=== PATIENT | female | born 1950 | race Caucasian/White ===

== ENCOUNTER 2016-09-15 06:46 | Day surgery (SDC) | payer OTHER ==
[2016-09-13 08:49] VITALS: BMI 30.9
[~2016-09-15 06:46] MED LIST: CHONDROITIN SU A/HYALUR SOD 1 KIT IO ONE; CIPROFLOXACIN HCL 0.3% OPHTH 2.5ML BOTTLE OP SCH; CYCLOPENTOLATE HCL 1% OPHTH SOLN 2 ML BOTTLE OP SCH; FLURBIPROFEN 0.03% OPHTH SOLN 2.5 ML BOTTLE OP SCH; LIDOCAINE HCL 1% PRESERVATIVE FREE - 30ML VIAL IO ONE; LIDOCAINE HCL 2% JELLY (5 ML/TUBE) TP ONE; PHENYLEPHRINE 2.5% OPHTH SOLN 15 ML BOTTLE OP SCH; TROPICAMIDE 1% OPHTH SOLN 15 ML BOTTLE OP SCH
[2016-09-15] MEDS ORDERED: TROPICAMIDE 1% OPHTH SOLN 15 ML BOTTLE ONE (06:58)
[2016-09-15] MEDS ORDERED: CIPROFLOXACIN 0.3% EYE DROPS 5 ML BOTTLE ONE (06:58)
[2016-09-15] MEDS ORDERED: FLURBIPROFEN 0.03% OPHTH SOLN 2.5 ML BOTTLE ONE (06:58)
[2016-09-15] MEDS ORDERED: CYCLOPENTOLATE HCL 1% OPHTH SOLN 2 ML BOTTLE ONE (06:58)
[2016-09-15] MEDS ORDERED: PHENYLEPHRINE 2.5% OPHTH SOLN 15 ML BOTTLE ONE (06:59)
[2016-09-15 07:28] VITALS: BP 134/87; PULSE 72; TEMP 97.9
[2016-09-15] MEDS ORDERED: CIPROFLOXACIN HCL 0.3% OPHTH 2.5ML BOTTLE OD ONE ×3 (07:40→08:32)
[2016-09-15] MEDS ORDERED: PHENYLEPHRINE 2.5% OPHTH SOLN 15 ML BOTTLE OD ONE ×3 (07:40→08:32)
[2016-09-15] MEDS ORDERED: CYCLOPENTOLATE HCL 1% OPHTH SOLN 2 ML BOTTLE OD ONE ×3 (07:40→08:31)
[2016-09-15] MEDS ORDERED: FLURBIPROFEN 0.03% OPHTH SOLN 2.5 ML BOTTLE OD ONE ×3 (07:40→08:32)
[2016-09-15] MEDS ORDERED: TROPICAMIDE 1% OPHTH SOLN 15 ML BOTTLE OD ONE ×3 (07:40→08:32)
[2016-09-15] MEDS ORDERED: LIDOCAINE HCL/PF 1% SDV 5ML VIAL ONE ×2 (07:51→10:10)
[2016-09-15] MEDS ORDERED: LIDOCAINE HCL 2% JELLY (5 ML/TUBE) ONE (10:10)
[2016-09-15] MEDS ORDERED: EPINEPHrine/PF 1 MG/1 ML (1:1,000) AMPULE ONE (10:10)
== END 2016-09-15 11:50 | disposition home or self-care (01) ==
LOC: JASU-SURG 06:46
PROVIDERS: ATTEND Ophthalmology
PROC: 8E0KXY7 Examination of Musculoskeletal System (ICD-10-PCS; principal; 2016-09-15)
DX: Z53.8 Procedure and treatment not carried out for other reasons (principal)

== ENCOUNTER 2017-03-16 10:32 | Inpatient (IN) | payer OTHER ==
[2017-03-11 11:13] VITALS: BMI 30.9
[~2017-03-16 10:32] MED LIST changes: -CHONDROITIN SU A/HYALUR SOD 1 KIT IO ONE; -CIPROFLOXACIN HCL 0.3% OPHTH 2.5ML BOTTLE OP SCH; -CYCLOPENTOLATE HCL 1% OPHTH SOLN 2 ML BOTTLE OP SCH; -FLURBIPROFEN 0.03% OPHTH SOLN 2.5 ML BOTTLE OP SCH; -LIDOCAINE HCL 1% PRESERVATIVE FREE - 30ML VIAL IO ONE; +LIDOCAINE HCL 1%, 10 MG/ML (20ML VIAL) IJ ONE; -LIDOCAINE HCL 2% JELLY (5 ML/TUBE) TP ONE; -PHENYLEPHRINE 2.5% OPHTH SOLN 15 ML BOTTLE OP SCH; -TROPICAMIDE 1% OPHTH SOLN 15 ML BOTTLE OP SCH
[2017-03-16 11:25] LABS: URINE APPEARANCE CLOUDY; URINE BILIRUBIN NEGATIVE (NEGATIVE); URINE BLOOD 1+ (NEGATIVE); URINE COLOR YELLOW; URINE GLUCOSE (UA) NEGATIVE (NEGATIVE); URINE KETONE NEGATIVE (NEGATIVE); URINE NITRITE NEGATIVE (NEGATIVE); URINE PROTEIN NEGATIVE (NEGATIVE); URINE UROBILINOGEN NEGATIVE mg/dL (0.2-1.0)
[2017-03-16 11:30] LABS: URINE LEUK ESTERASE 3+ (NEGATIVE)
[2017-03-16 11:35] LABS: GRANULAR CASTS 3 /lpf; URINE BACTERIA MODERATE /hpf (NONE SEEN); URINE HYALINE CAST 2 /lpf; URINE MUCUS FEW; URINE RBC 10 /hpf (0-3); URINE WBC 109 /hpf (3-5)
[2017-03-16] MEDS ORDERED: LIDOCAINE HCL 1%, 10 MG/ML (20ML VIAL) ONE ×2 (12:46→14:41)
[2017-03-16] MEDS ORDERED: ROPIVACAINE HCL 0.5% 30ML VIAL ONE (12:46)
[2017-03-16] MEDS ORDERED: DEXAMETHASONE SOD PHOSPHATE/PF 10 MG/ML SDV ONE (12:46)
[2017-03-16] MEDS ORDERED: MIDAZOLAM HCL 2 MG/2 ML SINGLE DOSE VIAL ONE ×3 (14:36→15:52)
[2017-03-16] MEDS ORDERED: ISOSULFAN BLUE 10 MG/ML VIAL SQ ONE (14:41)
[2017-03-16] MEDS ORDERED: PROPOFOL 20 ML ONE ×2 (15:37→16:06)
[2017-03-16] MEDS ORDERED: LIDOCAINE HCL 1%, 10 MG/ML (20ML VIAL) IJ ONE ×2 (15:40→15:55)
[2017-03-16] MEDS ORDERED: CLINDAMYCIN PHOSPHATE 600 MG/4 ML VIAL ONE (15:50)
[2017-03-16] MEDS ORDERED: DEXAMETHASONE SOD PHOSPHATE 4 MG/1 ML VIAL ONE (16:05)
[2017-03-16] MEDS ORDERED: ONDANSETRON 4 MG/2 ML VIAL IVPUSH PRN (17:27)
[2017-03-16] MEDS ORDERED: LACTATED RINGERS SOLUTION 1,000 ML IV SCH (17:30)
[2017-03-16] MEDS ORDERED: ACETAMINOPHEN 500 MG TABLET (FP) PO PRN (17:59)
[2017-03-16] MEDS ORDERED: traMADol HCL 50 MG TABLET PO PRN (17:59)
--- NOTE | 2017-03-16 19:07 | OP ---
DATE OF OPERATION: 03/16/2017 PREOPERATIVE DIAGNOSIS: Left breast cancer. POSTOPERATIVE DIAGNOSIS: Left breast cancer. PROCEDURE: Left breast ultrasound guided wire localized lumpectomy and sentinel lymph node biopsy. SURGEON: Linnea Parker M.D. ANESTHESIA: Paravertebral block and sedation. ESTIMATED BLOOD LOSS: Minimal. COMPLICATIONS: None. This is a sterile procedure. INDICATION FOR PROCEDURE: The patient has a palpable mass in the outer left breast. The mammogram ultrasound shows 3 suspicious findings in the outer left breast. I did a needle biopsy of 2 of the findings in the left 3 o'clock location, both of which shows invasive carcinoma approximately 4 cm apart. The third area in the 2:30 location 6 cm from the nipple appeared to be dilated duct, also found to be suspicious. I decided this was close enough to the known cancer that would be removed at the time of lumpectomy with ultrasound guidance. The procedure was discussed with her, and all her questions answered. PROCEDURE IN DETAIL: The patient was brought to [facility] in [place], taken to nuclear medicine, where technetium labelled sulpha colloid was injected by the radiologist in the left breast 3 o'clock areolar border. She was brought up to the operating room and after paravertebral block was performed, she was taken into the operating room, and after IV sedation and IV antibiotics, the left breast and maxilla were prepped, and intraoperative ultrasound was performed to localize the area in the 2:30 location 6 cm from the nipple with a Kopans wire under ultrasound guidance by me. Once this was completed, 5 cc of isosulfan blue dye was injected into the left subareolar plexus, and the breast was massaged for 5 minutes. The left breast and axilla were then prepped and draped in the usual sterile fashion. 1% lidocaine was used to anesthetize the outer part of the left breast as well as the left axilla, and a 4-cm incision was made in the left axilla, carried down to the clavipectoral fascia to identify a sentinel lymph node that was hot but not blue. There was no other radioactivity, blue dye, pathological-appearing lymph nodes in the left axilla, therefore the sentinel lymph node was then sent to pathology for permanent section. Hemostasis was assured with electrocautery. Next, the left breast lumpectomy was performed. A radial incision was made in the outer part of the left breast, and the wire was used to make sure the 2:30 location area was included within the lumpectomy. A lumpectomy was performed en bloc tagged with a long suture lateral, short suture superior, sent to pathology for permanent section. I felt I was close medially, therefore I took a new medial margin with stitch at the old margin. In palpating the cavity, there was also some nodularity anteriorly at the lumpectomy, in the lumpectomy cavity at the 4 o'clock areolar border, and this was taken separately. It was sent to pathology for permanent section. Once hemostasis was assured, there was a wide defect left from this lumpectomy that measured 6 cm x 6 cm. Therefore superior, inferomedial lateral flaps were raised, and a tissue transfer procedure was performed to fill in the defect from the lumpectomy procedure. The parenchyma approximated in 2 layers of interrupted 2-0 Vicryl, skin approximated with interrupted 2-0 Vicryl, running 4-0 Prolene. The axillary incision was also closed in routine fashion with interrupted 2-0 Vicryl, running 4-0 Prolene. A sterile dressing with Tegaderm, 4x4s was applied. She tolerated procedure well and was taken to recovery in good condition. Lorne [id number] MTDD
--- NOTE | 2017-03-17 10:51 | PN ---
Progress Note (short form) - Note Progress Note: Anesthesia POD#1 S/p Left Lumpectomy under Paravertebral Block and TIVA VSS, block worked well,wering off now. Some residual numbness in axilla. Pain is coming back. Ultram is ordered yesterday.Tylenol and motrin are not suitable. No N/V. Janae Vee MD
[2017-03-17 11:03] VITALS: BP 150/70; PULSE 84; TEMP 97.4
--- NOTE | 2017-03-22 14:34 | PATH ---
Surgical Pathology Report Patient Name: CYNTHIA HICKS [facility]. Rec. #: [id number] /Age/Gender: 1950 (Age: 67) / F Account: [id number] Location: [address] [place] [address]/[facility] Taken: 03/17/2017 Received: 03/17/2017 Reported: 03/24/2017 Physicians: Linnea Parker M.D. Specimen(s) Received A: LEFT AXILLARY SENTINEL LYMPH NODE B: LEFT BREAST LUMPECTOMY C: LEFT BREAST NEW MEDIAL MARGIN D: LEFT BREAST MASS PALPABLE NODULE 4:00 AREOLAR BORDER Clinical History Invasive Final Diagnosis A. SENTINEL LYMPH NODE, LEFT AXILLARY, BIOPSY: ONE OF TWO LYMPH NODES POSITIVE FOR METASTATIC CARCINOMA (1/2). SIZE OF THE TUMOR DEPOSIT: 0.6 CM. EXTRANODAL EXTENSION: NOT DEFINITIVELY IDENTIFIED. Comment: Immunohistochemical stain for Ae1/Ae3 keratin performed and interpreted at [facility] on block A2 highlights keratin positive metastatic tumor deposit. B. BREAST, LEFT, LUMPECTOMY: MODERATELY DIFFERENTIATED INVASIVE DUCTAL CARCINOMA (COOKIE HISTOLOGIC SCORE 7: TUBULE FORMATION 3 OF 3, NUCLEAR PLEOMORPHISM 2 OF 3, MITOTIC RATE 2 OF 3), 2.4 CM FOCUS. ADDITIONAL, 1.5 CM, FOCUS OF INVASIVE LOBULAR CARCINOMA, NUCLEAR GRADE 2. DUCTAL CARCINOMA IN SITU (DCIS), INTERMEDIATE NUCLEAR GRADE, SOLID AND CRIBRIFORM TYPES, ASSOCIATED WITH INVASIVE DUCTAL CARCINOMA, MAJOR (>25%). LOBULAR CARCINOMA IN SITE (LCIS), NUCLEAR GRADE 2, ASSOCIATED WITH THE FOCUS OF INVASIVE LOBULAR CARCINOMA. SURGICAL RESECTION MARGINS: INVASIVE LOBULAR CARCINOMA FOCALLY ABUTS SUPERIOR MARGIN AND MEDIAL ASPECT IN THIS SPECIMEN (REFER TO PART C FOR THE FINAL MEDIAL MARGIN); INVASIVE DUCTAL CARCINOMA IS FOCALLY <0.5 MM FROM THE INFERIOR MARGIN; MARGINS ARE NEGATIVE FOR DCIS. PRIOR BIOPSY SITE CHANGES PRESENT. LYMPHOVASCULAR INVASION: PRESENT. PERINEURAL INVASION: NOT DEFINITIVELY IDENTIFIED. SURROUNDING BREAST TISSUE: FIBROCYSTIC CHANGE WITH FOCAL USUAL DUCT HYPERPLASIA, FOCAL ADENOSIS, FOCAL COLUMNAR CELLS CHANGE, DUCT DILATATION, CYST FORMATION AND STROMAL FIBROSIS. PATHOLOGIC STAGING: mpT2 pN1a (ALSO REFER TO CHECKLIST BELOW). RECEPTOR STATUS: REFER TO CHECKLIST BELOW. Comment: Immunohistochemical staining for E-cadherin performed and interpreted at [facility] on blocks B1 and B4 shows strong membranous staining in ductal carcinoma and negative staining in lobular carcinoma. C. BREAST, LEFT, NEW MEDIAL MARGIN, EXCISION: BENIGN BREAST TISSUE WITH FIBROCYSTIC CHANGE WITH FOCAL USUAL DUCTAL HYPERPLASIA, FOCAL ADENOSIS, DUCT DILATATION, CYST FORMATION AND STROMAL FIBROSIS. NEGATIVE FOR INVASIVE OR IN SITU CARCINOMA. Comment: Immunohistochemical stain for Ae1/Ae3 keratin performed and interpreted at [facility] on block C4 is negative, supporting the interpretation above. Immunohistochemical stain for E-cadherin is positive supporting ductal hyperplasia. D. BREAST, LEFT, 4:00, AREOLAR BORDER, PALPABLE NODULE, EXCISIONAL BIOPSY: FOCUS OF INVASIVE DUCTAL CARCINOMA, WELL DIFFERENTIATED (COOKIE HISTOLOGIC SCORE OF 4: TUBULE FORMATION 1 OF 3, NUCLEAR PLEOMORPHISM 2 OF 3, MITOTIC RATE 1 OF 3), 0.4 CM IN GREATEST DIMENSION. INVASIVE CARCINOMA ABUTS CAUTERIZED MARGIN OF RESECTION. Comment: Immunohistochemical stain for SMM-HC and p63 performed and interpreted and [facility] on block D3 show loss of myoepithelial cells in invasive carcinoma. Immunohistochemical stain for E-cadherin shows positive membranous staining in tumor cells supporting ductal phenotype; S100 is negative. Comments Breast Invasive Carcinoma: Surgical Pathology Cancer Case Summary Based on AJCC/UICC TNM, 7th edition Procedure _x_ Excision with image-guided localization Lymph Node Sampling _x_ [place] lymph nodes Specimen Laterality _x_ Left Tumor Size: Size of Largest Invasive Carcinoma Greatest dimension of largest focus of invasion over 1 mm: 2.4 cm (24 mm) Tumor Focality _x_ Multiple foci of invasive carcinoma Number of foci: 3 Sizes of individual foci: 2.4 cm, 1.5 cm and 0.4 cm Macroscopic and Microscopic Extent of Tumor Skin _x_ Invasive carcinoma does not invade into the dermis or epidermis Nipple _x_ Not applicable (excisions less than total mastectomy) Skeletal Muscle _x_ No skeletal muscle present Ductal Carcinoma In Situ (DCIS) _x_ DCIS is present _x_ as a major component (>25% of tumor, extensive intraductal component) Lobular carcinoma in situ (LCIS) _x_ Present, nuclear grade 2 Histologic Type of Invasive Carcinoma: _x_ Invasive carcinoma of no special type (ductal, not otherwise specified) _x_ Invasive lobular carcinoma Histologic Grade: (Cookie Histologic Score, for invasive ductal carcinoma) Tubular Differentiation _x_ Score 1 (smaller focus) _x_ Score 3 (larger focus) Nuclear Pleomorphism _x_ Score 2 Mitotic Rate _x_ Score 1 (smaller focus) _x_ Score 2 (larger focus) Overall Grade _x_ Grade 1: scores of 4 (well differentiated smaller focus) _x_ Grade 2: scores of 7 (moderately differentiated larger focus) Margins _x_ Margins positive for invasive carcinoma: invasive lobular carcinoma abuts superior margin _x_ Margins close to (<1 mm) invasive carcinoma: invasive ductal carcinoma is focally <0.5mm from the inferior margin _x_ Margins uninvolved by DCIS Distance from closest margin: >1.0 cm (inferior margin) Lymph-Vascular Invasion _x_ Present Lymph Nodes Total number of lymph nodes examined (sentinel and nonsentinel): 2 Number of sentinel lymph nodes examined: 2 Number of lymph nodes with macrometastases (> 2 mm): 1 Number of lymph nodes with micrometastases (>0.2 mm to 2 mm and/or >200cells):0 Number of lymph nodes with isolated tumor cells (=0.2 mm and =200 cells): 0 Size of largest metastatic deposit (if present): 0.6 cm Extranodal Extension _x_ Not identified Pathologic Staging (pTNM) Primary Tumor (Invasive Carcinoma): mpT2 Regional Lymph Nodes (pN): pN1a(sn) Distant Metastasis (pM): not applicable Biomarker Studies Results of ER and FL studies performed on prior biopsy ([id number]) blocks A1 and B1 at [facility] are as follows: ER (clone [id number] mouse monoclonal antibody by [employer]): >95% nuclear staining with strong intensity (POSITIVE). FL (clone16 mouse monoclonal antibody by [employer]): ~60% nuclear staining with strong to moderate intensity (POSITIVE). Results of Her2 (IHC) & Ki-67 studies performed on prior biopsy ([id number]) at [place], [place] ([id number]) are as follows: Her2 IHC (EP3 from [employer], formerly known as [id number], using Al Polymer Refine detection kit): 1+ (NEGATIVE) Ki67: up to 30% (High proliferation index) Positive and negative controls (internal if applicable) showed appropriate results. Formalin fixation and cold ischemic times were within current ASCO/CAP recommendations for ER, FL and Her2 testing. Electronically Signed Sourav Campos M.D. Amendments Amended: 03/24/2017 Previous Signout Date: 03/22/2017 Comment: Per Dr. Parker part D should be 4:00. Gross Description A. Received in formalin labeled "axillary sentinel lymph node left" are 2 schilling, irregular lymph nodes measuring 1.0 x 0.8 x 0.4 cm and 2.0 x 1.7 x 0.6 cm. The lymph nodes are bisected and entirely submitted in 3 cassettes as follows: 1-one bisected lymph node; 2-3-one bisected lymph node. B. Received in formalin, labeled "left breast lumpectomy" is a 7.5 x 6.8 x 4.5 cm. schilling-yellow, irregular, portion of fibroadipose tissue with a needle localization wire present. There is a short suture marking the superior aspect and a long suture marking the lateral aspect, per the surgeon. There is no skin or nipple present. The specimen is inked as follows: Superior blue; inferior green; anterior and lateral red; medial yellow; deep black. The specimen is serially sectioned from anterior to deep. Sectioning reveals a 1.4 x 1.2 x 1.2 cm schilling, indurated, ill-defined mass at 0.7 cm from the inferior margin and 1.0 cm from the lateral margin. The mass is at 1.3 cm from the superior margin. There is a second mass at approximately 1.5 cm deep to the first mass. The second mass measures 1.5 x 0.8 x 0.8 cm and is at 0.4 cm from the superior margin. Induction Machine Setter sections are submitted in 10 cassettes as follows: 1-2-one full face section of first mass each (each with inferior margin); 3-4-one full face section of second mass each (each with superior margin); 9-3-ntxuzxdhqd superior margin; 7-lateral margin; 8-medial margin; 9-anterior margin; 10-deep margin. Time to fixation: <1h Total formalin fixation time: ~24h C. Received in formalin labeled "left breast new medial margin" is a 5.5 x 3.8 x 1.6 cm irregular portion of fibroadipose tissue with a suture marking the old margin, per the surgeon. The new margin is inked blue and the specimen is serially sectioned. The specimen is entirely and sequentially submitted in 10 cassettes. D. Received in formalin labeled "left breast palpable nodule 4:00 areolar border" are 2 schilling-yellow, irregular, unoriented portions of fibroadipose tissue measuring 0.7 x 0.5 x 0.2 cm and 1.4 x 0.8 x 0.7 cm. The specimens are inked green and the larger portion is serially sectioned. The specimen is entirely submitted in 3 cassettes as follows: 1-smaller portion in toto; 0-7-ghfybjyk sectioned larger portion of tissue. 03/17/201703/17/2017
== END 2017-03-17 11:22 | disposition home health service (06) | DRG 581 ==
LOC: JSAMEDAYSX 10:32 → EDSTATUS 13:00 → J6S 18:15
PROVIDERS: ADMIT Surgery; ATTEND Surgery
PROC: 0HBU0ZZ Excision of Left Breast, Open Approach (ICD-10-PCS; principal; 2017-03-16 13:00)
PROC: 07B60ZX Excision of Left Axillary Lymphatic, Open Approach, Diagnostic (ICD-10-PCS; 2017-03-16 13:00)
DX: C50.912 Malignant neoplasm of unspecified site of left female breast (principal); K21.9 Gastro-esophageal reflux disease without esophagitis; J44.9 Chronic obstructive pulmonary disease, unspecified; I10 Essential (primary) hypertension; E66.8 Other obesity; Z68.30 Body mass index [BMI] 30.0-30.9, adult
CPT/HCPCS: 78195-TC; 81003; 81015; 88307-TC; 88341-TC; 94760; A9541

== ENCOUNTER 2018-11-01 13:47 | Emergency (ER) | payer OTHER ==
[2018-11-01 13:59] VITALS: BP 159/87; PULSE 85; TEMP 98; BMI 32.5
[2018-11-01] MEDS ORDERED: KETOROLAC TROMETHAMINE 60 MG/2 ML VIAL IM ONE (14:19)
[2018-11-01] MEDS ORDERED: KETOROLAC TROMETHAMINE 60 MG/2 ML VIAL ONE (14:21)
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
== END 2018-11-01 14:50 | disposition home or self-care (01) ==
LOC: JERFT 13:47
PROC: 3E0233Z Introduction of Anti-inflammatory into Muscle, Percutaneous Approach (ICD-10-PCS; principal; 2018-11-01)
DX: S16.1XXA Strain of muscle, fascia and tendon at neck level, initial encounter (principal); V43.52XA Car driver injured in collision with other type car in traffic accident, initial encounter; Y93.89 Activity, other specified; Y92.410 Unspecified street and highway as the place of occurrence of the external cause
CPT/HCPCS: 99281-25

== ENCOUNTER 2019-07-16 10:50 | Emergency (ER) | payer OTHER ==
[2019-07-16 10:59] VITALS: BP 155/78; PULSE 99; TEMP 98; BMI 31.7
[2019-07-16] MEDS ORDERED: DEXAMETHASONE LIQUID 0.5 MG/5 ML PO ONE (12:11)
[2019-07-16] MEDS ORDERED: ALBUTEROL SO4 2.5/IPRATROPIUM 0.5 INH SOL 3 ML VIAL.NEB. NEB ONE ×2 (12:11→12:28)
[2019-07-16] MEDS ORDERED: DEXAMETHASONE SOD PHOSPHATE 10 MG/1 ML VIAL ONE (12:28)
[2019-07-16 13:12] LABS: EPI CELLS 3.6 /HPF (0-5/HPF); HYALINE CASTS 14 /lpf (0-8); URINE APPEARANCE CLOUDY; URINE BACTERIA 11.3 /hpf (NEGATIVE); URINE BILIRUBIN NEGATIVE (NEGATIVE); URINE COLOR DK YELLOW; URINE GLUCOSE (UA) NEGATIVE (NEGATIVE); URINE KETONE TRACE (NEGATIVE); URINE LEUK ESTERASE 1+ (NEGATIVE); URINE NITRITE NEGATIVE (NEGATIVE); URINE PROTEIN NEGATIVE (NEGATIVE); URINE RBC 7 /hpf (0-4); URINE WBC 33 /hpf (0-5)
--- NOTE | 2019-07-16 14:20 | PDOC ---
History of Present Illness - General Chief Complaint: Respiratory Stated Complaint: COUGHING/SINUS INFECTION Time Seen by Provider: 07/16/19 11:34 History Source: Patient Exam Limitations: No Limitations Past History - Travel Traveled outside of the country in the last 30 days: No Close contact w/someone who was outside of country & ill: No - Past Medical History Allergies/Adverse Reactions: Allergies Allergy/AdvReac Type Severity Reaction Status Date / Time acetaminophen [From Tylenol] Allergy "coma" Verified 07/16/19 10:59 aspirin Allergy "rash,fever Verified 07/16/19 10:59 " montelukast sodium Allergy "elevated Verified 07/16/19 10:59 [From Singulair] blood pressure" Penicillins Allergy "fever,rash Verified 07/16/19 10:59 " shellfish derived Allergy "toxic Verified 07/16/19 10:59 reaction" tetracycline [Tetracycline] Allergy "fever,rash,hairy Verified 07/16/19 10:59 tongue" Home Medications: Ambulatory Orders Amlodipine Besylate [Norvasc -] 5 mg PO DAILY 09/13/16 Letrozole 2.5 mg PO DAILY 03/21/18 Mirabegron [Myrbetriq] 25 mg PO DAILY 03/21/18 Cetirizine HCl [Allergy Relief] 10 mg PO DAILY 11/01/18 Nortriptyline HCl [Pamelor -] 10 mg PO DAILY 11/01/18 Ranitidine [Zantac -] 150 mg PO DAILY 11/01/18 Albuterol Sulfate Inhaler - [Ventolin HFA Inhaler -] 1 - 2 inh PO Q4H #1 inhaler 07/16/19 Azithromycin [Zithromax 250mg Tablets -] 250 mg PO UTDICT #6 tab 07/16/19 Methylprednisolone [Medrol Dose Pasquale] 4 mg PO ASDIR #21 tablet 07/16/19 Anemia: No Asthma: No Cancer: Yes (left breast) Cardiac Disorders: Yes (arrhythmia) 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, memory loss) COPD: Yes CHF: No Dementia: No Diabetes: No GI Disorders: Yes (GERD) Disorders: No HTN: Yes Hypercholesterolemia: No Liver Disease: No Seizures: No Thyroid Disease: Yes - Surgical History Appendectomy: Yes Cholecystectomy: Yes Neurologic Surgery: No Orthopedic Surgery: No - Reproductive History Is Patient Now?: No - Psycho Social/Smoking Cessation Hx Smoking History: Never smoked Have you smoked in the past 12 months: No If you are a former smoker, when did you quit?: 1970 Hx Alcohol Use: No Drug/Substance Use Hx: No Substance Use Type: Alcohol Hx Substance Use Treatment: No Review of Systems - Review of Systems Able to Perform ROS?: Yes Comments:: 07/16/19 15:14 CONSTITUTIONAL: Absent: fever, chills, diaphoresis, generalized weakness, malaise, loss of appetite HEENT: Present: sinus pressure, nasal congestion Absent: throat pain, throat swelling, difficulty swallowing, mouth swelling, ear pain, eye pain, visual Changes CARDIOVASCULAR: Absent: chest pain, loss of consciousness, palpitations, irregular heart rate, peripheral edema RESPIRATORY: Present: cough Absent: shortness of breath, dyspnea with exertion, orthopnea, wheezing, stridor, hemoptysis GASTROINTESTINAL: Absent: abdominal pain, abdominal distension, nausea, vomiting, diarrhea, constipation, melena, hematochezia GENITOURINARY: Present: urinary frequency Absent: dysuria, urgency, hesitancy, hematuria, flank pain, genital pain MUSCULOSKELETAL: Absent: myalgia, arthralgia, joint swelling SKIN: Absent: rash, itching, pallor NEUROLOGIC: Absent: headache, focal weakness or paresthesias, dizziness, unsteady gait, seizure, mental status changes, bladder or bowel incontinence PSYCHIATRIC: Absent: anxiety, depression, suicidal or homicidal ideation, hallucinations. Is the patient limited [place] proficient: No *Physical Exam - Vital Signs Last Vital Signs Temp Pulse Resp BP Pulse Ox 98.0 F 99 H 18 155/78 95 07/16/19 10:56 07/16/19 10:56 07/16/19 10:56 07/16/19 10:56 07/16/19 10:56 - Physical Exam 07/16/19 15:16 GENERAL: Well developed, well nourished. Awake and alert. No acute distress. HEENT: Normocephalic, atraumatic. PERRLA, EOMI. No conjunctival pallor. Sclera are non- icteric. Moist mucous membranes. Oropharynx is clear. Wet cough noted on exam. NECK: Supple. Full ROM. No JVD. Carotid pulses 2+ and symmetric, without bruits. No thyromegaly. No lymphadenopathy. CARDIOVASCULAR: Regular rate and rhythm. No murmurs, rubs, or gallops. Distal pulses are 2+ and symmetric. PULMONARY: No evidence of respiratory distress. Lungs clear to auscultation bilaterally. No wheezing, rales or rhonchi. ABDOMINAL: Soft. Non-tender. Non-distended. No rebound or guarding. No organomegaly. Normoactive bowel sounds. MUSCULOSKELETAL Normal range of motion at all joints. No bony deformities or tenderness. No CVA tenderness. EXTREMITIES: No cyanosis. No clubbing. No edema. No calf tenderness. SKIN: Warm and dry. Normal capillary refill. No rashes. No jaundice. NEUROLOGICAL: Alert, awake, appropriate. Cranial nerves 2-12 intact. No deficits to light touch and temperature in face, upper extremities and lower extremities. No motor deficits in the in face, upper extremities and lower extremities. Normoreflexic in the upper and lower extremities. Normal speech. Toes are down- going bilaterally. Gait is normal without ataxia. PSYCHIATRIC: Cooperative. Good eye contact. Appropriate mood and affect. ED Treatment Course - ADDITIONAL ORDERS Additional order review: Laboratory Results 07/16/19 12:54 Urine Color Dk yellow Urine Appearance Cloudy Urine pH 5.0 Ur Specific [place] 1.025 Urine Protein Negative Urine Glucose (UA) Negative Urine Ketones Trace H Urine Blood Negative Urine Nitrite Negative Urine Bilirubin Negative Urine Urobilinogen 1.0 Ur Leukocyte Esterase 1+ H Urine WBC (Auto) 33 Urine RBC (Auto) 7 Urine Casts (Auto) 14 U Epithel Cells (Auto) 3.6 Urine Bacteria (Auto) 11.3 - RADIOLOGY Radiology Studies Ordered: Category Date Time Status CHEST PA & LAT [RAD] Stat Radiology 07/16/19 12:11 Completed - Medications Given in the ED: ED Medications Discontinued Medications Generic Name Dose Route Start Last Admin Trade Name Freq PRN Reason Stop Dose Admin Albuterol/Ipratropium 1 amp 07/16/19 12:11 07/16/19 12:30 Duoneb - NEB 07/16/19 12:12 1 amp ONCE ONE Administration Dexamethasone 10 mg 07/16/19 12:11 07/16/19 12:30 Decadron Liquid - PO 07/16/19 12:12 10 mg ONCE ONE Administration Medical Decision Making - Medical Decision Making 07/16/19 15:17 the patient is a 69-year-old female with past medical history of COPD, hypertension, CVA, GERD, breast cancer, presents to the ER for 1 week of cough, sinus congestion, rhinorrhea, and urinary frequency. She has been taking her usual medications for her symptoms but has not taken any additional cold medication. She states that it all started as an upper respiratory infection now she has been going to the bathroom frequently with a full bladder every time. Denies fevers, chills, shortness of breath with walking, chest pain, nausea, dysuria,vomiting and diarrhea. A/P: Bronchitis On exam lungs are clear to auscultation bilaterally with no wheezes rales or rhonchi. Good aeration to the bases. Chest x-ray is negative for pneumonia. Patient cannot take a deep breath without coughing. We will treat as a bronchitis. Likely sinus congestion and rhinorrhea contributing to the cough. UA is with 1+ leuks but 13 WBCs. will defer antibiotics for UTI as it is weakly positive. Wait for culture. Given patient has COPD, azithromycin, prednisone and albuterol inhalers prescribed. Patient up with a primary care doctor this week. Discharge home I discussed the physical exam findings, ancillary test results and final diagnoses with the patient. I answered all of the patient's questions. The patient was satisfied with the care received and felt comfortable with the discharge plan and treatment plan. The Patient agrees to follow up with the primary care physician/specialist within 24-72 hours. Return precautions were given. Discharge - Discharge Information Problems reviewed: Yes Clinical Impression/Diagnosis: Bronchitis Condition: Stable Disposition: HOME - Admission No - Additional Discharge Information Prescriptions: Albuterol Sulfate Inhaler - [Ventolin HFA Inhaler -] 1 - 2 inh PO Q4H #1 inhaler Azithromycin [Zithromax 250mg Tablets -] 250 mg PO UTDICT #6 tab Methylprednisolone [Medrol Dose Pasquale] 4 mg PO ASDIR #21 tablet - Follow up/Referral Referrals: Graciela Cifuentes MD [Primary Care Provider] - - Patient Discharge Instructions Patient Printed Discharge Instructions: DI for Acute Bronchitis Additional Instructions: You have bronchitis. Your chest x-ray was negative for pneumonia. Please use the inhaler every 4 hours for the next week to help with your cough. Continue taking the prednisone daily for the next 4 days. You may take the Tessalon Perles as directed for cough. Please follow up with your primary care doctor in 1 week if your symptoms are not improving. Return to the emergency department if you have fevers, chills, worsening cough, chest pain, worsening shortness of breath or if you have any changes in your symptoms. - Post Discharge Activity
== END 2019-07-16 14:28 | disposition home or self-care (01) ==
LOC: JERFT 10:50
PROC: 3E0F7GC Introduction of Other Therapeutic Substance into Respiratory Tract, Via Natural or Artificial Opening (ICD-10-PCS; principal; 2019-07-16)
DX: J20.9 Acute bronchitis, unspecified (principal); I10 Essential (primary) hypertension; J44.9 Chronic obstructive pulmonary disease, unspecified; K21.9 Gastro-esophageal reflux disease without esophagitis; E07.9 Disorder of thyroid, unspecified; I69.854 Hemiplegia and hemiparesis following other cerebrovascular disease affecting left non-dominant side; I69.811 Memory deficit following other cerebrovascular disease; Z85.3 Personal history of malignant neoplasm of breast; Z88.0 Allergy status to penicillin; Z91.013 Allergy to seafood; Z88.6 Allergy status to analgesic agent; Z88.8 Allergy status to other drugs, medicaments and biological substances
CPT/HCPCS: 71046-TC-FY; 81003; 87086; 94640; 99282-25

== ENCOUNTER 2019-08-02 11:00 | Inpatient (IN) | payer OTHER ==
[2019-08-29 09:25] VITALS: BMI 31.4
[2019-08-30] MEDS ORDERED: GENTAMICIN SO4 80 MG/2 ML VIAL ONE (07:18)
[2019-08-30] MEDS ORDERED: LIDOCAINE 1%-EPI 1:100,000 30 ML MDV IJ ONE (07:18)
[2019-08-30] MEDS ORDERED: THROMBIN (BOVINE) 20,000 UNIT VIAL TP ONE (07:18)
[2019-08-30] MEDS ORDERED: fentaNYL CITRATE 250 MCG/5 ML VIAL ONE (07:38)
[2019-08-30] MEDS ORDERED: MIDAZOLAM HCL 2 MG/2 ML SINGLE DOSE VIAL ONE (07:38)
[2019-08-30] MEDS ORDERED: ROCURONIUM BROMIDE 50 MG/5 ML SYRINGE ONE ×3 (07:38→10:05)
[2019-08-30] MEDS ORDERED: EPHEDRINE SULFATE/0.9% NACL/PF 50 MG/10 ML SYRINGE NR ONE (07:38)
[2019-08-30] MEDS ORDERED: PROPOFOL 20 ML ONE ×4 (07:39→09:53)
[2019-08-30] MEDS ORDERED: BETAMET ACET/BETAMET NA PH 30 MG/5 ML VIAL ONE (07:48)
[2019-08-30] MEDS ORDERED: BACITRACIN 15 GM TUBE TOPICAL OINTMENT ONE (07:49)
--- NOTE | 2019-08-30 08:05 | HP ---
History & Physical Update - History History: No Change - Physical Physical: No Change - Assessment Assessment: No Change - Plan Plan: No Change (Full H&P in paper chart by Dr. Moffett)
[2019-08-30] MEDS ORDERED: VANCOMYCIN 1,000 MG VIAL (RESTRICTED TO ID ONLY) IVPB ONE (08:30)
[2019-08-30] MEDS ORDERED: ceFAZolin SODIUM 1 GM VIAL IVPB ONE (08:40)
[2019-08-30] MEDS ORDERED: LIDOCAINE 1%/EPI 1:100000 (20 ML MULTI DOSE VIAL) IJ ONE (08:50)
[2019-08-30] MEDS ORDERED: HYDROmorphone HCl 2 MG/ML VIAL ONE (09:13)
[2019-08-30] MEDS ORDERED: ONDANSETRON 4 MG/2 ML VIAL IVPUSH PRN ×2 (09:26→10:42)
[2019-08-30] MEDS ORDERED: BUPIVACAINE LIPOSOME/PF (EXPAREL) 266 MG/20 ML VIAL ONE (09:52)
[2019-08-30] MEDS ORDERED: NEOSTIGMINE METHYLSULFATE 0.5 MG/1 ML - 10 ML MDV ONE (09:57)
[2019-08-30] MEDS ORDERED: BUPIVACAINE HCL/PF 0.5% (5 MG/ML) 30 ML VIAL IJ ONE (10:03)
[2019-08-30] MEDS ORDERED: BUPIVACAINE LIPOSOME/PF (EXPAREL) 266 MG/20 ML VIAL NR ONE (10:03)
[2019-08-30] MEDS ORDERED: ceFAZolin SODIUM 1 GM VIAL ONE ×2 (10:16→18:40)
[2019-08-30] MEDS ORDERED: DEXAMETHASONE SOD PHOSPHATE 4 MG/1 ML VIAL ONE (10:16)
[2019-08-30] MEDS ORDERED: VANCOMYCIN 1,000 MG VIAL (RESTRICTED TO ID ONLY) ONE (10:16)
[2019-08-30] MEDS ORDERED: LIDOCAINE HCL 2% JELLY (5 ML/TUBE) ONE (10:16)
[2019-08-30] MEDS ORDERED: LIDOCAINE HCL/PF 2% SDV 5ML VIAL ONE (10:16)
[2019-08-30] MEDS ORDERED: THROMBIN (BOVINE) 5,000 UNIT VIAL TP ONE (10:20)
[2019-08-30] MEDS ORDERED: GELATIN, ABSORBABLE 100 EACH SPONGE TP ONE (10:21)
[2019-08-30] MEDS ORDERED: BACITRACIN 50,000 UNITS VIAL TP ONE (10:21)
[2019-08-30] MEDS ORDERED: GENTAMICIN SO4 80 MG/2 ML VIAL IVPB ONE (10:23)
[2019-08-30] MEDS ORDERED: LABETALOL HCL 5 MG/1 ML (100MG/20 ML VIAL) ONE (10:37)
[2019-08-30] MEDS ORDERED: diphenhydrAMINE HCL 25 MG CAPSULE (FP) PO PRN (10:42)
[2019-08-30] MEDS ORDERED: oxyCODONE HCL 5 MG TABLET PO PRN (10:42)
[2019-08-30] MEDS ORDERED: morphine SULFATE 4 MG/ML VIAL IVPUSH PRN (10:42)
--- NOTE | 2019-08-30 10:56 | OP ---
Operative Note - Note: Operative Date: 08/30/19 Pre-Operative Diagnosis: Cervical spondylosis Operation: C3-7 posterior cervical laminectomies, posterior fusion with screws Post-Operative Diagnosis: Same as Pre-op Surgeon: Jair Gamboa Extractor Operator: Vishnu Anderson Anesthesiologist/DEPARTMENT SALES MANAGER: Mony Hansen Anesthesia: General Estimated Blood Loss (mls): 25 Operative Report Dictated: Yes
[2019-08-30] MEDS ORDERED: PATIENT'S OWN MEDICATION (NON-FORMULARY) (Umeclidinium Bromide [Incruse Ellipta] 62.5 MCG) IH SCH (11:00)
[2019-08-30] MEDS ORDERED: PATIENT'S OWN MEDICATION (NON-FORMULARY) (Fluticasone/Vilanterol [Breo Ellipta 200-25 Mcg IH SCH (11:00)
[2019-08-30] MEDS ORDERED: FAMOTIDINE 20 MG/50 ML IVPB 20 MG/50 ML MG IVPB ONE ×2 (12:00→12:30)
[2019-08-30] MEDS: LACTATED RINGERS SOLUTION 1,000 ML/1,000 ML INFUS.BAG IV SCH (14:00)
[2019-08-30] MEDS: LACTATED RINGERS SOLUTION 1,000 ML IV SCH ×2 (15:54→23:21)
[2019-08-30] MEDS: HEPARIN NA (PORCINE) 5,000 UNITS/ML 1ML VIAL SQ SCH ×3 (15:54→21:15)
[2019-08-30] MEDS ORDERED: CEFAZOLIN 1 GM/D5W 1 GM/50 ML BAG IVPB SCH (18:00)
[2019-08-30] MEDS ORDERED: CEFAZOLIN 1 GM in DEXTROSE 5%-WATER - 50 ML IVPB SCH (18:27)
[2019-08-30] MEDS: DOCUSATE SODIUM 100 MG CAPSULE (FP) PO SCH ×2 (18:35→21:15)
[2019-08-30] MEDS ORDERED: DEXTROSE 5%-WATER - 50 ML IVPB ONE (18:40)
[2019-08-30] MEDS: CEFAZOLIN 1 GM in DEXTROSE 5%-WATER - 50 ML IVPB SCH (19:09)
[2019-08-30] MEDS: LETROZOLE 2.5 MG TABLET (FP) PO SCH (21:39)
[2019-08-30] MEDS ORDERED: PATIENT'S OWN MEDICATION (NON-FORMULARY) (Mirabegron [Myrbetriq] 25 MG) PO SCH (22:00)
[2019-08-31] MEDS ORDERED: ceFAZolin SODIUM 1 GM VIAL ONE ×2 (01:01→10:24)
[2019-08-31] MEDS ORDERED: DEXTROSE 5%-WATER - 50 ML IVPB ONE ×2 (01:02→10:24)
[2019-08-31] MEDS: CEFAZOLIN 1 GM in DEXTROSE 5%-WATER - 50 ML IVPB SCH ×3 (01:30→18:48)
[2019-08-31] MEDS: DOCUSATE SODIUM 100 MG CAPSULE (FP) PO SCH ×3 (06:07→21:05)
[2019-08-31] MEDS: HEPARIN NA (PORCINE) 5,000 UNITS/ML 1ML VIAL SQ SCH ×3 (06:07→21:05)
--- NOTE | 2019-08-31 08:16 | PN ---
Progress Note (short form) - Note Progress Note: NEUROSURGERY POD #1 s/p C3-7 posterior cervical laminectomies, posterior fusion with screws No acute events per RN notes since surgery. Alert. Sitting up in bed at 45 degrees wearing her C-collar as instructed. Hasn't been OOB yet. C/o incisional pain. Adequate pain management with medications ordered. Denies n/v/f/c, CP, SOB, UE weakness/numbness AVSS. Afebrile. PE Gen: a&o x3, nad Neck: C-collar in place. Posterior neck dressing c/d/i. AMINATA 55 serosang Motor: GMNVI bilat. Strength/quarter supervisor 5/5 bilat. : stallworth to gravity LE: SCDs bilat. All compartments soft/non-tender. Problem List - Problems (1) Cervical radiculopathy Assessment/Plan: POD #1 s/p C3-7 posterior cervical laminectomies, posterior fusion with screws -Cont to wear you cervical collar 23/24hr/day (may remove while eating meals and or bathing) -Pain managemet to be addressed by anasthesia -Tylenol 650mg PO for fevre > 100.3F -OOB and ambulate with PT -May dc stallworth and begin trial of void once ambulating -DVT PPX -Regualr Diet -Monitor/record AMINATA output q shift Above plan discussed with Dr. Gamboa and agrees Code(s): M54.12 - RADICULOPATHY, CERVICAL REGION
--- NOTE | 2019-08-31 09:09 | PN ---
Progress Note, Physician Chief Complaint: Cervical Radiculopathy History of Present Illness: Previous notes and events reviewed awake and alert NAD c-collar in place complain of cough denies chest pain or SOB POD#1 C3-7 posterior cervical laminectomies, posterior fusion with screws leukocytosis, afebrile - Current Medication List Current Medications: Active Medications Amlodipine Besylate (Norvasc -) 5 mg PO DAILY [facility] Diphenhydramine HCl (Benadryl -) 25 mg PO Q6H PRN PRN Reason: FOR ITCHING Docusate Sodium (Colace -) 100 mg PO TID [facility] Last Admin: 08/31/19 06:07 Dose: 100 mg Fentanyl (Sublimaze Injection -) 50 mcg IVPUSH [id number] PRN PRN Reason: PAIN-PACU ORDER X 4 DOSES ONLY Last Admin: 08/30/19 11:05 Dose: 50 mcg Ferrous Sulfate (Feosol -) 325 mg PO DAILY [facility] Folic Acid (Folic Acid -) 1 mg PO DAILY [facility] Heparin Sodium (Porcine) (Heparin -) 5,000 unit SQ TID [facility] Last Admin: 08/31/19 06:07 Dose: 5,000 unit Lactated Ringer's (Lactated Ringers Solution) 1,000 mls @ 125 mls/hr IV ASDIR [facility] Last Admin: 08/30/19 23:21 Dose: 125 mls/hr Lactated Ringer's (Lactated Ringers Solution) 1,000 ml in 1,000 mls @ 125 mls/ hr IV ASDIR [facility] Last Admin: 08/30/19 14:00 Dose: 125 mls Cefazolin Sodium 1 gm/ (Dextrose) 50 mls @ 100 mls/hr IVPB Q8H-IV [facility] Stop: 08/31/19 18:44 Last Admin: 08/31/19 01:30 Dose: 100 mls/hr Letrozole (Femara -) 2.5 mg PO HS [facility] Last Admin: 08/30/19 21:39 Dose: 2.5 mg Loratadine (Claritin -) 10 mg PO DAILY [facility] Morphine Sulfate (Morphine Sulfate) 4 mg IVPUSH Q4H PRN PRN Reason: PAIN LEVEL 7 - 10 Last Admin: 08/30/19 21:27 Dose: 4 mg Non-Formulary Medication (Fluticasone/Vilanterol [Breo Ellipta 200-25 Mcg Inh]) 1 each IH PRN MARIELENA Non-Formulary Medication (Mirabegron [Myrbetriq]) 25 mg PO BID MARIELENA Non-Formulary Medication (Umeclidinium [place] [Incruse Ellipta]) 62.5 mcg IH PRN MARIELENA Ondansetron HCl (Zofran Injection) 4 mg IVPUSH Q6H PRN PRN Reason: NAUSEA Oxycodone HCl (Roxicodone -) 5 mg PO Q4H PRN PRN Reason: PAIN LEVEL 1-5 Oxycodone HCl (Roxicodone -) 10 mg PO Q4H PRN PRN Reason: PAIN LEVEL 6-10 - Objective Vital Signs: Vital Signs Temperature 98.2 F 08/31/19 06:34 Pulse Rate 82 08/31/19 06:34 Respiratory Rate 20 08/31/19 06:34 Blood Pressure 142/79 08/31/19 06:34 O2 Sat by Pulse Oximetry (%) 96 08/30/19 21:00 Constitutional: Yes: No Distress, Calm Eyes: Yes: Conjunctiva Clear HENT: Yes: Atraumatic Neck: Yes: Other (c-collar) Cardiovascular: Yes: Regular Rate and Rhythm Respiratory: Yes: Regular, CTA Bilaterally Gastrointestinal: Yes: Normal Bowel Sounds, Soft Genitourinary: Yes: Monge Present Musculoskeletal: Yes: Muscle Weakness Extremities: Yes: WNL Edema: No Neurological: Yes: Alert, Oriented Psychiatric: Yes: Alert, Oriented Problem List - Problems (1) Cervical radiculopathy Assessment/Plan: POD #1 C3-7 posterior cervical laminectomies, posterior fusion with screws Neurosurgery on board C-collar for 23hrs/day AMINATA drain with <25cc sanguious output pain control DVT ppx PT Cefazolin Code(s): M54.12 - RADICULOPATHY, CERVICAL REGION (2) HTN (hypertension) Assessment/Plan: Amlodipine low Na diet Code(s): I10 - ESSENTIAL (PRIMARY) HYPERTENSION Assessment/Plan see problem list dvt ppx
[2019-08-31 09:12] LABS: HEMATOCRIT 35.8 % (32.4-45.2); HEMOGLOBIN 12.2 GM/dL (10.7-15.3); MCH 29.8 pg (25.7-33.7); MEAN CELL VOLUME 87.8 fl (80-96); MEAN PLT VOLUME 8.1 fl (7.5-11.1); PLATELET COUNT 302 K/MM3 (134-434); RBC 4.08 M/mm3 (3.60-5.2); RDW 14.4 % (11.6-15.6); WHITE BLOOD COUNT 11.9 K/mm3 (4.0-10.0)
[2019-08-31 09:41] LABS: BLOOD UREA NITROGEN 15.8 mg/dL (7-18); CALCIUM 8.6 mg/dL (8.5-10.1); CREATININE 0.7 mg/dL (0.55-1.3); POTASSIUM 3.9 mmol/L (3.5-5.1)
[2019-08-31] MEDS: FERROUS SO4 325 MG TABLET (FP) PO SCH (10:20)
[2019-08-31] MEDS: LORATADINE 10 MG TABLET PO SCH (10:20)
[2019-08-31] MEDS: amLODIPine BESYLATE 5 MG TABLET (FP) PO SCH (10:20)
[2019-08-31] MEDS: FOLIC ACID 1 MG TABLET (FP) PO SCH (10:20)
[2019-08-31] MEDS: oxyCODONE HCL 5 MG TABLET PO PRN ×2 (12:19→18:46)
--- NOTE | 2019-08-31 13:24 | PN ---
Progress Note (short form) - Note Progress Note: POD #1 s.o C2-C7 laminectomy under GETA. Patient pain better controlled with oxycodone po. Had nausea immediately postop but is now asymptomatic. Tolerating po. All questions answered.
[2019-08-31] MEDS: LACTATED RINGERS SOLUTION 1,000 ML IV SCH (20:01)
[2019-08-31] MEDS: LACTATED RINGERS SOLUTION 1,000 ML/1,000 ML INFUS.BAG IV SCH (20:02)
[2019-08-31] MEDS ORDERED: PT OWN MED DRAWER 7, Y5N ONE (20:53)
[2019-08-31] MEDS: LETROZOLE 2.5 MG TABLET (FP) PO SCH (21:05)
[2019-09-01] MEDS: oxyCODONE HCL 5 MG TABLET PO PRN ×4 (03:22→21:54)
[2019-09-01] MEDS: HEPARIN NA (PORCINE) 5,000 UNITS/ML 1ML VIAL SQ SCH ×3 (06:15→21:27)
[2019-09-01] MEDS: DOCUSATE SODIUM 100 MG CAPSULE (FP) PO SCH ×3 (06:15→21:27)
[2019-09-01 08:03] LABS: HEMOGLOBIN 12.9 GM/dL (10.7-15.3); MCH 29.9 pg (25.7-33.7); MEAN CELL VOLUME 87.9 fl (80-96); MEAN PLT VOLUME 8.1 fl (7.5-11.1); PLATELET COUNT 282 K/MM3 (134-434); RBC 4.32 M/mm3 (3.60-5.2); RDW 14.4 % (11.6-15.6); WHITE BLOOD COUNT 10.1 K/mm3 (4.0-10.0)
--- NOTE | 2019-09-01 08:03 | PN ---
Progress Note, Physician Chief Complaint: Cervical Radiculopathy History of Present Illness: Previous notes and events reviewed awake and alert NAD c-collar in place complain of cough denies chest pain or SOB POD#2 C3-7 posterior cervical laminectomies, posterior fusion with screws leukocytosis showing downtrend afebrile complain of thick coating on tongue - Current Medication List Current Medications: Active Medications Amlodipine Besylate (Norvasc -) 5 mg PO DAILY [facility] Last Admin: 08/31/19 10:20 Dose: 5 mg Diphenhydramine HCl (Benadryl -) 25 mg PO Q6H PRN PRN Reason: FOR ITCHING Docusate Sodium (Colace -) 100 mg PO TID [facility] Last Admin: 09/01/19 06:15 Dose: 100 mg Fentanyl (Sublimaze Injection -) 50 mcg IVPUSH [id number] PRN PRN Reason: PAIN-PACU ORDER X 4 DOSES ONLY Last Admin: 08/30/19 11:05 Dose: 50 mcg Ferrous Sulfate (Feosol -) 325 mg PO DAILY [facility] Last Admin: 08/31/19 10:20 Dose: 325 mg Folic Acid (Folic Acid -) 1 mg PO DAILY [facility] Last Admin: 08/31/19 10:20 Dose: 1 mg Heparin Sodium (Porcine) (Heparin -) 5,000 unit SQ TID [facility] Last Admin: 09/01/19 06:15 Dose: 5,000 unit Lactated Ringer's (Lactated Ringers Solution) 1,000 mls @ 125 mls/hr IV ASDIR [facility] Last Admin: 08/31/19 20:01 Dose: Not Given Lactated Ringer's (Lactated Ringers Solution) 1,000 ml in 1,000 mls @ 125 mls/ hr IV ASDIR [facility] Last Admin: 08/31/19 20:02 Dose: Not Given Letrozole (Femara -) 2.5 mg PO HS [facility] Last Admin: 08/31/19 21:05 Dose: 2.5 mg Loratadine (Claritin -) 10 mg PO DAILY [facility] Last Admin: 08/31/19 10:20 Dose: 10 mg Morphine Sulfate (Morphine Sulfate) 4 mg IVPUSH Q4H PRN PRN Reason: PAIN LEVEL 7 - 10 Last Admin: 08/30/19 21:27 Dose: 4 mg Non-Formulary Medication (Fluticasone/Vilanterol [Breo Ellipta 200-25 Mcg Inh]) 1 each IH PRN MARIELENA Non-Formulary Medication (Mirabegron [Myrbetriq]) 25 mg PO BID MARIELENA Non-Formulary Medication (Umeclidinium [place] [Incruse Ellipta]) 62.5 mcg IH PRN MARIELENA Ondansetron HCl (Zofran Injection) 4 mg IVPUSH Q6H PRN PRN Reason: NAUSEA Oxycodone HCl (Roxicodone -) 5 mg PO Q4H PRN PRN Reason: PAIN LEVEL 1-5 Oxycodone HCl (Roxicodone -) 10 mg PO Q4H PRN PRN Reason: PAIN LEVEL 6-10 Last Admin: 09/01/19 03:22 Dose: 10 mg - Objective Vital Signs: Vital Signs Temperature 97.7 F 09/01/19 05:00 Pulse Rate 78 09/01/19 05:00 Respiratory Rate 20 09/01/19 05:00 Blood Pressure 178/87 H 09/01/19 05:00 O2 Sat by Pulse Oximetry (%) 96 08/31/19 21:00 Constitutional: Yes: No Distress, Calm Eyes: Yes: Conjunctiva Clear HENT: Yes: Atraumatic Neck: Yes: Other (c-collar) Cardiovascular: Yes: Regular Rate and Rhythm Respiratory: Yes: Regular, CTA Bilaterally Gastrointestinal: Yes: Normal Bowel Sounds, Soft Musculoskeletal: Yes: Muscle Weakness Extremities: Yes: WNL Edema: No Neurological: Yes: Alert, Oriented Psychiatric: Yes: Alert, Oriented Problem List - Problems (1) Cervical radiculopathy Assessment/Plan: POD #2 C3-7 posterior cervical laminectomies, posterior fusion with screws Neurosurgery on board C-collar for 23hrs/day AMINATA drain with 25cc sanguious output pain control DVT ppx PT Code(s): M54.12 - RADICULOPATHY, CERVICAL REGION (2) HTN (hypertension) Assessment/Plan: Amlodipine low Na diet Code(s): I10 - ESSENTIAL (PRIMARY) HYPERTENSION Assessment/Plan see problem list dvt ppx
[2019-09-01] MEDS ORDERED: guaiFENesin/D-M SUGAR-FREE/ACLHOL-FREE 118 ML BOTTLE PO PRN (08:28)
[2019-09-01 08:43] LABS: ALBUMIN 2.9 g/dl (3.4-5.0); BLOOD UREA NITROGEN 11.2 mg/dL (7-18); CALCIUM 8.7 mg/dL (8.5-10.1); CREATININE 0.5 mg/dL (0.55-1.3); POTASSIUM 3.4 mmol/L (3.5-5.1); TOT PROT 6.5 g/dl (6.4-8.2)
[2019-09-01] MEDS: LACTATED RINGERS SOLUTION 1,000 ML IV SCH (09:42)
[2019-09-01] MEDS: LORATADINE 10 MG TABLET PO SCH (09:59)
[2019-09-01] MEDS: FOLIC ACID 1 MG TABLET (FP) PO SCH (10:04)
[2019-09-01] MEDS: amLODIPine BESYLATE 5 MG TABLET (FP) PO SCH (10:04)
[2019-09-01] MEDS: FERROUS SO4 325 MG TABLET (FP) PO SCH (10:04)
[2019-09-01] MEDS: NYSTATIN 500,000 UNITS/5 ML SUSPENSION PO SCH ×2 (11:56→17:56)
[2019-09-01] MEDS: LACTATED RINGERS SOLUTION 1,000 ML/1,000 ML INFUS.BAG IV SCH (16:18)
[2019-09-01] MEDS: BUDESONIDE/FORMETEROL FUMARATE 80/4.5 mcg INHALER IH SCH (21:28)
[2019-09-01] MEDS: LETROZOLE 2.5 MG TABLET (FP) PO SCH (21:28)
[2019-09-02] MEDS: NYSTATIN 500,000 UNITS/5 ML SUSPENSION PO SCH ×5 (00:58→23:28)
[2019-09-02] MEDS: DOCUSATE SODIUM 100 MG CAPSULE (FP) PO SCH ×3 (05:56→21:05)
[2019-09-02] MEDS: HEPARIN NA (PORCINE) 5,000 UNITS/ML 1ML VIAL SQ SCH ×3 (05:56→21:05)
[2019-09-02] MEDS: oxyCODONE HCL 5 MG TABLET PO PRN (05:56)
[2019-09-02 08:18] LABS: HEMATOCRIT 40.2 % (32.4-45.2); HEMOGLOBIN 13.6 GM/dL (10.7-15.3); MCH 29.9 pg (25.7-33.7); MCHC 33.8 g/dl (32.0-36.0); MEAN CELL VOLUME 88.5 fl (80-96); MEAN PLT VOLUME 7.8 fl (7.5-11.1); PLATELET COUNT 318 K/MM3 (134-434); RBC 4.54 M/mm3 (3.60-5.2); RDW 14.6 % (11.6-15.6); WHITE BLOOD COUNT 7.1 K/mm3 (4.0-10.0)
--- NOTE | 2019-09-02 08:22 | PN ---
Progress Note, Physician Chief Complaint: Cervical Radiculopathy History of Present Illness: Previous notes and events reviewed awake and alert NAD c-collar in place denies chest pain or SOB POD#3 C3-7 posterior cervical laminectomies, posterior fusion with screws no leukocytosis afebrile - Current Medication List Current Medications: Active Medications Amlodipine Besylate (Norvasc -) 5 mg PO DAILY [facility] Last Admin: 09/01/19 10:04 Dose: 5 mg Budesonide/Formoterol Fumarate (Symbicort 80/4.5mcg -) 2 puff IH BID [facility] Last Admin: 09/01/19 21:28 Dose: 2 puff Diphenhydramine HCl (Benadryl -) 25 mg PO Q6H PRN PRN Reason: FOR ITCHING Docusate Sodium (Colace -) 100 mg PO TID [facility] Last Admin: 09/02/19 05:56 Dose: 100 mg Fentanyl (Sublimaze Injection -) 50 mcg IVPUSH [id number] PRN PRN Reason: PAIN-PACU ORDER X 4 DOSES ONLY Last Admin: 08/30/19 11:05 Dose: 50 mcg Ferrous Sulfate (Feosol -) 325 mg PO DAILY [facility] Last Admin: 09/01/19 10:04 Dose: 325 mg Folic Acid (Folic Acid -) 1 mg PO DAILY [facility] Last Admin: 09/01/19 10:04 Dose: 1 mg Guaifenesin (Diabetic Tussin Dm -) 10 ml PO Q6H PRN PRN Reason: COUGH Heparin Sodium (Porcine) (Heparin -) 5,000 unit SQ TID [facility] Last Admin: 09/02/19 05:56 Dose: 5,000 unit Letrozole (Femara -) 2.5 mg PO HS [facility] Last Admin: 09/01/19 21:28 Dose: 2.5 mg Loratadine (Claritin -) 10 mg PO DAILY [facility] Last Admin: 09/01/19 09:59 Dose: Not Given Morphine Sulfate (Morphine Sulfate) 4 mg IVPUSH Q4H PRN PRN Reason: PAIN LEVEL 7 - 10 Last Admin: 08/30/19 21:27 Dose: 4 mg Non-Formulary Medication (Mirabegron [Myrbetriq]) 25 mg PO BID [facility] Nystatin (Nystatin Oral Suspension -) 500,000 units PO Q6HPO [facility] Last Admin: 09/02/19 05:56 Dose: Not Given Ondansetron HCl (Zofran Injection) 4 mg IVPUSH Q6H PRN PRN Reason: NAUSEA Oxycodone HCl (Roxicodone -) 5 mg PO Q4H PRN PRN Reason: PAIN LEVEL 1-5 Oxycodone HCl (Roxicodone -) 10 mg PO Q4H PRN PRN Reason: PAIN LEVEL 6-10 Last Admin: 09/02/19 05:56 Dose: 10 mg Tiotropium [place] (Spiriva Respimat) 2 puff IH DAILY [facility] - Objective Vital Signs: Vital Signs Temperature 98.1 F 09/02/19 06:00 Pulse Rate 84 09/02/19 06:00 Respiratory Rate 20 09/02/19 06:00 Blood Pressure 141/96 09/02/19 06:00 O2 Sat by Pulse Oximetry (%) 95 09/01/19 21:00 Constitutional: Yes: No Distress, Calm Eyes: Yes: Conjunctiva Clear HENT: Yes: Atraumatic Neck: Yes: Other (c-collar) Cardiovascular: Yes: Regular Rate and Rhythm Respiratory: Yes: Regular, CTA Bilaterally Gastrointestinal: Yes: Normal Bowel Sounds, Soft Musculoskeletal: Yes: WNL Extremities: Yes: WNL Edema: No Neurological: Yes: Alert, Oriented Psychiatric: Yes: Alert, Oriented Problem List - Problems (1) Cervical radiculopathy Assessment/Plan: POD #3 C3-7 posterior cervical laminectomies, posterior fusion with screws Neurosurgery on board C-collar for 23hrs/day AMINATA drain with <25cc serosanguious output pain control DVT ppx PT Code(s): M54.12 - RADICULOPATHY, CERVICAL REGION (2) HTN (hypertension) Assessment/Plan: Amlodipine low Na diet Code(s): I10 - ESSENTIAL (PRIMARY) HYPERTENSION Assessment/Plan see problem list dvt ppx
[2019-09-02 09:03] LABS: BILIRUBIN,TOTAL 1.2 mg/dL (0.2-1); BLOOD UREA NITROGEN 13.5 mg/dL (7-18); CALCIUM 9.1 mg/dL (8.5-10.1); CREATININE 0.6 mg/dL (0.55-1.3); POTASSIUM 3.4 mmol/L (3.5-5.1); TOT PROT 6.4 g/dl (6.4-8.2)
[2019-09-02] MEDS: BUDESONIDE/FORMETEROL FUMARATE 80/4.5 mcg INHALER IH SCH ×2 (09:20→21:05)
[2019-09-02] MEDS: amLODIPine BESYLATE 5 MG TABLET (FP) PO SCH (09:20)
[2019-09-02] MEDS: TIOTROPIUM BROMIDE 2.5 MCG (SPIRIVA) RESPIMAT INHALER IH SCH (09:20)
[2019-09-02] MEDS: POLYETHYLENE GLYCOL 3350 119 GM BTL PO SCH (09:20)
[2019-09-02] MEDS: FOLIC ACID 1 MG TABLET (FP) PO SCH (09:20)
[2019-09-02] MEDS: FERROUS SO4 325 MG TABLET (FP) PO SCH (09:20)
[2019-09-02] MEDS: LORATADINE 10 MG TABLET PO SCH (09:21)
[2019-09-02] MEDS ORDERED: PT OWN MED DRAWER 7, Y5N ONE ×2 (09:48→21:02)
[2019-09-02] MEDS ORDERED: oxyCODONE HCL 5 MG TABLET PO PRN ×2 (17:57→17:58)
[2019-09-02] MEDS: LETROZOLE 2.5 MG TABLET (FP) PO SCH (21:05)
[2019-09-03] MEDS: NYSTATIN 500,000 UNITS/5 ML SUSPENSION PO SCH ×2 (06:05→15:24)
[2019-09-03] MEDS: DOCUSATE SODIUM 100 MG CAPSULE (FP) PO SCH ×2 (06:05→15:24)
[2019-09-03] MEDS: HEPARIN NA (PORCINE) 5,000 UNITS/ML 1ML VIAL SQ SCH ×2 (06:05→15:25)
--- NOTE | 2019-09-03 07:46 | PN ---
Progress Note (short form) - Note Progress Note: Surgery POD #4 C3-C7 laminectomy, decompression and fusion. Patient seen and examined at bedside c/o some left arm paresthesias and radiculopathy which she had prior to surgery. Her pain is controlled, she is OOB without assistance and she is tolerating her diet. She denies any CP, SOB, N/V, fever or chills. Vital Signs Temp 97.6 F 09/03/19 05:00 Pulse 87 09/03/19 05:00 Resp 18 09/03/19 05:00 BP 136/98 09/03/19 05:00 Pulse Ox 95 09/02/19 21:00 Intake & Output 09/02/19 09/02/19 09/03/19 11:59 23:59 11:59 Intake Total 200 900 300 Output Total 20 20 Balance 180 880 300 Intake: Oral 200 900 300 Output: Drainage 20 20 Posterior Neck 20 20 Other: Voiding Method Toilet Toilet # Unmeasured Voids Void 1 1 Bowel Movement Yes # Bowel Movements 1 Labs pending PE: A&Ox3, NAD Unlabored resp on RA Posterior spine incision c/d/i with surrounding tissue intact and no evidence of tracking erythema, edema, collection or active d/c. drain in good position with scant SS d/c. drain removed with tip fully intact. drain ostomy clean and dry with no active d/c. Left UE 4/5 employee relations representative strength, biceps/triceps, shoulder shrug. B/L LE compartments soft, supple and non-tender with +2 DP pulses. Problem List - Problems (1) S/P cervical spinal fusion Assessment/Plan: POD #4 patient doing well. -C-collar 23 hours/day -Encourage OOB -Encourage IS -DVT and GI prophylaxis -d/c planning for home today -f/u with Dr Gamboa as outpatient Evaluation and plan discussed with Dr Gamboa Code(s): Z98.1 - ARTHRODESIS STATUS (2) Cervical radiculopathy Code(s): M54.12 - RADICULOPATHY, CERVICAL REGION
[2019-09-03 08:34] LABS: HEMATOCRIT 40.5 % (32.4-45.2); HEMOGLOBIN 13.9 GM/dL (10.7-15.3); MCH 30.3 pg (25.7-33.7); MCHC 34.2 g/dl (32.0-36.0); MEAN CELL VOLUME 88.5 fl (80-96); MEAN PLT VOLUME 7.7 fl (7.5-11.1); PLATELET COUNT 338 K/MM3 (134-434); RBC 4.57 M/mm3 (3.60-5.2); RDW 14.7 % (11.6-15.6); WHITE BLOOD COUNT 5.9 K/mm3 (4.0-10.0)
[2019-09-03 09:14] LABS: ALBUMIN 2.8 g/dl (3.4-5.0); BILIRUBIN,TOTAL 1.1 mg/dL (0.2-1); BLOOD UREA NITROGEN 12.7 mg/dL (7-18); CALCIUM 9.2 mg/dL (8.5-10.1); CREATININE 0.6 mg/dL (0.55-1.3); POTASSIUM 3.7 mmol/L (3.5-5.1); TOT PROT 6.5 g/dl (6.4-8.2)
--- NOTE | 2019-09-03 09:28 | DS ---
"Physical Examination Vital Signs: Vital Signs Temperature 97.6 F 09/03/19 05:00 Pulse Rate 87 09/03/19 05:00 Respiratory Rate 18 09/03/19 05:00 Blood Pressure 136/98 09/03/19 05:00 O2 Sat by Pulse Oximetry (%) 95 09/02/19 21:00 Cardiovascular: Yes: S1, S2 Respiratory: Yes: Regular, CTA Bilaterally Gastrointestinal: Yes: Normal Bowel Sounds, Soft Wound/Incision: Yes: Dressing Removed. No: Reddened, Bleeding, Excoriated Neurological: Yes: Alert, Oriented Labs: CBC, BMP 09/03/19 07:33 09/03/19 07:33 Discharge Summary Reason For Visit: CERVICAL SPONDYLOSIS Current Active Problems Cervical radiculopathy (Acute) HTN (hypertension) (Acute) S/P cervical spinal fusion (Acute) Hospital Course: - Problems (1) Cervical radiculopathy Assessment/Plan: POD #3 C3-7 posterior cervical laminectomies, posterior fusion with screws Neurosurgery on board pain control DVT ppx PT Code(s): M54.12 - RADICULOPATHY, CERVICAL REGION (2) HTN (hypertension) Assessment/Plan: Amlodipine low Na diet Code(s): I10 - ESSENTIAL (PRIMARY) HYPERTENSION (3) COPD Assessment/Plan: continue with inhaler Condition: Good - Instructions Diet, Activity, Other Instructions: Post Operative Instructions Physical Activity Resume your normal everyday activity as tolerated. No heavy lifting or exercise until seen by your surgeon. You may walk unlimited amounts and climb stairs. You may resume driving the car when you feel safe and comfortable behind the wheel and you are no longer wearing your brace. Do not operate a vehicle while taking narcotic medication. Brace If you had neck surgery, wear surgical collar 23 hr/day. Remove to shower only. Wound Care Keep your incision clean, dry and covered at all times. Apply an occlusive dressing (Saran wrap or Tegaderm) when showering to avoid getting your incision wet. Do not submerge incision or apply ointments or creams. The joanie will be removed in the office in 10-14 days post-op. Diet There are no dietary restrictions. Eat healthy, high-fiber foods. Drink 6-8 glasses of liquid each day. This will assist in keeping your bowels regular. Pain Management You may take Tylenol or acetaminophen. Any pain prescription medication ordered should be taken as prescribed for moderate to severe pain. Avoid any ibuprofen (Motrin, Advil, Aleve, Toradol, etc) for 3 months unless otherwise discussed with your surgeon. Call Dr Cunningham for any of the following: Severe pain not relieved by medication Fever of 101 or higher Excessive bleeding or drainage on dressing Inability to urinate Any chest pain or shortness of breath, seek Emergency Care. Call the office to confirm a post-operative appointment for 2-3 weeks post-op Jair Gamboa MD [facility] [address] [place] [address] [employer] This report was requested by: Vishnu Anderson | Reference #: [id number] Disposition: HOME - Home Medications Comprehensive Discharge Medication List: Ambulatory Orders Amlodipine Besylate [Norvasc -] 5 mg PO DAILY 09/13/16 Letrozole 2.5 mg PO HS 03/21/18 Mirabegron [Myrbetriq] 25 mg PO BID 03/21/18 Cetirizine HCl [Allergy Relief] 10 mg PO DAILY 11/01/18 Fluticasone/Vilanterol [Breo Ellipta 200-25 Mcg INH] 1 each IH PRN 08/29/19 Ibuprofen [Motrin -] 600 mg PO PRN PRN 08/29/19 Umeclidinium [place] [Incruse Ellipta] 62.5 mcg IH PRN 08/29/19 Docusate Sodium [Colace -] 100 mg PO TID capsule 09/03/19 Ferrous Sulfate [Feosol] 325 mg PO DAILY ud 09/03/19 Folic Acid - 1 mg PO DAILY tablet 09/03/19 Polyethylene Glycol 3350 [Miralax 119 gm Btl -] 17 gm PO DAILY bottle 09/03/19"
[2019-09-03] MEDS ORDERED: PT OWN MED DRAWER 7, Y5N ONE (10:13)
[2019-09-03] MEDS: LORATADINE 10 MG TABLET PO SCH (10:15)
[2019-09-03] MEDS: FERROUS SO4 325 MG TABLET (FP) PO SCH (10:15)
[2019-09-03] MEDS: amLODIPine BESYLATE 5 MG TABLET (FP) PO SCH (10:15)
[2019-09-03] MEDS: FOLIC ACID 1 MG TABLET (FP) PO SCH (10:15)
[2019-09-03] MEDS: BUDESONIDE/FORMETEROL FUMARATE 80/4.5 mcg INHALER IH SCH (10:16)
[2019-09-03] MEDS: TIOTROPIUM BROMIDE 2.5 MCG (SPIRIVA) RESPIMAT INHALER IH SCH (10:16)
[2019-09-03] MEDS: POLYETHYLENE GLYCOL 3350 119 GM BTL PO SCH (10:23)
[2019-09-03 14:57] VITALS: BP 160/90; PULSE 103; TEMP 98
--- NOTE | 2019-09-04 12:45 | SURG ---
Surgery Certified Rehabilitation Counselor Note Certified Rehabilitation Counselor: Vishnu Anderson PA-C Date of Service: 08/30/19 Diagnosis: Cervical spondylotic myelopathy with kyphosis Procedure: 1. Cranial Tong Application 2. Fluoroscopy 3. Local autograft 4. Posterior segmental instrumentation C3-7 (technically challenging) 5. C3 Laminectomy 6. C4 Laminectomy 7. C5 Laminectomy 8. C6 Laminectomy 9. C7 Laminectomy 10. C3/4 Posterior/Lateral Arthrodesis 11. C4/5 Posterior/Lateral Arthrodesis 12. C5/6 Posterior/Lateral Arthrodesis 13. C6/7 Posterior/Lateral Arthrodesis 14. Bilateral soft tissue advancement flaps (50cm^2) 15. [employer] of [employer] I was present for the entirety of the operative procedure. For further detail, please refer to operative report. Visit type - Case Type Case Type: Scheduled - Emergency Emergency Visit: No - New patient This patient is new to me today: Yes Date on this admission: 09/04/19 - Critical Care Critical Care patient: No
== END 2019-09-03 16:03 | disposition home health service (06) | DRG 321 ==
LOC: JSAMEDAYSX 08-30 06:15 → J8W 08-30 15:33
PROVIDERS: ADMIT Family Medicine; ATTEND Family Medicine
PROC: 0RG2071 Fusion of 2 or more Cervical Vertebral Joints with Autologous Tissue Substitute, Posterior Approach, Posterior Column, Open Approach (ICD-10-PCS; 2019-08-30)
PROC: 0PB30ZZ Excision of Cervical Vertebra, Open Approach (ICD-10-PCS; 2019-08-30)
PROC: B01BZZZ Fluoroscopy of Spinal Cord (ICD-10-PCS; 2019-08-30)
PROC: 0JX70ZB Transfer Back Subcutaneous Tissue and Fascia with Skin and Subcutaneous Tissue, Open Approach (ICD-10-PCS; 2019-08-30)
PROC: 0PS304Z Reposition Cervical Vertebra with Internal Fixation Device, Open Approach (ICD-10-PCS; principal; 2019-08-30 08:00)
DX: M40.292 Other kyphosis, cervical region (principal); M47.12 Other spondylosis with myelopathy, cervical region; I10 Essential (primary) hypertension; J44.9 Chronic obstructive pulmonary disease, unspecified; D72.829 Elevated white blood cell count, unspecified
CPT/HCPCS: 36415; 72125-TC; 76000-TC-FY; 80048; 80053; 85027; 86850; 86900; 86901; 94010; 94760; 94761; 97116-GP; 97161-GP; J1644

== ENCOUNTER 2019-08-18 11:19 | Emergency (ER) | payer OTHER ==
[2019-08-18 11:31] VITALS: BP 159/91; PULSE 98; TEMP 98; BMI 32.1
[2019-08-18] MEDS ORDERED: LIDOCAINE VISCOUS 2% ORAL/TOP 20 ML UNIT-DOSE CUP MM ONE ×2 (12:13→14:23)
[2019-08-18] MEDS ORDERED: MAG HYDROX/AL HYDROX/SIMETH 30 ML UNIT-DOSE CUP PO ONE (12:13)
[2019-08-18] MEDS ORDERED: diphenhydrAMINE HCL 12.5 MG/5 ML UNIT-DOSE CUPS PO ONE ×2 (12:13→14:23)
[2019-08-18] MEDS ORDERED: LIDOCAINE VISCOUS 2% ORAL/TOP 20 ML UNIT-DOSE CUP ONE (12:35)
[2019-08-18] MEDS ORDERED: diphenhydrAMINE HCL 12.5 MG/5 ML BULK BOTTLE ONE (12:35)
[2019-08-18] MEDS ORDERED: MAG HYDROX/AL HYDROX/SIMETH 30 ML UNIT-DOSE CUP ONE (12:35)
--- NOTE | 2019-08-18 12:40 | PDOC ---
History of Present Illness - General Chief Complaint: Sore Throat Stated Complaint: SORE THROAT Time Seen by Provider: 08/18/19 11:33 - History of Present Illness Initial Comments: 08/18/19 12:40 Pt is a 69y/o female with COPD, HTN, GERD, CVA, and breast cancer who presents with worsening sore throat x3 days. She was in the ED on 07/16/19 for respiratory symptoms, diagnosed with bronchitis, and has not completely gotten better. She was given steroids for 3 days last month and denies taking abx. Pulm gave her steroids about 6 days ago, but she has not taken them since 2 days ago due to pain with swallowing. She also reports greenish and bloody sinus drainage, productive cough, intermittent right ear and neck pain, and subjective fevers. Cough is worse when lying down. She has taken Robitussin and Advil with little relief.She denies nausea, vomiting, diarrhea, chest pain, shortness of breath, and wheezing. No known sick contacts. Past History - Past Medical History Allergies/Adverse Reactions: Allergies Allergy/AdvReac Type Severity Reaction Status Date / Time acetaminophen [From Tylenol] Allergy "coma" Verified 08/18/19 11:25 aspirin Allergy "rash,fever Verified 08/18/19 11:25 " montelukast sodium Allergy "elevated Verified 08/18/19 11:25 [From Singulair] blood pressure" Penicillins Allergy "fever,rash Verified 08/18/19 11:25 " shellfish derived Allergy "toxic Verified 08/18/19 11:25 reaction" tetracycline [Tetracycline] Allergy "fever,rash,hairy Verified 08/18/19 11:25 tongue" Home Medications: Ambulatory Orders Amlodipine Besylate [Norvasc -] 5 mg PO DAILY 09/13/16 Letrozole 2.5 mg PO DAILY 03/21/18 Mirabegron [Myrbetriq] 25 mg PO DAILY 03/21/18 Cetirizine HCl [Allergy Relief] 10 mg PO DAILY 11/01/18 Albuterol Sulfate Inhaler - [Ventolin HFA Inhaler -] 1 - 2 inh PO Q4H #1 inhaler 07/16/19 Methylprednisolone [Medrol Dose Pasquale] 4 mg PO ASDIR #21 tablet 07/16/19 Anemia: No Asthma: No Cancer: Yes (left breast) Cardiac Disorders: Yes (arrhythmia) CVA: Yes (2006 TIA left side weakness, memory loss) COPD: Yes CHF: No Dementia: No Diabetes: No GI Disorders: Yes (GERD) Disorders: No HTN: Yes Hypercholesterolemia: No Liver Disease: No Seizures: No Thyroid Disease: Yes - Surgical History Appendectomy: Yes Cholecystectomy: Yes Neurologic Surgery: No Orthopedic Surgery: No - Psycho Social/Smoking Cessation Hx Smoking History: Never smoked Have you smoked in the past 12 months: No If you are a former smoker, when did you quit?: 1970 Hx Alcohol Use: No Drug/Substance Use Hx: No Substance Use Type: Alcohol Hx Substance Use Treatment: No Review of Systems - Review of Systems Constitutional: Yes: Fever. No: Chills Respiratory: Yes: Cough. No: Shortness of Breath, Wheezing Cardiac (ROS): No: Chest Pain ABD/GI: No: Nausea, Vomiting Neurological: No: Headache *Physical Exam - Vital Signs Last Vital Signs Temp Pulse Resp BP Pulse Ox 98 F 98 H 18 159/91 99 08/18/19 11:28 08/18/19 11:28 08/18/19 11:28 08/18/19 11:28 08/18/19 11:28 - Physical Exam General Appearance: Yes: Nourished, Appropriately Dressed. No: Apparent Distress HEENT: positive: EOMI, DAJUAN, Pharyngeal Erythema. negative: Tonsillar Exudate Neck: positive: Tender, Lymphadenopathy (R), Lymphadenopathy (L) Respiratory/Chest: positive: Lungs Clear Cardiovascular: positive: Regular Rhythm, Regular Rate. negative: Murmur Gastrointestinal/Abdominal: positive: Normal Bowel Sounds. negative: Tender Neurologic: positive: Fully Oriented, Alert, Normal Mood/Affect Medical Decision Making - Medical Decision Making 08/18/19 12:52 Pt is a 69y/o female with COPD, HTN, GERD, CVA, and breast cancer who presents with worsening sore throat x3 days. She was in the ED on 07/16/19 for respiratory symptoms and has not completely gotten better. She was given steroids for 3 days last month and denies taking abx. Pulm gave her steroids about 6 days ago, but she has not taken them since 2 days ago due to pain with swallowing. ddx: viral pharyngitis, tonsilitis, bronchitis, GERD, achalasia orders: Magic Mouthwash, CXR 08/18/19 13:12 CXR no acute pathology Pt reports improvement with Magic Mouthwash, will send pt home with it as well Discharge - Discharge Information Problems reviewed: Yes Clinical Impression/Diagnosis: Pharyngitis Qualifiers: Pharyngitis/tonsillitis etiology: unspecified etiology Qualified Code(s): J02.9 - Acute pharyngitis, unspecified Condition: Improved Disposition: HOME - Follow up/Referral Referrals: Graciela Cifuentes MD [Primary Care Provider] - - Patient Discharge Instructions Patient Printed Discharge Instructions: DI for Viral Pharyngitis Additional Instructions: You were seen in the emergency room for throat pain from viral throat infection. You were given a solution to help numb your throat. You are improved and are able to go home. Medication: Magic Mouthwash- 10mL gargle and spit every 4 hours as needed for sore throat Continue Robitussin as directed on the bottle for cough Please follow up with your primary care doctor in the next week if your symptoms do not improve, or you may return to the emergency room. - Post Discharge Activity
--- NOTE | 2019-08-18 13:06 | PDOC ---
Documentation entered by Binu Clarke SCRIBE, acting as scribe for Mina Tadeo MD. Mina Tadeo MD: This documentation has been prepared by the Vince brandon Daniel, SCRIBE, under my direction and personally reviewed by me in its entirety. I confirm that the documentation accurately reflects all work, treatment, procedures, and medical decision making performed by me. Attending Attestation - Resident Resident Name: LiudmilaindiraMeena - ED Attending Attestation I have performed the following: I have examined & evaluated the patient, The case was reviewed & discussed with the resident, I agree w/resident's findings & plan, Exceptions are as noted - HPI HPI: 08/18/19 12:27 The patient is a 69 year old female with a past medical history of COPD, HTN, CVA, GERD, and breast cancer here today for evaluation of worsening sore throat that is causing her to have difficulty swallowing. - Physicial Exam PE: 08/18/19 13:01 patient is awake and alert, well-nourished, in no significant distress normocephalic and atraumatic PERRLA, EOMI, Oropharynx is clear, no evidence of thrush, uvula is midline, nonedematous, no exudate, no stridor No cervical lymphadenopathy, neck is supple cta rrr - Medical Decision Making 08/18/19 13:03 Patient is a 69-year-old female with multiple comorbidities who presents with signs and symptoms of acute dysphasia and cough, likely viral in origin. There is no evidence of thrush or [employer] at this time. I do not suspect retropharyngeal abscess. In general equivalence is also highly unlikely. Will administer GI cocktail. Will obtain chest x-ray to evaluate for acute pneumonia. Likely discharge.
[2019-08-18] MEDS ORDERED: MAG HYDROX/AL HYDROX/SIMETH -MYLANTA- ORAL SUSPENSION PO ONE (14:23)
[2019-08-18] MEDS ORDERED: MAG HYDROX/ALH/SMC/DPHA/LIDO 240 ML MOUTHWASH MM ONE (14:28)
== END 2019-08-18 16:18 | disposition home or self-care (01) ==
LOC: JER 11:19
DX: J02.9 Acute pharyngitis, unspecified (principal); I10 Essential (primary) hypertension; J44.9 Chronic obstructive pulmonary disease, unspecified; K21.9 Gastro-esophageal reflux disease without esophagitis; I69.854 Hemiplegia and hemiparesis following other cerebrovascular disease affecting left non-dominant side; I69.811 Memory deficit following other cerebrovascular disease; E07.9 Disorder of thyroid, unspecified; Z85.3 Personal history of malignant neoplasm of breast; Z88.0 Allergy status to penicillin; Z91.013 Allergy to seafood; Z88.6 Allergy status to analgesic agent; Z88.8 Allergy status to other drugs, medicaments and biological substances
CPT/HCPCS: 71045-TC-FY; 99281-25

== ENCOUNTER 2020-03-25 05:28 | Inpatient (IN) | payer OTHER ==
--- OUTSIDE RECORDS SUMMARY | 2020-03-25 05:37 | XMS ---
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 (procedure) 12:00:00 AM EDT P hysician) Documentation of current 04/24/2018 MED GEN (Ammir Vane medications (procedure) 12:00:00 AM EDT P hysician) Documentation of current 04/24/2018 MED GEN (Ammir Vane medications (procedure) 12:00:00 AM EDT P hysician) Documentation of current 04/24/2018 MED GEN (Ammir Vane medications (procedure) 12:00:00 AM EDT P hysician) Documentation of current 04/24/2018 MED GEN (Ammir Vane medications (procedure) 12:00:00 AM EDT P hysician) Documentation of current 04/24/2018 MED GEN (Ammir Vane medications (procedure) 12:00:00 AM EDT P hysician) Documentation of current 04/24/2018 MED GEN (Ammir Vane medications (procedure) 12:00:00 AM EDT P hysician) Documentation of current 02/28/2018 MED GEN (Ammir Vane medications (procedure) 12:00:00 AM EDT P hysician) Documentation of current 02/28/2018 MED GEN (Ammir Vane medications (procedure) 12:00:00 AM EDT P hysician) Documentation of current 02/28/2018 MED GEN (Ammir Vane medications (procedure) 12:00:00 AM EDT P hysician) Documentation of current 02/28/2018 MED GEN (Ammir Vane medications (procedure) 12:00:00 AM EDT P hysician) Documentation of current 02/28/2018 MED GEN (Ammir Vane medications (procedure) 12:00:00 AM EDT P hysician) Documentation of current 02/28/2018 MED GEN (Ammir Vane medications (procedure) 12:00:00 AM EDT P hysician) Documentation of current 02/28/2018 MED GEN (Ammir Vane medications (procedure) 12:00:00 AM EDT P hysician) DUP-SCAN ARTL MAHOGANY 02/28/2018 MEDGEN (Am georgina Vane ABDL/PEL/SCROT&/RPR ORGN 12:00:00 AM EDT Physician) COMPL US RETROPERITONEAL REAL 02/28/2018 MEDG EN (Ammir Vane TIME W/IMAGE COMPLETE 12:00:00 AM EDT Phy sician) US ABDOMINAL REAL TIME 02/28/2018 MEDGE N (Ammir Vane W/IMAGE DOCUMENTATION 12:00:00 AM EDT Phy sician) Documentation of current 01/20/2018 MED GEN (Ammir Vane medications (procedure) 12:00:00 AM EDT P hysician) Documentation of current 01/20/2018 MED GEN (Ammir Vane medications (procedure) 12:00:00 AM EDT P hysician) Documentation of current 01/20/2018 MED GEN (Ammir Vane medications (procedure) 12:00:00 AM EDT P hysician) Documentation of current 01/20/2018 MED GEN (Ammir Vane medications (procedure) 12:00:00 AM EDT P hysician) Documentation of current 01/20/2018 MED GEN (Ammir Vane medications (procedure) 12:00:00 AM EDT P hysician) Documentation of current 01/20/2018 MED GEN (Ammir Vane medications (procedure) 12:00:00 AM EDT P hysician) Documentation of current 01/20/2018 MED GEN (Ammir Vane medications (procedure) 12:00:00 AM EDT P hysician) Documentation of current 01/20/2018 MED GEN (Ammir Vane medications (procedure) 12:00:00 AM EDT P hysician) Documentation of current 01/20/2018 MED GEN (Ammir Vane medications (procedure) 12:00:00 AM EDT P hysician) Documentation of current 01/20/2018 MED GEN (Ammir Vane medications (procedure) 12:00:00 AM EDT P hysician) Documentation of current 01/20/2018 MED GEN (Ammir Vane medications (procedure) 12:00:00 AM EDT P hysician) Documentation of current 01/20/2018 MED GEN (Ammir Vane medications (procedure) 12:00:00 AM EDT P hysician) Documentation of current 12/08/2017 MED GEN (Ammir Vane medications (procedure) 12:00:00 AM EDT P hysician) Documentation of current 12/08/2017 MED GEN (Ammir Vane medications (procedure) 12:00:00 AM EDT P hysician) Documentation of current 12/08/2017 MED GEN (Ammir Vane medications (procedure) 12:00:00 AM EDT P hysician) Documentation of current 12/08/2017 MED GEN (Ammir Vane medications (procedure) 12:00:00 AM EDT P hysician) Documentation of current 12/08/2017 MED GEN (Ammir Vane medications (procedure) 12:00:00 AM EDT P hysician) Documentation of current 12/08/2017 MED GEN (Ammir Vane medications (procedure) 12:00:00 AM EDT P hysician) Documentation of current 12/08/2017 MED GEN (Ammir Vane medications (procedure) 12:00:00 AM EDT P hysician) Documentation of current 12/08/2017 MED GEN (Ammir Vane medications (procedure) 12:00:00 AM EDT P hysician) Documentation of current 12/08/2017 MED GEN (Ammir Vane medications (procedure) 12:00:00 AM EDT P hysician) Documentation of current 12/08/2017 MED GEN (Ammir Vane medications (procedure) 12:00:00 AM EDT P hysician) Documentation of current 11/11/2017 MED GEN (Ammir Vane medications (procedure) 12:00:00 AM EDT P hysician) Documentation of current 11/11/2017 MED GEN (Ammir Vane medications (procedure) 12:00:00 AM EDT P hysician) Documentation of current 11/11/2017 MED GEN (Ammir Vane medications (procedure) 12:00:00 AM EDT P hysician) Documentation of current 11/11/2017 MED GEN (Ammir Vane medications (procedure) 12:00:00 AM EDT P hysician) Documentation of current 11/11/2017 MED GEN (Ammir Vane medications (procedure) 12:00:00 AM EDT P hysician) Documentation of current 11/11/2017 MED GEN (Ammir Vane medications (procedure) 12:00:00 AM EDT P hysician) Documentation of current 10/10/2017 MED GEN (Ammir Vane medications (procedure) 12:00:00 AM EDT P hysician) Documentation of current 10/10/2017 MED GEN (Ammir Vane medications (procedure) 12:00:00 AM EDT P hysician) Documentation of current 10/10/2017 MED GEN (Ammir Vane medications (procedure) 12:00:00 AM EDT P hysician) Documentation of current 10/10/2017 MED GEN (Ammir Vane medications (procedure) 12:00:00 AM EDT P hysician) Documentation of current 10/10/2017 MED GEN (Ammir Vane medications (procedure) 12:00:00 AM EDT P hysician) Documentation of current 10/10/2017 MED GEN (Ammir Vane medications (procedure) 12:00:00 AM EDT P hysician) Documentation of current 10/10/2017 MED GEN (Ammir Vane medications (procedure) 12:00:00 AM EDT P hysician) Documentation of current 10/10/2017 MED GEN (Ammir Vane medications (procedure) 12:00:00 AM EDT P hysician) Documentation of current 10/10/2017 MED GEN (Ammir Vane medications (procedure) 12:00:00 AM EDT P hysician) Documentation of current 10/10/2017 MED GEN (Ammir Vane medications (procedure) 12:00:00 AM EDT P hysician) Documentation of current 10/10/2017 MED GEN (Ammir Vane medications (procedure) 12:00:00 AM EDT P hysician) Documentation of current 10/10/2017 MED GEN (Ammir Vane medications (procedure) 12:00:00 AM EDT P hysician) Documentation of current 10/10/2017 MED GEN (Ammir Vane medications (procedure) 12:00:00 AM EDT P hysician) Documentation of current 09/13/2017 MED GEN (Ammir Vane medications (procedure) 12:00:00 AM EST P hysician) Documentation of current 09/13/2017 MED GEN (Ammir Vane medications (procedure) 12:00:00 AM EST P hysician) Documentation of current 09/13/2017 MED GEN (Ammir Vane medications (procedure) 12:00:00 AM EST P hysician) Documentation of current 09/13/2017 MED GEN (Ammir Vane medications (procedure) 12:00:00 AM EST P hysician) Documentation of current 09/13/2017 MED GEN (Ammir Vane medications (procedure) 12:00:00 AM EST P hysician) Documentation of current 09/13/2017 MED GEN (Ammir Vane medications (procedure) 12:00:00 AM EST P hysician) Documentation of current 09/13/2017 MED GEN (Ammir Vane medications (procedure) 12:00:00 AM EST P hysician) Documentation of current 09/13/2017 MED GEN (Ammir Vane medications (procedure) 12:00:00 AM EST P hysician) Documentation of current 09/13/2017 MED GEN (Ammir Vane medications (procedure) 12:00:00 AM EST P hysician) Documentation of current 09/13/2017 MED GEN (Ammir Vane medications (procedure) 12:00:00 AM EST P hysician) Documentation of current 09/13/2017 MED GEN (Ammir Vane medications (procedure) 12:00:00 AM EST P hysician) Documentation of current 09/13/2017 MED GEN (Ammir Vane medications (procedure) 12:00:00 AM EST P hysician) Documentation of current 09/13/2017 MED GEN (Ammir Vane medications (procedure) 12:00:00 AM EST P hysician) Documentation of current 09/13/2017 MED GEN (Ammir Vane medications (procedure) 12:00:00 AM EST P hysician) Documentation of current 09/13/2017 MED GEN (Ammir Vane medications (procedure) 12:00:00 AM EST P hysician) Documentation of current 04/18/2017 MED GEN (Ammir Vane medications (procedure) 12:00:00 AM EDT P hysician) Documentation of current 04/18/2017 MED GEN (Ammir Vane medications (procedure) 12:00:00 AM EDT P hysician) Documentation of current 04/18/2017 MED GEN (Ammir Vane medications (procedure) 12:00:00 AM EDT P hysician) Documentation of current 04/18/2017 MED GEN (Ammir Vane medications (procedure) 12:00:00 AM EDT P hysician) Documentation of current 04/18/2017 MED GEN (Ammir Vane medications (procedure) 12:00:00 AM EDT P hysician) Documentation of current 04/18/2017 MED GEN (Ammir Vane medications (procedure) 12:00:00 AM EDT P hysician) Documentation of current 04/18/2017 MED GEN (Ammir Vane medications (procedure) 12:00:00 AM EDT P hysician) Documentation of current 04/18/2017 MED GEN (Ammir Vane medications (procedure) 12:00:00 AM EDT P hysician) Documentation of current 04/18/2017 MED GEN (Ammir Vane medications (procedure) 12:00:00 AM EDT P hysician) Documentation of current 04/18/2017 MED GEN (Ammir Vane medications (procedure) 12:00:00 AM EDT P hysician) Documentation of current 04/18/2017 MED GEN (Ammir Vane medications (procedure) 12:00:00 AM EDT P hysician) Documentation of current 04/18/2017 MED GEN (Ammir Vane medications (procedure) 12:00:00 AM EDT P hysician) Documentation of current 04/18/2017 MED GEN (Ammir Vane medications (procedure) 12:00:00 AM EDT P hysician) Documentation of current 04/18/2017 MED GEN (Ammir Vane medications (procedure) 12:00:00 AM EDT P hysician) Documentation of current 04/18/2017 MED GEN (Ammir Vane medications (procedure) 12:00:00 AM EDT P hysician) Documentation of current 04/18/2017 MED GEN (Ammir Vane medications (procedure) 12:00:00 AM EDT P hysician) Documentation of current 04/18/2017 MED GEN (Ammir Vane medications (procedure) 12:00:00 AM EDT P hysician) Documentation of current 04/18/2017 MED GEN (Ammir Vane medications (procedure) 12:00:00 AM EDT P hysician) Documentation of current 02/28/2017 MED GEN (Ammir Vane medications (procedure) 12:00:00 AM EDT P hysician) Documentation of current 02/28/2017 MED GEN (Ammir Vane medications (procedure) 12:00:00 AM EDT P hysician) Documentation of current 02/28/2017 MED GEN (Ammir Vane medications (procedure) 12:00:00 AM EDT P hysician) Documentation of current 02/28/2017 MED GEN (Ammir Vane medications (procedure) 12:00:00 AM EDT P hysician) Documentation of current 02/28/2017 MED GEN (Ammir Vane medications (procedure) 12:00:00 AM EDT P hysician) Documentation of current 02/28/2017 MED GEN (Ammir Vane medications (procedure) 12:00:00 AM EDT P hysician) Documentation of current 02/28/2017 MED GEN (Ammir Vane medications (procedure) 12:00:00 AM EDT P hysician) Documentation of current 02/28/2017 MED GEN (Ammir Vane medications (procedure) 12:00:00 AM EDT P hysician) Documentation of current 02/28/2017 MED GEN (Ammir Vane medications (procedure) 12:00:00 AM EDT P hysician) Documentation of current 02/28/2017 MED GEN (Ammir Vane medications (procedure) 12:00:00 AM EDT P hysician) Documentation of current 01/17/2017 MED GEN (Ammir Vane medications (procedure) 12:00:00 AM EDT P hysician) Documentation of current 01/17/2017 MED GEN (Ammir Vane medications (procedure) 12:00:00 AM EDT P hysician) Documentation of current 01/17/2017 MED GEN (Ammir Vane medications (procedure) 12:00:00 AM EDT P hysician) Documentation of current 01/17/2017 MED GEN (Ammir Vane medications (procedure) 12:00:00 AM EDT P hysician) Documentation of current 01/17/2017 MED GEN (Ammir Vane medications (procedure) 12:00:00 AM EDT P hysician) Documentation of current 01/17/2017 MED GEN (Ammir Vane medications (procedure) 12:00:00 AM EDT P hysician) Documentation of current 01/17/2017 MED GEN (Ammir Vane medications (procedure) 12:00:00 AM EDT P hysician) Documentation of current 01/17/2017 MED GEN (Ammir Vane medications (procedure) 12:00:00 AM EDT P hysician) Documentation of current 11/15/2016 MED GEN (Ammir Vaen medications (procedure) 12:00:00 AM EDT P hysician) Documentation of current 11/15/2016 MED GEN (Ammir Vane medications (procedure) 12:00:00 AM EDT P hysician) Documentation of current 11/15/2016 MED GEN (Ammir Vane medications (procedure) 12:00:00 AM EDT P hysician) Documentation of current 11/15/2016 MED GEN (Ammir Vane medications (procedure) 12:00:00 AM EDT P hysician) Documentation of current 11/15/2016 MED GEN (Ammir Vane medications (procedure) 12:00:00 AM EDT P hysician) Documentation of current 11/15/2016 MED GEN (Ammir Vane medications (procedure) 12:00:00 AM EDT P hysician) Documentation of current 11/15/2016 MED GEN (Ammir Vane medications (procedure) 12:00:00 AM EDT P hysician) Documentation of current 11/15/2016 MED GEN (Ammir Vane medications (procedure) 12:00:00 AM EDT P hysician) Documentation of current 11/15/2016 MED GEN (Ammir Vane medications (procedure) 12:00:00 AM EDT P hysician) Documentation of current 11/15/2016 MED GEN (Ammir Vane medications (procedure) 12:00:00 AM EDT P hysician) Documentation of current 11/15/2016 MED GEN (Ammir Vane medications (procedure) 12:00:00 AM EDT P hysician) Documentation of current 11/15/2016 MED GEN (Ammir Vane medications (procedure) 12:00:00 AM EDT P hysician) Documentation of current 10/25/2016 MED GEN (Ammir Vane medications (procedure) 12:00:00 AM EDT P hysician) Documentation of current 10/25/2016 MED GEN (Ammir Vane medications (procedure) 12:00:00 AM EDT P hysician) Documentation of current 10/25/2016 MED GEN (Ammir Vane medications (procedure) 12:00:00 AM EDT P hysician) Documentation of current 10/25/2016 MED GEN (Ammir Vane medications (procedure) 12:00:00 AM EDT P hysician) Documentation of current 10/25/2016 MED GEN (Ammir Vane medications (procedure) 12:00:00 AM EDT P hysician) Documentation of current 10/25/2016 MED GEN (Ammir Vane medications (procedure) 12:00:00 AM EDT P hysician) Documentation of current 10/25/2016 MED GEN (Ammir Vane medications (procedure) 12:00:00 AM EDT P hysician) Documentation of current 10/25/2016 MED GEN (Ammir Vane medications (procedure) 12:00:00 AM EDT P hysician) Documentation of current 10/25/2016 MED GEN (Ammir Vane medications (procedure) 12:00:00 AM EDT P hysician) Documentation of current 10/25/2016 MED GEN (Ammir Vane medications (procedure) 12:00:00 AM EDT P hysician) Documentation of current 10/25/2016 MED GEN (Ammir Vane medications (procedure) 12:00:00 AM EDT P hysician) Documentation of current 10/25/2016 MED GEN (Ammir Vane medications (procedure) 12:00:00 AM EDT P hysician) Documentation of current 10/25/2016 MED GEN (Ammir Vane medications (procedure) 12:00:00 AM EDT P hysician) Documentation of current 10/25/2016 MED GEN (Ammir Vane medications (procedure) 12:00:00 AM EDT P hysician) Documentation of current 10/25/2016 MED GEN (Ammir Vane medications (procedure) 12:00:00 AM EDT P hysician) Documentation of current 10/25/2016 MED GEN (Ammir Vane medications (procedure) 12:00:00 AM EDT P hysician) Documentation of current 10/25/2016 MED GEN (Ammir Vane medications (procedure) 12:00:00 AM EDT P hysician) Documentation of current 10/25/2016 MED GEN (Ammir Vane medications (procedure) 12:00:00 AM EDT P hysician) Documentation of current 09/22/2016 MED GEN (Ammir Vane medications (procedure) 12:00:00 AM EDT P hysician) Documentation of current 09/22/2016 MED GEN (Ammir Vane medications (procedure) 12:00:00 AM EDT P hysician) Documentation of current 09/22/2016 MED GEN (Ammir Vane medications (procedure) 12:00:00 AM EDT P hysician) Documentation of current 09/22/2016 MED GEN (Ammir Vane medications (procedure) 12:00:00 AM EDT P hysician) Documentation of current 09/22/2016 MED GEN (Ammir Vane medications (procedure) 12:00:00 AM EDT P hysician) Documentation of current 09/22/2016 MED GEN (Ammir Vane medications (procedure) 12:00:00 AM EDT P hysician) Documentation of current 09/22/2016 MED GEN (Ammir Vane medications (procedure) 12:00:00 AM EDT P hysician) Documentation of current 06/17/2016 MED GEN (Ammir Vane medications (procedure) 12:00:00 AM EST P hysician) Documentation of current 06/17/2016 MED GEN (Ammir Vane medications (procedure) 12:00:00 AM EST P hysician) Documentation of current 06/17/2016 MED GEN (Ammir Vane medications (procedure) 12:00:00 AM EST P hysician) Documentation of current 06/17/2016 MED GEN (Ammir Vane medications (procedure) 12:00:00 AM EST P hysician) Documentation of current 06/17/2016 MED GEN (Ammir Vane medications (procedure) 12:00:00 AM EST P hysician) Results ID Date Data Source [id number] 03/20/2020 11:10:00 AM EDT [facility] Name Value Range Interpretation Description Data Sup porting Code Source(s) Document(s ) SARS [facility] coronavirus 2 RNA This lab was ordered by [facility] and reported by [facility]. ID Date Data Source [id number] 01/22/2020 12:00:00 AM EDT MEDGEN (Ammir Vane Physician) Name Value Range Interpretation Code Description Data Stacey rce(s) Supporting Document(s ) COV2T Negative Normal (applies to MEDGEN (Amm ir non-numeric results) Vane Physician) ID Date Data Source [id number] 01/22/2020 12:00:00 AM EDT MED[facility] (Ammir Vane Physician) Name Value Range Interpretation Description Data Sup porting Code Source(s) Document(s ) GLUCOSE UA NEGATIVE Normal (applies MEDGEN to non-numeric (Ammir results) Vane Physician) BILIRUBIN, TOTAL NEGATIVE Normal (applies MEDGEN to non-numeric (Ammir results) Vane Physician) Ketones NEGATIVE Normal (applies MED[facility] [Presence] in to non-numeric (Ammir Blood by Tablet results) Vane Physician) Specific gravity 1.020 SG Normal (applies MEDGEN of Pericardial units to non-numeric (Ammir fluid by results) Vane Refractometry Physician) Blood [Presence] NEGATIVE Normal (applies [facility] in Urine by to non-numeric (Ammir Visual results) Vane Physician) pH of Lower 5 Ph units Normal (applies [facility]GEN respiratory to non-numeric (Ammir specimen results) Vane Physician) Protein NEGATIVE Normal (applies [facility] [Mass/volume] in to non-numeric (Ammir Lower results) Vane respiratory Physician) specimen Urobilinogen 0-2.0 Normal (applies MED[facility] [Presence] in to non-numeric (Ammir Urine by results) Vane Automated test Physician) strip Nitrite NEGATIVE Normal (applies MEDGEN [Presence] in to non-numeric (Ammir Urine by Test results) Vane strip Physician) Leukocyte NEGATIVE Normal (applies MEDGEN esterase to non-numeric (Ammir [Presence] in results) Vane Body fluid by Physician) Automated test strip Color of NELSY Abnormal MED[facility] Peritoneal (applies to (Ammir dialysis fluid non-numeric Vane results) Physician) TRANSPARENCY TURBID Abnormal MEDGEN (applies to (Ammir non-numeric Vane results) Physician) ID Date Data Source [id number] 01/22/2020 12:00:00 AM EDT [facility] (Ammir Vane Physician) Name Value Range Interpretation Description Data Sup porting Code Source(s) Document(s ) TSH,3RD 6.18 Above high normal [facility] GENERATION uIU/mL (Ammir Vane Physician) T4 FREE, 1.12 Normal (applies to [facility] THYROXINE ng/dL non-numeric (Ammir results) Vane Physician) ID Date Data Source [id number] 01/22/2020 12:00:00 AM EDT [facility] (Ammir Vane Physician) Name Value Range Interpretation Description Data Sup porting Code Source(s) Document(s ) Ferritin 58.2 Normal (applies to MEDGEN (Amm ir [Interpretat ng/mL non-numeric Vane ion] in results) Physician) Blood ID Date Data Source [id number] 01/22/2020 12:00:00 AM EDT [facility] (Ammir Vane Physician) Name Value Range Interpretation Description Data Sup porting Code Source(s) Document(s ) Transferrin 310 mg/dL Normal (applies [facility] [Mass/time] in to non-numeric (Ammir 24 hour Urine results) Vane Physician) TIBC 434.7 Normal (applies [facility] ug/dL to non-numeric (Ammir results) Vane Physician) UIBC 305.7 Normal (applies [facility] ug/dL to non-numeric (Ammir results) Vane Physician) %SATURATION 29.7 % Normal (applies [facility] to non-numeric (Ammir results) Vane Physician) ID Date Data Source [id number] 01/22/2020 12:00:00 AM EDT [facility] (Ammir Vane Physician) Name Value Range Interpretation Description Data Sup porting Code Source(s) Document(s ) FOLATE SERUM 17.9 Normal (applies to MEDGEN ( Ammir ng/mL non-numeric Vane results) Physician) VITAMIN B12 583 pg/mL Normal (applies to MEDGEN (A mmir non-numeric Vane results) Physician) ID Date Data Source [id number] 01/22/2020 12:00:00 AM EDT [facility] (Ammir Vane Physician) Name Value Range Interpretation Description Data Sup porting Code Source(s) Document(s ) MICROALBUMIN 1.2 Normal (applies [facility] URINE mg/dL to non-numeric (Ammir results) Vane Physician) CREATININE, 275.6 Normal (applies [facility] URINE mg/dL to non-numeric (Ammir results) Vane Physician) MICROALBUMIN/CRE 4.4 mg/g Normal (applies [facility] ATININ RATIO creat to non-numeric (Ammir results) Vane Physician) ID Date Data Source [id number] 01/22/2020 12:00:00 AM EDT [facility] (Ammir Vane Physician) Name Value Range Interpretation Description Data Sup porting Code Source(s) Document(s ) VITAMIN D 31.46 Below low normal MED[facility] (Ammir 25-HYDROXY ng/mL Vane Physician) ID Date Data Source [id number] 01/22/2020 12:00:00 AM EDT [facility] (Ammir Vane Physician) Name Value Range Interpretation Description Data Sup porting Code Source(s) Document(s ) Cholesterol 201 Above high normal [facility] [Moles/volume] mg/dL (Ammir in Pericardial Vane fluid Physician) LDL CALCULATION 93.4 Normal (applies [facility] mg/dL to non-numeric (Ammir results) Vane Physician) CHOL/HDL RATIO 3.24 Normal (applies [facility] ratio to non-numeric (Ammir results) Vane Physician) HDL CHOLESTEROL 62 mg/dL Normal (applies [facility] to non-numeric (Ammir results) Vane Physician) VLDL CALCULATION 45.6 Above high normal MEDGE N mg/dl (Ammir Vane Physician) TRIGLYCERIDES 228 Above high normal [facility] mg/dL (Ammir Vane Physician) ID Date Data Source [id number] 01/22/2020 12:00:00 AM EDT [facility] (Ammir Vane Physician) Name Value Range Interpretation Code Description Data Supporting Source(s) Document(s ) IRON, 129 ug/dL Normal (applies to [facility] (Amm ir TOTAL non-numeric Vane results) Physician) ID Date Data Source [id number] 01/22/2020 12:00:00 AM EDT [facility] (Ammir Vane Physician) Name Value Range Interpretation Description Data Sup porting Code Source(s) Document(s ) WBC 7.4 Normal (applies [facility] 10(3)/uL to non-numeric (Ammir results) Vane Physician) RBC 5.2 Above high normal [facility] 10(6)/uL (Ammir Vane Physician) Hemoglobin 15.0 g/dL Normal (applies [facility] [Mass/volume] to non-numeric (Ammir in Mixed venous results) Vane blood by Physician) Oximetry Hematocrit 45.1 % Above high normal [facility] [Pure volume (Ammir fraction] of Vane Blood by Physician) Automated count MCV 87.2 fL Normal (applies [facility] to non-numeric (Ammir results) Vane Physician) MCH 29 pg Normal (applies [facility] to non-numeric (Ammir results) Vane Physician) MCHC 33 g/dL Normal (applies [facility] to non-numeric (Ammir results) Vane Physician) RDWSD 43.6 fL Normal (applies [facility] to non-numeric (Ammir results) Vane Physician) RDWCV 13.6 % Normal (applies [facility] to non-numeric (Ammir results) Vane Physician) Platelet Count 387 Normal (applies [facility] 10(3)/uL to non-numeric (Ammir results) Vane Physician) MPV 10.2 fL Normal (applies [facility] to non-numeric (Ammir results) Vane Physician) Neutrophil Abs 3.73 Normal (applies [facility] 10(3)/uL to non-numeric (Ammir results) Vane Physician) Lymphocyte Abs 2.77 Normal (applies [facility] 10(3)/uL to non-numeric (Ammir results) Vane Physician) Monocyte Abs 0.64 Normal (applies [facility] 10(3)/uL to non-numeric (Ammir results) Vane Physician) Eosinophil Abs 0.13 Normal (applies [facility] 10(3)/uL to non-numeric (Ammir results) Vane Physician) Basophil Abs 0.06 Normal (applies [facility] 10(3)/uL to non-numeric (Ammir results) Vane Physician) Immature 0.02 Normal (applies [facility] Granulocyte Abs 10(3)/uL to non-numeric (Ammir results) Vane Physician) Neutrophil % 50.70 % Normal (applies [facility] to non-numeric (Ammir results) Vane Physician) Lymphocyte % 38 % Normal (applies [facility] to non-numeric (Ammir results) Vane Physician) Monocyte % 8.7 % Normal (applies [facility] to non-numeric (Ammir results) Vane Physician) Eosinophil % 1.8 % Normal (applies [facility] to non-numeric (Ammir results) Vane Physician) Basophil % 0.8 % Normal (applies [facility] to non-numeric (Ammir results) Vane Physician) Immature 0.30 % Normal (applies [facility] Granulocyte % to non-numeric (Ammir results) Vane Physician) NRBC % 0.0 % Normal (applies [facility] to non-numeric (Ammir results) Vane Physician) NRBC Abs 0.00 Normal (applies [facility] 10(3)/uL to non-numeric (Ammir results) Vane Physician) ID Date Data Source [id number] 01/22/2020 12:00:00 AM EDT [facility] (Ammir Vane Physician) Name Value Range Interpretation Description Data Sup porting Code Source(s) Document(s ) Hemoglobin A1c 5.9 % Above high normal [facility] (Ammir in Blood Vane Physician) ID Date Data Source [id number] 01/22/2020 12:00:00 AM EDT [facility] (Ammir Vane Physician) Name Value Range Interpretation Description Data Sup porting Code Source(s) Document(s ) GLUCOSE 104 Normal (applies [facility] NONFASTING,SERUM mg/dL to non-numeric (Ammir results) Vane Physician) SODIUM, SERUM 141 Normal (applies [facility] mEq/L to non-numeric (Ammir results) Vane Physician) POTASSIUM, SERUM 4.1 Normal (applies [facility] mEq/L to non-numeric (Ammir results) Vane Physician) CHLORIDE, SERUM 104 Normal (applies [facility] mEq/L to non-numeric (Ammir results) Vaen Physician) Carbon dioxide 27 mEq/L Normal (applies [facility] [VFr/PPres] in to non-numeric (Ammir Gas delivery results) [facility]ane system Physician) Anion gap in 14.1 Normal (applies [facility] Body fluid mEq/L to non-numeric (Ammir results) Vane Physician) BLOOD UREA 13 mg/dL Normal (applies [facility] NITROGEN to non-numeric (Ammir results) Vane Physician) CREATININE, 0.60 Normal (applies [facility] SERUM mg/dL to non-numeric (Ammir results) Vane Physician) CALCIUM, SERUM 9.9 Normal (applies [facility] mg/dL to non-numeric (Ammir results) Vane Physician) TOTAL PROTEIN 6.9 g/dL Normal (applies [facility] to non-numeric (Ammir results) Vane Physician) Microalbumin 4.4 g/dL Normal (applies [facility] [Mass/time] in to non-numeric (Ammir Urine collected results) Vane for unspecified Physician) duration Globulin 2.5 gldl Normal (applies [facility] [Mass/time] in to non-numeric (Ammir 24 hour Urine results) Vane Physician) A/G RATIO 1.76 Normal (applies [facility] g/dl to non-numeric (Ammir results) Vane Physician) BILIRUBIN, TOTAL 1.2 Normal (applies [facility] mg/dL to non-numeric (Ammir results) Vane Physician) ALKALINE 110 U/L Normal (applies [facility] PHOSPHATASE, ALP to non-numeric (Ammir results) Vane Physician) ALT (SGPT) 16 U/L Normal (applies [facility] to non-numeric (Ammir results) Vane Physician) AST 22 U/L Normal (applies [facility] to non-numeric (Ammir results) Vane Physician) EGFR NON AFR 105 Normal (applies [facility] BURMESE mL/min/1 to non-numeric (Ammir .73m2 results) Vane Physician) EGFR AFR 127 Normal (applies [facility] BURMESE mL/min/1 to non-numeric (Ammir .73m2 results) Vane Physician) ID Date Data Source [id number] 07/24/2019 12:00:00 AM EST [facility] (Ammir Vane Physician) Name Value Range Interpretation Code Description Data Stacey rce(s) Supporting Document(s ) APTT 31.20 sec Normal (applies to [facility] (Amm ir non-numeric results) Vane Physician) ID Date Data Source [id number] 07/24/2019 12:00:00 AM EST [facility] (Ammir Vane Physician) Name Value Range Interpretation Description Data Sup porting Code Source(s) Document(s ) PROTHROMBIN 12.3 sec Normal (applies [facility] TIME, PT to non-numeric (Ammir results) Vane Physician) INR 0.89 Below low normal [facility] (Ammir Vane Physician) ID Date Data Source [id number] 07/24/2019 12:00:00 AM EST [facility] (Ammir Vane Physician) Name Value Range Interpretation Description Data Sup porting Code Source(s) Document(s ) WBC 7.1 Normal (applies [facility] 10(3)/uL to non-numeric (Ammir results) Vane Physician) RBC 5.2 Above high normal [facility] 10(6)/uL (Ammir Vane Physician) Hemoglobin 15.1 g/dL Normal (applies [facility] [Mass/volume] to non-numeric (Ammir in Mixed venous results) Vane blood by Physician) Oximetry Hematocrit 44.9 % Normal (applies [facility] [Pure volume to non-numeric (Ammir fraction] of results) Vane Blood by Physician) Automated count MCV 86.2 fL Normal (applies [facility] to non-numeric (Ammir results) Vane Physician) MCH 29 pg Normal (applies [facility] to non-numeric (Ammir results) Vane Physician) MCHC 34 g/dL Normal (applies [facility] to non-numeric (Ammir results) Vane Physician) RDWSD 40.6 fL Normal (applies [facility] to non-numeric (Ammir results) Vane Physician) RDWCV 13.0 % Normal (applies [facility] to non-numeric (Ammir results) Vane Physician) Platelet Count 397 Normal (applies [facility] 10(3)/uL to non-numeric (Ammir results) Vane Physician) MPV 9.7 fL Normal (applies [facility] to non-numeric (Ammir results) Vane Physician) Neutrophil Abs 4.24 Normal (applies [facility] 10(3)/uL to non-numeric (Ammir results) Vane Physician) Lymphocyte Abs 1.97 Normal (applies [facility] 10(3)/uL to non-numeric (Ammir results) Vane Physician) Monocyte Abs 0.65 Normal (applies [facility] 10(3)/uL to non-numeric (Ammir results) Vane Physician) Eosinophil Abs 0.16 Normal (applies [facility] 10(3)/uL to non-numeric (Ammir results) Vane Physician) Basophil Abs 0.07 Normal (applies [facility] 10(3)/uL to non-numeric (Ammir results) Vane Physician) Immature 0.03 Normal (applies [facility] Granulocyte Abs 10(3)/uL to non-numeric (Ammir results) Vane Physician) Neutrophil % 59.60 % Normal (applies [facility] to non-numeric (Ammir results) Vane Physician) Lymphocyte % 28 % Normal (applies [facility] to non-numeric (Ammir results) Avne Physician) Monocyte % 9.1 % Normal (applies [facility] to non-numeric (Ammir results) Vane Physician) Eosinophil % 2.2 % Normal (applies [facility] to non-numeric (Ammir results) Vane Physician) Basophil % 1.0 % Normal (applies [facility] to non-numeric (Ammir results) Vaen Physician) Immature 0.40 % Normal (applies [facility] Granulocyte % to non-numeric (Ammir results) Vane Physician) NRBC % 0.0 % Normal (applies [facility] to non-numeric (Ammir results) Vane Physician) NRBC Abs 0.00 Normal (applies [facility] 10(3)/uL to non-numeric (Ammir results) Vane Physician) ID Date Data Source [id number] 07/24/2019 12:00:00 AM EST [facility] (Ammir Vane Physician) Name Value Range Interpretation Description Data Sup porting Code Source(s) Document(s ) GLUCOSE 101 Normal (applies [facility] NONFASTING,SERUM mg/dL to non-numeric (Ammir results) Vane Physician) SODIUM, SERUM 143 Normal (applies [facility] mEq/L to non-numeric (Ammir results) Vane Physician) POTASSIUM, SERUM 4.5 Normal (applies [facility] mEq/L to non-numeric (Ammir results) Vane Physician) CHLORIDE, SERUM 101 Normal (applies [facility] mEq/L to non-numeric (Ammir results) Vane Physician) Carbon dioxide 30 mEq/L Normal (applies [facility] [VFr/PPres] in to non-numeric (Ammir Gas delivery results) Vane system Physician) Anion gap in 16.5 Normal (applies [facility] Body fluid mEq/L to non-numeric (Ammir results) Vane Physician) BLOOD UREA 11 mg/dL Normal (applies [facility] NITROGEN to non-numeric (Ammir results) Vane Physician) CREATININE, 0.80 Normal (applies [facility] SERUM mg/dL to non-numeric (Ammir results) Vane Physician) CALCIUM, SERUM 9.5 Normal (applies [facility] mg/dL to non-numeric (Ammir results) Vane Physician) TOTAL PROTEIN 6.8 g/dL Normal (applies [facility] to non-numeric (Ammir results) Vane Physician) Microalbumin 4.3 g/dL Normal (applies [facility] [Mass/time] in to non-numeric (Ammir Urine collected results) Vane for unspecified Physician) duration Globulin 2.5 gldl Normal (applies [facility] [Mass/time] in to non-numeric (Ammir 24 hour Urine results) Vane Physician) A/G RATIO 1.72 Normal (applies [facility] g/dl to non-numeric (Ammir results) Vane Physician) BILIRUBIN, TOTAL 1.2 Normal (applies [facility] mg/dL to non-numeric (Ammir results) Vane Physician) ALKALINE 120 U/L Normal (applies [facility] PHOSPHATASE, ALP to non-numeric (Ammir results) Vane Physician) ALT (SGPT) 16 U/L Normal (applies [facility] to non-numeric (Ammir results) Vane Physician) AST 25 U/L Normal (applies [facility] to non-numeric (Ammir results) Vane Physician) EGFR NON AFR 76 Normal (applies [facility] BURMESE mL/min/1 to non-numeric (Ammir .73m2 results) Vane Physician) EGFR AFR 91 Normal (applies [facility] BURMESE mL/min/1 to non-numeric (Ammir .73m2 results) Vane Physician) ID Date Data Source [id number] 03/23/2019 12:00:00 AM EDT [facility] (Ammir Vane Physician) Name Value Range Interpretation Description Data Sup porting Code Source(s) Document(s ) ORGANISM Normal (applies [facility] to non-numeric (Ammir results) Vane Physician) Comment Normal (applies [facility] [Interpretation] to non-numeric (Ammir Left eye Narrative results) [facility]ane Ophthalmometer Physician) ID Date Data Source [id number] 03/23/2019 12:00:00 AM EDT [facility] (Ammir Vane Physician) Name Value Range Interpretation Description Data Sup porting Code Source(s) Document(s ) Celikey tTG 0.7 U/ml Normal (applies to [facility] (A mmir IgA non-numeric Vane results) Physician) Celikey tTG <0.6 Normal (applies to [facility] (A mmir IgG non-numeric Vane results) Physician) Gliadin,Deam 1.4 U/ml Normal (applies to [facility] ( Ammir idated non-numeric Vane Peptide IgA results) Physician) Gliadin,Deam <0.4 Normal (applies to [facility] ( Ammir idated non-numeric Vane Peptide IgG results) Physician) ID Date Data Source [id number] 03/23/2019 12:00:00 AM EDT [facility] (Ammir Vane Physician) Name Value Range Interpretation Description Data Sup porting Code Source(s) Document(s ) EGG WHITE 0.65 kU/L Above high normal [facility] (Ammi r (F1) IGE Vane Physician) MILK (F2) 0.28 kU/L Above high normal [facility] (Ammi r IGE Vane Physician) CODFISH (F3) <0.10 Normal (applies to [facility] ( Ammir IGE non-numeric Vane results) Physician) WHEAT (F4) 0.42 kU/L Above high normal [facility] (Amm ir IGE Vane Physician) MAIZE / CORN <0.10 Normal (applies to [facility] ( Ammir (F8) IGE non-numeric Vane results) Physician) SESAME SEED <0.10 Normal (applies to [facility] (A mmir (F10) IGE non-numeric Vane results) Physician) PEANUT (F13) <0.10 Normal (applies to [facility] ( Ammir IGE non-numeric Vane results) Physician) SOYBEAN <0.10 Normal (applies to [facility] (Amm ir (F14) IGE non-numeric Vane results) Physician) SHRIMP (F24) 5.85 kU/L Above high normal [facility] (A mmir IGE Vane Physician) CLAM (F207) 2.19 kU/L Above high normal [facility] (Am georgina IGE Vane Physician) WALNUT <0.10 Normal (applies to [facility] (Amm ir (F256) IGE non-numeric Vane results) Physician) GLUTEN (F79) 0.65 kU/L Above high normal [facility] (A mmir IGE Vane Physician) SCALLOP 0.62 kU/L Above high normal [facility] (Ammi r (F338) IGE Vane Physician) ID Date Data Source [id number] 03/23/2019 12:00:00 AM EDT [facility] (Ammir Vane Physician) Name Value Range Interpretation Description Data Sup porting Code Source(s) Document(s ) GLUCOSE 90 mg/dL Normal (applies [facility] NONFASTING,SERUM to non-numeric (Ammir results) Vane Physician) SODIUM, SERUM 142 Normal (applies [facility] mEq/L to non-numeric (Ammir results) Vane Physician) POTASSIUM, SERUM 4.3 Normal (applies [facility] mEq/L to non-numeric (Ammir results) Vane Physician) CHLORIDE, SERUM 107 Normal (applies [facility] mEq/L to non-numeric (Ammir results) Vane Physician) Carbon dioxide 27 mEq/L Normal (applies [facility] [VFr/PPres] in to non-numeric (Ammir Gas delivery results) Vane system Physician) Anion gap in 12 mEq/L Normal (applies [facility] Body fluid to non-numeric (Ammir results) Vane Physician) BLOOD UREA 21 mg/dL Normal (applies [facility] NITROGEN to non-numeric (Ammir results) Vane Physician) CREATININE, 0.70 Normal (applies [facility] SERUM mg/dL to non-numeric (Ammir results) Vane Physician) CALCIUM, SERUM 9.3 Normal (applies [facility] mg/dL to non-numeric (Ammir results) Vane Physician) TOTAL PROTEIN 7.0 g/dL Normal (applies [facility] to non-numeric (Ammir results) Vane Physician) Microalbumin 4.4 g/dL Normal (applies [facility] [Mass/time] in to non-numeric (Ammir Urine collected results) Vane for unspecified Physician) duration Globulin 2.6 gldl Normal (applies [facility] [Mass/time] in to non-numeric (Ammir 24 hour Urine results) Vane Physician) A/G RATIO 1.69 Normal (applies [facility] g/dl to non-numeric (Ammir results) Vane Physician) BILIRUBIN, TOTAL 0.6 Normal (applies [facility] mg/dL to non-numeric (Ammir results) Vane Physician) ALKALINE 134 U/L Above high normal [facility] PHOSPHATASE, ALP (Ammir Vane Physician) ALT (SGPT) 20 U/L Normal (applies [facility] to non-numeric (Ammir results) Vane Physician) AST 30 U/L Normal (applies [facility] to non-numeric (Ammir results) Vane Physician) EGFR NON AFR 88 Normal (applies [facility] BURMESE mL/min/1 to non-numeric (Ammir .73m2 results) Vane Physician) EGFR AFR 107 Normal (applies [facility] BURMESE mL/min/1 to non-numeric (Ammir .73m2 results) Vane Physician) ID Date Data Source [id number] 03/23/2019 12:00:00 AM EDT [facility] (Ammir Vane Physician) Name Value Range Interpretation Description Data Sup porting Code Source(s) Document(s ) T4 FREE, 1.05 Normal (applies to [facility] THYROXINE ng/dL non-numeric (Ammir results) Vane Physician) TSH,3RD 5.29 Normal (applies to [facility] GENERATION uIU/mL non-numeric (Ammir results) Vane Physician) ID Date Data Source [id number] 03/23/2019 12:00:00 AM EDT [facility] (Ammir Vane Physician) Name Value Range Interpretation Description Data Sup porting Code Source(s) Document(s ) WBC 10.4 Normal (applies [facility] 10(3)/uL to non-numeric (Ammir results) Vane Physician) RBC 4.9 Normal (applies [facility] 10(6)/uL to non-numeric (Ammir results) Vane Physician) Hemoglobin 14.1 g/dL Normal (applies [facility] [Mass/volume] to non-numeric (Ammir in Mixed venous results) Vane blood by Physician) Oximetry Hematocrit 42.5 % Normal (applies [facility] [Pure volume to non-numeric (Ammir fraction] of results) Vane Blood by Physician) Automated count MCV 87.6 fL Normal (applies [facility] to non-numeric (Ammir results) Vane Physician) MCH 29 pg Normal (applies [facility] to non-numeric (Ammir results) Vane Physician) MCHC 33 g/dL Normal (applies [facility] to non-numeric (Ammir results) Vane Physician) RDWSD 41.0 fL Normal (applies [facility] to non-numeric (Ammir results) Vane Physician) RDWCV 13.0 % Normal (applies [facility] to non-numeric (Ammir results) Vane Physician) Platelet Count 424 Normal (applies [facility] 10(3)/uL to non-numeric (Ammir results) Vane Physician) MPV 10.0 fL Normal (applies [facility] to non-numeric (Ammir results) Vane Physician) Neutrophil Abs 7.77 Above high normal [facility] 10(3)/uL (Ammir Vane Physician) Lymphocyte Abs 1.66 Normal (applies [facility] 10(3)/uL to non-numeric (Ammir results) Vane Physician) Monocyte Abs 0.72 Normal (applies [facility] 10(3)/uL to non-numeric (Ammir results) Vane Physician) Eosinophil Abs 0.14 Normal (applies [facility] 10(3)/uL to non-numeric (Ammir results) Vane Physician) Basophil Abs 0.06 Normal (applies [facility] 10(3)/uL to non-numeric (Ammir results) Vane Physician) Immature 0.04 Above high normal [facility] Granulocyte Abs 10(3)/uL (Ammir Vane Physician) Neutrophil % 74.80 % Above high normal [facility] (Ammir Vane Physician) Lymphocyte % 16 % Below low normal [facility] (Ammir Vane Physician) Monocyte % 6.9 % Normal (applies [facility] to non-numeric (Ammir results) Vane Physician) Eosinophil % 1.3 % Normal (applies [facility] to non-numeric (Ammir results) Vane Physician) Basophil % 0.6 % Normal (applies [facility] to non-numeric (Ammir results) Vane Physician) Immature 0.40 % Normal (applies [facility] Granulocyte % to non-numeric (Ammir results) Vane Physician) NRBC % 0.0 % Normal (applies [facility] to non-numeric (Ammir results) Vane Physician) NRBC Abs 0.00 Normal (applies [facility] 10(3)/uL to non-numeric (Ammir results) [facility] Physician) ID Date Data Source [id number] 03/23/2019 12:00:00 AM EDT [facility] (Ammir Vane Physician) Name Value Range Interpretation Description Data Sup porting Code Source(s) Document(s ) CAMPYLOBACTER Normal (applies [facility] to non-numeric (Ammir results) [facility] Physician) CLOSTRIDIUM DIFFICILE Normal (applies ME DGEN TOXIN A/B to non-numeric (Ammir results) [facility] Physician) PLESIOMONAS Normal (applies [facility] SHIGELLOIDES to non-numeric (Ammir results) [facility] Physician) SALMONELLA Normal (applies [facility] to non-numeric (Ammir results) [facility] Physician) VIBRIO Normal (applies [facility] to non-numeric (Ammir results) [facility] Physician) VIBRIO CHOLERAE Normal (applies [facility] to non-numeric (Ammir results) [facility] Physician) YERSINIA Normal (applies [facility] ENTEROCOLITICA to non-numeric (Ammir results) [facility] Physician) ENTEROAGGREGATIVE E. Normal (applies MED GEN COLI (EAEC) to non-numeric (Ammir results) [facility] Physician) ENTEROPATHOGENIC E. Normal (applies MEDG EN COLI (EPEC) to non-numeric (Ammir results) [facility] Physician) ENTEROTOXIGENIC E. Normal (applies MEDGE N COLI (ETEC) IT/ST to non-numeric (Ammir results) [facility] Physician) SHIGA-LIKE Normal (applies [facility] TOXIN-PRODUCING E. to non-numeric (Ammir COLI (STEC) STX1/STX2 results) [facility] Physician) E. COLI 0157 Normal (applies [facility] to non-numeric (Ammir results) [facility] Physician) SHIGELLA/ENTEROINVASI Normal (applies ME DGEN VE E. COLI (EIEC) to non-numeric (Ammir results) [facility] Physician) Deprecated Normal (applies [facility] Cryptosporidium sp Ag to non-numeric (Am georgina [Presence] in results) [facility] Unspecified specimen Physician ) by Immunofluorescence Cyclospora Normal (applies [facility] cayetanensis to non-numeric (Ammir [Presence] in results) Vane Unspecified specimen Physician ) Entamoeba histolytica Normal (applies ME DGEN [Presence] in Stool to non-numeric (Ammi r by Trichrome stain results) Vane Physician) Giardia lamblia Normal (applies [facility] [Presence] in Stool to non-numeric (Ammi r by Organism specific results) Vane culture Physician) ADENOVIRUS F 40/41 Normal (applies MEDGE N to non-numeric (Ammir results) Vane Physician) Astrovirus [Presence] Normal (applies ME DGEN in Stool by Electron to non-numeric (Amm ir microscopy results) Vane Physician) NOROVIRUS GI/GII Normal (applies [facility] to non-numeric (Ammir results) Vane Physician) ROTAVIRUS A Normal (applies [facility] to non-numeric (Ammir results) Vane Physician) SAPOVIRUS Normal (applies [facility] to non-numeric (Ammir results) Vane Physician) ID Date Data Source [id number] 03/23/2019 12:00:00 AM EDT [facility] (Ammir Vane Physician) Name Value Range Interpretation Description Data Sup porting Code Source(s) Document(s ) Adenovirus Not Normal (applies [facility] [Presence] in Detected to non-numeric (Ammir Unspecified results) Vane specimen by Physician) Organism specific culture CORONAVIRUS 229E Not Normal (applies [facility] Detected to non-numeric (Ammir results) Vane Physician) CORONAVIRUS HKU1 Not Normal (applies [facility] Detected to non-numeric (Ammir results) Vane Physician) CORONAVIRUS NL63 Not Normal (applies [facility] Detected to non-numeric (Ammir results) Vane Physician) CORONAVIRUS OC43 Not Normal (applies [facility] Detected to non-numeric (Ammir results) Vane Physician) HUMAN Not Normal (applies [facility] METAPNEUMOVIRUS Detected to non-numeric (Ammir results) Vane Physician) HUMAN Not Normal (applies [facility] RHINOVIRUS/ENTERO Detected to non-numeric (Ammir VIRUS results) Vane Physician) INFLUENZA A/H1 Not Normal (applies [facility] Detected to non-numeric (Ammir results) Vane Physician) INFLUENZA A/H3 Not Normal (applies [facility] Detected to non-numeric (Ammir results) Vane Physician) INFLUENZA Not Normal (applies [facility] A/H1-2009 Detected to non-numeric (Ammir results) Vane Physician) INFLUENZA B Not Normal (applies [facility] Detected to non-numeric (Ammir results) Vane Physician) Parainfluenza Not Normal (applies [facility] virus 1 Detected to non-numeric (Ammir [Presence] in results) Vane Unspecified Physician) specimen by Organism specific culture Parainfluenza Not Normal (applies [facility] virus 2 Detected to non-numeric (Ammir [Presence] in results) Vane Unspecified Physician) specimen by Organism specific culture Parainfluenza Not Normal (applies [facility] virus 3 Detected to non-numeric (Ammir [Presence] in results) Vane Unspecified Physician) specimen by Organism specific culture PARAINFLUENZA Not Normal (applies [facility] VIRUS 4 Detected to non-numeric (Ammir results) Vane Physician) RESP.SYNCYTIAL Not Normal (applies [facility] VIRUS Detected to non-numeric (Ammir results) Vane Physician) Bordetella Not Normal (applies [facility] pertussis Detected to non-numeric (Ammir [Presence] in results) Vane Unspecified Physician) specimen by Organism specific culture Chlamydophila Not Normal (applies [facility] pneumoniae Detected to non-numeric (Ammir [Presence] in results) Vane Unspecified Physician) specimen by Organism specific culture Mycoplasma Not Normal (applies [facility] pneumoniae Detected to non-numeric (Ammir [Presence] in results) Vane Unspecified Physician) specimen by Organism specific culture Bordetella Not Normal (applies [facility] parapertussis Detected to non-numeric (Ammir [Presence] in results) Vane Unspecified Physician) specimen by Organism specific culture ID Date Data Source [id number] 03/23/2019 12:00:00 AM EDT [facility] (Ammir Vane Physician) Name Value Range Interpretation Description Data Sup porting Code Source(s) Document(s ) FOLATE SERUM 18.9 Normal (applies to [facility] ( Ammir ng/mL non-numeric Vane results) Physician) VITAMIN B12 484 pg/mL Normal (applies to [facility] (A mmir non-numeric Vane results) Physician) ID Date Data Source [id number] 03/23/2019 12:00:00 AM EDT [facility] (Ammir Vane Physician) Name Value Range Interpretation Description Data Sup porting Code Source(s) Document(s ) VITAMIN D 28.27 Below low normal [facility] (Ammir 25-HYDROXY ng/mL Vane Physician) ID Date Data Source [id number] 03/23/2019 12:00:00 AM EDT [facility] (Ammir Vane Physician) Name Value Range Interpretation Code Description Data Stacey rce(s) Supporting Document(s ) FECAL Normal (applies to [facility] (Amm ir GLOBIN, non-numeric results) Vane STOOL Physician) ID Date Data Source [id number] 11/08/2018 12:00:00 AM EDT [facility] (Ammir Vane Physician) Name Value Range Interpretation Description Data Sup porting Code Source(s) Document(s ) T4 FREE, 1.18 Normal (applies to [facility] THYROXINE ng/dL non-numeric (Ammir results) Vane Physician) TSH,3RD 5.77 Above high normal [facility] GENERATION uIU/mL (Ammir Vane Physician) ID Date Data Source [id number] 11/08/2018 12:00:00 AM EDT [facility] (Ammir Vane Physician) Name Value Range Interpretation Description Data Sup porting Code Source(s) Document(s ) FOLATE SERUM 9.7 ng/mL Above high normal [facility] (A mmir Vane Physician) VITAMIN B12 524 pg/mL Normal (applies to [facility] (A mmir non-numeric Vane results) Physician) ID Date Data Source [id number] 11/08/2018 12:00:00 AM EDT [facility] (Ammir Vane Physician) Name Value Range Interpretation Description Data Sup porting Code Source(s) Document(s ) HEPATITIS C NONREACTIVE Normal (applies [facility] AB QL to non-numeric (Ammir results) Vane Physician) ID Date Data Source [id number] 11/08/2018 12:00:00 AM EDT [facility] (Ammir Vane Physician) Name Value Range Interpretation Description Data Sup porting Code Source(s) Document(s ) HEPATITIS BS NONREACTIVE Normal (applies [facility] AG SCREEN to non-numeric (Ammir results) Vane Physician) ID Date Data Source [id number] 11/08/2018 12:00:00 AM EDT [facility] (Ammir Vane Physician) Name Value Range Interpretation Description Data Sup porting Code Source(s) Document(s ) HEPATITIS B <3.10 Normal (applies to [facility] (A mmir SURFACE AB (NONREACT non-numeric Vane BUSHRA) results) Physician) ID Date Data Source [id number] 11/08/2018 12:00:00 AM EDT [facility] (Ammir Vane Physician) Name Value Range Interpretation Description Data Sup porting Code Source(s) Document(s ) HEPATITIS A NONREACTIVE Normal (applies [facility] AB to non-numeric (Ammir results) Vane Physician) ID Date Data Source [id number] 11/08/2018 12:00:00 AM EDT [facility] (Ammir Vane Physician) Name Value Range Interpretation Description Data Sup porting Code Source(s) Document(s ) VITAMIN D 39.16 Normal (applies to [facility] (Amm ir 25-HYDROXY ng/mL non-numeric Vane results) Physician) ID Date Data Source [id number] 11/08/2018 12:00:00 AM EDT [facility] (Ammir Vane Physician) Name Value Range Interpretation Description Data Sup porting Code Source(s) Document(s ) GLUCOSE 78 mg/dL Normal (applies [facility] NONFASTING,SERUM to non-numeric (Ammir results) [facility]ane Physician) SODIUM, SERUM 142 Normal (applies [facility] mEq/L to non-numeric (Ammir results) Vane Physician) POTASSIUM, SERUM 4.0 Normal (applies [facility] mEq/L to non-numeric (Ammir results) Vane Physician) CHLORIDE, SERUM 103 Normal (applies [facility] mEq/L to non-numeric (Ammir results) Vane Physician) Carbon dioxide 25 mEq/L Normal (applies [facility] [VFr/PPres] in to non-numeric (Ammir Gas delivery results) [facility]ane system Physician) Anion gap in 18 mEq/L Normal (applies [facility] Body fluid to non-numeric (Ammir results) Vane Physician) BLOOD UREA 15 mg/dL Normal (applies [facility] NITROGEN to non-numeric (Ammir results) Vane Physician) CREATININE, 0.90 Normal (applies [facility] SERUM mg/dL to non-numeric (Ammir results) Vane Physician) CALCIUM, SERUM 9.9 Normal (applies [facility] mg/dL to non-numeric (Ammir results) Vane Physician) TOTAL PROTEIN 7.2 g/dL Normal (applies [facility] to non-numeric (Ammir results) Vane Physician) Microalbumin 4.5 g/dL Normal (applies [facility] [Mass/time] in to non-numeric (Ammir Urine collected results) Vane for unspecified Physician) duration Globulin 2.7 gldl Normal (applies [facility] [Mass/time] in to non-numeric (Ammir 24 hour Urine results) Vane Physician) A/G RATIO 1.67 Normal (applies [facility] g/dl to non-numeric (Ammir results) Vane Physician) BILIRUBIN, TOTAL 1.2 Normal (applies [facility] mg/dL to non-numeric (Ammir results) Vane Physician) ALKALINE 123 U/L Normal (applies [facility] PHOSPHATASE, ALP to non-numeric (Ammir results) Vane Physician) ALT (SGPT) 27 U/L Normal (applies [facility] to non-numeric (Ammir results) Vane Physician) AST 39 U/L Above high normal [facility] (Ammir Vane Physician) EGFR NON AFR 66 Above high normal [facility] BURMESE mL/min/1 (Ammir .73m2 Vane Physician) EGFR AFR 80 Above high normal [facility] BURMESE mL/min/1 (Ammir .73m2 Vane Physician) ID Date Data Source [id number] 11/08/2018 12:00:00 AM EDT [facility] (Ammir Vane Physician) Name Value Range Interpretation Description Data Sup porting Code Source(s) Document(s ) WBC 6.5 Normal (applies [facility] 10(3)/uL to non-numeric (Ammir results) Vane Physician) RBC 5.2 Above high normal [facility] 10(6)/uL (Ammir Vane Physician) Hemoglobin 15.4 g/dL Normal (applies [facility] [Mass/volume] to non-numeric (Ammir in Mixed venous results) Vane blood by Physician) Oximetry Hematocrit 44.9 % Normal (applies [facility] [Pure volume to non-numeric (Ammir fraction] of results) Vane Blood by Physician) Automated count MCV 86.3 fL Normal (applies [facility] to non-numeric (Ammir results) Vane Physician) MCH 30 pg Normal (applies [facility] to non-numeric (Ammir results) Vane Physician) MCHC 34 g/dL Normal (applies [facility] to non-numeric (Ammir results) Vane Physician) RDWSD 40.9 fL Normal (applies [facility] to non-numeric (Ammir results) Vane Physician) RDWCV 13.4 % Normal (applies [facility] to non-numeric (Ammir results) Vane Physician) Platelet Count 366 Normal (applies [facility] 10(3)/uL to non-numeric (Ammir results) Vane Physician) MPV 9.3 fL Below low normal [facility] (Ammir Vane Physician) Neutrophil Abs 3.87 Normal (applies [facility] 10(3)/uL to non-numeric (Ammir results) Vane Physician) Lymphocyte Abs 1.87 Normal (applies [facility] 10(3)/uL to non-numeric (Ammir results) Vane Physician) Monocyte Abs 0.53 Normal (applies [facility] 10(3)/uL to non-numeric (Ammir results) Vane Physician) Eosinophil Abs 0.14 Normal (applies [facility] 10(3)/uL to non-numeric (Ammir results) Vane Physician) Neutrophil % 59.40 % Normal (applies [facility] to non-numeric (Ammir results) Vane Physician) Lymphocyte % 29 % Normal (applies [facility] to non-numeric (Ammir results) Vane Physician) Monocyte % 8.1 % Normal (applies [facility] to non-numeric (Ammir results) Vane Physician) Eosinophil % 2.2 % Normal (applies [facility] to non-numeric (Ammir results) Vane Physician) Basophil % 1.1 % Normal (applies [facility] to non-numeric (Ammir results) Vane Physician) Immature 0.50 % Normal (applies [facility] Granulocyte % to non-numeric (Ammir results) Vane Physician) ID Date Data Source [id number] 10/18/2018 12:00:00 AM EDT [facility] (Ammir Vane Physician) Name Value Range Interpretation Description Data Sup porting Code Source(s) Document(s ) Adenovirus Not Normal (applies [facility] [Presence] in Detected to non-numeric (Ammir Unspecified results) Vane specimen by Physician) Organism specific culture CORONAVIRUS 229E Not Normal (applies [facility] Detected to non-numeric (Ammir results) Vane Physician) CORONAVIRUS HKU1 Not Normal (applies [facility] Detected to non-numeric (Ammir results) Vane Physician) CORONAVIRUS NL63 Not Normal (applies [facility] Detected to non-numeric (Ammir results) Vane Physician) CORONAVIRUS OC43 Not Normal (applies [facility] Detected to non-numeric (Ammir results) Vane Physician) HUMAN Not Normal (applies [facility] METAPNEUMOVIRUS Detected to non-numeric (Ammir results) Vane Physician) HUMAN Not Normal (applies [facility] RHINOVIRUS/ENTERO Detected to non-numeric (Ammir VIRUS results) Vane Physician) INFLUENZA A/H1 Not Normal (applies [facility] Detected to non-numeric (Ammir results) Vane Physician) INFLUENZA A/H3 Not Normal (applies [facility] Detected to non-numeric (Ammir results) Vane Physician) INFLUENZA Not Normal (applies [facility] A/H1-2009 Detected to non-numeric (Ammir results) Vane Physician) INFLUENZA B Not Normal (applies [facility] Detected to non-numeric (Ammir results) Vane Physician) Parainfluenza Not Normal (applies [facility] virus 1 Detected to non-numeric (Ammir [Presence] in results) Vane Unspecified Physician) specimen by Organism specific culture Parainfluenza Not Normal (applies [facility] virus 2 Detected to non-numeric (Ammir [Presence] in results) Vane Unspecified Physician) specimen by Organism specific culture Parainfluenza Not Normal (applies [facility] virus 3 Detected to non-numeric (Ammir [Presence] in results) Vane Unspecified Physician) specimen by Organism specific culture PARAINFLUENZA Not Normal (applies [facility] VIRUS 4 Detected to non-numeric (Ammir results) Vane Physician) RESP.SYNCYTIAL Not Normal (applies [facility] VIRUS Detected to non-numeric (Ammir results) Vane Physician) Bordetella Not Normal (applies [facility] pertussis Detected to non-numeric (Ammir [Presence] in results) Vane Unspecified Physician) specimen by Organism specific culture Chlamydophila Not Normal (applies [facility] pneumoniae Detected to non-numeric (Ammir [Presence] in results) Vane Unspecified Physician) specimen by Organism specific culture Mycoplasma Not Normal (applies [facility] pneumoniae Detected to non-numeric (Ammir [Presence] in results) Vane Unspecified Physician) specimen by Organism specific culture Bordetella Not Normal (applies [facility] parapertussis Detected to non-numeric (Ammir [Presence] in results) Vane Unspecified Physician) specimen by Organism specific culture ID Date Data Source [id number] 08/11/2018 12:00:00 AM EST [facility] (Ammir Vane Physician) Name Value Range Interpretation Description Data Sup porting Code Source(s) Document(s ) Adenovirus Not Normal (applies [facility] [Presence] in Detected to non-numeric (Ammir Unspecified results) Vane specimen by Physician) Organism specific culture CORONAVIRUS 229E Not Normal (applies [facility] Detected to non-numeric (Ammir results) Vane Physician) CORONAVIRUS HKU1 Not Normal (applies [facility] Detected to non-numeric (Ammir results) Vane Physician) CORONAVIRUS NL63 Not Normal (applies [facility] Detected to non-numeric (Ammir results) Vane Physician) CORONAVIRUS OC43 Not Normal (applies [facility] Detected to non-numeric (Ammir results) Vane Physician) HUMAN Not Normal (applies [facility] METAPNEUMOVIRUS Detected to non-numeric (Ammir results) Vane Physician) HUMAN Not Normal (applies [facility] RHINOVIRUS/ENTERO Detected to non-numeric (Ammir VIRUS results) Vane Physician) INFLUENZA A/H1 Not Normal (applies [facility] Detected to non-numeric (Ammir results) Vane Physician) INFLUENZA A/H3 Not Normal (applies [facility] Detected to non-numeric (Ammir results) Vane Physician) INFLUENZA Not Normal (applies [facility] A/H1-2009 Detected to non-numeric (Ammir results) Vane Physician) INFLUENZA B Not Normal (applies [facility] Detected to non-numeric (Ammir results) Vane Physician) Parainfluenza Not Normal (applies [facility] virus 1 Detected to non-numeric (Ammir [Presence] in results) Vane Unspecified Physician) specimen by Organism specific culture Parainfluenza Not Normal (applies [facility] virus 2 Detected to non-numeric (Ammir [Presence] in results) Vane Unspecified Physician) specimen by Organism specific culture Parainfluenza Not Normal (applies [facility] virus 3 Detected to non-numeric (Ammir [Presence] in results) Vane Unspecified Physician) specimen by Organism specific culture PARAINFLUENZA Not Normal (applies [facility] VIRUS 4 Detected to non-numeric (Ammir results) Vane Physician) RESP.SYNCYTIAL Not Normal (applies [facility] VIRUS Detected to non-numeric (Ammir results) Vane Physician) Bordetella Not Normal (applies [facility] pertussis Detected to non-numeric (Ammir [Presence] in results) Vane Unspecified Physician) specimen by Organism specific culture Chlamydophila Not Normal (applies [facility] pneumoniae Detected to non-numeric (Ammir [Presence] in results) Vane Unspecified Physician) specimen by Organism specific culture Mycoplasma Not Normal (applies [facility] pneumoniae Detected to non-numeric (Ammir [Presence] in results) Vane Unspecified Physician) specimen by Organism specific culture Bordetella Not Normal (applies [facility] parapertussis Detected to non-numeric (Ammir [Presence] in results) Vane Unspecified Physician) specimen by Organism specific culture ID Date Data Source [id number] 08/11/2018 12:00:00 AM EST [facility] (Ammir Vane Physician) Name Value Range Interpretation Description Data Sup porting Code Source(s) Document(s ) STREPTOCOCCUS NEGATIVE Normal (applies [facility] GROUP A to non-numeric (Ammir results) Vane Physician) STREPTOCOCCUS NEGATIVE Normal (applies [facility] GROUP C/G to non-numeric (Ammir results) Vane Physician) ID Date Data Source [id number] 06/28/2018 12:00:00 AM EST [facility] (Ammir Vane Physician) Name Value Range Interpretation Description Data Sup porting Code Source(s) Document(s ) VITAMIN D 70 ng/mL Normal (applies to [facility] (Amm ir 25-HYDROXY non-numeric Vane results) Physician) ID Date Data Source [id number] 06/28/2018 12:00:00 AM EST [facility] (Ammir Vane Physician) Name Value Range Interpretation Description Data Sup porting Code Source(s) Document(s ) GLUCOSE 110 Normal (applies [facility] NONFASTING,SERUM mg/dL to non-numeric (Ammir results) Vane Physician) SODIUM, SERUM 142 Normal (applies [facility] mEq/L to non-numeric (Ammir results) Vane Physician) POTASSIUM, SERUM 4.1 Normal (applies [facility] mEq/L to non-numeric (Ammir results) Vane Physician) CHLORIDE, SERUM 103 Normal (applies [facility] mEq/L to non-numeric (Ammir results) Vane Physician) Carbon dioxide 28 mEq/L Normal (applies [facility] [VFr/PPres] in to non-numeric (Ammir Gas delivery results) Vane system Physician) Anion gap in 15.1 Normal (applies [facility] Body fluid mEq/L to non-numeric (Ammir results) Vane Physician) BLOOD UREA 16 mg/dL Normal (applies [facility] NITROGEN to non-numeric (Ammir results) Vane Physician) CREATININE, 0.80 Normal (applies [facility] SERUM mg/dL to non-numeric (Ammir results) Vane Physician) CALCIUM, SERUM 9.6 Normal (applies [facility] mg/dL to non-numeric (Ammir results) Vane Physician) TOTAL PROTEIN 7.6 g/dL Normal (applies [facility] to non-numeric (Ammir results) Vane Physician) Microalbumin 4.6 g/dL Normal (applies [facility] [Mass/time] in to non-numeric (Ammir Urine collected results) Vane for unspecified Physician) duration Globulin 3.0 gldl Normal (applies [facility] [Mass/time] in to non-numeric (Ammir 24 hour Urine results) Vane Physician) A/G RATIO 1.53 Normal (applies [facility] g/dl to non-numeric (Ammir results) Vane Physician) BILIRUBIN, TOTAL 0.8 Normal (applies [facility] mg/dL to non-numeric (Ammir results) Vane Physician) ALKALINE 111 U/L Normal (applies [facility] PHOSPHATASE, ALP to non-numeric (Ammir results) Vane Physician) ALT (SGPT) 26 U/L Normal (applies [facility] to non-numeric (Ammir results) Vane Physician) AST 33 U/L Normal (applies [facility] to non-numeric (Ammir results) Vane Physician) EGFR NON AFR 76 Above high normal [facility] BURMESE mL/min/1 (Ammir .73m2 Vane Physician) EGFR AFR 92 Above high normal [facility] BURMESE mL/min/1 (Ammir .73m2 Vane Physician) ID Date Data Source [id number] 06/28/2018 12:00:00 AM EST [facility] (Ammir Vane Physician) Name Value Range Interpretation Description Data Sup porting Code Source(s) Document(s ) WBC 7.4 Normal (applies [facility] 10(3)/uL to non-numeric (Ammir results) Vane Physician) RBC 5.1 Above high normal [facility] 10(6)/uL (Ammir Vane Physician) Hemoglobin 15.0 g/dL Normal (applies [facility] [Mass/volume] to non-numeric (Ammir in Mixed venous results) Vane blood by Physician) Oximetry Hematocrit 44.3 % Normal (applies [facility] [Pure volume to non-numeric (Ammir fraction] of results) Vane Blood by Physician) Automated count MCV 86.5 fL Normal (applies [facility] to non-numeric (Ammir results) Vane Physician) MCH 29 pg Normal (applies [facility] to non-numeric (Ammir results) Vane Physician) MCHC 34 g/dL Normal (applies [facility] to non-numeric (Ammir results) Vane Physician) RDWSD 41.4 fL Normal (applies [facility] to non-numeric (Ammir results) Vane Physician) RDWCV 13.3 % Normal (applies [facility] to non-numeric (Ammir results) Vane Physician) Platelet Count 387 Normal (applies [facility] 10(3)/uL to non-numeric (Ammir results) Vane Physician) MPV 10.1 fL Normal (applies [facility] to non-numeric (Ammir results) Vane Physician) Neutrophil Abs 4.57 Normal (applies [facility] 10(3)/uL to non-numeric (Ammir results) Vane Physician) Lymphocyte Abs 1.87 Normal (applies [facility] 10(3)/uL to non-numeric (Ammir results) Vane Physician) Monocyte Abs 0.63 Normal (applies [facility] 10(3)/uL to non-numeric (Ammir results) Vane Physician) Eosinophil Abs 0.20 Normal (applies [facility] 10(3)/uL to non-numeric (Ammir results) Vane Physician) Immature 0.04 Above high normal [facility] Granulocyte Abs 10(3)/uL (Ammir Vane Physician) Neutrophil % 62.10 % Normal (applies [facility] to non-numeric (Ammir results) Vane Physician) Lymphocyte % 25 % Normal (applies [facility] to non-numeric (Ammir results) Vane Physician) Monocyte % 8.5 % Normal (applies [facility] to non-numeric (Ammir results) Vane Physician) Eosinophil % 2.7 % Normal (applies [facility] to non-numeric (Ammir results) Vane Physician) Basophil % 0.9 % Normal (applies [facility] to non-numeric (Ammir results) Vane Physician) Immature 0.50 % Normal (applies [facility] Granulocyte % to non-numeric (Ammir results) Vane Physician) ID Date Data Source [id number] 06/28/2018 12:00:00 AM EST [facility] (Ammir Vane Physician) Name Value Range Interpretation Description Data Sup porting Code Source(s) Document(s ) T4 FREE, 1.11 Normal (applies to [facility] THYROXINE ng/dL non-numeric (Ammir results) Vane Physician) TSH,3RD 5.19 Normal (applies to [facility] GENERATION uIU/mL non-numeric (Ammir results) Vane Physician) ID Date Data Source [id number] 06/28/2018 12:00:00 AM EST [facility] (Ammir Vane Physician) Name Value Range Interpretation Description Data Sup porting Code Source(s) Document(s ) FOLATE SERUM 15.5 Above high normal [facility] (A mmir ng/mL Vane Physician) VITAMIN B12 541 pg/mL Normal (applies to [facility] (A mmir non-numeric Vane results) Physician) ID Date Data Source [id number] 04/24/2018 12:00:00 AM EDT [facility] (Ammir Vane Physician) Name Value Range Interpretation Description Data Sup porting Code Source(s) Document(s ) Adenovirus Not Normal (applies [facility] [Presence] in Detected to non-numeric (Ammir Unspecified results) Vane specimen by Physician) Organism specific culture CORONAVIRUS 229E Not Normal (applies [facility] Detected to non-numeric (Ammir results) Vane Physician) CORONAVIRUS HKU1 Not Normal (applies [facility] Detected to non-numeric (Ammir results) Vane Physician) CORONAVIRUS NL63 Not Normal (applies [facility] Detected to non-numeric (Ammir results) Vane Physician) CORONAVIRUS OC43 Not Normal (applies [facility] Detected to non-numeric (Ammir results) Vaen Physician) HUMAN Not Normal (applies [facility] METAPNEUMOVIRUS Detected to non-numeric (Ammir results) Vane Physician) HUMAN Not Normal (applies [facility] RHINOVIRUS/ENTERO Detected to non-numeric (Ammir VIRUS results) Vane Physician) INFLUENZA A/H1 Not Normal (applies [facility] Detected to non-numeric (Ammir results) Vane Physician) INFLUENZA A/H3 Not Normal (applies [facility] Detected to non-numeric (Ammir results) Vane Physician) INFLUENZA Not Normal (applies [facility] A/H1-2009 Detected to non-numeric (Ammir results) Vane Physician) INFLUENZA B Not Normal (applies [facility] Detected to non-numeric (Ammir results) Vane Physician) Parainfluenza Not Normal (applies [facility] virus 1 Detected to non-numeric (Ammir [Presence] in results) Vane Unspecified Physician) specimen by Organism specific culture Parainfluenza Not Normal (applies [facility] virus 2 Detected to non-numeric (Ammir [Presence] in results) Vane Unspecified Physician) specimen by Organism specific culture Parainfluenza Not Normal (applies [facility] virus 3 Detected to non-numeric (Ammir [Presence] in results) Vane Unspecified Physician) specimen by Organism specific culture PARAINFLUENZA Not Normal (applies [facility] VIRUS 4 Detected to non-numeric (Ammir results) Vane Physician) RESP.SYNCYTIAL Not Normal (applies [facility] VIRUS Detected to non-numeric (Ammir results) Vane Physician) Bordetella Not Normal (applies [facility] pertussis Detected to non-numeric (Ammir [Presence] in results) Vane Unspecified Physician) specimen by Organism specific culture Chlamydophila Not Normal (applies [facility] pneumoniae Detected to non-numeric (Ammir [Presence] in results) Vane Unspecified Physician) specimen by Organism specific culture Mycoplasma Not Normal (applies [facility] pneumoniae Detected to non-numeric (Ammir [Presence] in results) Vane Unspecified Physician) specimen by Organism specific culture Bordetella Not Normal (applies [facility] parapertussis Detected to non-numeric (Ammir [Presence] in results) Vane Unspecified Physician) specimen by Organism specific culture ID Date Data Source [id number] 04/24/2018 12:00:00 AM EDT [facility] (Ammir Vane Physician) Name Value Range Interpretation Description Data Sup porting Code Source(s) Document(s ) STREPTOCOCCUS POSITIVE Abnormal (applies [facility] GROUP A to non-numeric (Ammir results) Vane Physician) STREPTOCOCCUS NEGATIVE Normal (applies [facility] GROUP C/G to non-numeric (Ammir results) Vane Physician) ID Date Data Source [id number] 03/15/2018 12:00:00 AM EDT [facility] (Ammir Vane Physician) Name Value Range Interpretation Description Data Sup porting Code Source(s) Document(s ) VITAMIN D 45.94 Normal (applies to [facility] (Amm ir 25-HYDROXY ng/mL non-numeric Vane results) Physician) ID Date Data Source [id number] 03/15/2018 12:00:00 AM EDT [facility] (Ammir Vane Physician) Name Value Range Interpretation Description Data Sup porting Code Source(s) Document(s ) Cholesterol 193 Normal (applies [facility] [Moles/volume] mg/dL to non-numeric (Ammir in Pericardial results) Vane fluid Physician) LDL CALCULATION 99.8 Normal (applies [facility] mg/dL to non-numeric (Ammir results) Vane Physician) CHOL/HDL RATIO 3.16 Normal (applies [facility] ratio to non-numeric (Ammir results) Vane Physician) HDL CHOLESTEROL 61 mg/dL Above high normal [facility] (Ammir Vane Physician) VLDL CALCULATION 32.2 Normal (applies [facility] mg/dl to non-numeric (Ammir results) Vane Physician) TRIGLYCERIDES 161 Above high normal [facility] mg/dL (Ammir Vane Physician) ID Date Data Source [id number] 03/15/2018 12:00:00 AM EDT [facility] (Ammir Vane Physician) Name Value Range Interpretation Description Data Sup porting Code Source(s) Document(s ) GLUCOSE 91 mg/dL Normal (applies [facility] NONFASTING,SERUM to non-numeric (Ammir results) Vane Physician) SODIUM, SERUM 146 Normal (applies [facility] mEq/L to non-numeric (Ammir results) Vane Physician) POTASSIUM, SERUM 3.7 Normal (applies [facility] mEq/L to non-numeric (Ammir results) Vane Physician) CHLORIDE, SERUM 106 Normal (applies [facility] mEq/L to non-numeric (Ammir results) Vane Physician) Carbon dioxide 28 mEq/L Normal (applies [facility] [VFr/PPres] in to non-numeric (Ammir Gas delivery results) Vane system Physician) Anion gap in 15.7 Normal (applies [facility] Body fluid mEq/L to non-numeric (Ammir results) Vane Physician) BLOOD UREA 20 mg/dL Normal (applies [facility] NITROGEN to non-numeric (Ammir results) Vane Physician) CREATININE, 0.70 Normal (applies [facility] SERUM mg/dL to non-numeric (Ammir results) Vane Physician) CALCIUM, SERUM 9.6 Normal (applies [facility] mg/dL to non-numeric (Ammir results) Vane Physician) TOTAL PROTEIN 7.2 g/dL Normal (applies [facility] to non-numeric (Ammir results) Vane Physician) Microalbumin 4.4 g/dL Normal (applies [facility] [Mass/time] in to non-numeric (Ammir Urine collected results) Vane for unspecified Physician) duration Globulin 2.8 gldl Normal (applies [facility] [Mass/time] in to non-numeric (Ammir 24 hour Urine results) Vane Physician) A/G RATIO 1.57 Normal (applies [facility] g/dl to non-numeric (Ammir results) Vane Physician) BILIRUBIN, TOTAL 0.8 Normal (applies [facility] mg/dL to non-numeric (Ammir results) Vane Physician) ALKALINE 102 U/L Normal (applies [facility] PHOSPHATASE, ALP to non-numeric (Ammir results) Vane Physician) ALT (SGPT) 21 U/L Normal (applies [facility] to non-numeric (Ammir results) Vane Physician) AST 23 U/L Normal (applies [facility] to non-numeric (Ammir results) Vane Physician) EGFR NON AFR 88 Above high normal [facility] BURMESE mL/min/1 (Ammir .73m2 Vane Physician) EGFR AFR 107 Above high normal [facility] BURMESE mL/min/1 (Ammir .73m2 Vane Physician) ID Date Data Source [id number] 03/15/2018 12:00:00 AM EDT [facility] (Ammir Vane Physician) Name Value Range Interpretation Description Data Sup porting Code Source(s) Document(s ) WBC 7.6 Normal (applies to [facility] 10(3)/uL non-numeric (Ammir results) Vane Physician) RBC 4.9 Normal (applies to [facility] 10(6)/uL non-numeric (Ammir results) Vane Physician) Hemoglobin 14.3 g/dL Normal (applies to [facility] [Mass/volume] non-numeric (Ammir in Mixed results) Vane venous blood Physician) by Oximetry Hematocrit 42.7 % Normal (applies to [facility] [Pure volume non-numeric (Ammir fraction] of results) Vane Blood by Physician) Automated count MCV 87.1 fL Normal (applies to [facility] non-numeric (Ammir results) Vane Physician) MCH 29 pg Normal (applies to [facility] non-numeric (Ammir results) Vaen Physician) MCHC 34 g/dL Normal (applies to [facility] non-numeric (Ammir results) Vane Physician) RDWSD 42.9 fL Normal (applies to [facility] non-numeric (Ammir results) Vane Physician) RDWCV 13.6 % Normal (applies to [facility] non-numeric (Ammir results) Vane Physician) PLT 361 Normal (applies to [facility] 10(3)/uL non-numeric (Ammir results) Vane Physician) MPV 9.7 fL Normal (applies to [facility] non-numeric (Ammir results) Vane Physician) NE# 4.90 Normal (applies to [facility] 10(3)/uL non-numeric (Ammir results) Vane Physician) LY# 1.74 Normal (applies to [facility] 10(3)/uL non-numeric (Ammir results) Vane Physician) MO# 0.62 Normal (applies to [facility] 10(3)/uL non-numeric (Ammir results) Vane Physician) EO# 0.19 Normal (applies to [facility] 10(3)/uL non-numeric (Ammir results) Vane Physician) IG# 0.04 Above high normal [facility] 10(3)/uL (Ammir Vane Physician) NE% 64.70 % Normal (applies to [facility] non-numeric (Ammir results) Vane Physician) LY% 23 % Normal (applies to [facility] non-numeric (Ammir results) Vane Physician) MO% 8.2 % Normal (applies to [facility] non-numeric (Ammir results) Vane Physician) EO% 2.5 % Normal (applies to [facility] non-numeric (Ammir results) Vane Physician) BA% 1.1 % Normal (applies to [facility] non-numeric (Ammir results) Vane Physician) IG% 0.50 % Normal (applies to [facility] non-numeric (Ammir results) Vane Physician) ID Date Data Source [id number] 03/15/2018 12:00:00 AM EDT [facility] (Ammir Vane Physician) Name Value Range Interpretation Code Description Data Stacey rce(s) Supporting Document(s ) APTT 30.80 sec Normal (applies to [facility] (Amm ir non-numeric results) Vane Physician) ID Date Data Source [id number] 03/15/2018 12:00:00 AM EDT [facility] (Ammir Vane Physician) Name Value Range Interpretation Description Data Sup porting Code Source(s) Document(s ) T4 FREE, 1.12 Normal (applies to [facility] THYROXINE ng/dL non-numeric (Ammir results) Vane Physician) TSH,3RD 2.83 Normal (applies to [facility] GENERATION uIU/mL non-numeric (Ammir results) Vane Physician) ID Date Data Source [id number] 03/15/2018 12:00:00 AM EDT [facility] (Ammir Vane Physician) Name Value Range Interpretation Description Data Sup porting Code Source(s) Document(s ) FOLATE SERUM 11.1 Above high normal [facility] (A mmir ng/mL Vane Physician) VITAMIN B12 489 pg/mL Normal (applies to [facility] (A mmir non-numeric Vane results) Physician) ID Date Data Source [id number] 03/15/2018 12:00:00 AM EDT [facility] (Ammir Vane Physician) Name Value Range Interpretation Description Data Sup porting Code Source(s) Document(s ) PROTHROMBIN 12.3 sec Normal (applies [facility] TIME, PT to non-numeric (Ammir results) Vane Physician) INR 0.93 Normal (applies [facility] to non-numeric (Ammir results) Vane Physician) ID Date Data Source [id number] 10/10/2017 12:00:00 AM EDT [facility] (Ammir Vane Physician) Name Value Range Interpretation Description Data Sup porting Code Source(s) Document(s ) PTH, INTACT 46.6 pg/mL Normal (applies to [facility] ( Ammir non-numeric Vane results) Physician) ID Date Data Source [id number] 10/10/2017 12:00:00 AM EDT [facility] (Ammir Vane Physician) Name Value Range Interpretation Description Data Sup porting Code Source(s) Document(s ) Cholesterol 216 Above high normal [facility] [Moles/volume] mg/dL (Ammir in Pericardial Vane fluid Physician) LDL CALCULATION 114.2 Normal (applies [facility] mg/dL to non-numeric (Ammir results) Vane Physician) CHOL/HDL RATIO 3.38 Normal (applies [facility] ratio to non-numeric (Ammir results) Vane Physician) HDL CHOLESTEROL 64 mg/dL Above high normal [facility] (Ammir Vane Physician) VLDL CALCULATION 37.8 Normal (applies [facility] mg/dl to non-numeric (Ammir results) Vane Physician) TRIGLYCERIDES 189 Above high normal [facility] mg/dL (Ammir Vane Physician) ID Date Data Source [id number] 10/10/2017 12:00:00 AM EDT [facility] (Ammir Vane Physician) Name Value Range Interpretation Description Data Sup porting Code Source(s) Document(s ) PHOSPHATE 3.2 mg/dL Normal (applies to [facility] (Amm ir (PHOSPHORUS) non-numeric Vane results) Physician) ID Date Data Source [id number] 10/10/2017 12:00:00 AM EDT [facility] (Ammir Vane Physician) Name Value Range Interpretation Description Data Sup porting Code Source(s) Document(s ) GLUCOSE 79 mg/dL Normal (applies [facility] NONFASTING,SERUM to non-numeric (Ammir results) Vane Physician) SODIUM, SERUM 146 Normal (applies [facility] mEq/L to non-numeric (Ammir results) Vane Physician) POTASSIUM, SERUM 4.8 Normal (applies [facility] mEq/L to non-numeric (Ammir results) Vane Physician) CHLORIDE, SERUM 104 Normal (applies [facility] mEq/L to non-numeric (Ammir results) Vane Physician) Carbon dioxide 25 mEq/L Normal (applies [facility] [VFr/PPres] in to non-numeric (Ammir Gas delivery results) Vane system Physician) Anion gap in 21.8 Above high normal [facility] Body fluid mEq/L (Ammir Vane Physician) BLOOD UREA 19 mg/dL Normal (applies [facility] NITROGEN to non-numeric (Ammir results) Vane Physician) CREATININE, 0.80 Normal (applies [facility] SERUM mg/dL to non-numeric (Ammir results) Vane Physician) CALCIUM, SERUM 9.8 Normal (applies [facility] mg/dL to non-numeric (Ammir results) Vane Physician) TOTAL PROTEIN 7.2 g/dL Normal (applies [facility] to non-numeric (Ammir results) Vane Physician) Microalbumin 4.4 g/dL Normal (applies [facility] [Mass/time] in to non-numeric (Ammir Urine collected results) Vane for unspecified Physician) duration Globulin 2.8 gldl Normal (applies [facility] [Mass/time] in to non-numeric (Ammir 24 hour Urine results) Vane Physician) A/G RATIO 1.57 Normal (applies [facility] g/dl to non-numeric (Ammir results) Vane Physician) BILIRUBIN, TOTAL 1.0 Normal (applies [facility] mg/dL to non-numeric (Ammir results) Vane Physician) ALKALINE 101 U/L Normal (applies [facility] PHOSPHATASE, ALP to non-numeric (Ammir results) Vane Physician) ALT (SGPT) 24 U/L Normal (applies [facility] to non-numeric (Ammir results) Vane Physician) AST 25 U/L Normal (applies [facility] to non-numeric (Ammir results) Vane Physician) EGFR NON AFR 76 Above high normal [facility] BURMESE mL/min/1 (Ammir .73m2 Vane Physician) EGFR AFR 92 Above high normal [facility] BURMESE mL/min/1 (Ammir .73m2 Vane Physician) ID Date Data Source [id number] 10/10/2017 12:00:00 AM EDT [facility] (Ammir Vane Physician) Name Value Range Interpretation Code Description Data Supporting Source(s) Document(s ) MAGNESIUM, 2.1 mg/dL Normal (applies to [facility] (Am [place] SERUM non-numeric Vane results) Physician) ID Date Data Source [id number] 10/10/2017 12:00:00 AM EDT [facility] (Ammir Vane Physician) Name Value Range Interpretation Description Data Sup porting Code Source(s) Document(s ) WBC 6.7 Normal (applies to [facility] 10(3)/uL non-numeric (Ammir results) Vane Physician) RBC 5.0 Normal (applies to [facility] 10(6)/uL non-numeric (Ammir results) Vane Physician) Hemoglobin 14.6 g/dL Normal (applies to [facility] [Mass/volume] non-numeric (Ammir in Mixed results) Vane venous blood Physician) by Oximetry Hematocrit 42.9 % Normal (applies to [facility] [Pure volume non-numeric (Ammir fraction] of results) [facility] Blood by Physician) Automated count MCV 86.0 fL Normal (applies to [facility] non-numeric (Ammir results) Vane Physician) MCH 29 pg Normal (applies to [facility] non-numeric (Ammir results) Vane Physician) MCHC 34 g/dL Normal (applies to [facility] non-numeric (Ammir results) Vane Physician) RDWSD 42.1 fL Normal (applies to [facility] non-numeric (Ammir results) Vane Physician) RDWCV 13.4 % Normal (applies to [facility] non-numeric (Ammir results) Vane Physician) PLT 355 Normal (applies to [facility] 10(3)/uL non-numeric (Ammir results) Vane Physician) MPV 10.1 fL Normal (applies to [facility] non-numeric (Ammir results) Vane Physician) NE# 4.11 Normal (applies to [facility] 10(3)/uL non-numeric (Ammir results) Vane Physician) LY# 1.72 Normal (applies to [facility] 10(3)/uL non-numeric (Ammir results) Vane Physician) MO# 0.63 Normal (applies to [facility] 10(3)/uL non-numeric (Ammir results) Vane Physician) EO# 0.20 Normal (applies to [facility] 10(3)/uL non-numeric (Ammir results) Vane Physician) IG# 0.02 Normal (applies to [facility] 10(3)/uL non-numeric (Ammir results) Vane Physician) NE% 61.00 % Normal (applies to [facility] non-numeric (Ammir results) Vane Physician) LY% 26 % Normal (applies to [facility] non-numeric (Ammir results) Vane Physician) MO% 9.4 % Normal (applies to [facility] non-numeric (Ammir results) Vane Physician) EO% 3.0 % Normal (applies to [facility] non-numeric (Ammir results) Vane Physician) BA% 0.7 % Normal (applies to [facility] non-numeric (Ammir results) Vane Physician) IG% 0.30 % Normal (applies to [facility] non-numeric (Ammir results) Vane Physician) ID Date Data Source [id number] 10/10/2017 12:00:00 AM EDT [facility] (Ammir Vane Physician) Name Value Range Interpretation Description Data Sup porting Code Source(s) Document(s ) GLUCOSE UA NEGATIVE Normal (applies [facility] to non-numeric (Ammir results) Vane Physician) BILIRUBIN, TOTAL NEGATIVE Normal (applies [facility] to non-numeric (Ammir results) Vane Physician) Ketones NEGATIVE Normal (applies [facility] [Presence] in to non-numeric (Ammir Blood by Tablet results) Vane Physician) Specific gravity 1.019 SG Normal (applies [facility] of Pericardial units to non-numeric (Ammir fluid by results) Vane Refractometry Physician) Blood [Presence] SMALL Normal (applies [facility] in Urine by to non-numeric (Ammir Visual results) Vane Physician) pH of Lower 5 Ph units Normal (applies [facility] respiratory to non-numeric (Ammir specimen results) Vane Physician) Protein NEGATIVE Normal (applies [facility] [Mass/volume] in to non-numeric (Ammir Lower results) Vane respiratory Physician) specimen Urobilinogen 0-2.0 Normal (applies [facility] [Presence] in to non-numeric (Ammir Urine by results) Vane Automated test Physician) strip Nitrite NEGATIVE Normal (applies [facility] [Presence] in to non-numeric (Ammir Urine by Test results) Vane strip Physician) Leukocyte SMALL Normal (applies [facility] esterase to non-numeric (Ammir [Presence] in results) Vane Body fluid by Physician) Automated test strip Color of YELLOW Normal (applies [facility] Peritoneal to non-numeric (Ammir dialysis fluid results) Vane Physician) TRANSPARENCY TURBID Normal (applies [facility] to non-numeric (Ammir results) Vane Physician) WBC`S 6-10 Normal (applies [facility] to non-numeric (Ammir results) Vane Physician) SQUMAOUS FEW Normal (applies [facility] EPITHELIAL to non-numeric (Ammir results) Vane Physician) MUCOUS FEW Normal (applies [facility] to non-numeric (Ammir results) Vane Physician) Uric Acid MANY Normal (applies [facility] Crystal to non-numeric (Ammir results) Vane Physician) ID Date Data Source [id number] 10/10/2017 12:00:00 AM EDT [facility] (Ammir Vane Physician) Name Value Range Interpretation Description Data Sup porting Code Source(s) Document(s ) T4 FREE, 0.95 Normal (applies to [facility] THYROXINE ng/dL non-numeric (Ammir results) Vane Physician) TSH,3RD 5.34 Normal (applies to [facility] GENERATION uIU/mL non-numeric (Ammir results) Vane Physician) ID Date Data Source [id number] 10/10/2017 12:00:00 AM EDT [facility] (Ammir Vane Physician) Name Value Range Interpretation Description Data Sup porting Code Source(s) Document(s ) FOLATE SERUM 13.8 Above high normal [facility] (A mmir ng/mL Vane Physician) VITAMIN B12 497 pg/mL Normal (applies to [facility] (A mmir non-numeric Vane results) Physician) ID Date Data Source [id number] 10/10/2017 12:00:00 AM EDT [facility] (Ammir Vane Physician) Name Value Range Interpretation Description Data Sup porting Code Source(s) Document(s ) Sodium 76.0 Normal (applies to [facility] (Amm ir [Moles/volum mEq/L non-numeric Vane e] in Serum, results) Physician) Plasma or Blood POTASSIUM, 40.4 Normal (applies to [facility] ([place] RANDOM URINE mEq/L non-numeric Vane results) Physician) Chloride 94.0 Normal (applies to [facility] (Amm ir [Moles/volum mEq/L non-numeric Vane e] in Serum, results) Physician) Plasma or Blood ID Date Data Source [id number] 10/10/2017 12:00:00 AM EDT [facility] (Ammir Vane Physician) Name Value Range Interpretation Code Description Data Stacey rce(s) Supporting Document(s ) CALCIUM,IO 5.4 Normal (applies to [facility] (Am [place] NIZED non-numeric results) Vane Physician) ID Date Data Source [id number] 10/10/2017 12:00:00 AM EDT [facility] (Ammir Vane Physician) Name Value Range Interpretation Description Data Sup porting Code Source(s) Document(s ) VITAMIN D 82.0 Above high normal [facility] (Ammi r 1.25 pg/mL Vane Physician) ID Date Data Source [id number] 09/13/2017 12:00:00 AM EST [facility] (Ammir Vane Physician) Name Value Range Interpretation Description Data Sup porting Code Source(s) Document(s ) FSH(FOLLICLE 127.2 Above high normal [facility] STIMULATING mIU/mL (Ammir HORMONE) Vane Physician) ID Date Data Source [id number] 09/13/2017 12:00:00 AM EST [facility] (Ammir Vane Physician) Name Value Range Interpretation Description Data Sup porting Code Source(s) Document(s ) Prolactin 6 ng/mL Normal (applies to [facility] (Amm ir [Mass/volume] non-numeric Vane in Serum or results) Physician) Plasma by 3rd IS ID Date Data Source [id number] 09/13/2017 12:00:00 AM EST [facility] (Ammir Vane Physician) Name Value Range Interpretation Code Description Data Stacey rce(s) Supporting Document(s ) ESTRADIOL- <12 Above high normal [facility] (Amm ir E2 Vane Physician) ID Date Data Source [id number] 09/13/2017 12:00:00 AM EST [facility] (Ammir Vane Physician) Name Value Range Interpretation Description Data Sup porting Code Source(s) Document(s ) Progesterone <0.21 Above high normal [facility] (A mmir [Mass/volume] in Vane Saliva (oral Physician) fluid) ID Date Data Source [id number] 09/13/2017 12:00:00 AM EST [facility] (Ammir Vane Physician) Name Value Range Interpretation Code Description Data Stacey rce(s) Supporting Document(s ) LH(LUTEIN 72.7 Above high normal [facility] (Ammi r IZING mIU/mL Vane HORMONE) Physician) ID Date Data Source [id number] 09/13/2017 12:00:00 AM EST [facility] (Ammir Vane Physician) Name Value Range Interpretation Description Data Sup porting Code Source(s) Document(s ) GLUCOSE 101 mg/dL Normal (applies to [facility] (Amm ir NONFASTING,S non-numeric Vane ABBY results) Physician) SODIUM, 146 mEq/L Normal (applies to [facility] (Amm ir SERUM non-numeric Vane results) Physician) POTASSIUM, 4.5 mEq/L Normal ([facility] ([place] SERUM non-numeric Vane results) Physician) CHLORIDE, 106 mEq/L Normal (applies to [facility] (Amm ir SERUM non-numeric Vane results) Physician) Carbon 28 mEq/L Normal [facility] ([facility]mm [facility] dioxide non-numeric Vane [VFr/PPres] results) Physician) in Gas delivery system Anion gap in 16.5 Above high normal [facility] ([facility] Body fluid mEq/L Vane Physician) BLOOD UREA 24 mg/dL Above high normal [facility] (Amm ir NITROGEN Vane Physician) CREATININE, 0.80 Normal (applies to [facility] (A mmir SERUM mg/dL non-numeric Vane results) Physician) BUN/CREATINI 30.00 Above high normal [facility] (A mmir NE RATIO Vane Physician) CALCIUM, 10.1 Normal (applies to [facility] (Amm ir SERUM mg/dL non-numeric Vane results) Physician) TOTAL 7.2 g/dL Normal [facility] (Amm ir PROTEIN non-numeric Vane results) Physician) Globulin 2.9 gldl Normal ([facility] (Amm ir [Mass/time] non-numeric Vane in 24 hour results) Physician) Urine A/G RATIO 1.48 g/dl Normal (applies to [facility] (Am [place] non-numeric Vane results) Physician) BILIRUBIN, 1.1 mg/dL Normal (applies to [facility] ([place] TOTAL non-numeric Vane results) Physician) ALKALINE 97 U/L Normal ([facility] (Amm ir PHOSPHATASE, non-numeric Vane ALP results) Physician) ALT (SGPT) 20 U/L Normal (applies to [facility] (Am [place] non-numeric Vane results) Physician) AST 26 U/L Normal (applies to [facility] (Amm ir non-numeric Vane results) Physician) EGFR NON AFR 76 Above high normal [facility] (A mmir BURMESE mL/min/1. Vane 73m2 Physician) EGFR AFR 92 Above high normal [facility] (Ammi r BURMESE mL/min/1. Vane 73m2 Physician) ID Date Data Source [id number] 09/13/2017 12:00:00 AM EST [facility] (Ammir Vane Physician) Name Value Range Interpretation Description Data Sup porting Code Source(s) Document(s ) WBC 6.8 Normal (applies to [facility] 10(3)/uL non-numeric (Ammir results) Vane Physician) RBC 5.0 Normal (applies to [facility] 10(6)/uL non-numeric (Ammir results) Vane Physician) Hemoglobin 14.7 g/dL Normal (applies to [facility] [Mass/volume] non-numeric (Ammir in Mixed results) Vane venous blood Physician) by Oximetry Hematocrit 43.6 % Normal (applies to [facility] [Pure volume non-numeric (Ammir fraction] of results) Vane Blood by Physician) Automated count MCV 86.9 fL Normal (applies to [facility] non-numeric (Ammir results) Vane Physician) MCH 29 pg Normal (applies to [facility] non-numeric (Ammir results) Vane Physician) MCHC 34 g/dL Normal (applies to [facility] non-numeric (Ammir results) Vane Physician) RDWSD 42.3 fL Normal (applies to [facility] non-numeric (Ammir results) Vane Physician) RDWCV 13.5 % Normal (applies to [facility] non-numeric (Ammir results) Vane Physician) PLT 356 Normal (applies to [facility] 10(3)/uL non-numeric (Ammir results) Vane Physician) MPV 9.8 fL Normal (applies to [facility] non-numeric (Ammir results) Vane Physician) NE# 4.28 Normal (applies to [facility] 10(3)/uL non-numeric (Ammir results) Vane Physician) LY# 1.50 Normal (applies to [facility] 10(3)/uL non-numeric (Ammir results) Vane Physician) MO# 0.70 Normal (applies to [facility] 10(3)/uL non-numeric (Ammir results) Vane Physician) EO# 0.18 Normal (applies to [facility] 10(3)/uL non-numeric (Ammir results) Vane Physician) IG# 0.04 Above high normal [facility] 10(3)/uL (Ammir Vane Physician) NE% 63.10 % Normal (applies to [facility] non-numeric (Ammir results) Vane Physician) LY% 22 % Normal (applies to [facility] non-numeric (Ammir results) Vane Physician) MO% 10.3 % Normal (applies to [facility] non-numeric (Ammir results) Vane Physician) EO% 2.7 % Normal (applies to [facility] non-numeric (Ammir results) Vane Physician) BA% 1.2 % Normal (applies to [facility] non-numeric (Ammir results) Vane Physician) IG% 0.60 % Above high normal [facility] (Ammir Vane Physician) ID Date Data Source [id number] 09/13/2017 12:00:00 AM EST [facility] (Ammir Vane Physician) Name Value Range Interpretation Description Data Sup porting Code Source(s) Document(s ) T4 FREE, 1.10 Normal (applies to [facility] THYROXINE ng/dL non-numeric (Ammir results) Vane Physician) TSH,3RD 4.62 Normal (applies to [facility] GENERATION uIU/mL non-numeric (Ammir results) Vane Physician) ID Date Data Source [id number] 09/13/2017 12:00:00 AM EST [facility] (Ammir Vane Physician) Name Value Range Interpretation Description Data Sup porting Code Source(s) Document(s ) Microalbumin 4.3 g/dL Normal (applies [facility] [Mass/time] in to non-numeric (Ammir Urine collected results) Vane for unspecified Physician) duration ID Date Data Source [id number] 09/13/2017 12:00:00 AM EST [facility] (Ammir Vane Physician) Name Value Range Interpretation Description Data Sup porting Code Source(s) Document(s ) SEX HORMONE 52.7 Normal (applies [facility] BINDING GLOBU nmol/L to non-numeric (Ammir results) Vane Physician) TESTOSTERONE 27.79 Normal (applies [facility] TOTAL ng/dL to non-numeric (Ammir results) Vane Physician) TESTOSTERONE 0.4 Normal (applies [facility] FREE CALCULATED ng/dL to non-numeric (Ammir results) Vane Physician) FREE 1.3 % Normal (applies [facility] TESTOSTERONE% to non-numeric (Ammir results) Vane Physician) ID Date Data Source [id number] 09/13/2017 12:00:00 AM EST [facility] (Ammir Vane Physician) Name Value Range Interpretation Code Description Data Stacey rce(s) Supporting Document(s ) ESTROGEN, 98.1 Normal (applies to [facility] (Amm ir TOTAL, non-numeric results) Vane SERUM Physician) ID Date Data Source [id number] 09/13/2017 12:00:00 AM EST [facility] (Ammir Vane Physician) Name Value Range Interpretation Description Data Sup porting Code Source(s) Document(s ) QUANTIFERON NEGATIVE Normal (applies to [facility] (A mmir (R)TB non-numeric Vane GOLD,INC results) Physician) NIL 0.07 IU/mL Normal (applies to [facility] ([place] non-numeric Vane results) Physician) TB ANTIGEN <0.00 Normal (applies to [facility] ([place] MINUS NIL non-numeric Vane results) Physician) MITOGEN >10.00 Normal (applies to [facility] (Amm ir MINUS NIL non-numeric Vane results) Physician) ID Date Data Source [id number] 05/19/2017 12:00:00 AM EST [facility] (Ammir Vane Physician) Name Value Range Interpretation Description Data Sup porting Code Source(s) Document(s ) Cholesterol 233 Above high normal [facility] [Moles/volume] mg/dL (Ammir in Pericardial Vane fluid Physician) LDL CALCULATION 127.8 Normal (applies [facility] mg/dL to non-numeric (Ammir results) Vane Physician) CHOL/HDL RATIO 3.43 Normal (applies [facility] ratio to non-numeric (Ammir results) Vane Physician) HDL CHOLESTEROL 68 mg/dL Above high normal [facility] (Ammir Vane Physician) VLDL CALCULATION 37.2 Normal (applies [facility] mg/dl to non-numeric (Ammir results) Vane Physician) TRIGLYCERIDES 186 Above high normal [facility] mg/dL (Ammir Vane Physician) ID Date Data Source [id number] 05/19/2017 12:00:00 AM EST [facility] (Ammir Vane Physician) Name Value Range Interpretation Description Data Sup porting Code Source(s) Document(s ) GLUCOSE 97 mg/dL Normal (applies [facility] NONFASTING,SERUM to non-numeric (Ammir results) Vane Physician) SODIUM, SERUM 141 Normal (applies [facility] mEq/L to non-numeric (Ammir results) Vane Physician) POTASSIUM, SERUM 4.0 Normal (applies [facility] mEq/L to non-numeric (Ammir results) Vane Physician) CHLORIDE, SERUM 105 Normal (applies [facility] mEq/L to non-numeric (Ammir results) Vane Physician) Carbon dioxide 26 mEq/L Normal (applies [facility] [VFr/PPres] in to non-numeric (Ammir Gas delivery results) Vane system Physician) Anion gap in 14 mEq/L Normal (applies [facility] Body fluid to non-numeric (Ammir results) Vane Physician) BLOOD UREA 16 mg/dL Normal (applies [facility] NITROGEN to non-numeric (Ammir results) Vane Physician) CREATININE, 0.80 Normal (applies [facility] SERUM mg/dL to non-numeric (Ammir results) Vane Physician) CALCIUM, SERUM 10.3 Normal (applies [facility] mg/dL to non-numeric (Ammir results) Vane Physician) TOTAL PROTEIN 7.4 g/dL Normal (applies [facility] to non-numeric (Ammir results) Vane Physician) Microalbumin 4.4 g/dL Normal (applies [facility] [Mass/time] in to non-numeric (Ammir Urine collected results) Vane for unspecified Physician) duration Globulin 3.0 gldl Normal (applies [facility] [Mass/time] in to non-numeric (Ammir 24 hour Urine results) Vane Physician) A/G RATIO 1.47 Normal (applies [facility] g/dl to non-numeric (Ammir results) Vane Physician) BILIRUBIN, TOTAL 1.2 Normal (applies [facility] mg/dL to non-numeric (Ammir results) Vane Physician) ALKALINE 116 U/L Normal (applies [facility] PHOSPHATASE, ALP to non-numeric (Ammir results) Vane Physician) ALT (SGPT) 20 U/L Normal (applies [facility] to non-numeric (Ammir results) Vane Physician) AST 26 U/L Normal (applies [facility] to non-numeric (Ammir results) Vane Physician) EGFR NON AFR 76 Above high normal [facility] BURMESE mL/min/1 (Ammir .73m2 Vane Physician) EGFR AFR 92 Above high normal [facility] BURM[place] mL/min/1 (Ammir .73m2 Vane Physician) ID Date Data Source [id number] 05/19/2017 12:00:00 AM EST [facility] (Ammir Vane Physician) Name Value Range Interpretation Description Data Sup porting Code Source(s) Document(s ) WBC 7.6 Normal (applies to [facility] 10(3)/uL non-numeric (Ammir results) Vane Physician) RBC 5.1 Normal (applies to [facility] 10(6)/uL non-numeric (Ammir results) Vane Physician) Hemoglobin 14.9 g/dL Normal (applies to [facility] [Mass/volume] non-numeric (Ammir in Mixed results) Vane venous blood Physician) by Oximetry Hematocrit 43.4 % Normal (applies to [facility] [Pure volume non-numeric (Ammir fraction] of results) Vane Blood by Physician) Automated count MCV 85.4 fL Normal (applies to [facility] non-numeric (Ammir results) Vane Physician) MCH 29 pg Normal (applies to [facility] non-numeric (Ammir results) Vane Physician) MCHC 34 g/dL Normal (applies to [facility] non-numeric (Ammir results) Vane Physician) RDWSD 39.8 fL Normal (applies to [facility] non-numeric (Ammir results) Vane Physician) RDWCV 12.8 % Normal (applies to [facility] non-numeric (Ammir results) Vane Physician) PLT 351 Normal (applies to [facility] 10(3)/uL non-numeric (Ammir results) Vane Physician) MPV 10.0 fL Normal (applies to [facility] non-numeric (Ammir results) Vane Physician) NE# 4.73 Normal (applies to [facility] 10(3)/uL non-numeric (Ammir results) Vane Physician) LY# 1.96 Normal (applies to [facility] 10(3)/uL non-numeric (Ammir results) Vane Physician) MO# 0.59 Normal (applies to [facility] 10(3)/uL non-numeric (Ammir results) Vane Physician) EO# 0.25 Normal (applies to [facility] 10(3)/uL non-numeric (Ammir results) Vane Physician) IG# 0.03 Normal (applies to [facility] 10(3)/uL non-numeric (Ammir results) Vane Physician) NE% 62.00 % Normal (applies to [facility] non-numeric (Ammir results) Vane Physician) LY% 26 % Normal (applies to [facility] non-numeric (Ammir results) Vane Physician) MO% 7.7 % Normal (applies to [facility] non-numeric (Ammir results) Vane Physician) EO% 3.3 % Normal (applies to [facility] non-numeric (Ammir results) Vane Physician) BA% 0.9 % Normal (applies to [facility] non-numeric (Ammir results) Vane Physician) IG% 0.40 % Normal (applies to [facility] non-numeric (Ammir results) Vane Physician) ID Date Data Source [id number] 05/19/2017 12:00:00 AM EST [facility] (Ammir Vane Physician) Name Value Range Interpretation Description Data Sup porting Code Source(s) Document(s ) T4 FREE, 1.25 Normal (applies to [facility] THYROXINE ng/dL non-numeric (Ammir results) Vane Physician) TSH,3RD 4.51 Normal (applies to [facility] GENERATION uIU/mL non-numeric (Ammir results) Vane Physician) ID Date Data Source [id number] 05/19/2017 12:00:00 AM EST [facility] (Ammir Vane Physician) Name Value Range Interpretation Description Data Sup porting Code Source(s) Document(s ) FOLATE SERUM 14.5 Above high normal [facility] (A mmir ng/mL Vane Physician) VITAMIN B12 1154 Above high normal [facility] (Am [place] pg/mL Vane Physician) ID Date Data Source [id number] 05/19/2017 12:00:00 AM EST [facility] (Ammir Vane Physician) Name Value Range Interpretation Description Data Sup porting Code Source(s) Document(s ) VITAMIN D 89.9 Above high normal [facility] (Ammi r 1.25 pg/mL Vane Physician) ID Date Data Source [id number] 04/18/2017 12:00:00 AM EDT [facility] (Ammir Vane Physician) Name Value Range Interpretation Description Data Sup porting Code Source(s) Document(s ) REFLEX TO P53 Normal (applies [facility] SUSCEPTIBILITY to non-numeric (Ammir results) Vane Physician) ID Date Data Source [id number] 04/18/2017 12:00:00 AM EDT [facility] (Ammir Vane Physician) Name Value Range Interpretation Code Description Data Stacey rce(s) Supporting Document(s ) REFLEX FOR Abnormal (applies [facility] (Amm ir P53 - 1 UNIT to non-numeric Vane results) Physician) ID Date Data Source [id number] 04/18/2017 12:00:00 AM EDT [facility] (Ammir Vane Physician) Name Value Range Interpretation Code Description Data Stacey rce(s) Supporting Document(s ) REFLEX FOR Abnormal (applies [facility] (Amm ir MAN-ID - 1 to non-numeric Vane UNIT results) Physician) ID Date Data Source [id number] 04/18/2017 12:00:00 AM EDT [facility] (Ammir Vane Physician) Name Value Range Interpretation Description Data Sup porting Code Source(s) Document(s ) NGYN RESULTS Specimen# Normal (applies to [facility] ( Ammir [id number] non-numeric Vane 07 results) Physician) ID Date Data Source [id number] 04/18/2017 12:00:00 AM EDT [facility] (Ammir Vane Physician) Name Value Range Interpretation Description Data Sup porting Code Source(s) Document(s ) ORGANISM Abnormal (applies [facility] to non-numeric (Ammir results) Vane Physician) Comment Abnormal (applies [facility] [Interpretation] to non-numeric (Ammir Left eye Narrative results) Vane Ophthalmometer Physician) ID Date Data Source [id number] 04/18/2017 12:00:00 AM EDT [facility] (Ammir Vane Physician) Name Value Range Interpretation Description Data Sup porting Code Source(s) Document(s ) GLUCOSE UA NEGATIVE Normal (applies [facility] to non-numeric (Ammir results) Vane Physician) BILIRUBIN, TOTAL NEGATIVE Normal (applies [facility] to non-numeric (Ammir results) Vane Physician) Ketones NEGATIVE Normal (applies [facility] [Presence] in to non-numeric (Ammir Blood by Tablet results) Vane Physician) Specific gravity 1.019 SG Normal (applies [facility] of Pericardial units to non-numeric (Ammir fluid by results) Vane Refractometry Physician) Blood [Presence] NEGATIVE Normal (applies [facility] in Urine by to non-numeric (Ammir Visual results) Vane Physician) pH of Lower 5 Ph units Normal (applies [facility] respiratory to non-numeric (Ammir specimen results) Vane Physician) Protein NEGATIVE Normal (applies [facility] [Mass/volume] in to non-numeric (Ammir Lower results) Vane respiratory Physician) specimen Urobilinogen 0-2.0 Normal (applies [facility] [Presence] in to non-numeric (Ammir Urine by results) Vane Automated test Physician) strip Nitrite NEGATIVE Normal (applies [facility] [Presence] in to non-numeric (Ammir Urine by Test results) Vane strip Physician) Leukocyte LARGE Normal (applies [facility] esterase to non-numeric (Ammir [Presence] in results) Vane Body fluid by Physician) Automated test strip Color of YELLOW Normal (applies [facility] Peritoneal to non-numeric (Ammir dialysis fluid results) Vane Physician) TRANSPARENCY SLIGHTLY-CL Normal (applies [facility] OUDY to non-numeric (Ammir results) Vane Physician) RBC`S 3-5 Normal (applies [facility] to non-numeric (Ammir results) Vane Physician) WBC`S >50 Above high [facility] normal (Ammir Vane Physician) Bacteria FEW Normal (applies [facility] [Presence] in to non-numeric (Ammir Prostatic fluid results) Vane by Light Physician) microscopy SQUMAOUS FEW Normal (applies [facility] EPITHELIAL to non-numeric (Ammir results) Vane Physician) MUCOUS FEW Normal (applies [facility] to non-numeric (Ammir results) Vane Physician) ID Date Data Source [id number] 02/28/2017 12:00:00 AM EDT [facility] (Ammir Vane Physician) Name Value Range Interpretation Description Data Sup porting Code Source(s) Document(s ) ORGANISM Normal (applies [facility] to non-numeric (Ammir results) Vane Physician) Comment Normal (applies [facility] [Interpretation] to non-numeric (Ammir Left eye Narrative results) Vane Ophthalmometer Physician) ID Date Data Source [id number] 02/28/2017 12:00:00 AM EDT [facility] (Ammir Vane Physician) Name Value Range Interpretation Description Data Sup porting Code Source(s) Document(s ) GLUCOSE 94 mg/dL Normal (applies [facility] NONFASTING,SERUM to non-numeric (Ammir results) Vane Physician) SODIUM, SERUM 141 Normal (applies [facility] mEq/L to non-numeric (Ammir results) Vane Physician) POTASSIUM, SERUM 4.3 Normal (applies [facility] mEq/L to non-numeric (Ammir results) Vane Physician) CHLORIDE, SERUM 107 Normal (applies [facility] mEq/L to non-numeric (Ammir results) Vane Physician) Carbon dioxide 22 mEq/L Normal (applies [facility] [VFr/PPres] in to non-numeric (Ammir Gas delivery results) [facility]ane system Physician) Anion gap in 16.3 Above high normal [facility] Body fluid mEq/L (Ammir Vane Physician) BLOOD UREA 18 mg/dL Normal (applies [facility] NITROGEN to non-numeric (Ammir results) Vane Physician) CREATININE, 0.80 Normal (applies [facility] SERUM mg/dL to non-numeric (Ammir results) Vane Physician) CALCIUM, SERUM 9.7 Normal (applies [facility] mg/dL to non-numeric (Ammir results) Vane Physician) TOTAL PROTEIN 7.7 g/dL Normal (applies [facility] to non-numeric (Ammir results) Vane Physician) Microalbumin 4.5 g/dL Normal (applies [facility] [Mass/time] in to non-numeric (Ammir Urine collected results) Vane for unspecified Physician) duration Globulin 3.2 gldl Normal (applies [facility] [Mass/time] in to non-numeric (Ammir 24 hour Urine results) Vane Physician) A/G RATIO 1.41 Normal (applies [facility] g/dl to non-numeric (Ammir results) Vane Physician) BILIRUBIN, TOTAL 0.6 Normal (applies [facility] mg/dL to non-numeric (Ammir results) Vane Physician) ALKALINE 107 U/L Normal (applies [facility] PHOSPHATASE, ALP to non-numeric (Ammir results) Vane Physician) ALT (SGPT) 21 U/L Normal (applies [facility] to non-numeric (Ammir results) Vane Physician) AST 27 U/L Normal (applies [facility] to non-numeric (Ammir results) Vane Physician) EGFR NON AFR 76 Above high normal [facility] BURMESE mL/min/1 (Ammir .73m2 Vane Physician) EGFR AFR 92 Above high normal [facility] BURMESE mL/min/1 (Ammir .73m2 Vane Physician) ID Date Data Source [id number] 02/28/2017 12:00:00 AM EDT [facility] (Ammir Vane Physician) Name Value Range Interpretation Description Data Sup porting Code Source(s) Document(s ) WBC 8.0 Normal (applies to [facility] 10(3)/uL non-numeric (Ammir results) Vane Physician) RBC 5.0 Normal (applies to [facility] 10(6)/uL non-numeric (Ammir results) Vane Physician) Hemoglobin 14.8 g/dL Normal (applies to [facility] [Mass/volume] non-numeric (Ammir in Mixed results) Vane venous blood Physician) by Oximetry Hematocrit 43.7 % Normal (applies to [facility] [Pure volume non-numeric (Ammir fraction] of results) Vane Blood by Physician) Automated count MCV 87.1 fL Normal (applies to [facility] non-numeric (Ammir results) Vane Physician) MCH 30 pg Normal (applies to [facility] non-numeric (Ammir results) Vane Physician) MCHC 34 g/dL Normal (applies to [facility] non-numeric (Ammir results) Vane Physician) PLT 378 Normal (applies to [facility] 10(3)/uL non-numeric (Ammir results) Vane Physician) RDWSD 40.7 fL Normal (applies to [facility] non-numeric (Ammir results) Vane Physician) RDWCV 13.2 % Normal (applies to [facility] non-numeric (Ammir results) Vane Physician) MPV 10.0 fL Normal (applies to [facility] non-numeric (Ammir results) Vane Physician) NE# 4.69 Normal (applies to [facility] 10(3)/uL non-numeric (Ammir results) Vane Physician) LY# 2.43 Normal (applies to [facility] 10(3)/uL non-numeric (Ammir results) Vane Physician) MO# 0.53 Normal (applies to [facility] 10(3)/uL non-numeric (Ammir results) Vane Physician) EO# 0.22 Normal (applies to [facility] 10(3)/uL non-numeric (Ammir results) Vane Physician) BA# 0.09 Above high normal [facility] 10(3)/uL (Ammir Vane Physician) IG# 0.02 Normal (applies to [facility] 10(3)/uL non-numeric (Ammir results) Vane Physician) NE% 58.70 % Normal (applies to [facility] non-numeric (Ammir results) Vane Physician) LY% 31 % Normal (applies to [facility] non-numeric (Ammir results) Vane Physician) MO% 6.6 % Normal (applies to [facility] non-numeric (Ammir results) Vane Physician) EO% 2.8 % Normal (applies to [facility] non-numeric (Ammir results) Vane Physician) BA% 1.1 % Normal (applies to [facility] non-numeric (Ammir results) Vane Physician) IG% 0.30 % Normal (applies to [facility] non-numeric (Ammir results) Vane Physician) ID Date Data Source [id number] 02/28/2017 12:00:00 AM EDT [facility] (Ammir Vane Physician) Name Value Range Interpretation Code Description Data Stacey rce(s) Supporting Document(s ) APTT 30.30 sec Normal (applies to [facility] (Amm ir non-numeric results) Vane Physician) ID Date Data Source [id number] 02/28/2017 12:00:00 AM EDT [facility] (Ammir Vane Physician) Name Value Range Interpretation Description Data Sup porting Code Source(s) Document(s ) PROTHROMBIN 12.2 sec Below low normal [facility] TIME, PT (Ammir Vane Physician) INR 0.87 Below low normal [facility] (Ammir Vane Physician) ID Date Data Source [id number] 01/18/2017 12:00:00 AM EDT [facility] (Ammir Vane Physician) Name Value Range Interpretation Code Description Data Stacey rce(s) Supporting Document(s ) T3 TOTAL 104 ng/dL Normal (applies to [facility] (Amm ir non-numeric Vane results) Physician) ID Date Data Source [id number] 01/18/2017 12:00:00 AM EDT [facility] (Ammir Vane Physician) Name Value Range Interpretation Description Data Sup porting Code Source(s) Document(s ) T4 TOTAL 8.2 ug/dL Normal (applies to [facility] (Amm ir THYROXINE non-numeric Vane results) Physician) ID Date Data Source [id number] 01/18/2017 12:00:00 AM EDT [facility] (Ammir Vane Physician) Name Value Range Interpretation Description Data Sup porting Code Source(s) Document(s ) T3 FREE 2.60 Normal (applies [facility] TRIIODOTHYRONINE pg/mL to non-numeric (Ammir results) Vane Physician) ID Date Data Source [id number] 01/18/2017 12:00:00 AM EDT [facility] (Ammir Vane Physician) Name Value Range Interpretation Description Data Sup porting Code Source(s) Document(s ) Cholesterol 194 Normal (applies [facility] [Moles/volume] mg/dL to non-numeric (Ammir in Pericardial results) Vane fluid Physician) LDL CALCULATION 99.2 Normal (applies [facility] mg/dL to non-numeric (Ammir results) Vane Physician) CHOL/HDL RATIO 3.34 Normal (applies [facility] ratio to non-numeric (Ammir results) Vane Physician) HDL CHOLESTEROL 58 mg/dL Above high normal [facility] (Ammir Vane Physician) VLDL CALCULATION 36.8 Normal (applies [facility] mg/dl to non-numeric (Ammir results) Vane Physician) TRIGLYCERIDES 184 Above high normal [facility] mg/dL (Ammir Vane Physician) ID Date Data Source [id number] 01/18/2017 12:00:00 AM EDT [facility] (Ammir Vane Physician) Name Value Range Interpretation Description Data Sup porting Code Source(s) Document(s ) GLUCOSE 96 mg/dL Normal (applies [facility] NONFASTING,SERUM to non-numeric (Ammir results) Vane Physician) SODIUM, SERUM 144 Normal (applies [facility] mEq/L to non-numeric (Ammir results) Vane Physician) POTASSIUM, SERUM 3.9 Normal (applies [facility] mEq/L to non-numeric (Ammir results) Vane Physician) CHLORIDE, SERUM 108 Normal (applies [facility] mEq/L to non-numeric (Ammir results) Vane Physician) Carbon dioxide 28 mEq/L Normal (applies [facility] [VFr/PPres] in to non-numeric (Ammir Gas delivery results) Vane system Physician) Anion gap in 11.9 Normal (applies [facility] Body fluid mEq/L to non-numeric (Ammir results) Vane Physician) BLOOD UREA 13 mg/dL Normal (applies [facility] NITROGEN to non-numeric (Ammir results) Vane Physician) CREATININE, 0.80 Normal (applies [facility] SERUM mg/dL to non-numeric (Ammir results) Vane Physician) CALCIUM, SERUM 9.7 Normal (applies [facility] mg/dL to non-numeric (Ammir results) Vane Physician) TOTAL PROTEIN 7.0 g/dL Normal (applies [facility] to non-numeric (Ammir results) Vane Physician) Microalbumin 4.1 g/dL Normal (applies [facility] [Mass/time] in to non-numeric (Ammir Urine collected results) Vane for unspecified Physician) duration Globulin 2.9 gldl Normal (applies [facility] [Mass/time] in to non-numeric (Ammir 24 hour Urine results) Vane Physician) A/G RATIO 1.41 Normal (applies [facility] g/dl to non-numeric (Ammir results) Vane Physician) BILIRUBIN, TOTAL 1.1 Normal (applies [facility] mg/dL to non-numeric (Ammir results) Vane Physician) ALKALINE 92 U/L Normal (applies [facility] PHOSPHATASE, ALP to non-numeric (Ammir results) Vane Physician) ALT (SGPT) 21 U/L Normal (applies [facility] to non-numeric (Ammir results) Vane Physician) AST 22 U/L Normal (applies [facility] to non-numeric (Ammir results) Vane Physician) EGFR NON AFR 76 Above high normal [facility] BURMESE mL/min/1 (Ammir .73m2 Vane Physician) EGFR AFR 92 Above high normal [facility] BURMESE mL/min/1 (Ammir .73m2 Vane Physician) ID Date Data Source [id number] 01/18/2017 12:00:00 AM EDT [facility] (Ammir Vane Physician) Name Value Range Interpretation Description Data Sup porting Code Source(s) Document(s ) WBC 5.9 Normal (applies to [facility] 10(3)/uL non-numeric (Ammir results) Vane Physician) RBC 4.9 Normal (applies to [facility] 10(6)/uL non-numeric (Ammir results) Vane Physician) Hemoglobin 14.5 g/dL Normal (applies to [facility] [Mass/volume] non-numeric (Ammir in Mixed results) Vane venous blood Physician) by Oximetry Hematocrit 43.0 % Normal (applies to [facility] [Pure volume non-numeric (Ammir fraction] of results) Vane Blood by Physician) Automated count MCV 88.3 fL Normal (applies to [facility] non-numeric (Ammir results) Vane Physician) MCH 30 pg Normal (applies to [facility] non-numeric (Ammir results) Vane Physician) MCHC 34 g/dL Normal (applies to [facility] non-numeric (Ammir results) Vane Physician) PLT 358 Normal (applies to [facility] 10(3)/uL non-numeric (Ammir results) Vane Physician) RDWSD 41.3 fL Normal (applies to [facility] non-numeric (Ammir results) Vane Physician) RDWCV 12.9 % Normal (applies to [facility] non-numeric (Ammir results) Vane Physician) MPV 10.1 fL Normal (applies to [facility] non-numeric (Ammir results) Vane Physician) NE# 3.07 Normal (applies to [facility] 10(3)/uL non-numeric (Ammir results) Vane Physician) LY# 2.03 Normal (applies to [facility] 10(3)/uL non-numeric (Ammir results) Vane Physician) MO# 0.48 Normal (applies to [facility] 10(3)/uL non-numeric (Ammir results) Vane Physician) EO# 0.22 Normal (applies to [facility] 10(3)/uL non-numeric (Ammir results) Vane Physician) BA# 0.07 Normal (applies to [facility] 10(3)/uL non-numeric (Ammir results) Vane Physician) IG# 0.03 Normal (applies to [facility] 10(3)/uL non-numeric (Ammir results) Vane Physician) NE% 52.10 % Normal (applies to [facility] non-numeric (Ammir results) Vane Physician) LY% 34 % Normal (applies to [facility] non-numeric (Ammir results) Vane Physician) MO% 8.1 % Normal (applies to [facility] non-numeric (Ammir results) Vane Physician) EO% 3.7 % Normal (applies to [facility] non-numeric (Ammir results) Vane Physician) BA% 1.2 % Normal (applies to [facility] non-numeric (Ammir results) Vane Physician) IG% 0.50 % Normal (applies to [facility] non-numeric (Ammir results) Vane Physician) ID Date Data Source [id number] 01/18/2017 12:00:00 AM EDT [facility] (Ammir Vane Physician) Name Value Range Interpretation Code Description Data Supporting Source(s) Document(s ) GLYCOMARK 4.89 ug/mL Below low normal [facility] (Ammi r Vane Physician) ID Date Data Source [id number] 01/18/2017 12:00:00 AM EDT [facility] (Ammir Vane Physician) Name Value Range Interpretation Description Data Sup porting Code Source(s) Document(s ) Hemoglobin A1c 5.6 % Normal (applies to [facility] (Ammir in Blood non-numeric Vane results) Physician) ID Date Data Source [id number] 01/18/2017 12:00:00 AM EDT [facility] (Ammir Vane Physician) Name Value Range Interpretation Description Data Sup porting Code Source(s) Document(s ) T4 FREE, 1.06 Normal (applies to [facility] THYROXINE ng/dL non-numeric (Ammir results) Vane Physician) TSH,3RD 4.77 Normal (applies to [facility] GENERATION uIU/mL non-numeric (Ammir results) Vane Physician) ID Date Data Source [id number] 01/18/2017 12:00:00 AM EDT [facility] (Ammir Vane Physician) Name Value Range Interpretation Description Data Sup porting Code Source(s) Document(s ) FOLATE SERUM 12.5 Above high normal [facility] (A mmir ng/mL Vane Physician) VITAMIN B12 393 pg/mL Normal (applies to [facility] (A mmir non-numeric Vane results) Physician) ID Date Data Source [id number] 01/18/2017 12:00:00 AM EDT [facility] (Ammir Vane Physician) Name Value Range Interpretation Description Data Sup porting Code Source(s) Document(s ) VITAMIN D 107 pg/mL Above high normal [facility] (Ammi r 1.25 Vane Physician) ID Date Data Source [id number] 08/30/2016 12:00:00 AM EST [facility] (Ammir Vane Physician) Name Value Range Interpretation Description Data Sup porting Code Source(s) Document(s ) HEPATITIS C NONREACTIVE Normal (applies [facility] AB QL to non-numeric (Ammir results) Vane Physician) ID Date Data Source [id number] 08/30/2016 12:00:00 AM EST [facility] (Ammir Vane Physician) Name Value Range Interpretation Description Data Sup porting Code Source(s) Document(s ) HEPATITIS BS NONREACTIVE Normal (applies [facility] AG SCREEN to non-numeric (Ammir results) Vane Physician) ID Date Data Source [id number] 08/30/2016 12:00:00 AM EST [facility] (Ammir Vane Physician) Name Value Range Interpretation Description Data Sup porting Code Source(s) Document(s ) HEPATITIS B <3.10 Normal (applies to [facility] (A mmir SURFACE AB (NONREACT non-numeric Vane BUSHRA) results) Physician) ID Date Data Source [id number] 08/30/2016 12:00:00 AM EST [facility] (Ammir Vane Physician) Name Value Range Interpretation Description Data Sup porting Code Source(s) Document(s ) HEPATITIS A NONREACTIVE Normal (applies [facility] AB to non-numeric (Ammir results) Vane Physician) ID Date Data Source [id number] 08/30/2016 12:00:00 AM EST [facility] (Ammir Vane Physician) Name Value Range Interpretation Code Description Data Supporting Source(s) Document(s ) GLYCOMARK 8.49 ug/mL Normal (applies to [facility] (Am georgina non-numeric Vane results) Physician) ID Date Data Source [id number] 08/30/2016 12:00:00 AM EST [facility] (Ammir Vane Physician) Name Value Range Interpretation Description Data Sup porting Code Source(s) Document(s ) Hemoglobin A1c 5.4 % Normal (applies to [facility] (Ammir in Blood non-numeric Vane results) Physician) ID Date Data Source [id number] 08/30/2016 12:00:00 AM EST [facility] (Ammir Vane Physician) Name Value Range Interpretation Description Data Sup porting Code Source(s) Document(s ) T4 TOTAL 8.5 ug/dL Normal (applies to [facility] (Amm ir THYROXINE non-numeric Vane results) Physician) ID Date Data Source [id number] 08/30/2016 12:00:00 AM EST [facility] (Ammir Vane Physician) Name Value Range Interpretation Code Description Data Stacey rce(s) Supporting Document(s ) T3 UPTAKE 28 % Normal (applies to [facility] (Amm ir non-numeric results) Vane Physician) ID Date Data Source [id number] 08/30/2016 12:00:00 AM EST [facility] (Ammir Vane Physician) Name Value Range Interpretation Description Data Sup porting Code Source(s) Document(s ) TSH,3RD 3.714 Normal (applies to [facility] GENERATION uIU/mL non-numeric (Ammir results) Vane Physician) ID Date Data Source [id number] 08/30/2016 12:00:00 AM EST [facility] (Ammir Vane Physician) Name Value Range Interpretation Description Data Sup porting Code Source(s) Document(s ) FOLATE 13.2 ng/mL Above high normal [facility] (Amm ir SERUM Vane Physician) ID Date Data Source [id number] 08/30/2016 12:00:00 AM EST [facility] (Ammir Vane Physician) Name Value Range Interpretation Description Data Sup porting Code Source(s) Document(s ) VITAMIN B12 368 pg/mL Normal (applies to [facility] (A mmir non-numeric Vane results) Physician) ID Date Data Source [id number] 08/30/2016 12:00:00 AM EST [facility] (Ammir Vane Physician) Name Value Range Interpretation Description Data Sup porting Code Source(s) Document(s ) VITAMIN D 41.50 Normal (applies to [facility] (Amm ir 25-HYDROXY ng/mL non-numeric Vane results) Physician) ID Date Data Source [id number] 08/30/2016 12:00:00 AM EST [facility] (Ammir Vane Physician) Name Value Range Interpretation Description Data Sup porting Code Source(s) Document(s ) Cholesterol 195 Normal (applies [facility] [Moles/volume] mg/dL to non-numeric (Ammir in Pericardial results) Vane fluid Physician) LDL CALCULATION 107.0 Normal (applies [facility] mg/dL to non-numeric (Ammir results) Vane Physician) CHOL/HDL RATIO 3.20 Normal (applies [facility] RATIO to non-numeric (Ammir results) Vane Physician) HDL CHOLESTEROL 61 mg/dL Above high normal [facility] (Ammir Vane Physician) VLDL CALCULATION 27.0 Normal (applies [facility] mg/dl to non-numeric (Ammir results) Vane Physician) TRIGLYCERIDES 135 Normal (applies [facility] mg/dL to non-numeric (Ammir results) Vane Physician) ID Date Data Source [id number] 08/30/2016 12:00:00 AM EST [facility] (Ammir Vane Physician) Name Value Range Interpretation Description Data Sup porting Code Source(s) Document(s ) WBC 6.60 Normal (applies to [facility] 10(3)/uL non-numeric (Ammir results) Vane Physician) RBC 4.91 Normal (applies to [facility] 10(6)/uL non-numeric (Ammir results) Vane Physician) Hemoglobin 14.5 g/dL Normal (applies to [facility] [Mass/volume] non-numeric (Ammir in Mixed results) Vane venous blood Physician) by Oximetry Hematocrit 43.0 % Normal (applies to [facility] [Pure volume non-numeric (Ammir fraction] of results) Vane Blood by Physician) Automated count MCV 87.6 fL Normal (applies to [facility] non-numeric (Ammir results) Vane Physician) MCH 29.5 pg Normal (applies to [facility] non-numeric (Ammir results) Vane Physician) MCHC 33.7 g/dL Normal (applies to [facility] non-numeric (Ammir results) Vane Physician) PLT 345 Normal (applies to [facility] 10(3)/uL non-numeric (Ammir results) Vane Physician) RDWSD 42.4 fL Normal (applies to [facility] non-numeric (Ammir results) Vane Physician) RDWCV 13.2 % Normal (applies to [facility] non-numeric (Ammir results) Vane Physician) MPV 9.8 fL Normal (applies to [facility] non-numeric (Ammir results) Vane Physician) NE# 3.33 Normal (applies to [facility] 10(3)/uL non-numeric (Ammir results) Vane Physician) LY# 2.19 Normal (applies to [facility] 10(3)/uL non-numeric (Ammir results) Vane Physician) MO# 0.64 Normal (applies to [facility] 10(3)/uL non-numeric (Ammir results) Vane Physician) EO# 0.36 Normal (applies to [facility] 10(3)/uL non-numeric (Ammir results) Vnae Physician) BA# 0.04 Normal (applies to [facility] 10(3)/uL non-numeric (Ammir results) Vane Physician) IG# 0.04 Above high normal [facility] 10(3)/uL (Ammir Vane Physician) NE% 50.4 % Normal (applies to [facility] non-numeric (Ammir results) Vane Physician) LY% 33.2 % Normal (applies to [facility] non-numeric (Ammir results) Vane Physician) MO% 9.7 % Normal (applies to [facility] non-numeric (Ammir results) Vane Physician) EO% 5.5 % Normal (applies to [facility] non-numeric (Ammir results) Vane Physician) BA% 0.6 % Normal (applies to [facility] non-numeric (Ammir results) Vane Physician) IG% 0.6 % Above high normal [facility] (Ammir Vane Physician) ID Date Data Source [id number] 08/30/2016 12:00:00 AM EST [facility] (Ammir Vane Physician) Name Value Range Interpretation Description Data Sup porting Code Source(s) Document(s ) GLUCOSE 90 mg/dL Normal (applies [facility] NONFASTING,SERUM to non-numeric (Ammir results) Vane Physician) SODIUM, SERUM 143 Normal (applies [facility] mEq/L to non-numeric (Ammir results) Vane Physician) POTASSIUM, SERUM 4.1 Normal (applies [facility] mEq/L to non-numeric (Ammir results) Vane Physician) CHLORIDE, SERUM 108 Normal (applies [facility] mEq/L to non-numeric (Ammir results) Vane Physician) Carbon dioxide 28 mEq/L Normal (applies [facility] [VFr/PPres] in to non-numeric (Ammir Gas delivery results) Vane system Physician) Anion gap in 11.1 Normal (applies [facility] Body fluid mEq/L to non-numeric (Ammir results) Vane Physician) BLOOD UREA 22 mg/dL Normal (applies [facility] NITROGEN to non-numeric (Ammir results) Vane Physician) CREATININE, 0.7 Normal (applies [facility] SERUM mg/dL to non-numeric (Ammir results) Vane Physician) CALCIUM, SERUM 9 mg/dL Normal (applies [facility] to non-numeric (Ammir results) Vane Physician) TOTAL PROTEIN 7 g/dL Normal (applies [facility] to non-numeric (Ammir results) Vane Physician) Microalbumin 4 g/dL Normal (applies [facility] [Mass/time] in to non-numeric (Ammir Urine collected results) Vane for unspecified Physician) duration Globulin 3.0 gldl Normal (applies [facility] [Mass/time] in to non-numeric (Ammir 24 hour Urine results) Vane Physician) A/G RATIO 1.33 Normal (applies [facility] g/dl to non-numeric (Ammir results) Vane Physician) BILIRUBIN, TOTAL 1 mg/dL Normal (applies [facility] to non-numeric (Ammir results) Vane Physician) ALKALINE 88 U/L Normal (applies [facility] PHOSPHATASE, ALP to non-numeric (Ammir results) Vane Physician) ALT (SGPT) 18 U/L Normal (applies [facility] to non-numeric (Ammir results) Vane Physician) AST 25 U/L Normal (applies [facility] to non-numeric (Ammir results) Vane Physician) EGFR NON AFR 89 Above high normal [facility] BURMESE mL/min/1 (Ammir .73m2 Vane Physician) EGFR AFR 108 Above high normal [facility]MESE mL/min/1 (Ammir .73m2 [facility] Physician) ID Date Data Source [id number] 08/30/2016 12:00:00 AM EST [facility] (Ammir Vane Physician) Name Value Range Interpretation Code Description Data Stacey rce(s) Supporting Document(s ) APTT 30.8 sec Normal (applies to [facility] (Amm ir non-numeric results) [facility]ane Physician) ID Date Data Source [id number] 08/30/2016 12:00:00 AM EST [facility] (Ammir Vane Physician) Name Value Range Interpretation Description Data Sup porting Code Source(s) Document(s ) PROTHROMBIN 12.4 sec Normal (applies [facility] TIME, PT to non-numeric (Ammir results) [facility]ane Physician) INR 0.93 Normal (applies [facility] to non-numeric (Ammir results) [facility]ane Physician) ID Date Data Source [id number] 06/17/2016 12:00:00 AM EST [facility] (Ammir Vane Physician) Name Value Range Interpretation Description Data Sup porting Code Source(s) Document(s ) Thyroxine 0.73 Normal (applies to [facility] (Amm ir (T4) free ng/dL non-numeric Vane [Mass/volume] results) Physician) in Serum or Plasma ID Date Data Source [id number] 06/17/2016 12:00:00 AM EST [facility] (Ammir Vane Physician) Name Value Range Interpretation Description Data Sup porting Code Source(s) Document(s ) TSH 3RD 6.144 Above high normal [facility] GENERATION uIU/mL (Ammir Vane Physician) ID Date Data Source [id number] 06/17/2016 12:00:00 AM EST [facility] (Ammir Vane Physician) Name Value Range Interpretation Description Data Sup porting Code Source(s) Document(s ) VITAMIN B12 319 pg/mL Normal (applies to [facility] (A mmir non-numeric Vane results) Physician) Folate 16.6 Normal (applies to [facility] (Amm ir [Interpretat ng/mL non-numeric Vane ion] in results) Physician) Blood ID Date Data Source [id number] 06/17/2016 12:00:00 AM EST [facility] (Ammir Vane Physician) Name Value Range Interpretation Description Data Sup porting Code Source(s) Document(s ) Sodium 144 Normal (applies [facility] [Moles/volume] mmol/L to non-numeric (Ammir in Serum, Plasma results) Vane or Blood Physician) Potassium 4.1 Normal (applies [facility] [Mass/volume] in mmol/L to non-numeric (Ammir Blood results) [facility]ane Physician) Chloride 104 Normal (applies [facility] [Moles/volume] mmol/L to non-numeric (Ammir in Serum, Plasma results) Vane or Blood Physician) Carbon dioxide 24.0 Normal (applies [facility] [VFr/PPres] in mEq/L to non-numeric (Ammir Gas delivery results) [facility]ane system Physician) Glucose 107 Above high normal [facility] [Mass/volume] in mg/dL (Ammir Urine collected Vane for unspecified Physician) duration BUN 14 mg/dl Normal (applies [facility] to non-numeric (Ammir results) Vane Physician) CREATININE SERUM 0.79 Normal (applies [facility] mg/dL to non-numeric (Ammir results) Vane Physician) BUN/CREATININE 18 Ratio Normal (applies [facility] RATIO to non-numeric (Ammir results) Vane Physician) BILIRUBIN,Total 0.9 Normal (applies [facility] mg/dl to non-numeric (Ammir results) [facility]ane Physician) Calcium 9.6 Normal (applies [facility] [Moles/volume] mg/dL to non-numeric (Ammir in Urine results) Vane collected for Physician) unspecified duration PROTEIN TOTAL 7.4 g/dL Normal (applies [facility] to non-numeric (Ammir results) Vane Physician) Microalbumin 4.2 g/dL Normal (applies [facility] [Mass/time] in to non-numeric (Ammir Urine collected results) Vane for unspecified Physician) duration ALK.PHOSPHATASE 81 U/L Normal (applies [facility] to non-numeric (Ammir results) Vane Physician) ALT (SGPT) 19 U/L Normal (applies [facility] to non-numeric (Ammir results) Vane Physician) AST (SGOT) 25 U/L Normal (applies [facility] to non-numeric (Ammir results) Vane Physician) Globulin 3.2 g/dL Normal (applies [facility] [Mass/time] in to non-numeric (Ammir 24 hour Urine results) Vane Physician) A/G RATIO 1.3 Normal (applies [facility] Ratio to non-numeric (Ammir results) Vane Physician) GLOMERULAR FILT. 77 Normal (applies [facility] RATE mL/min to non-numeric (Ammir results) Vane Physician) ID Date Data Source [id number] 06/17/2016 12:00:00 AM EST [facility] (Ammir Vane Physician) Name Value Range Interpretation Description Data Sup porting Code Source(s) Document(s ) WBC 8.8 Normal (applies [facility] 10^3/uL to non-numeric (Ammir results) Vane Physician) RBC 4.97 Normal (applies [facility] 10^6/uL to non-numeric (Ammir results) Vane Physician) Hemoglobin 15.5 g/dL Above high normal [facility] [Mass/volume] (Ammir in Mixed venous Vane blood by Physician) Oximetry Hematocrit 45 % Above high normal [facility] [Pure volume (Ammir fraction] of Vane Blood by Physician) Automated count MCV 90 fL Normal (applies [facility] to non-numeric (Ammir results) Vane Physician) MCH 31.1 pg Normal (applies [facility] to non-numeric (Ammir results) Vane Physician) MCHC 34.5 g/dL Normal (applies [facility] to non-numeric (Ammir results) Vane Physician) RDW 14.1 % Normal (applies [facility] to non-numeric (Ammir results) Vane Physician) PLATELET 340 Normal (applies [facility] 10^3/uL to non-numeric (Ammir results) Vane Physician) MPV 8.95 fL Normal (applies [facility] to non-numeric (Ammir results) Vane Physician) SEGMENTED % 66.7 % Normal (applies [facility] to non-numeric (Ammir results) Vane Physician) SEGMENTED # 5.9 Normal (applies [facility] 10^3uL to non-numeric (Ammir results) Vane Physician) LYMPHOCYTES % 24.09 % Normal (applies [facility] to non-numeric (Ammir results) Vane Physician) LYMPHOCYTES # 2.1 Normal (applies [facility] 10^3/uL to non-numeric (Ammir results) Vane Physician) MONOCYTES % 6.7 % Normal (applies [facility] to non-numeric (Ammir results) Vane Physician) MONOCYTES # 0.6 Normal (applies [facility] 10^3/uL to non-numeric (Ammir results) Vane Physician) EOSINOPHILS % 2.33 % Normal (applies [facility] to non-numeric (Ammir results) Vane Physician) EOSINOPHILS # 0.21 Normal (applies [facility] 10^3/uL to non-numeric (Ammir results) Vane Physician) BASOPHILS % 0.20 % Normal (applies [facility] to non-numeric (Ammir results) Vane Physician) BASOPHILS # 0.02 Normal (applies [facility] 10^3/uL to non-numeric (Ammir results) Vane Physician) Procedure Social History Code Duration Value Status Description Data Source(s ) Smoking 03/12/2020 Patient tobacco completed Patient tobacco [facility] EN (Ammir 12:00:00 AM EDT use: patient is a use: patient is a Vane former smoker - former smoker - Phys [place]) Alcohol: none - Alcohol: none - Recreational Drugs: Recreational Never Living Drugs: Never conditions - lives Living conditions alone. - lives alone. Smoking 03/12/2020 Unknown if ever completed Unknown if ever [facility] EN (Ammir 12:00:00 AM EDT smoked smoked Vane Physician) Smoking 05/26/2018 [id number] completed [facility] 11:45:00 AM EST Medical C enter Smoking 05/26/2018 [id number] completed [facility] 11:17:00 AM EST Medical C enter Vital Signs ID Date Data Source UNK Name Value Range Interpretation Code Description Data Source(s) Heart rate 88 /min 88 /min [facility] (Ammir Vane Physician) Respiratory rate 16 /min 16 /min [facility] ( Ammir Vane Physician) Body temperature 98.2 F 98.2 F [facility] ( Ammir Vane Physician) Inhaled oxygen 97 % 97 % [facility] (Am georgina concentration Vane Physician) Body mass index 30.4 kg/m2 30.4 kg/m2 [facility] (A mmir (BMI) [Ratio] Vane Physician) Diastolic blood 84 mm[Hg] 84 mm[Hg] [facility] (A mmir pressure Vane Physician) Systolic blood 130 mm[Hg] 130 mm[Hg] [facility] (Am georgina pressure Vane Physician) Body weight 177 lb 177 lb [facility] (Ammir Vane Physician) Body height 64 in 64 in [facility] (Ammir Vane Physician) Heart rate 88 /min 88 /min [facility] (Ammir Vane Physician) Respiratory rate 16 /min 16 /min [facility] ( Ammir Vane Physician) Body temperature 98.2 F 98.2 F [facility] ( Ammir Vane Physician) Body mass index 30.7 kg/m2 30.7 kg/m2 [facility] (A mmir (BMI) [Ratio] Vane Physician) Diastolic blood 84 mm[Hg] 84 mm[Hg] [facility] (A mmir pressure Vane Physician) Systolic blood 122 mm[Hg] 122 mm[Hg] [facility] (Am georgina pressure Vane Physician) Body weight 179 lb 179 lb [facility] (Ammir Vane Physician) Body height 64 in 64 in [facility] (Ammir Vane Physician) Heart rate 86 /min 86 /min [facility] (Ammir Vane Physician) Inhaled oxygen 97 % 97 % [facility] (Am georgina concentration Vane Physician) Body mass index 30.4 kg/m2 30.4 kg/m2 [facility] (A mmir (BMI) [Ratio] Vane Physician) Diastolic blood 84 mm[Hg] 84 mm[Hg] [facility] (A mmir pressure Vane Physician) Systolic blood 128 mm[Hg] 128 mm[Hg] [facility] (Am georgina pressure Vane Physician) Body weight 177 lb 177 lb [facility] (Ammir Vane Physician) Body height 64 in 64 in [facility] (Ammir Vane Physician) Heart rate 82 /min 82 /min [facility] (Ammir Vane Physician) Inhaled oxygen 95 % 95 % [facility] (Am georgina concentration Vane Physician) Diastolic blood 80 mm[Hg] 80 mm[Hg] [facility] (A mmir pressure Vane Physician) Systolic blood 120 mm[Hg] 120 mm[Hg] [facility] (Am georgina pressure Vane Physician) Body weight 32008 lb 57156 lb [facility] (Ammir Vane Physician) Heart rate 85 /min 85 /min [facility] (Ammir Vane Physician) Body temperature 98.9 F 98.9 F [facility] ( Ammir Vane Physician) Inhaled oxygen 98 % 98 % [facility] (Am georgina concentration Vane Physician) Body mass index 31.2 kg/m2 31.2 kg/m2 [facility] (A mmir (BMI) [Ratio] Vane Physician) Diastolic blood 82 mm[Hg] 82 mm[Hg] [facility] (A mmir pressure Vane Physician) Systolic blood 124 mm[Hg] 124 mm[Hg] [facility] (Am georgina pressure Vane Physician) Body weight 182 lb 182 lb [facility] (Ammir Vane Physician) Body height 64 in 64 in [facility] (Ammir Vane Physician) Heart rate 89 /min 89 /min [facility] (Ammir Vane Physician) Body temperature 98.9 F 98.9 F [facility] ( Ammir Vane Physician) Inhaled oxygen 96 % 96 % [facility] (Am georgina concentration Vane Physician) Body mass index 31.6 kg/m2 31.6 kg/m2 [facility] (A mmir (BMI) [Ratio] Vane Physician) Diastolic blood 82 mm[Hg] 82 mm[Hg] [facility] (A mmir pressure Vane Physician) Systolic blood 131 mm[Hg] 131 mm[Hg] [facility] (Am georgina pressure Vane Physician) Body weight 184 lb 184 lb [facility] (Ammir Vane Physician) Body height 64 in 64 in [facility] (Ammir Vane Physician) Heart rate 83 /min 83 /min [facility] (Ammir Vane Physician) Body temperature 98.9 F 98.9 F [facility] ( Ammir Vane Physician) Inhaled oxygen 96 % 96 % [facility] (Am georgina concentration Vane Physician) Diastolic blood 80 mm[Hg] 80 mm[Hg] [facility] (A mmir pressure Vane Physician) Systolic blood 130 mm[Hg] 130 mm[Hg] [facility] (Am georgina pressure Vane Physician) Body weight 182 lb 182 lb [facility] (Ammir Vane Physician) Heart rate 74 /min 74 /min [facility] (Ammir Vane Physician) Body temperature 98.4 F 98.4 F [facility] ( Ammir Vane Physician) Inhaled oxygen 98 % 98 % [facility] (Am georgina concentration Vane Physician) Body mass index 31.2 kg/m2 31.2 kg/m2 [facility] (A mmir (BMI) [Ratio] Vane Physician) Body weight 182 lb 182 lb [facility] (Ammir Vane Physician) Body height 64 in 64 in [facility] (Ammir Vane Physician) Heart rate 88 /min 88 /min [facility] (Ammir Vane Physician) Inhaled oxygen 97 % 97 % [facility] (Am georgina concentration Vnae Physician) Diastolic blood 92 mm[Hg] 92 mm[Hg] [facility] (A mmir pressure Vane Physician) Systolic blood 136 mm[Hg] 136 mm[Hg] [facility] (Am georgina pressure Vane Physician) Heart rate 90 /min 90 /min [facility] (Ammir Vane Physician) Inhaled oxygen 96 % 96 % [facility] (Am georgina concentration Vane Physician) Body mass index 31.1 kg/m2 31.1 kg/m2 [facility] (A mmir (BMI) [Ratio] Vane Physician) Diastolic blood 82 mm[Hg] 82 mm[Hg] [facility] (A mmir pressure Vane Physician) Systolic blood 132 mm[Hg] 132 mm[Hg] [facility] (Am georgina pressure Vane Physician) Body weight 181 lb 181 lb [facility] (Ammir Vane Physician) Body height 64 in 64 in [facility] (Ammir Vane Physician) Heart rate 94 /min 94 /min [facility] (Ammir Vane Physician) Inhaled oxygen 98 % 98 % [facility] (Am georgina concentration Vane Physician) Diastolic blood 94 mm[Hg] 94 mm[Hg] [facility] (A mmir pressure Vane Physician) Systolic blood 146 mm[Hg] 146 mm[Hg] [facility] (Am georgina pressure Vane Physician) Body height 64 in 64 in [facility] (Ammir Vane Physician) Heart rate 94 /min 94 /min [facility] (Ammir Vane Physician) Inhaled oxygen 98 % 98 % [facility] (Am georgina concentration Vane Physician) Diastolic blood 94 mm[Hg] 94 mm[Hg] [facility] (A mmir pressure Vane Physician) Systolic blood 146 mm[Hg] 146 mm[Hg] [facility] (Am georgina pressure Vane Physician) Heart rate 94 /min 94 /min [facility] (Ammir Vane Physician) Body temperature 98.6 F 98.6 F [facility] ( Ammir Vane Physician) Inhaled oxygen 96 % 96 % [facility] (Am georgina concentration Vane Physician) Diastolic blood 84 mm[Hg] 84 mm[Hg] [facility] (A mmir pressure Vane Physician) Systolic blood 146 mm[Hg] 146 mm[Hg] [facility] (Am georgina pressure Vane Physician) Body height 64 in 64 in [facility] (Ammir Vane Physician) Heart rate 94 /min 94 /min [facility] (Ammir Vane Physician) Body temperature 98.6 F 98.6 F [facility] ( Ammir Vane Physician) Inhaled oxygen 96 % 96 % [facility] (Am georgina concentration Vane Physician) Diastolic blood 84 mm[Hg] 84 mm[Hg] [facility] (A mmir pressure Vane Physician) Systolic blood 118 mm[Hg] 118 mm[Hg] [facility] (Am georgina pressure Vane Physician) Diastolic blood 90 mm[Hg] 90 mm[Hg] [facility] (A mmir pressure Vane Physician) Systolic blood 144 mm[Hg] 144 mm[Hg] [facility] (Am georgina pressure Vane Physician) Body temperature 36.991228 [id number] [facility] Respiratory rate 18 /min 18 /min [facility] Deprecated Oxygen 98 % 98 % [facility] saturation in Medical [address] Capillary blood by Oximetry Heart rate 80 /min 80 /min [facility] Systolic blood 76 mm[Hg] 76 mm[Hg] [facility] Diastolic blood 112 mm[Hg] 112 mm[Hg] [facility] Body temperature 36.258424 36.186075 [facility] Respiratory rate 19 /min 19 /min [facility] Deprecated Oxygen 95 % 95 % [facility] saturation in [facility] [address] Capillary blood by Oximetry Heart rate 102 /min 102 /min [facility] Systolic blood 78 mm[Hg] 78 mm[Hg] [facility] Diastolic blood 142 mm[Hg] 142 mm[Hg] [facility] Heart rate 81 /min 81 /min [facility] (Ammir Vane Physician) Body temperature 98.7 F 98.7 F [facility] ( Ammir Vane Physician) Inhaled oxygen 96 % 96 % [facility] (Am georgina concentration Vane Physician) Body mass index 31.9 kg/m2 31.9 kg/m2 [facility] (A mmir (BMI) [Ratio] Vane Physician) Diastolic blood 86 mm[Hg] 86 mm[Hg] [facility] (A mmir pressure Vane Physician) Systolic blood 128 mm[Hg] 128 mm[Hg] [facility] (Am georgina pressure Vane Physician) Body weight 186 lb 186 lb [facility] (Ammir Vane Physician) Body height 64 in 64 in [facility] (Ammir Vane Physician) Heart rate 77 /min 77 /min [facility] (Ammir Vane Physician) Body temperature 98.5 F 98.5 F [facility] ( Ammir Vane Physician) Inhaled oxygen 97 % 97 % [facility] (Am georgina concentration Vane Physician) Diastolic blood 80 mm[Hg] 80 mm[Hg] [facility] (A mmir pressure Vane Physician) Systolic blood 130 mm[Hg] 130 mm[Hg] [facility] (Am georgina pressure Vane Physician) Body weight 187 lb 187 lb [facility] (Ammir Vane Physician) Heart rate 78 /min 78 /min [facility] (Ammir Vane Physician) Body temperature 98.5 F 98.5 F [facility] ( Ammir Vane Physician) Inhaled oxygen 97 % 97 % [facility] (Am georgina concentration Vane Physician) Diastolic blood 80 mm[Hg] 80 mm[Hg] [facility] (A mmir pressure Vane Physician) Systolic blood 130 mm[Hg] 130 mm[Hg] [facility] (Am georgina pressure Vane Physician) Body weight 189 lb 189 lb [facility] (Ammir Vane Physician) Heart rate 74 /min 74 /min [facility] (Ammir Vane Physician) Inhaled oxygen 98 % 98 % [facility] (Am georgina concentration Vane Physician) Diastolic blood 80 mm[Hg] 80 mm[Hg] [facility] (A mmir pressure Vane Physician) Systolic blood 130 mm[Hg] 130 mm[Hg] [facility] (Am georgina pressure Vane Physician) Heart rate 78 /min 78 /min [facility] (Ammir Vane Physician) Inhaled oxygen 98 % 98 % [facility] (Am georgina concentration Vane Physician) Body mass index 32.4 kg/m2 32.4 kg/m2 [facility] (A mmir (BMI) [Ratio] Vane Physician) Diastolic blood 90 mm[Hg] 90 mm[Hg] [facility] (A mmir pressure Vane Physician) Systolic blood 140 mm[Hg] 140 mm[Hg] [facility] (Am georgina pressure Vane Physician) Body weight 189 lb 189 lb [facility] (Ammir Vane Physician) Body height 64 in 64 in [facility] (Ammir Vane Physician) Heart rate 90 /min 90 /min [facility] (Ammir Vane Physician) Inhaled oxygen 98 % 98 % [facility] (Am georgina concentration Vane Physician) Body mass index 31.4 kg/m2 31.4 kg/m2 [facility] (A mmir (BMI) [Ratio] Vane Physician) Diastolic blood 84 mm[Hg] 84 mm[Hg] [facility] (A mmir pressure Vane Physician) Systolic blood 124 mm[Hg] 124 mm[Hg] [facility] (Am georgina pressure Vane Physician) Body weight 183 lb 183 lb [facility] (Ammir Vane Physician) Body height 64 in 64 in [facility] (Ammir Vane Physician) Heart rate 90 /min 90 /min [facility] (Ammir Vane Physician) Inhaled oxygen 98 % 98 % [facility] (Am georgina concentration Vane Physician) Body mass index 31.4 kg/m2 31.4 kg/m2 [facility] (A mmir (BMI) [Ratio] Vane Physician) Diastolic blood 84 mm[Hg] 84 mm[Hg] [facility] (A mmir pressure Vane Physician) Systolic blood 124 mm[Hg] 124 mm[Hg] [facility] (Am georgina pressure Vane Physician) Body weight 183 lb 183 lb [facility] (Ammir Vane Physician) Body height 64 in 64 in [facility] (Ammir Vane Physician) Heart rate 90 /min 90 /min [facility] (Ammir Vane Physician) Inhaled oxygen 98 % 98 % [facility] (Am georgina concentration Vane Physician) Body mass index 30.9 kg/m2 30.9 kg/m2 [facility] (A mmir (BMI) [Ratio] Vane Physician) Diastolic blood 90 mm[Hg] 90 mm[Hg] [facility] (A mmir pressure Vane Physician) Systolic blood 140 mm[Hg] 140 mm[Hg] [facility] (Am georgina pressure Vane Physician) Body weight 180 lb 180 lb [facility] (Ammir Vane Physician) Body height 64 in 64 in [facility] (Ammir Vane Physician) Heart rate 100 /min 100 /min [facility] (Ammir Vane Physician) Body temperature 98.3 F 98.3 F [facility] ( Ammir Vane Physician) Inhaled oxygen 97 % 97 % [facility] (Am georgina concentration Vane Physician) Diastolic blood 80 mm[Hg] 80 mm[Hg] [facility] (A mmir pressure Vane Physician) Systolic blood 120 mm[Hg] 120 mm[Hg] [facility] (Am georgina pressure Vane Physician) Body weight 184 lb 184 lb [facility] (Ammir Vane Physician) Heart rate 88 /min 88 /min [facility] (Ammir Vane Physician) Inhaled oxygen 97 % 97 % [facility] (Am georgina concentration Vane Physician) Diastolic blood 80 mm[Hg] 80 mm[Hg] [facility] (A mmir pressure Vane Physician) Systolic blood 140 mm[Hg] 140 mm[Hg] [facility] (Am georgina pressure Vane Physician) Heart rate 88 /min 88 /min [facility] (Ammir Vane Physician) Body temperature 97.3 F 97.3 F [facility] ( Ammir Vane Physician) Inhaled oxygen 97 % 97 % [facility] (Am georgina concentration Vane Physician) Diastolic blood 70 mm[Hg] 70 mm[Hg] [facility] (A mmir pressure Vane Physician) Systolic blood 110 mm[Hg] 110 mm[Hg] [facility] (Am georgina pressure Vane Physician) Heart rate 88 /min 88 /min [facility] (Ammir Vane Physician) Inhaled oxygen 98 % 98 % [facility] (Am georgina concentration Vane Physician) Body mass index 30.7 kg/m2 30.7 kg/m2 [facility] (A mmir (BMI) [Ratio] Vane Physician) Diastolic blood 84 mm[Hg] 84 mm[Hg] [facility] (A mmir pressure Vane Physician) Systolic blood 128 mm[Hg] 128 mm[Hg] [facility] (Am georgina pressure Vane Physician) Body weight 179 lb 179 lb [facility] (Ammir Vane Physician) Body height 64 in 64 in [facility] (Ammir Vane Physician) Inhaled oxygen 98 % 98 % [facility] (Am georgina concentration Vane Physician) Body mass index 30.9 kg/m2 30.9 kg/m2 [facility] (A mmir (BMI) [Ratio] Vane Physician) Diastolic blood 90 mm[Hg] 90 mm[Hg] [facility] (A mmir pressure Vane Physician) Systolic blood 130 mm[Hg] 130 mm[Hg] [facility] (Am georgina pressure Vane Physician) Body weight 180 lb 180 lb [facility] (Ammir Vane Physician) Body height 64 in 64 in [facility] (Ammir Vane Physician) Heart rate 70 /min 70 /min [facility] (Ammir Vane Physician) Inhaled oxygen 98 % 98 % [facility] (Am georgina concentration Vane Physician) Body mass index 24 kg/m2 24 kg/m2 [facility] (A mmir (BMI) [Ratio] Vane Physician) Diastolic blood 70 mm[Hg] 70 mm[Hg] [facility] (A mmir pressure Vane Physician) Systolic blood 110 mm[Hg] 110 mm[Hg] [facility] (Am georgina pressure Vane Physician) Body weight 140 lb 140 lb [facility] (Ammir Vane Physician) Body height 64 in 64 in [facility] (Ammir Vane Physician) Heart rate 70 /min 70 /min [facility] (Ammir Vane Physician) Inhaled oxygen 98 % 98 % [facility] (Am georgina concentration Vane Physician) Body mass index 24 kg/m2 24 kg/m2 [facility] (A mmir (BMI) [Ratio] Vane Physician) Diastolic blood 70 mm[Hg] 70 mm[Hg] [facility] (A mmir pressure Vane Physician) Systolic blood 110 mm[Hg] 110 mm[Hg] [facility] (Am georgina pressure Vane Physician) Body weight 140 lb 140 lb [facility] (Ammir Vane Physician) Body height 64 in 64 in [facility] (Ammir Vane Physician) Heart rate 90 /min 90 /min [facility] (Ammir Vane Physician) Body temperature 98 F 98 F [facility] ( Ammir Vane Physician) Inhaled oxygen 98 % 98 % [facility] (Am georgina concentration Vane Physician) Body mass index 31.4 kg/m2 31.4 kg/m2 [facility] (A mmir (BMI) [Ratio] Vane Physician) Diastolic blood 86 mm[Hg] 86 mm[Hg] [facility] (A mmir pressure Vane Physician) Systolic blood 136 mm[Hg] 136 mm[Hg] [facility] (Am georgina pressure Vane Physician) Body weight 183 lb 183 lb [facility] (Ammir Vane Physician) Body height 64 in 64 in [facility] (Ammir Vane Physician) Heart rate 90 /min 90 /min [facility] (Ammir Vane Physician) Body temperature 98 F 98 F [facility] ( Ammir Vane Physician) Inhaled oxygen 98 % 98 % [facility] (Am georgina concentration Vane Physician) Body mass index 30.7 kg/m2 30.7 kg/m2 [facility] (A mmir (BMI) [Ratio] Vane Physician) Diastolic blood 80 mm[Hg] 80 mm[Hg] [facility] (A mmir pressure Vane Physician) Systolic blood 130 mm[Hg] 130 mm[Hg] [facility] (Am georgina pressure Vane Physician) Body weight 179 lb 179 lb [facility] (Ammir Vane Physician) Body height 64 in 64 in [facility] (Ammir Vane Physician) Heart rate 84 /min 84 /min [facility] (Ammir Vane Physician) Body temperature 98 F 98 F [facility] ( Ammir Vane Physician) Inhaled oxygen 98 % 98 % [facility] (Am georgina concentration Vane Physician) Body mass index 31.4 kg/m2 31.4 kg/m2 [facility] (A mmir (BMI) [Ratio] Vane Physician) Diastolic blood 90 mm[Hg] 90 mm[Hg] [facility] (A mmir pressure Vane Physician) Systolic blood 136 mm[Hg] 136 mm[Hg] [facility] (Am georgina pressure Vane Physician) Body weight 183 lb 183 lb [facility] (Ammir Vane Physician) Body height 64 in 64 in [facility] (Ammir Vane Physician) Heart rate 76 /min 76 /min [facility] (Ammir Vane Physician) Body temperature 98 F 98 F [facility] ( Ammir Vane Physician) Inhaled oxygen 98 % 98 % [facility] (Am georgina concentration Vane Physician) Diastolic blood 80 mm[Hg] 80 mm[Hg] [facility] (A mmir pressure Vane Physician) Systolic blood 120 mm[Hg] 120 mm[Hg] [facility] (Am georgina pressure Vane Physician) Heart rate 88 /min 88 /min [facility] (Ammir Vane Physician) Body temperature 98 F 98 F [facility] ( Ammir Vane Physician) Diastolic blood 100 mm[Hg] 100 mm[Hg] [facility] (A mmir pressure Vane Physician) Systolic blood 150 mm[Hg] 150 mm[Hg] [facility] (Am georgina pressure Vane Physician) Heart rate 88 /min 88 /min [facility] (Ammir Vane Physician) Respiratory rate 16 /min 16 /min [facility] ( Ammir Vane Physician) Body temperature 98.2 F 98.2 F [facility] ( Ammir Vane Physician) Inhaled oxygen 97 % 97 % [facility] (Am georgina concentration Vane Physician) Body mass index 31.1 kg/m2 31.1 kg/m2 [facility] (A mmir (BMI) [Ratio] Vane Physician) Diastolic blood 84 mm[Hg] 84 mm[Hg] [facility] (A mmir pressure Vane Physician) Systolic blood 130 mm[Hg] 130 mm[Hg] [facility] (Am georgina pressure Vane Physician) Body weight 181 lb 181 lb [facility] (Ammir Vane Physician) Body height 64 in 64 in [facility] (Ammir Vane Physician) Heart rate 79 /min 79 /min [facility] (Ammir Vane Physician) Inhaled oxygen 96 % 96 % [facility] (Am georgina concentration Vane Physician) Diastolic blood 90 mm[Hg] 90 mm[Hg] [facility] (A mmir pressure Vane Physician) Systolic blood 158 mm[Hg] 158 mm[Hg] [facility] (Am georgina pressure Vane Physician) Body weight 181 lb 181 lb [facility] (Ammir Vane Physician) Patient Treatment Plan of Care Planned Activity Planned Date Details Description Data Source (s) Ciprofloxacin 500 MG Oral Sa [facility]
[2020-03-25] MEDS ORDERED: VANCOMYCIN 1,000 MG VIAL (RESTRICTED TO ID ONLY) ONE (07:19)
[2020-03-25] MEDS ORDERED: GENTAMICIN SO4 80 MG/2 ML VIAL ONE (07:19)
[2020-03-25] MEDS ORDERED: LIDOCAINE 1%/EPI 1:100000 (20 ML MULTI DOSE VIAL) ONE (07:20)
[2020-03-25] MEDS ORDERED: THROMBIN (BOVINE) 5,000 UNIT VIAL TP ONE ×2 (07:20→09:29)
[2020-03-25] MEDS ORDERED: THROMBIN (BOVINE) 20,000 UNIT VIAL TP ONE (07:25)
[2020-03-25] MEDS ORDERED: EPHEDRINE SULFATE/0.9% NACL/PF 50 MG/10 ML SYRINGE NR ONE (07:35)
[2020-03-25] MEDS ORDERED: DEXAMETHASONE SOD PHOSPHATE 4 MG/1 ML VIAL ONE (07:35)
[2020-03-25] MEDS ORDERED: ONDANSETRON 4 MG/2 ML VIAL ONE (07:35)
[2020-03-25] MEDS ORDERED: ROCURONIUM BROMIDE 50 MG/5 ML SYRINGE ONE ×2 (07:35→09:11)
[2020-03-25] MEDS ORDERED: MIDAZOLAM HCL 2 MG/2 ML SINGLE DOSE VIAL ONE (08:13)
--- NOTE | 2020-03-25 08:20 | HP ---
History & Physical Update - History History: No Change - Physical Physical: No Change - Assessment Assessment: No Change - Plan Plan: No Change (no changes since visit with Dr Cifuentes on 03/12/20)
[2020-03-25] MEDS ORDERED: ceFAZolin 2 GRAM PREMIX BAG IVPB ONE (08:25)
[2020-03-25] MEDS ORDERED: VANCOMYCIN 1,000 MG VIAL (RESTRICTED TO ID ONLY) IVPB ONE (08:30)
[2020-03-25] MEDS ORDERED: LIDOCAINE 1%/EPI 1:100000 (20 ML MULTI DOSE VIAL) IJ ONE (09:15)
[2020-03-25] MEDS ORDERED: BACITRACIN 50,000 UNITS VIAL NR ONE (09:29)
[2020-03-25] MEDS ORDERED: GENTAMICIN SO4 80 MG/2 ML VIAL IVPB ONE (09:29)
[2020-03-25] MEDS ORDERED: GLYCOPYRROLATE 0.2 MG/1 ML VIAL ONE (10:20)
[2020-03-25] MEDS ORDERED: NEOSTIGMINE METHYLSULFATE 0.5 MG/1 ML - 10 ML MDV ONE (10:20)
[2020-03-25] MEDS ORDERED: PROPOFOL 20 ML ONE ×2 (10:26)
[2020-03-25] MEDS ORDERED: BUPIVACAINE LIPOSOME/PF (EXPAREL) 266 MG/20 ML VIAL ONE (10:29)
[2020-03-25] MEDS ORDERED: BUPIVACAINE LIPOSOME/PF (EXPAREL) 266 MG/20 ML VIAL NR ONE (10:30)
[2020-03-25] MEDS ORDERED: BUPIVACAINE HCL/PF 0.5% (5 MG/ML) 30 ML VIAL IJ ONE (10:30)
[2020-03-25] MEDS ORDERED: ACETAMINOPHEN INJECTION 100 ML IVPB ONE (11:24)
[2020-03-25] MEDS ORDERED: HYDROmorphone *PCA* 10MG/50ML DISP.SYRIN ONE (11:25)
[2020-03-25] MEDS ORDERED: ONDANSETRON 4 MG/2 ML VIAL IVPUSH PRN ×2 (11:29→11:34)
[2020-03-25] MEDS ORDERED: diphenhydrAMINE HCL 25 MG CAPSULE (FP) PO PRN (11:34)
[2020-03-25] MEDS ORDERED: MORPHINE SULFATE 2 MG/ML VIAL IVPUSH PRN (11:34)
[2020-03-25] MEDS ORDERED: oxyCODONE HCL 5 MG TABLET PO PRN ×2 (11:34)
[2020-03-25] MEDS ORDERED: ACETAMINOPHEN 1000 MG/100 ML VIAL (NON FORMULARY) IVPB ONE (11:35)
[2020-03-25] MEDS ORDERED: HYDROmorphone *PCA* 10MG/50ML DISP.SYRIN PCA SCH ×2 (11:45→12:45)
[2020-03-25] MEDS: LACTATED RINGERS SOLUTION 1,000 ML IV SCH (12:30)
--- NOTE | 2020-03-25 12:38 | OP ---
Operative Note - Note: Operative Date: 03/25/20 Pre-Operative Diagnosis: Thoracic arachnoid cyst/dorsal web Operation: Thoracic 4&5 laminectomies and microsurgical fenestration dorsal arachnoid web/resection of arachnoid cyst Post-Operative Diagnosis: Same as Pre-op Surgeon: Jair Gamboa Offc Spec: Patricia Nielsen Anesthesiologist/ACCOUNT PLANNER: Tato Crespo Anesthesia: General, Local Estimated Blood Loss (mls): 25 Operative Report Dictated: Yes
[2020-03-25] MEDS ORDERED: DOCUSATE SODIUM 100 MG CAPSULE (FP) PO SCH (14:00)
[2020-03-25] MEDS ORDERED: CEFAZOLIN 1 GM/D5W 1 GM/50 ML BAG IVPB SCH (17:00)
[2020-03-25] MEDS: DOCUSATE SODIUM 100 MG CAPSULE (FP) PO SCH ×2 (17:23→22:20)
[2020-03-25] MEDS ORDERED: ceFAZolin SODIUM 1 GM VIAL ONE (18:00)
[2020-03-25] MEDS ORDERED: DEXTROSE 5%-WATER - 50 ML IVPB ONE (18:00)
[2020-03-25] MEDS: CEFAZOLIN 1 GM in DEXTROSE 5%-WATER - 50 ML IVPB SCH (18:07)
[2020-03-25] MEDS ORDERED: PT OWN MED DRAWER 7, Y5N ONE (21:36)
[2020-03-25] MEDS: amLODIPine BESYLATE 2.5 MG TABLET (FP) PO SCH (22:21)
[2020-03-25] MEDS: LETROZOLE 2.5 MG TABLET (FP) PO SCH (22:21)
[2020-03-26] MEDS ORDERED: ceFAZolin SODIUM 1 GM VIAL ONE (01:10)
[2020-03-26] MEDS ORDERED: DEXTROSE 5%-WATER - 50 ML IVPB ONE (01:10)
[2020-03-26] MEDS: CEFAZOLIN 1 GM in DEXTROSE 5%-WATER - 50 ML IVPB SCH (01:20)
[2020-03-26] MEDS: HEPARIN NA (PORCINE) 5,000 UNITS/ML 1ML VIAL SQ SCH ×3 (05:29→21:32)
[2020-03-26] MEDS: DOCUSATE SODIUM 100 MG CAPSULE (FP) PO SCH ×3 (05:29→21:32)
[2020-03-26 07:57] LABS: HEMOGLOBIN 13.6 GM/dL (10.7-15.3); MCH 30.5 pg (25.7-33.7); MCHC 34.1 g/dl (32.0-36.0); MEAN CELL VOLUME 89.4 fl (80-96); MEAN PLT VOLUME 8.9 fl (7.5-11.1); PLATELET COUNT 330 K/MM3 (134-434); RBC 4.47 M/mm3 (3.60-5.2); RDW 14.4 % (11.6-15.6); WHITE BLOOD COUNT 15.3 K/mm3 (4.0-10.0)
--- NOTE | 2020-03-26 08:03 | HP ---
Admitting History and Physical - Past Medical History Cardiovascular: Yes: HTN - Smoking History Smoking history: Never smoked Have you smoked in the past 12 months: No If you are a former smoker, when did you quit?: 1970 - Alcohol/Substance Use Hx Alcohol Use: No Home Medications - Allergies Allergies/Adverse Reactions: Allergies Allergy/AdvReac Type Severity Reaction Status Date / Time aspirin Allergy "rash,fever Verified 03/25/20 07:21 " montelukast sodium Allergy "elevated Verified 03/25/20 07:21 [From Singulair] blood pressure" Penicillins Allergy "fever,rash Verified 03/25/20 07:21 " shellfish derived Allergy "toxic Verified 03/25/20 07:21 reaction" tetracycline [Tetracycline] Allergy "fever,rash,hairy Verified 03/25/20 07:21 tongue" - Home Medications Home Medications: Ambulatory Orders Amlodipine Besylate [Norvasc -] 5 mg PO HS 09/13/16 Letrozole 2.5 mg PO HS 03/21/18 Mirabegron [Myrbetriq] 25 mg PO BID 03/21/18 Cetirizine HCl [Allergy Relief] 10 mg PO DAILY 11/01/18 Fluticasone/Vilanterol [Breo Ellipta 200-25 Mcg INH] 1 each IH PRN PRN 08/29/19 Umeclidinium [place] [Incruse Ellipta] 62.5 mcg IH PRN PRN 08/29/19 Clobetasol Propionate/Emoll [Clobetasol Emulsion 0.05% Foam] 100 gm TP PRN PRN 03/24/20 Physical Examination Vital Signs: Vital Signs Temperature 98.5 F 03/26/20 06:53 Pulse Rate 85 03/26/20 06:53 Respiratory Rate 20 03/26/20 06:53 Blood Pressure 153/76 03/26/20 06:53 O2 Sat by Pulse Oximetry (%) 93 L 03/26/20 06:53 Problem List - Problems (1) COPD (chronic obstructive pulmonary disease) Assessment/Plan: continue with inhalers as ordered Code(s): J44.9 - CHRONIC OBSTRUCTIVE PULMONARY DISEASE, UNSPECIFIED (2) HTN (hypertension) Assessment/Plan: monitor Vital Signs Period Temp Pulse Resp BP Sys/Cunningham Pulse Ox Last 24 Hr 97.5 F-98.5 F 72-125 105-153/64-83 91-99 Code(s): I10 - ESSENTIAL (PRIMARY) HYPERTENSION (3) S/P laminectomy Assessment/Plan: Operative Date: 03/25/20 Pre-Operative Diagnosis: Thoracic arachnoid cyst/dorsal web Operation: Thoracic 4&5 laminectomies and microsurgical fenestration dorsal arachnoid web/resection of arachnoid cyst Post-Operative Diagnosis: Same as Pre-op Surgeon: Jair Gamboa Engraver Jewelry: Patricia Nielsen surgery Code(s): Z98.890 - OTHER SPECIFIED POSTPROCEDURAL STATES (4) GERD (gastroesophageal reflux disease) Assessment/Plan: add protonix Code(s): K21.9 - GASTRO-ESOPHAGEAL REFLUX DISEASE WITHOUT ESOPHAGITIS
[2020-03-26 08:41] LABS: POTASSIUM 4.4 mmol/L (3.5-5.1)
[2020-03-26 09:02] LABS: BLOOD UREA NITROGEN 11.7 mg/dL (7-18); CALCIUM 8.9 mg/dL (8.5-10.1); CREATININE 0.6 mg/dL (0.55-1.3)
[2020-03-26] MEDS ORDERED: [UNRECOGNIZED DRUG - OTHER] TP PRN (09:25)
[2020-03-26] MEDS: FERROUS SO4 325 MG TABLET (FP) PO SCH (11:05)
[2020-03-26] MEDS: PANTOPRAZOLE SODIUM 40 MG VIAL IVPUSH SCH ×2 (11:05→21:32)
[2020-03-26] MEDS: FOLIC ACID 1 MG TABLET (FP) PO SCH (11:05)
[2020-03-26] MEDS: LORATADINE 10 MG TABLET PO SCH (11:05)
[2020-03-26] MEDS ORDERED: oxyCODONE HCL 5 MG TABLET PO PRN (11:32)
[2020-03-26] MEDS: oxyCODONE HCL 5 MG TABLET PO PRN ×2 (12:23→18:58)
[2020-03-26] MEDS: MIRABEGRON 25 MG PO SCH (12:24)
[2020-03-26] MEDS: ACETAMINOPHEN 325 MG TABLET (FP) PO PRN ×2 (12:24→21:41)
[2020-03-26] MEDS: UMECLIDINIUM BROMIDE 62.5 MCG IH SCH (12:24)
[2020-03-26] MEDS: LACTATED RINGERS SOLUTION 1,000 ML IV SCH (12:25)
[2020-03-26] MEDS: FLUTICASONE IH SCH (12:25)
[2020-03-26] MEDS: VILANTEROL IH SCH (12:25)
--- NOTE | 2020-03-26 14:07 | PN ---
Progress Note (short form) - Note Progress Note: Surgery: Pt had some nausea last pm, slight improvement antiemetics. No headaches. 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 Gamboa
--- NOTE | 2020-03-26 16:30 | PN ---
Progress Note (short form) - Note Progress Note: Post op day#1.S/p Thoracic laminectomy with resection of arachnoid cyst under Ga uneventful.Patient stable and c/o some pain for which she is on medication.No any anesthesia related problem.Patient DC from the anesthesia care.
[2020-03-26] MEDS ORDERED: PT OWN MED DRAWER 7, Y5N ONE (21:29)
[2020-03-26] MEDS: amLODIPine BESYLATE 2.5 MG TABLET (FP) PO SCH (21:33)
[2020-03-26] MEDS: LETROZOLE 2.5 MG TABLET (FP) PO SCH (21:33)
[2020-03-26] MEDS ORDERED: MIRABEGRON 25 MG PO ONE ×2 (23:30→23:45)
[2020-03-27] MEDS: oxyCODONE HCL 5 MG TABLET PO PRN (00:32)
--- NOTE | 2020-03-27 05:01 | HOSP ---
Subjective - Review of Symptoms Events since last encounter: Hospitalist Encounter Notified by the RN that the patient is reporting numbness to her abdomen and bilateral LE., was asked to assess. Arrived to bedside, patient reports numbness from her abdomen to her lower extremities. Patient examined see EMR Plan: Call placed to Dr Cunningham's service Neurovascular checks Neurological: Yes: Numbness Physical Examination Vital Signs: Vital Signs Temperature 97.9 F 03/26/20 20:22 Pulse Rate 91 H 03/26/20 20:22 Respiratory Rate 20 03/26/20 20:22 Blood Pressure 150/79 03/26/20 20:22 O2 Sat by Pulse Oximetry (%) 91 L 03/26/20 20:22 Constitutional: Yes: Well Nourished, Anxious, Moderate Distress, Obese Eyes: Yes: Conjunctiva Clear, EOM Intact, PERRL HENT: Yes: Atraumatic, Normocephalic Neck: Yes: Supple, Trachea Midline Cardiovascular: Yes: Regular Rate and Rhythm, S1, S2 Respiratory: Yes: Regular, CTA Bilaterally Gastrointestinal: Yes: Soft, Abdomen, Obese, Hypoactive Bowel Sounds ...Rectal Exam: Yes: Sphincter Tone Poor Renal/: Yes: Incontinence Breast(s): Yes: WNL Edema: No Peripheral Pulses WNL: Yes Neurological: Yes: Alert, Oriented, Loss of Sensation (b/l LE), Numbness, Paresthesia ...Motor Strength: LUE, LLE (1/5), RUE, RLE (1/5) Psychiatric: Yes: Alert, Oriented Labs: CBC, BMP 03/26/20 06:35 03/26/20 06:35 Hospitalist Encounter Outcome: spoke with DR Gamboa regarding the patient's symptoms He requested Thoracic MRI with out contrast- Stat He will see the patient this morning d/w plan with RN Plan: Continue Neurovascular checks NPO Critical Care Total Critical Care Time (in minutes): 35 Critical Care Statement: The care of this patient involved high complexity decision making to prevent further life threatening deterioration of the patient's condition and/or to evaluate & treat vital organ system(s) failure or risk of failure.
[2020-03-27] MEDS ORDERED: PANTOPRAZOLE SODIUM 40 MG VIAL IVPUSH ONE (05:22)
[2020-03-27] MEDS: HEPARIN NA (PORCINE) 5,000 UNITS/ML 1ML VIAL SQ SCH ×2 (05:47→21:17)
[2020-03-27] MEDS: DOCUSATE SODIUM 100 MG CAPSULE (FP) PO SCH ×2 (05:48→21:16)
[2020-03-27] MEDS ORDERED: PT OWN MED DRAWER 7, Y5N ONE ×2 (08:00→22:33)
[2020-03-27] MEDS ORDERED: DEXAMETHASONE SOD PHOSPHATE 4 MG/1 ML VIAL ONE (08:01)
[2020-03-27] MEDS ORDERED: ROCURONIUM BROMIDE 50 MG/5 ML SYRINGE ONE (08:01)
[2020-03-27] MEDS ORDERED: PROPOFOL 20 ML ONE (08:01)
[2020-03-27] MEDS ORDERED: fentaNYL CITRATE 250 MCG/5 ML VIAL ONE (08:01)
[2020-03-27] MEDS ORDERED: MIDAZOLAM HCL 2 MG/2 ML SINGLE DOSE VIAL ONE ×2 (08:01→14:51)
[2020-03-27] MEDS ORDERED: LIDOCAINE HCL/PF 2% SDV 5ML VIAL ONE (08:04)
[2020-03-27] MEDS ORDERED: GLYCOPYRROLATE 0.2 MG/1 ML VIAL ONE ×2 (08:06→14:52)
[2020-03-27] MEDS ORDERED: NEOSTIGMINE METHYLSULFATE 0.5 MG/1 ML - 10 ML MDV ONE ×2 (08:06→14:52)
[2020-03-27] MEDS ORDERED: ceFAZolin 2 GRAM PREMIX BAG IVPB ONE (08:45)
[2020-03-27] MEDS ORDERED: ONDANSETRON 4 MG/2 ML VIAL ONE (09:02)
[2020-03-27] MEDS ORDERED: SUCCINYLCHOLINE CHLORIDE 200 MG/10 ML SYRINGE ONE ×2 (09:08→14:50)
[2020-03-27] MEDS ORDERED: LIDOCAINE 1%/EPI 1:100000 (20 ML MULTI DOSE VIAL) IJ ONE (09:20)
[2020-03-27] MEDS ORDERED: BACITRACIN 50,000 UNITS VIAL NR ONE (09:20)
[2020-03-27] MEDS ORDERED: HYDROGEN PEROXIDE 473 ML PO ONE ×2 (09:20→15:56)
[2020-03-27] MEDS ORDERED: GENTAMICIN 80MG PREMIX BAG IVPB ONE (09:20)
[2020-03-27] MEDS ORDERED: THROMBIN (BOVINE) 5,000 UNIT VIAL TP ONE ×2 (09:23→15:57)
[2020-03-27] MEDS ORDERED: GELATIN, ABSORBABLE 100 EACH SPONGE TP ONE (09:23)
[2020-03-27] MEDS ORDERED: GENTAMICIN SO4 80 MG/2 ML VIAL ONE (10:10)
[2020-03-27] MEDS ORDERED: LIDOCAINE 1%/EPI 1:100000 (20 ML MULTI DOSE VIAL) ONE (10:10)
[2020-03-27] MEDS ORDERED: ceFAZolin SODIUM 1 GM VIAL ONE (10:13)
[2020-03-27] MEDS ORDERED: diphenhydrAMINE HCL 25 MG CAPSULE (FP) PO PRN (10:25)
[2020-03-27] MEDS ORDERED: [UNRECOGNIZED DRUG - OTHER] TP PRN (10:25)
[2020-03-27] MEDS ORDERED: ONDANSETRON 4 MG/2 ML VIAL IVPUSH PRN ×3 (10:25→18:27)
[2020-03-27] MEDS ORDERED: ACETAMINOPHEN 325 MG TABLET (FP) PO PRN (10:25)
[2020-03-27] MEDS ORDERED: oxyCODONE HCL 5 MG TABLET PO PRN ×2 (10:25)
[2020-03-27] MEDS ORDERED: LACTATED RINGERS SOLUTION 1,000 ML IV SCH ×3 (10:25→18:27)
--- NOTE | 2020-03-27 10:35 | OP ---
Operative Note - Note: Operative Date: 03/27/20 Pre-Operative Diagnosis: post op hematoma Operation: Thoracic wound exploration and washout Post-Operative Diagnosis: Other (duraseal and surgicell within space, no hematoma or evidence of CSF leak) Surgeon: Jair Gamboa Music Engineer: Patricia Nielsen Anesthesiologist/FIELD TRAINER: Rosangela Hussein Anesthesia: General, Local Estimated Blood Loss (mls): 10 Operative Report Dictated: Yes
--- NOTE | 2020-03-27 10:36 | SURG ---
Surgery Negative Developer Note Negative Developer: Patricia Nielsen PA-C Date of Service: 03/27/20 Diagnosis: post op hematoma Procedure: Operation: Thoracic wound exploration and washout I was present for the entirety of the operative procedure. For further detail, please refer to operative report. Visit type - Case Type Case Type: Scheduled - Emergency Emergency Visit: No - New patient This patient is new to me today: Yes Date on this admission: 03/27/20 - Critical Care Critical Care patient: No
[2020-03-27] MEDS ORDERED: HYDROmorphone *PCA* 10MG/50ML DISP.SYRIN ONE ×2 (10:42→10:49)
--- NOTE | 2020-03-27 11:20 | PN ---
Progress Note, Physician Chief Complaint: Thoracic arachnoid cyst History of Present Illness: 70 yo female s/p Thoracic 4&5 laminectomies and microsurgical fenestration dorsal arachnoid web/resection of arachnoid cyst Operative Date: 03/25/20 Pre-Operative Diagnosis: Thoracic arachnoid cyst/dorsal web Operation: Thoracic 4&5 laminectomies and microsurgical fenestration dorsal arachnoid web/resection of arachnoid cyst Post-Operative Diagnosis: Same as Pre-op Surgeon: Jair Gamboa 03/26/20: In the evening, pt had numbness in her abd and BLLE, STAT thoracic MRI showed-There is a large mass like density within the laminectomy defect spanning from the mid T4 down to the upper T6 level measuring 3.7 cm in craniocaudal l ength, 1.8 cm in AP dimension and 1.3 cm in width that is extending to the posterior epidural space with significant mass effect displacing the thoracic cord anteriorly and with moderate to marked cord compression. The mass like density demonstrates a decrease T2 and slightly hyperintense T1 signal. Soft tissue postoperative changes from prior surgery are present, posteriorly. There is faint increased T2 signal intensity within the thoracic cord at this level suggestive of cord. The rest of the thoracic cord appears unremarkable without abnormal signal intensity seen. Conus tip is in satisfactory position. Note is made of mild degenerative changes in the cervical spine without gross evidence of spinal canal stenosis. Cervical cord and the craniocervical junction. Grossly unremarkable : Operative Date: 03/27/20 Pre-Operative Diagnosis: post op hematoma Operation: Thoracic wound exploration and washout Post-Operative Diagnosis: Other (duraseal and surgicell within space, no hematoma or evidence of CSF leak) Surgeon: Jair Gamboa - Current Medication List Current Medications: Active Medications Acetaminophen (Tylenol -) 650 mg PO Q6H PRN PRN Reason: fever Amlodipine Besylate (Norvasc -) 5 mg PO HS MARIELENA Diphenhydramine HCl (Benadryl -) 25 mg PO Q6H PRN PRN Reason: FOR ITCHING Docusate Sodium (Colace -) 100 mg PO TID MARIELENA Ferrous Sulfate (Feosol -) 325 mg PO DAILY MARIELENA Folic Acid (Folic Acid -) 1 mg PO DAILY MARIELENA Heparin Sodium (Porcine) (Heparin -) 5,000 unit SQ TID MARIELENA Lactated Ringer's (Lactated Ringers Solution) 1,000 mls @ 75 mls/hr IV ASDIR MARIELENA Letrozole (Femara -) 2.5 mg PO HS MARIELENA Loratadine (Claritin -) 10 mg PO DAILY MARIELENA Non-Formulary Medication (Clobetasol Propionate/Emoll [Clobetasol Emulsion 0.05% Foam]) 50 gm TP PRN PRN PRN Reason: PSORIASIS Non-Formulary Medication (Fluticasone/Vilanterol [Breo Ellipta 200-25 Mcg Inh]) 1 each IH DAILY MARIELENA Non-Formulary Medication (Mirabegron [Myrbetriq]) 25 mg PO DAILY MARIELENA Non-Formulary Medication (Umeclidinium [place] [Incruse Ellipta]) 62.5 mcg IH DAILY MARIELENA Ondansetron HCl (Zofran Injection) 4 mg IVPUSH Q6H PRN PRN Reason: NAUSEA Oxycodone HCl (Roxicodone -) 5 mg PO Q6H PRN PRN Reason: PAIN LEVEL (1-5) Oxycodone HCl (Roxicodone -) 10 mg PO Q6H PRN PRN Reason: PAIN LEVEL (6-10) Pantoprazole Sodium (Protonix Iv) 40 mg IVPUSH BID MARIELENA - Objective Vital Signs: Vital Signs Temperature 98.3 F 03/27/20 10:02 Pulse Rate 93 H 03/27/20 11:00 Respiratory Rate 11 03/27/20 11:00 Blood Pressure 171/85 H 03/27/20 11:00 O2 Sat by Pulse Oximetry (%) 98 03/27/20 11:00 Constitutional: Yes: Well Nourished, No Distress, Calm Cardiovascular: Yes: Regular Rate and Rhythm Respiratory: Yes: Regular, CTA Bilaterally Gastrointestinal: Yes: Soft, Hypoactive Bowel Sounds Genitourinary: Yes: Monge Present Musculoskeletal: Yes: Muscle Weakness Edema: No Peripheral Pulses WNL: Yes Neurological: Yes: Alert, Oriented Psychiatric: Yes: Alert, Oriented Labs: CBC, BMP 03/26/20 06:35 03/26/20 06:35 Problem List - Problems (1) COPD (chronic obstructive pulmonary disease) Problems reviewed: Yes Code(s): J44.9 - CHRONIC OBSTRUCTIVE PULMONARY DISEASE, UNSPECIFIED (2) Constipation Assessment/Plan: -Await CTAP -Senna 2 tabs po HS -Miralax po daily -Continue colace Problems reviewed: Yes Code(s): K59.00 - CONSTIPATION, UNSPECIFIED (3) Diabetes Assessment/Plan: -Resolved -A1c at 5.6 -D/C BGM -D/C ISS Problems reviewed: Yes Code(s): E11.9 - TYPE 2 DIABETES MELLITUS WITHOUT COMPLICATIONS (4) S/P laminectomy Assessment/Plan: -Seen by NS -Hemodynamically stable Problems reviewed: Yes Code(s): Z98.890 - OTHER SPECIFIED POSTPROCEDURAL STATES (5) SBO (small bowel obstruction) Assessment/Plan: -Surgical consult -Mild distention on abd exam -Await CTAP -Avoid NGT unless pt c/o abd pain or has evident N/V -NPO -IVF -Monitor lytes Problems reviewed: Yes Code(s): K56.609 - UNSP INTESTNL OBST, UNSP TO PARTIAL VERSUS COMPLETE OBST (6) Weakness of both lower extremities Assessment/Plan: -NS on board -Exp laminectomy x 2 -Aggressive PT -Neuro checks Problems reviewed: Yes Code(s): R29.898 - OTH SYMPTOMS AND SIGNS INVOLVING THE MUSCULOSKELETAL SYSTEM Assessment/Plan See problem list
[2020-03-27] MEDS ORDERED: HYDROmorphone *PCA* 10MG/50ML DISP.SYRIN PCA SCH (12:00)
[2020-03-27 13:46] LABS: BASO % 0.1 % (0-2.0); HEMATOCRIT 40.8 % (32.4-45.2); HEMOGLOBIN 13.4 GM/dL (10.7-15.3); LYMPH % 3.9 % (8-40); MCH 29.1 pg (25.7-33.7); MCHC 32.7 g/dl (32.0-36.0); MEAN CELL VOLUME 88.9 fl (80-96); MEAN PLT VOLUME 7.8 fl (7.5-11.1); MONO % 3.1 % (3.8-10.2); NEUT % 92.9 % (42.8-82.8); PLATELET COUNT 297 K/MM3 (134-434); RDW 14.1 % (11.6-15.6); WHITE BLOOD COUNT 14.3 K/mm3 (4.0-10.0)
[2020-03-27 13:53] LABS: INR 0.93 (0.83-1.09)
[2020-03-27] MEDS ORDERED: HEPARIN NA (PORCINE) 5,000 UNITS/ML 1ML VIAL SQ SCH (14:00)
[2020-03-27] MEDS ORDERED: DOCUSATE SODIUM 100 MG CAPSULE (FP) PO SCH (14:00)
[2020-03-27 14:11] LABS: BILIRUBIN,TOTAL 0.8 mg/dL (0.2-1); CALCIUM 8.8 mg/dL (8.5-10.1); CREATININE 0.6 mg/dL (0.55-1.3); POTASSIUM 3.7 mmol/L (3.5-5.1)
[2020-03-27 14:17] LABS: ANISOCYTOSIS 1+; MACROCYTOSIS 0; PLATELET ESTIMATE NORMAL
[2020-03-27] MEDS ORDERED: ceFAZolin SODIUM 1 GM VIAL IVPB ONE (15:13)
[2020-03-27] MEDS ORDERED: BACITRACIN 15 GM TUBE TOPICAL OINTMENT ONE (15:32)
[2020-03-27] MEDS ORDERED: BACITRACIN 50,000 UNITS VIAL TP ONE (15:57)
[2020-03-27] MEDS ORDERED: GELATIN, ABSORBABLE 12-7MM EACH SPONGE TP ONE (15:57)
[2020-03-27] MEDS ORDERED: GENTAMICIN SO4 80 MG/2 ML VIAL IVPB ONE (15:57)
[2020-03-27] MEDS ORDERED: methylPREDNISolone NA SUCC 1000 MG/8 ML VIAL IVPB ONE ×2 (16:09→17:30)
[2020-03-27] MEDS ORDERED: SODIUM CHLORIDE IVPB ONE ×2 (17:00→18:00)
[2020-03-27] MEDS ORDERED: METHYLPREDNISOLONE NA SUCC IVPB ONE ×2 (17:00→18:00)
[2020-03-27] MEDS: INSULIN (NOVOLOG) ASPART 100 UNITS/ML 10ML VIAL SQ SCH (17:15)
--- NOTE | 2020-03-27 17:21 | OP ---
Operative Note - Note: Operative Date: 03/27/20 Pre-Operative Diagnosis: spinal cord compression of unclear etiology s/p wound exploration and washout Operation: wound exploration and removal of bone graft Post-Operative Diagnosis: Same as Pre-op Surgeon: Jair Gamboa Merchandising Representative: Patricia Nielsen Anesthesiologist/CENSUS ENUMERATOR: Dariusz Davila Anesthesia: General Specimens Removed: bone graft, muscle Estimated Blood Loss (mls): 5 Drains & Tubes with Location: vemavac drain placed right paravetebral area Fluid Volume Replaced (mls): 900 Operative Report Dictated: Yes
--- NOTE | 2020-03-27 17:24 | SURG ---
Surgery Image Archivist Note Image Archivist: Patricia Nielsen PA-C Date of Service: 03/27/20 Diagnosis: spinal cord compression of unclear etiology s/p wound exploration and washout Procedure: wound exploration and removal of bone graft I was present for the entirety of the operative procedure. For further detail, please refer to operative report. Visit type - Case Type Case Type: Scheduled - Emergency Emergency Visit: Yes ED Registration Date: 03/25/20 Care time: The patient presented to the Emergency Department on the above date and was hospitalized for further evaluation of their emergent condition. - New patient This patient is new to me today: Yes Date on this admission: 03/27/20
[2020-03-27] MEDS ORDERED: HYDROmorphone *PCA* 10MG/50ML DISP.SYRIN PCA ONE (18:40)
[2020-03-27] MEDS: amLODIPine BESYLATE 5 MG TABLET (FP) PO SCH (21:17)
--- NOTE | 2020-03-27 21:17 | CONSULT ---
Consultation: REQUESTING PROVIDER: Dr. Cunningham CONSULT REQUEST: We have been asked to medically evaluate this patient for ICU admission HISTORY OF PRESENT ILLNESS: 70 yo female PMHx heart disease, HTN, GERD, admitted to hospital for thoracic 4&5 laminectomies and microsurgical fenestration dorsal arachnoid web/resection of arachnoid cyst. Post op patient reported numbness to her abdomen and bilateral LE. Thoracic MRI w/o contrast ordered that showed a large mass like density within the laminectomy defect spanning from the mid T4 down to the upper T6 level measuring 3.7 cm in craniocaudal length, 1.8 cm in AP dimension and 1.3 cm in width that is extending to the posterior epidural space with significant mass effect displacing the thoracic cord anteriorly and with moderate to marked cord compression. Patient now s/p thoracic wound exploration and washout. REVIEW OF SYSTEMS: CONSTITUTIONAL: Absent: fever, chills, diaphoresis, generalized weakness, malaise, loss of appetite, weight change HEENT: Absent: rhinorrhea, nasal congestion, throat pain, throat swelling, difficulty swallowing, mouth swelling, ear pain, eye pain, visual changes CARDIOVASCULAR: Absent: chest pain, syncope, palpitations, irregular heart rate, lightheadedness, peripheral edema RESPIRATORY: Absent: cough, shortness of breath, dyspnea with exertion, orthopnea, wheezing, stridor, hemoptysis GASTROINTESTINAL: numbness starting at waist Absent: abdominal pain, abdominal distension, nausea, vomiting, diarrhea, constipation, melena, hematochezia GENITOURINARY: Absent: dysuria, frequency, urgency, hesitancy, hematuria, flank pain, genital pain MUSCULOSKELETAL:weakness BL legs Absent: myalgia, arthralgia, joint swelling, back pain, neck pain SKIN: Absent: rash, itching, pallor HEMATOLOGIC/IMMUNOLOGIC: Absent: easy bleeding, easy bruising, lymphadenopathy, frequent infections ENDOCRINE: Absent: unexplained weight gain, unexplained weight loss, heat intolerance, cold intolerance NEUROLOGIC: paresthesia and weakness from waist down, Absent: headache, dizziness, unsteady gait, seizure, mental status changes, bladder or bowel incontinence PSYCHIATRIC: Absent: anxiety, depression, suicidal or homicidal ideation, hallucinations. PHYSICAL EXAMINATION Vital Signs - 24 hr 03/27/20 03/27/20 03/27/20 07:59 10:02 10:15 Temperature 98.3 F 98.3 F Pulse Rate 104 H 96 H 100 H Respiratory 20 16 13 Rate Blood Pressure 156/93 160/99 163/77 O2 Sat by Pulse 97 97 99 Oximetry (%) 03/27/20 03/27/20 03/27/20 10:30 10:45 11:00 Temperature Pulse Rate 98 H 92 H 93 H Respiratory 14 12 11 Rate Blood Pressure 171/88 H 173/85 H 171/85 H O2 Sat by Pulse 99 98 98 Oximetry (%) 03/27/20 03/27/20 03/27/20 11:15 11:30 11:45 Temperature Pulse Rate 103 H 102 H 106 H Respiratory 18 13 13 Rate Blood Pressure 165/83 172/91 H 170/82 O2 Sat by Pulse 99 98 99 Oximetry (%) 03/27/20 03/27/20 03/27/20 12:45 13:00 13:15 Temperature Pulse Rate 104 H 104 H 102 H Respiratory 12 12 12 Rate Blood Pressure 156/78 160/84 159/75 O2 Sat by Pulse 96 96 97 Oximetry (%) 03/27/20 03/27/20 03/27/20 13:30 13:45 14:00 Temperature Pulse Rate 103 H 105 H 102 H Respiratory 12 13 12 Rate Blood Pressure 147/70 123/58 L 129/61 O2 Sat by Pulse 97 97 97 Oximetry (%) 03/27/20 03/27/20 03/27/20 14:15 14:30 14:45 Temperature Pulse Rate 105 H 105 H 103 H Respiratory 15 13 13 Rate Blood Pressure 130/60 140/68 134/72 O2 Sat by Pulse 96 96 96 Oximetry (%) 03/27/20 03/27/20 03/27/20 15:00 15:10 17:03 Temperature 98.3 F 98.8 F Pulse Rate 104 H 107 H 109 H Respiratory 13 12 12 Rate Blood Pressure 138/81 134/74 131/76 O2 Sat by Pulse 96 97 99 Oximetry (%) 03/27/20 03/27/20 03/27/20 17:15 17:30 17:45 Temperature Pulse Rate 95 H 93 H 93 H Respiratory 13 12 13 Rate Blood Pressure 144/73 138/69 141/69 O2 Sat by Pulse 98 98 98 Oximetry (%) 03/27/20 03/27/20 03/27/20 18:00 18:15 18:30 Temperature Pulse Rate 93 H 90 98 H Respiratory 15 12 18 Rate Blood Pressure 155/80 140/72 155/80 O2 Sat by Pulse 99 99 98 Oximetry (%) 03/27/20 03/27/20 03/27/20 18:40 18:45 19:00 Temperature Pulse Rate 97 H 89 95 H Respiratory 14 15 15 Rate Blood Pressure 140/72 155/84 147/94 O2 Sat by Pulse 98 96 96 Oximetry (%) 03/27/20 03/27/20 19:10 20:15 Temperature 98.5 F Pulse Rate 95 H 98 H Respiratory 15 17 Rate Blood Pressure 147/94 120/65 O2 Sat by Pulse 95 95 Oximetry (%) GENERAL: Awake, alert, and fully oriented, on ambulatory care for pain HEAD: Normal with no signs of trauma. EYES: PERRL, EOM intact . ENT: Moist mucous membranes. NECK: supple LUNGS: CTA BL . HEART: RRR normal S1 and S2 without murmur, rub or gallop. ABDOMEN: soft, non tender, no sensation below the waist MUSCULOSKELETAL: Muscle weakness BL legs, hips. UPPER EXTREMITIES: warm, well-perfused. No cyanosis. No edema. LOWER EXTREMITIES: 2+ pulses, warm, well-perfused. No calf tenderness. No peripheral edema. NEUROLOGICAL: Cranial nerves II-XII intact. Normal speech. SKIN: Warm, dry Laboratory Results - last 24 hr 03/27/20 03/27/20 03/27/20 12:50 12:50 12:50 WBC 14.3 H RBC 4.60 Hgb 13.4 Hct 40.8 MCV 88.9 MCH 29.1 MCHC 32.7 RDW 14.1 Plt Count 297 MPV 7.8 D Absolute Neuts (auto) 13.3 H Neutrophils % 92.9 H D Neutrophils % (Manual) 94.1 H Band Neutrophils % 0.0 Lymphocytes % 3.9 L D Lymphocytes % (Manual) 4.9 L Monocytes % 3.1 L Monocytes % (Manual) 1 L Eosinophils % 0.0 D Eosinophils % (Manual) 0.0 Basophils % 0.1 Basophils % (Manual) 0.0 Myelocytes % (Man) 0 Promyelocytes % (Man) 0 Blast Cells % (Manual) 0 Nucleated RBC % 0 Metamyelocytes 0 Hypochromia 0 Platelet Estimate Normal Polychromasia 0 Poikilocytosis 0 Anisocytosis 1+ Microcytosis 1+ Macrocytosis 0 PT with INR 11.00 INR 0.93 Sodium 134 L Potassium 3.7 Chloride 98 Carbon Dioxide 29 Anion Gap 7 L BUN 10.0 Creatinine 0.6 Est GFR (CKD-EPI)AfAm 107.03 Est GFR (CKD-EPI)NonAf 92.35 POC Glucometer Random Glucose 140 H Calcium 8.8 Total Bilirubin 0.8 AST 37 ALT 24 Alkaline Phosphatase 107 Total Protein 7.0 Albumin 3.0 L 03/27/20 17:45 WBC RBC Hgb Hct MCV MCH MCHC RDW Plt Count MPV Absolute Neuts (auto) Neutrophils % Neutrophils % (Manual) Band Neutrophils % Lymphocytes % Lymphocytes % (Manual) Monocytes % Monocytes % (Manual) Eosinophils % Eosinophils % (Manual) Basophils % Basophils % (Manual) Myelocytes % (Man) Promyelocytes % (Man) Blast Cells % (Manual) Nucleated RBC % Metamyelocytes Hypochromia Platelet Estimate Polychromasia Poikilocytosis Anisocytosis Microcytosis Macrocytosis PT with INR INR Sodium Potassium Chloride Carbon Dioxide Anion Gap BUN Creatinine Est GFR (CKD-EPI)AfAm Est GFR (CKD-EPI)NonAf POC Glucometer 145 Random Glucose Calcium Total Bilirubin AST ALT Alkaline Phosphatase Total Protein Albumin Active Medications Generic Name Dose Route Start Last Admin Trade Name Freq PRN Reason Stop Dose Admin Acetaminophen 650 mg 03/27/20 18:27 Tylenol - PO Q6H PRN fever Amlodipine Besylate 5 mg 03/27/20 22:00 Norvasc - PO HS MARIELENA Diphenhydramine HCl 12.5 mg 03/27/20 18:27 Benadryl Injection - IVPUSH ONCE PRN FOR ITCHING Docusate Sodium 100 mg 03/27/20 22:00 Colace - PO TID [facility] Fentanyl 50 mcg 03/27/20 18:27 Sublimaze Injection - IVPUSH [id number] PRN PAIN-PACU ORDER X 4 DOSES ONLY Fentanyl 25 mcg 03/27/20 18:27 Sublimaze Injection - IVPUSH [id number] PRN PAIN-PACU ORDER X 4 DOSES ONLY Ferrous Sulfate 325 mg 03/28/20 10:00 Feosol - PO DAILY [facility] Folic Acid 1 mg 03/28/20 10:00 Folic Acid - PO DAILY [facility] Heparin Sodium (Porcine) 5,000 unit 03/27/20 22:00 Heparin - SQ TID MARIELENA Hydromorphone HCl 10 mg 03/27/20 18:27 Hydromorphone 10 Mg/50 Ml-Ns GEODUCK DIVER 04/03/20 11:47 GEODUCK DIVER MARIELENA Protocol Methylprednisolone Sodium 329.2 mls @ 14.365 mls/hr 03/27/20 18:00 03/27/20 18:00 Succinate 9,900 mg/ Sodium IVPB 03/28/20 16:55 14.365 mls/hr Chloride ONCE ONE Administration Protocol 432 MG/HR Lactated Ringer's 1,000 mls @ 75 mls/hr 03/27/20 18:27 Lactated Ringers Solution IV ASDIR MARIELENA Insulin Aspart 0 units 03/27/20 17:15 03/27/20 17:15 Novolog Vial SQ Not Given TIDAC [facility] Protocol Letrozole 2.5 mg 03/27/20 22:00 Femara - PO HS MARIELENA Loratadine 10 mg 03/28/20 10:00 Claritin - PO DAILY MARIELENA Ondansetron HCl 4 mg 03/27/20 18:27 Zofran Injection IVPUSH Q4H PRN NAUSEA AND/OR VOMITING Pantoprazole Sodium 40 mg 03/27/20 22:00 Protonix Iv IVPUSH BID [facility] ASSESSMENT/PLAN: 70 yo female PMHx CVD, HTN, GERD, hx herniated disc s/p trauma 2 years ago. Admitted to hospital for thoracic 4&5 laminectomies and microsurgical fenestration dorsal arachnoid web/resection of arachnoid cyst. Post op patient reported numbness to her abdomen and bilateral LE. Thoracic MRI w/o contrast ordered that a mass with moderate to marked cord compression. Patient was brought back into surgery to thoracic wound exploration and washout. Neuro - alert and oriented - can't move legs and are still numb - on steroid drip for inflammation - Dr. Gamboa - GEODUCK DIVER for pain Pulm - N/c saturating 100% Cardio - hx htn and cvd - continuous cardiac monitoring Renal - no issues GI - ppx protonix IV Endo - ISS, careful watch b/c high dose steroids - frequent BGM FEN: - NPO - IVF DVT Ppx - scds - heparin Dispo: Admitted to ICU for further management Visit type - Medication Review Med list reviewed for High Risk Meds patients 65 and older: Yes - Emergency Visit Emergency Visit: Yes ED Registration Date: 03/25/20 Care time: The patient presented to the Emergency Department on the above date and was hospitalized for further evaluation of their emergent condition. - New Patient This patient is new to me today: Yes Date on this admission: 03/27/20 - Critical Care Critical Care patient: Yes Total Critical Care Time (in minutes): 37 Critical Care Statement: The care of this patient involved high complexity decision making to prevent further life threatening deterioration of the patient's condition and/or to evaluate & treat vital organ system(s) failure or risk of failure. ATTENDING PHYSICIAN STATEMENT I saw and evaluated the patient. I reviewed the resident's note and discussed the case with the resident. I agree with the resident's findings and plan as documented. SUBJECTIVE: OBJECTIVE: ASSESSMENT AND PLAN:
[2020-03-27] MEDS: HYDROmorphone *PCA* 10MG/50ML DISP.SYRIN PCA SCH (21:18)
[2020-03-27] MEDS: PANTOPRAZOLE SODIUM 40 MG VIAL IVPUSH SCH (21:18)
[2020-03-27] MEDS: MUPIROCIN 2% TOPICAL OINTMENT FOR DECOLONIZATION NS SCH (21:42)
[2020-03-27] MEDS: CHLORHEXIDINE GLUCONATE 4% CLEANSER FOR DECOLONIZATION TP SCH (21:44)
[2020-03-27] MEDS ORDERED: amLODIPine BESYLATE 5 MG TABLET (FP) PO SCH (22:00)
[2020-03-27] MEDS ORDERED: PANTOPRAZOLE SODIUM 40 MG VIAL IVPUSH SCH (22:00)
[2020-03-27] MEDS ORDERED: LETROZOLE 2.5 MG TABLET (FP) PO SCH (22:00)
[2020-03-27] MEDS: LETROZOLE 2.5 MG TABLET (FP) PO SCH (22:06)
[2020-03-27] MEDS ORDERED: PCA PUMP NR ONE (22:39)
[2020-03-28] MEDS ORDERED: ONDANSETRON 4 MG/2 ML VIAL ONE (04:17)
[2020-03-28] MEDS: HEPARIN NA (PORCINE) 5,000 UNITS/ML 1ML VIAL SQ SCH ×3 (06:21→22:12)
[2020-03-28] MEDS: DOCUSATE SODIUM 100 MG CAPSULE (FP) PO SCH ×3 (06:21→22:28)
[2020-03-28] MEDS: INSULIN (NOVOLOG) ASPART 100 UNITS/ML 10ML VIAL SQ SCH ×3 (06:31→18:06)
[2020-03-28 07:25] LABS: BASO % 0.2 % (0-2.0); HEMATOCRIT 36.6 % (32.4-45.2); HEMOGLOBIN 12.4 GM/dL (10.7-15.3); LYMPH % 6.1 % (8-40); MCH 29.7 pg (25.7-33.7); MCHC 33.9 g/dl (32.0-36.0); MEAN CELL VOLUME 87.7 fl (80-96); MONO % 2.1 % (3.8-10.2); NEUT % 91.6 % (42.8-82.8); PLATELET COUNT 302 K/MM3 (134-434); RBC 4.17 M/mm3 (3.60-5.2); RDW 13.8 % (11.6-15.6); WHITE BLOOD COUNT 11.9 K/mm3 (4.0-10.0)
[2020-03-28 08:06] LABS: POTASSIUM 3.6 mmol/L (3.5-5.1)
[2020-03-28 08:21] LABS: ALBUMIN 2.8 g/dl (3.4-5.0); BILIRUBIN,TOTAL 1.6 mg/dL (0.2-1); BLOOD UREA NITROGEN 14.5 mg/dL (7-18); CALCIUM 8.8 mg/dL (8.5-10.1); CREATININE 0.6 mg/dL (0.55-1.3); MAGNESIUM 2.1 mg/dL (1.8-2.4); PHOSPHOROUS 3.2 mg/dL (2.5-4.9); TOT PROT 6.3 g/dl (6.4-8.2)
[2020-03-28] MEDS: FOLIC ACID 1 MG TABLET (FP) PO SCH (09:42)
[2020-03-28] MEDS: LORATADINE 10 MG TABLET PO SCH (09:42)
[2020-03-28] MEDS: PANTOPRAZOLE SODIUM 40 MG VIAL IVPUSH SCH ×2 (09:42→23:14)
[2020-03-28] MEDS: FERROUS SO4 325 MG TABLET (FP) PO SCH (09:42)
[2020-03-28] MEDS: MUPIROCIN 2% TOPICAL OINTMENT FOR DECOLONIZATION NS SCH ×2 (09:43→22:11)
--- NOTE | 2020-03-28 09:50 | PN ---
Progress Note (short form) - Note Progress Note: Surgery POD#3 T45 arachnoid cyst resection with wound exploration and washout x2 yesterday /. Late POD #1 the patient developed progressive B/L LE weakness and c/o constipation. MRI revealed question of post op hematoma vs collection but no significant finding upon wound exploration. All duraseal, surgicell and bone graft removed and no evidence of cord compression at the level of surgery. No evidence of active bleeding, CSF leak or mechanical compression. Patient seen and examined on AM rounds. Patient states that she is now feeling numbness and unable to move from her diaphragm down, although her breathing is not compromised, she also has COPD. Her pain is controlled although she does have some pain at the incision site. She is also c/o some nausea, as she is attempting to drink contrast for an abdomen and pelvis CT scan ordered by medicine to r/o SBO. She denies any CP, SOB, N/V fever or chills.Nursing reports she remained stable overnight with no issues. Her drain put out a scant amount of blood last night. SCDS and stallworth in place Vital Signs Temp 97.6 F 03/28/20 06:00 Pulse 82 03/28/20 06:00 Resp 17 03/28/20 06:00 BP 121/67 03/28/20 06:00 Pulse Ox 978 H 03/28/20 06:00 Intake & Output 03/27/20 03/27/20 03/28/20 11:59 23:59 11:59 Intake Total 1150 1000 756 Output Total 532 1655 700 Balance 618 -655 56 Intake: IV 1150 1000 756 Lactated Ringers Solution 658 1,000 ml @ 75 mls/hr IV ASDIR MARIELENA Rx#:[id number] rh 98 Output: Drainage 0 Right Posterior Back 0 Urine 530 1650 700 Stallworth 700 Estimated Blood Loss 2 5 Other: Voiding Method Indwelling Catheter Indwelling Catheter # Unmeasured Voids Void 2 Bowel Movement No No Height 5 ft 3 in CBC, BMP 03/28/20 06:10 03/28/20 06:10 PE: Patient lying flat in bed, neuro exam limited A&Ox3, NAD, Vitals signs stable Unlabored resp on 2L NC- patient demonstrated how to properly use IS T-Spine: dressing c/d/i with surrounding tissue intact and no tracking erythema, drain secure with scan output, no evidence of collection or incision d/c B/L UE with 5/5 strength on biceps, triceps, and fuel house attendant strength, sensation to light touch intact throughout ABD: Obese, slightly distended? no pain on palpation throughout all quadrants B/L LE minimal sensation to light touch over right thigh, no other sensation to light touch throughout b/l LE, patient unable to initiate any movement of b/l LE, Patient splays toes upon direct stimuli over b/l Dorsum of feet. no other movement. B/L lE compartments soft, supple with +2 DP pulses. Repeat MRI after second wound exploration 03/27/20 19:00: S/p bilateral laminectomy at T45 with operative changes on the previously seen collection compressing the posterior aspect of the cord. This collection has decreased in size with postoperative hematoma just reaching the cord but without significant cord compression. The edema within the cord at T4 and T5 however appears more prominent. Problem List - Problems (1) Thoracic cyst Assessment/Plan: POD #1 wound exploration x2 and POD #3 resection of arachnoid cyst with patient now experiencing b/l LE paralysis and numbness extending up to level of the diaphragm or unclear etiology. -Close observation on recreation center director/pulse ox etc. -Continue steroid per acute cord injury protocol as ordered and discussed with nursing -DVT prophylaxis -NPO for CT scan today -Q1H neuro checks, -ICU management -pain control - Aggressive PT while in bed to mobilize joints and specialized rehab for patients in this setting. -stallworth care- maintain stallworth - measure and record drain output -Patient will need aggressive PT upon d/c from hospital- rehab planning for [facility] if possible. Evaluation and plan discussed with Dr Gamboa. Code(s): Q34.9 - CONGENITAL MALFORMATION OF RESPIRATORY SYSTEM, UNSPECIFIED (2) S/P cervical spinal fusion Code(s): Z98.1 - ARTHRODESIS STATUS
[2020-03-28] MEDS ORDERED: LORATADINE 10 MG TABLET PO SCH (10:00)
[2020-03-28] MEDS ORDERED: PATIENT'S OWN MEDICATION (NON-FORMULARY) (Fluticasone/Vilanterol [Breo Ellipta 200-25 Mcg IH SCH (10:00)
[2020-03-28] MEDS ORDERED: PATIENT'S OWN MEDICATION (NON-FORMULARY) (Umeclidinium Bromide [Incruse Ellipta] 62.5 MCG) IH SCH (10:00)
[2020-03-28] MEDS ORDERED: FOLIC ACID 1 MG TABLET (FP) PO SCH (10:00)
[2020-03-28] MEDS ORDERED: PATIENT'S OWN MEDICATION (NON-FORMULARY) (Mirabegron [Myrbetriq] 25 MG) PO SCH (10:00)
[2020-03-28] MEDS ORDERED: FERROUS SO4 325 MG TABLET (FP) PO SCH (10:00)
[2020-03-28 10:06] LABS: ANISOCYTOSIS 1+; MACROCYTOSIS 0; PLATELET ESTIMATE NORMAL
--- NOTE | 2020-03-28 10:07 | CONSULT ---
Consult Consult Specialty:: Surgery - History of Present Illness Chief Complaint: r/o SBO History of Present Illness: 70 Y.O. female s/p thoracic arachnoid cyst surgery referred for possible SBO on portable AXR Patient has no sensation from chest down currently. Had mild nausea earlier and has not had a bm for 4 days. - History Source History Provided By: Patient - Past Medical History Cardio/Vascular: Yes: HTN - Alcohol/Substance Use Hx Alcohol Use: No - Smoking History Smoking history: Never smoked Have you smoked in the past 12 months: No If you are a former smoker, when did you quit?: 1970 Home Medications - Allergies Allergies/Adverse Reactions: Allergies Allergy/AdvReac Type Severity Reaction Status Date / Time aspirin Allergy "rash,fever Verified 03/25/20 07:21 " montelukast sodium Allergy "elevated Verified 03/25/20 07:21 [From Singulair] blood pressure" Penicillins Allergy "fever,rash Verified 03/25/20 07:21 " shellfish derived Allergy "toxic Verified 03/25/20 07:21 reaction" tetracycline [Tetracycline] Allergy "fever,rash,hairy Verified 03/25/20 07:21 tongue" - Home Medications Home Medications: Ambulatory Orders Amlodipine Besylate [Norvasc -] 5 mg PO HS 09/13/16 Letrozole 2.5 mg PO HS 03/21/18 Mirabegron [Myrbetriq] 25 mg PO BID 03/21/18 Cetirizine HCl [Allergy Relief] 10 mg PO DAILY 11/01/18 Fluticasone/Vilanterol [Breo Ellipta 200-25 Mcg INH] 1 each IH PRN PRN 08/29/19 Umeclidinium [place] [Incruse Ellipta] 62.5 mcg IH PRN PRN 08/29/19 Clobetasol Propionate/Emoll [Clobetasol Emulsion 0.05% Foam] 100 gm TP PRN PRN 03/24/20 Physical Exam Vital Signs: Vital Signs Temperature 97.6 F 03/28/20 06:00 Pulse Rate 82 03/28/20 06:00 Respiratory Rate 17 03/28/20 06:00 Blood Pressure 121/67 03/28/20 06:00 O2 Sat by Pulse Oximetry (%) 978 H 03/28/20 06:00 Constitutional: Yes: Anxious Neck: Yes: Supple Cardiovascular: Yes: Regular Rate and Rhythm Respiratory: Yes: CTA Bilaterally Gastrointestinal: Yes: Soft, Abdomen, Obese ...Rectal Exam: Yes: Deferred Labs: CBC, BMP 03/28/20 06:10 03/28/20 06:10 Imaging - Results X-ray: Report Reviewed, Image Reviewed Assessment/Plan r/o SBO vs. reflex ileus CT A/P ordered will follow
--- NOTE | 2020-03-28 11:18 | PN ---
Progress Note (short form) - Note Progress Note: Anesthesia Post op/pain Pt seen and examined. Dr Samson in the room S:Alert and awake comfortable O: Vital Signs Temperature 97.6 F 03/28/20 06:00 Pulse Rate 82 03/28/20 06:00 Respiratory Rate 17 03/28/20 06:00 Blood Pressure 121/67 03/28/20 06:00 O2 Sat by Pulse Oximetry (%) 978 H 03/28/20 06:00 CBC, BMP 03/28/20 06:10 03/28/20 06:10 A/P: Current Active Problems COPD (chronic obstructive pulmonary disease) (Acute) GERD (gastroesophageal reflux disease) (Acute) S/P laminectomy (Acute) Thoracic cyst (Acute) Doing well post op. moves left lower extremity Continue current care Kleber Clark MD
--- NOTE | 2020-03-28 11:27 | PN ---
Progress Note, Physician Chief Complaint: Thoracic arachnoid cyst History of Present Illness: 70 yo female s/p Thoracic 4&5 laminectomies and microsurgical fenestration dorsal arachnoid web/resection of arachnoid cyst Operative Date: 03/25/20 Pre-Operative Diagnosis: Thoracic arachnoid cyst/dorsal web Operation: Thoracic 4&5 laminectomies and microsurgical fenestration dorsal arachnoid web/resection of arachnoid cyst Post-Operative Diagnosis: Same as Pre-op Surgeon: Jair Gamboa 03/26/20: In the evening, pt had numbness and weakness of BLLE, STAT thoracic MRI was performed which showed-There is a large mass like density within the laminectomy defect spanning from the mid T4 down to the upper T6 level measuring 3.7 cm in craniocaudal length, 1.8 cm in AP dimension and 1.3 cm in width that is extending to the posterior epidural space with significant mass effect displacing the thoracic cord anteriorly and with moderate to marked cord compression. The mass like density demonstrates a decrease T2 and slightly hyperintense T1 signal. Soft tissue postoperative changes from prior surgery are present, posteriorly. There is faint increased T2 signal intensity within the thoracic cord at this level suggestive of cord. The rest of the thoracic cord appears unremarkable without abnormal signal intensity seen. Conus tip is in satisfactory position. Note is made of mild degenerative changes in the cervical spine without gross evidence of spinal canal stenosis. Cervical cord and the craniocervical junction. Grossly unremarkable 03/27/20: Operative Date: 03/27/20 Pre-Operative Diagnosis: post op hematoma Operation: Thoracic wound exploration and washout Post-Operative Diagnosis: Other (duraseal and surgicell within space, no hematoma or evidence of CSF leak) Surgeon: Jair Gamboa 03/27/20: Repeat exploration Operative Date: 03/27/20 Pre-Operative Diagnosis: spinal cord compression of unclear etiology s/p wound exploration and washout Operation: wound exploration and removal of bone graft Post-Operative Diagnosis: Same as Pre-op Surgeon: Jair Gamboa Repeat MRI after second wound exploration 03/27/20 19:00: S/p bilateral laminectomy at T45 with operative changes on the previously seen collection compressing the posterior aspect of the cord. This collection has decreased in size with postoperative hematoma just reaching the cord but without significant cord compression. The edema within the cord at T4 and T5 however appears more prominent. 03/28/20: Pt continues to feel numbness below her diaphragm without any pulmonary inv olvement. Involuntary movement BLLE observed during my encounter, pt is not able to reproduce movements upon request. C/O incisional pain and mild nausea. CTAP is still pending- pt is trying to drink contrast. Seen by Surgery for possible SBO. - Current Medication List Current Medications: Active Medications Acetaminophen (Tylenol -) 650 mg PO Q6H PRN PRN Reason: fever Amlodipine Besylate (Norvasc -) 5 mg PO [facility] Last Admin: 03/27/20 21:17 Dose: 5 mg Documented by: Chlorhexidine Gluconate (Hibiclens For Decolonization -) 1 applic TP [facility] Last Admin: 03/27/20 21:44 Dose: 1 applic Documented by: Diphenhydramine HCl (Benadryl Injection -) 12.5 mg IVPUSH ONCE PRN PRN Reason: FOR ITCHING Docusate Sodium (Colace -) 100 mg PO TID [facility] Last Admin: 03/28/20 06:21 Dose: 100 mg Documented by: Fentanyl (Sublimaze Injection -) 50 mcg IVPUSH [id number] PRN PRN Reason: PAIN-PACU ORDER X 4 DOSES ONLY Fentanyl (Sublimaze Injection -) 25 mcg IVPUSH [id number] PRN PRN Reason: PAIN-PACU ORDER X 4 DOSES ONLY Ferrous Sulfate (Feosol -) 325 mg PO DAILY [facility] Last Admin: 03/28/20 09:42 Dose: 325 mg Documented by: Folic Acid (Folic Acid -) 1 mg PO DAILY [facility] Last Admin: 03/28/20 09:42 Dose: 1 mg Documented by: Heparin Sodium (Porcine) (Heparin -) 5,000 unit SQ TID [facility] Last Admin: 03/28/20 06:21 Dose: 5,000 unit Documented by: Hydromorphone HCl (Hydromorphone 10 Mg/50 Ml-Ns) 10 mg 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 [facility]; Protocol Stop: 04/03/20 11:47 Last Admin: 03/27/20 21:18 Dose: Not Given Documented by: Methylprednisolone Sodium Succinate 9,900 mg/ Sodium Chloride 329.2 mls @ 14.365 mls/hr IVPB ONCE ONE; Protocol Stop: 03/28/20 16:55 Last Admin: 03/27/20 18:00 Dose: 14.365 mls/hr Documented by: Lactated Ringer's (Lactated Ringers Solution) 1,000 mls @ 75 mls/hr IV ASDIR [facility] Last Admin: 03/27/20 21:22 Dose: 75 mls/hr Documented by: Insulin Aspart (Novolog Vial) 0 units SQ TIDAC [facility]; Protocol Last Admin: 03/28/20 06:31 Dose: Not Given Documented by: Letrozole (Femara -) 2.5 mg PO HS [facility] Last Admin: 03/27/20 22:06 Dose: 2.5 mg Documented by: Loratadine (Claritin -) 10 mg PO DAILY [facility] Last Admin: 03/28/20 09:42 Dose: 10 mg Documented by: Mupirocin (Bactroban Ointment (For Decolonization) -) 1 applic NS BID [facility] Stop: 04/01/20 21:59 Last Admin: 03/28/20 09:43 Dose: 1 applic Documented by: Ondansetron HCl (Zofran Injection) 4 mg IVPUSH Q4H PRN PRN Reason: NAUSEA AND/OR VOMITING Last Admin: 03/28/20 06:32 Dose: 4 mg Documented by: Pantoprazole Sodium (Protonix Iv) 40 mg IVPUSH BID [facility] Last Admin: 03/28/20 09:42 Dose: 40 mg Documented by: - Objective Vital Signs: Vital Signs Temperature 97.6 F 03/28/20 06:00 Pulse Rate 82 03/28/20 06:00 Respiratory Rate 17 03/28/20 06:00 Blood Pressure 121/67 03/28/20 06:00 O2 Sat by Pulse Oximetry (%) 978 H 03/28/20 06:00 Constitutional: Yes: Well Nourished, No Distress, Calm Cardiovascular: Yes: Regular Rate and Rhythm Respiratory: Yes: Regular, CTA Bilaterally Gastrointestinal: Yes: Soft, Hypoactive Bowel Sounds Genitourinary: Yes: Monge Present Musculoskeletal: Yes: Muscle Weakness Edema: No Peripheral Pulses WNL: Yes Wound/Incision: Yes: Dressing Dry and Intact Neurological: Yes: Alert, Oriented Psychiatric: Yes: Alert, Oriented Labs: CBC, BMP 03/28/20 06:10 03/28/20 06:10 INR, PTT INR 0.93 (0.83-1.09) 03/27/20 12:50 Problem List - Problems (1) Constipation Assessment/Plan: -Await CTAP -Senna 2 tabs po HS -Miralax po daily -Continue colace Problems reviewed: Yes Code(s): K59.00 - CONSTIPATION, UNSPECIFIED (2) SBO (small bowel obstruction) Assessment/Plan: -Surgical consult -Mild distention on abd exam -Await CTAP -Avoid NGT unless pt c/o abd pain or has evident N/V -NPO -IVF -Monitor lytes Problems reviewed: Yes Code(s): K56.609 - UNSP INTESTNL OBST, UNSP TO PARTIAL VERSUS COMPLETE OBST (3) Weakness of both lower extremities Assessment/Plan: -NS on board -Exp laminectomy x 2 -Aggressive PT -Neuro checks Problems reviewed: Yes Code(s): R29.898 - OTH SYMPTOMS AND SIGNS INVOLVING THE MUSCULOSKELETAL SYSTEM (4) COPD (chronic obstructive pulmonary disease) Problems reviewed: Yes Code(s): J44.9 - CHRONIC OBSTRUCTIVE PULMONARY DISEASE, UNSPECIFIED (5) S/P laminectomy Assessment/Plan: -Seen by NS -Hemodynamically stable Problems reviewed: Yes Code(s): Z98.890 - OTHER SPECIFIED POSTPROCEDURAL STATES (6) Diabetes Assessment/Plan: -Resolved -A1c at 5.6 -D/C BGM -D/C ISS Problems reviewed: Yes Code(s): E11.9 - TYPE 2 DIABETES MELLITUS WITHOUT COMPLICATIONS Assessment/Plan See problem list
--- NOTE | 2020-03-28 11:40 | PN ---
Teaching Attending Note Name of Resident: Eliza Gramajo ATTENDING PHYSICIAN STATEMENT I saw and evaluated the patient. I reviewed the resident's note and discussed the case with the resident. I agree with the resident's findings and plan as documented. SUBJECTIVE: Patient seen and examined in the ICU. Awake and alert. Reports no change in the loss of sensation and numbness. Denies CP or SOB. Seen by NS this AM. Findings possibly related to previous radiation for Breast CA. Intake & Output 03/25/20 03/26/20 03/27/20 03/28/20 23:59 23:59 23:59 23:59 Intake Total 3075 850 2150 756 Output Total 2075 2250 2187 700 Balance 1000 -1400 -37 56 Last Vital Signs Temp Pulse Resp BP Pulse Ox 97.6 F 82 17 121/67 978 H 03/28/20 06:00 03/28/20 06:00 03/28/20 06:00 03/28/20 06:00 03/28/20 06:00 Active Medications Acetaminophen (Tylenol -) 650 mg PO Q6H PRN PRN Reason: fever Amlodipine Besylate (Norvasc -) 5 mg PO [facility] Last Admin: 03/27/20 21:17 Dose: 5 mg Documented by: Chlorhexidine Gluconate (Hibiclens For Decolonization -) 1 applic TP [facility] Last Admin: 03/27/20 21:44 Dose: 1 applic Documented by: Diphenhydramine HCl (Benadryl Injection -) 12.5 mg IVPUSH ONCE PRN PRN Reason: FOR ITCHING Docusate Sodium (Colace -) 100 mg PO TID [facility] Last Admin: 03/28/20 06:21 Dose: 100 mg Documented by: Fentanyl (Sublimaze Injection -) 50 mcg IVPUSH [id number] PRN PRN Reason: PAIN-PACU ORDER X 4 DOSES ONLY Fentanyl (Sublimaze Injection -) 25 mcg IVPUSH [id number] PRN PRN Reason: PAIN-PACU ORDER X 4 DOSES ONLY Ferrous Sulfate (Feosol -) 325 mg PO DAILY [facility] Last Admin: 03/28/20 09:42 Dose: 325 mg Documented by: Folic Acid (Folic Acid -) 1 mg PO DAILY [facility] Last Admin: 03/28/20 09:42 Dose: 1 mg Documented by: Heparin Sodium (Porcine) (Heparin -) 5,000 unit SQ TID [facility] Last Admin: 03/28/20 06:21 Dose: 5,000 unit Documented by: Hydromorphone HCl (Hydromorphone 10 Mg/50 Ml-Ns) 10 mg [employer]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 [facility]; Protocol Stop: 04/03/20 11:47 Last Admin: 03/27/20 21:18 Dose: Not Given Documented by: Methylprednisolone Sodium Succinate 9,900 mg/ Sodium Chloride 329.2 mls @ 14.365 mls/hr IVPB ONCE ONE; Protocol Stop: 03/28/20 16:55 Last Admin: 03/27/20 18:00 Dose: 14.365 mls/hr Documented by: Lactated Ringer's (Lactated Ringers Solution) 1,000 mls @ 75 mls/hr IV ASDIR [facility] Last Admin: 03/27/20 21:22 Dose: 75 mls/hr Documented by: Insulin Aspart (Novolog Vial) 0 units SQ TIDAC [facility]; Protocol Last Admin: 03/28/20 11:27 Dose: 2 unit Documented by: Letrozole (Femara -) 2.5 mg PO HS [facility] Last Admin: 03/27/20 22:06 Dose: 2.5 mg Documented by: Loratadine (Claritin -) 10 mg PO DAILY [facility] Last Admin: 03/28/20 09:42 Dose: 10 mg Documented by: Mupirocin (Bactroban Ointment (For Decolonization) -) 1 applic NS BID [facility] Stop: 04/01/20 21:59 Last Admin: 03/28/20 09:43 Dose: 1 applic Documented by: Ondansetron HCl (Zofran Injection) 4 mg IVPUSH Q4H PRN PRN Reason: NAUSEA AND/OR VOMITING Last Admin: 03/28/20 06:32 Dose: 4 mg Documented by: Pantoprazole Sodium (Protonix Iv) 40 mg IVPUSH BID [facility] Last Admin: 03/28/20 09:42 Dose: 40 mg Documented by: GENERAL: Awake, alert, and fully oriented, NAD HEAD: Normal with no signs of trauma. EYES: PERRL, EOM intact. ENT: Moist mucous membranes. NECK: supple LUNGS: Clear, diminished at the bases HEART: RRR normal S1 and S2 without murmur, rub or gallop. ABDOMEN: soft, non tender, no sensation below the waist MUSCULOSKELETAL: Muscle weakness BL legs, hips. UPPER EXTREMITIES: warm, well-perfused. No cyanosis. No edema. LOWER EXTREMITIES: 2+ pulses, warm, well-perfused. No calf tenderness. No peripheral edema. NEUROLOGICAL: 0/5 Bilateral LE, numbness SKIN: Warm, dry Laboratory Results - last 24 hr 03/27/20 03/27/20 03/27/20 12:50 12:50 12:50 WBC 14.3 H RBC 4.60 Hgb 13.4 Hct 40.8 MCV 88.9 MCH 29.1 MCHC 32.7 RDW 14.1 Plt Count 297 MPV 7.8 D Absolute Neuts (auto) 13.3 H Neutrophils % 92.9 H D Neutrophils % (Manual) 94.1 H Band Neutrophils % 0.0 Lymphocytes % 3.9 L D Lymphocytes % (Manual) 4.9 L Monocytes % 3.1 L Monocytes % (Manual) 1 L Eosinophils % 0.0 D Eosinophils % (Manual) 0.0 Basophils % 0.1 Basophils % (Manual) 0.0 Myelocytes % (Man) 0 Promyelocytes % (Man) 0 Blast Cells % (Manual) 0 Nucleated RBC % 0 Metamyelocytes 0 Hypochromia 0 Platelet Estimate Normal Platelet Comment Polychromasia 0 Poikilocytosis 0 Anisocytosis 1+ Microcytosis 1+ Macrocytosis 0 PT with INR 11.00 INR 0.93 Sodium 134 L Potassium 3.7 Chloride 98 Carbon Dioxide 29 Anion Gap 7 L BUN 10.0 Creatinine 0.6 Est GFR (CKD-EPI)AfAm 107.03 Est GFR (CKD-EPI)NonAf 92.35 POC Glucometer Random Glucose 140 H Hemoglobin A1c % Calcium 8.8 Phosphorus Magnesium Total Bilirubin 0.8 AST 37 ALT 24 Alkaline Phosphatase 107 Total Protein 7.0 Albumin 3.0 L 03/27/20 03/28/20 03/28/20 17:45 02:29 06:10 WBC RBC Hgb Hct MCV MCH MCHC RDW Plt Count MPV Absolute Neuts (auto) Neutrophils % Neutrophils % (Manual) Band Neutrophils % Lymphocytes % Lymphocytes % (Manual) Monocytes % Monocytes % (Manual) Eosinophils % Eosinophils % (Manual) Basophils % Basophils % (Manual) Myelocytes % (Man) Promyelocytes % (Man) Blast Cells % (Manual) Nucleated RBC % Metamyelocytes Hypochromia Platelet Estimate Platelet Comment Polychromasia Poikilocytosis Anisocytosis Microcytosis Macrocytosis PT with INR INR Sodium 135 L Potassium 3.6 Chloride 97 L Carbon Dioxide 32 Anion Gap 7 L BUN 14.5 Creatinine 0.6 Est GFR (CKD-EPI)AfAm 107.03 Est GFR (CKD-EPI)NonAf 92.35 POC Glucometer 145 158 Random Glucose 155 H Hemoglobin A1c % Calcium 8.8 Phosphorus 3.2 Magnesium 2.1 Total Bilirubin 1.6 H AST 34 ALT 20 Alkaline Phosphatase 133 H Total Protein 6.3 L Albumin 2.8 L 03/28/20 03/28/20 03/28/20 06:10 06:10 06:25 WBC 11.9 H RBC 4.17 Hgb 12.4 Hct 36.6 MCV 87.7 MCH 29.7 MCHC 33.9 RDW 13.8 Plt Count 302 MPV 8.0 Absolute Neuts (auto) 10.9 H Neutrophils % 91.6 H Neutrophils % (Manual) 87.0 H Band Neutrophils % 3.0 Lymphocytes % 6.1 L D Lymphocytes % (Manual) 6.0 L D Monocytes % 2.1 L Monocytes % (Manual) 2 L D Eosinophils % 0.0 Eosinophils % (Manual) 0.0 Basophils % 0.2 Basophils % (Manual) 0.0 Myelocytes % (Man) 0 Promyelocytes % (Man) 0 Blast Cells % (Manual) 0 Nucleated RBC % 0 Metamyelocytes 0 Hypochromia 0 Platelet Estimate Normal Platelet Comment Present Polychromasia 0 Poikilocytosis 0 Anisocytosis 1+ Microcytosis 1+ Macrocytosis 0 PT with INR INR Sodium Potassium Chloride Carbon Dioxide Anion Gap BUN Creatinine Est GFR (CKD-EPI)AfAm Est GFR (CKD-EPI)NonAf POC Glucometer 144 Random Glucose Hemoglobin A1c % 5.6 Calcium Phosphorus Magnesium Total Bilirubin AST ALT Alkaline Phosphatase Total Protein Albumin 03/28/20 11:27 WBC RBC Hgb Hct MCV MCH MCHC RDW Plt Count MPV Absolute Neuts (auto) Neutrophils % Neutrophils % (Manual) Band Neutrophils % Lymphocytes % Lymphocytes % (Manual) Monocytes % Monocytes % (Manual) Eosinophils % Eosinophils % (Manual) Basophils % Basophils % (Manual) Myelocytes % (Man) Promyelocytes % (Man) Blast Cells % (Manual) Nucleated RBC % Metamyelocytes Hypochromia Platelet Estimate Platelet Comment Polychromasia Poikilocytosis Anisocytosis Microcytosis Macrocytosis PT with INR INR Sodium Potassium Chloride Carbon Dioxide Anion Gap BUN Creatinine Est GFR (CKD-EPI)AfAm Est GFR (CKD-EPI)NonAf POC Glucometer 161 Random Glucose Hemoglobin A1c % Calcium Phosphorus Magnesium Total Bilirubin AST ALT Alkaline Phosphatase Total Protein Albumin ASSESSMENT/PLAN: POD#3 : Thoracic 4&5 laminectomies and microsurgical fenestration dorsal arachnoid web/resection of arachnoid cyst Spinal cord compression of unclear etiology s/p wound exploration and washout CVD HTN GERD Herniated disc s/p trauma 2 years ago Breast CA IV Steroids drip Incentive Spirometry Strict I & O SCDs For imaging today PO when cleared by NS ICU monitoring Dr Barrios Critical care time spent in reviewing chart, evaluating patient and formulating plan - 36 minutes.
--- NOTE | 2020-03-28 13:24 | PATH ---
Surgical Pathology Report Patient Name: CYNTHIA HICKS [facility]. Rec. #: [id number] /Age/Gender: 1950 (Age: 70) / F Account: [id number] Location: ICU [employer] Taken: 03/25/2020 Received: 03/25/2020 Reported: 03/28/2020 Physicians: Jair Cunningham M.D. Specimen(s) Received ARACHNOID CYST, DORSAL ARACHNOID WEB Clinical History Thoracic arachnoid cyst Final Diagnosis ARACHNOID CYST, DORSAL ARACHNOID WEB, RESECTION: CONSISTENT WITH ARACHNOID CYST. SEE COMMENT. Comment: Immunohistochemical stains performed at [place], [place] ([id number]) and interpreted at [facility] show the flattened epithelial lining is positive for OLIVIA. Cytokeratin AE1/3 is negative. The above findings support the diagnosis. Positive and negative controls (internal if applicable) show appropriate results. Electronically Signed Ping Horn M.D. Gross Description Received labeled "arachnoid web" is a white-schilling soft tissue measuring 0.5 x 0.3 x 0.2 cm. The entire specimen is submitted in one cassette. MLSZ/03/25/2020 sanml/03/25/2020
[2020-03-28] MEDS: D5-1/2NS+20 MEQ KCL - 20 MEQ/1,000 ML INFUS.BAG IV SCH (18:20)
[2020-03-28] MEDS: POLYETHYLENE GLYCOL 3350 119 GM BTL PO SCH (18:22)
[2020-03-28] MEDS ORDERED: CEFEPIME HCL 1 GM VIAL (RESTRICTED TO ID) ONE (18:28)
[2020-03-28] MEDS ORDERED: DEXTROSE 5%-WATER 100 ML IVPB ONE (18:28)
[2020-03-28] MEDS: CEFEPIME 1 GM in DEXTROSE 5%-WATER 100 ML IVPB SCH (18:30)
[2020-03-28] MEDS ORDERED: PCA PUMP NR ONE ×2 (18:32→18:37)
[2020-03-28] MEDS: HYDROmorphone *PCA* 10MG/50ML DISP.SYRIN PCA SCH (18:47)
--- NOTE | 2020-03-28 19:56 | PN ---
Physical Exam: SUBJECTIVE: Patient seen and examined bedsode. In no distress. No events overnight. Pain well controlled. OBJECTIVE: Vital Signs Period Temp Pulse Resp BP Sys/Cunningham Pulse Ox Last 24 Hr 97.4 F-98.6 F 75-98 12-21 112-163/61-82 86-978 GENERAL: Awake, alert, and fully oriented HEAD: Normal with no signs of trauma. EYES: PERRL, EOM intact . ENT: Moist mucous membranes. NECK: supple LUNGS: CTA BL . HEART: RRR normal S1 and S2 without murmur, rub or gallop. ABDOMEN: soft, non tender, no sensation below the waist MUSCULOSKELETAL: Muscle weakness BL legs, hips. UPPER EXTREMITIES: warm, well-perfused. No edema. LOWER EXTREMITIES: 2+ pulses, warm, No peripheral edema. Spontaneously moving right toes without feelings. No sensation from waist down. NEUROLOGICAL: Cranial nerves II-XII intact. Normal speech. SKIN: Warm, dry Laboratory Results - last 24 hr 03/28/20 03/28/20 03/28/20 02:29 06:10 06:10 WBC 11.9 H RBC 4.17 Hgb 12.4 Hct 36.6 MCV 87.7 MCH 29.7 MCHC 33.9 RDW 13.8 Plt Count 302 MPV 8.0 Absolute Neuts (auto) 10.9 H Neutrophils % 91.6 H Neutrophils % (Manual) 87.0 H Band Neutrophils % 3.0 Lymphocytes % 6.1 L D Lymphocytes % (Manual) 6.0 L D Monocytes % 2.1 L Monocytes % (Manual) 2 L D Eosinophils % 0.0 Eosinophils % (Manual) 0.0 Basophils % 0.2 Basophils % (Manual) 0.0 Myelocytes % (Man) 0 Promyelocytes % (Man) 0 Blast Cells % (Manual) 0 Nucleated RBC % 0 Metamyelocytes 0 Hypochromia 0 Platelet Estimate Normal Platelet Comment Present Polychromasia 0 Poikilocytosis 0 Anisocytosis 1+ Microcytosis 1+ Macrocytosis 0 Sodium 135 L Potassium 3.6 Chloride 97 L Carbon Dioxide 32 Anion Gap 7 L BUN 14.5 Creatinine 0.6 Est GFR (CKD-EPI)AfAm 107.03 Est GFR (CKD-EPI)NonAf 92.35 POC Glucometer 158 Random Glucose 155 H Hemoglobin A1c % Calcium 8.8 Phosphorus 3.2 Magnesium 2.1 Total Bilirubin 1.6 H AST 34 ALT 20 Alkaline Phosphatase 133 H Total Protein 6.3 L Albumin 2.8 L 03/28/20 03/28/20 03/28/20 06:10 06:25 11:27 WBC RBC Hgb Hct MCV MCH MCHC RDW Plt Count MPV Absolute Neuts (auto) Neutrophils % Neutrophils % (Manual) Band Neutrophils % Lymphocytes % Lymphocytes % (Manual) Monocytes % Monocytes % (Manual) Eosinophils % Eosinophils % (Manual) Basophils % Basophils % (Manual) Myelocytes % (Man) Promyelocytes % (Man) Blast Cells % (Manual) Nucleated RBC % Metamyelocytes Hypochromia Platelet Estimate Platelet Comment Polychromasia Poikilocytosis Anisocytosis Microcytosis Macrocytosis Sodium Potassium Chloride Carbon Dioxide Anion Gap BUN Creatinine Est GFR (CKD-EPI)AfAm Est GFR (CKD-EPI)NonAf POC Glucometer 144 161 Random Glucose Hemoglobin A1c % 5.6 Calcium Phosphorus Magnesium Total Bilirubin AST ALT Alkaline Phosphatase Total Protein Albumin 03/28/20 18:00 WBC RBC Hgb Hct MCV MCH MCHC RDW Plt Count MPV Absolute Neuts (auto) Neutrophils % Neutrophils % (Manual) Band Neutrophils % Lymphocytes % Lymphocytes % (Manual) Monocytes % Monocytes % (Manual) Eosinophils % Eosinophils % (Manual) Basophils % Basophils % (Manual) Myelocytes % (Man) Promyelocytes % (Man) Blast Cells % (Manual) Nucleated RBC % Metamyelocytes Hypochromia Platelet Estimate Platelet Comment Polychromasia Poikilocytosis Anisocytosis Microcytosis Macrocytosis Sodium Potassium Chloride Carbon Dioxide Anion Gap BUN Creatinine Est GFR (CKD-EPI)AfAm Est GFR (CKD-EPI)NonAf POC Glucometer 144 Random Glucose Hemoglobin A1c % Calcium Phosphorus Magnesium Total Bilirubin AST ALT Alkaline Phosphatase Total Protein Albumin Active Medications Generic Name Dose Route Start Last Admin Trade Name Freq PRN Reason Stop Dose Admin Acetaminophen 650 mg 03/27/20 18:27 Tylenol - PO Q6H PRN fever Amlodipine Besylate 5 mg 03/27/20 22:00 03/27/20 21:17 Norvasc - PO 5 mg HS MARIELENA Administration Chlorhexidine Gluconate 1 applic 03/27/20 22:00 03/27/20 21:44 Hibiclens For Decolonization - TP 1 applic HS MARIELENA Administration Diphenhydramine HCl 12.5 mg 03/27/20 18:27 Benadryl Injection - IVPUSH ONCE PRN FOR ITCHING Docusate Sodium 100 mg 03/27/20 22:00 03/28/20 15:30 Colace - PO 100 mg TID MARIELENA Administration Fentanyl 50 mcg 03/27/20 18:27 Sublimaze Injection - IVPUSH [id number] PRN PAIN-PACU ORDER X 4 DOSES ONLY Fentanyl 25 mcg 03/27/20 18:27 Sublimaze Injection - IVPUSH [id number] PRN PAIN-PACU ORDER X 4 DOSES ONLY Ferrous Sulfate 325 mg 03/28/20 10:00 03/28/20 09:42 Feosol - PO 325 mg DAILY MARIELENA Administration Folic Acid 1 mg 03/28/20 10:00 03/28/20 09:42 Folic Acid - PO 1 mg DAILY MARIELENA Administration Heparin Sodium (Porcine) 5,000 unit 03/27/20 22:00 03/28/20 15:30 Heparin - SQ 5,000 unit TID MARIELENA Administration Hydromorphone HCl 10 mg 03/27/20 18:27 03/28/20 18:47 Hydromorphone 10 Mg/50 Ml-Ns [employer] 04/03/20 11:47 Not Given [employer] MARIELENA Protocol Cefepime HCl 1 gm in 50 mls @ 100 mls/hr 03/28/20 18:15 Maxipime 1 Gm Premix Ivpb IVPB Q8H-IV MARIELENA Protocol Potassium Chloride/Dextrose/Sod Cl 20 meq in 1,000 mls @ 75 mls/hr 03/28/20 18:15 03/28/20 18:20 D5-1/2ns+20 Meq Kcl - IV 75 mls/hr ASDIR MARIELENA Administration Cefepime HCl 1 gm/ Dextrose 100 mls @ 200 mls/hr 03/28/20 18:30 03/28/20 18:30 IVPB 03/29/20 18:29 200 mls/hr Q8H-IV MARIELENA Administration Protocol Letrozole 2.5 mg 03/27/20 22:00 03/27/20 22:06 Femara - PO 2.5 mg HS MARIELENA Administration Loratadine 10 mg 03/28/20 10:00 03/28/20 09:42 Claritin - PO 10 mg DAILY MARIELENA Administration Mupirocin 1 applic 03/27/20 22:00 03/28/20 09:43 Bactroban Ointment (For Decolonization) - NS 04/01/20 21:59 1 applic BID MARIELENA Administration Ondansetron HCl 4 mg 03/27/20 18:27 03/28/20 06:32 Zofran Injection IVPUSH 4 mg Q4H PRN Administration NAUSEA AND/OR VOMITING Pantoprazole Sodium 40 mg 03/27/20 22:00 03/28/20 09:42 Protonix Iv IVPUSH 40 mg BID MARIELENA Administration Polyethylene Glycol 17 gm 03/28/20 18:15 03/28/20 18:22 Miralax (For Daily Use) - PO 17 gm DAILY MARIELENA Administration Senna 2 tab 03/28/20 22:00 Senna - PO HS MARIELENA ASSESSMENT/PLAN: 70 yo female PMHx CVD, HTN, GERD, hx herniated disc s/p trauma 2 years ago. Admitted to hospital for thoracic 4&5 laminectomies and microsurgical fenestration dorsal arachnoid web/resection of arachnoid cyst. Post op patient reported numbness to her abdomen and bilateral LE. Thoracic MRI w/o contrast ordered that a mass with moderate to marked cord compression. Patient was brought back into surgery to thoracic wound exploration and washout. Neuro - alert and oriented - spontaneously moving right toes - on steroid drip for spinal cord inflammation - Dr. Gamboa - [employer] for pain Pulm - N/c saturating 100% Cardio - hx htn and cvd - continuous cardiac monitoring Renal - no issues GI - ppx protonix IV - Constipation - NPO because of possible illeus v SBO - GI consulted - CT abdomen today Endo - ISS, careful watch b/c high dose steroids - frequent BGM FEN: - NPO - IVF DVT Ppx - scds - heparin Visit type - Emergency Visit Emergency Visit: Yes ED Registration Date: 03/25/20 Care time: The patient presented to the Emergency Department on the above date and was hospitalized for further evaluation of their emergent condition. - New Patient This patient is new to me today: No - Critical Care Critical Care patient: Yes Total Critical Care Time (in minutes): 35 Critical Care Statement: The care of this patient involved high complexity decision making to prevent further life threatening deterioration of the patient's condition and/or to evaluate & treat vital organ system(s) failure or risk of failure. - Discharge Referral Referred to [facility] Med P.C.: No - Medication Review Med list reviewed for High Risk Meds patients 65 and older: Yes ATTENDING PHYSICIAN STATEMENT I saw and evaluated the patient. I reviewed the resident's note and discussed the case with the resident. I agree with the resident's findings and plan as documented. SUBJECTIVE: OBJECTIVE: ASSESSMENT AND PLAN:
[2020-03-28] MEDS: CHLORHEXIDINE GLUCONATE 4% CLEANSER FOR DECOLONIZATION TP SCH (22:12)
[2020-03-28] MEDS: ACETAMINOPHEN 325 MG TABLET (FP) PO PRN (22:14)
[2020-03-28] MEDS: SENNOSIDES 8.6MG TABLET (FP) PO SCH (22:15)
[2020-03-28] MEDS: amLODIPine BESYLATE 5 MG TABLET (FP) PO SCH (22:22)
[2020-03-28] MEDS: LETROZOLE 2.5 MG TABLET (FP) PO SCH (22:37)
[2020-03-29] MEDS ORDERED: PT OWN MED DRAWER 7, Y5N ONE ×2 (00:07→21:54)
[2020-03-29] MEDS: CEFEPIME 1 GM in DEXTROSE 5%-WATER 100 ML IVPB SCH ×2 (02:00→09:28)
[2020-03-29] MEDS ORDERED: DEXTROSE 5%-WATER 100 ML IVPB ONE ×2 (02:01→08:55)
[2020-03-29] MEDS ORDERED: CEFEPIME HCL 1 GM VIAL (RESTRICTED TO ID) ONE ×2 (02:01→08:55)
[2020-03-29] MEDS: DOCUSATE SODIUM 100 MG CAPSULE (FP) PO SCH ×3 (05:42→22:50)
[2020-03-29] MEDS: HEPARIN NA (PORCINE) 5,000 UNITS/ML 1ML VIAL SQ SCH ×3 (05:43→22:53)
[2020-03-29 06:52] LABS: BASO % 0.1 % (0-2.0); HEMATOCRIT 36.1 % (32.4-45.2); HEMOGLOBIN 12.2 GM/dL (10.7-15.3); LYMPH % 5.8 % (8-40); MCH 30.2 pg (25.7-33.7); MCHC 33.8 g/dl (32.0-36.0); MEAN CELL VOLUME 89.3 fl (80-96); MEAN PLT VOLUME 8.3 fl (7.5-11.1); MONO % 4.8 % (3.8-10.2); NEUT % 89.3 % (42.8-82.8); PLATELET COUNT 262 K/MM3 (134-434); RBC 4.04 M/mm3 (3.60-5.2); RDW 14.2 % (11.6-15.6); WHITE BLOOD COUNT 13.3 K/mm3 (4.0-10.0)
[2020-03-29 07:08] LABS: ALBUMIN 2.4 g/dl (3.4-5.0); BILIRUBIN,TOTAL 0.6 mg/dL (0.2-1); BLOOD UREA NITROGEN 16.5 mg/dL (7-18); CALCIUM 8.5 mg/dL (8.5-10.1); CREATININE 0.7 mg/dL (0.55-1.3); MAGNESIUM 2.4 mg/dL (1.8-2.4); PHOSPHOROUS 2.9 mg/dL (2.5-4.9); POTASSIUM 3.9 mmol/L (3.5-5.1); TOT PROT 5.9 g/dl (6.4-8.2)
--- NOTE | 2020-03-29 07:42 | PN ---
Progress Note (short form) - Note Progress Note: Pulm/CCM SUBJECTIVE: Patient seen and examined in the ICU. Awake and alert. 24Hr: -unchanged, afebrile -still with lack of sensation/mvt in LE, neuro surgery aware Vital Signs Temp 98.4 F 03/28/20 22:00 Pulse 61 03/29/20 06:00 Resp 15 03/29/20 06:00 BP 163/82 03/29/20 06:00 Pulse Ox 99 03/29/20 06:00 Intake & Output 03/28/20 03/28/20 03/29/20 11:59 23:59 11:59 Intake Total 756 1000 1200 Output Total 700 510 900 Balance 56 490 300 Intake: IV 756 900 900 D5-1/2NS+20 MEQ KCL - 20 150 900 meq In 1,000 ml @ 75 mls/ hr IV ASDIR [facility] Rx#: [id number] Lactated Ringers Solution 658 750 1,000 ml @ 75 mls/hr IV ASDIR [facility] Rx#:[id number] rh 98 IVPB 100 100 Oral 200 Output: Drainage 0 10 Right Posterior Back 0 10 Urine 700 500 900 Monge 700 500 900 Other: Voiding Method Indwelling Catheter Indwelling Catheter Indwelling Catheter # Unmeasured Voids Void 2 Bowel Movement No No No Active Medications Acetaminophen (Tylenol -) 650 mg PO Q6H PRN PRN Reason: fever Last Admin: 03/28/20 22:14 Dose: 650 mg Documented by: Amlodipine Besylate (Norvasc -) 5 mg PO [facility] Last Admin: 03/28/20 22:22 Dose: 5 mg Documented by: Chlorhexidine Gluconate (Hibiclens For Decolonization -) 1 applic TP [facility] Last Admin: 03/28/20 22:12 Dose: 1 applic Documented by: Diphenhydramine HCl (Benadryl Injection -) 12.5 mg IVPUSH ONCE PRN PRN Reason: FOR ITCHING Docusate Sodium (Colace -) 100 mg PO TID [facility] Last Admin: 03/29/20 05:42 Dose: Not Given Documented by: Fentanyl (Sublimaze Injection -) 50 mcg IVPUSH [id number] PRN PRN Reason: PAIN-PACU ORDER X 4 DOSES ONLY Fentanyl (Sublimaze Injection -) 25 mcg IVPUSH [id number] PRN PRN Reason: PAIN-PACU ORDER X 4 DOSES ONLY Ferrous Sulfate (Feosol -) 325 mg PO DAILY [facility] Last Admin: 03/28/20 09:42 Dose: 325 mg Documented by: Folic Acid (Folic Acid -) 1 mg PO DAILY [facility] Last Admin: 03/28/20 09:42 Dose: 1 mg Documented by: Heparin Sodium (Porcine) (Heparin -) 5,000 unit SQ TID [facility] Last Admin: 03/29/20 05:43 Dose: 5,000 unit Documented by: Hydromorphone HCl (Hydromorphone 10 Mg/50 Ml-Ns) 10 mg [facility]; Protocol Stop: 04/03/20 11:47 Last Admin: 03/28/20 18:47 Dose: Not Given Documented by: Cefepime HCl (Maxipime 1 Gm Premix Ivpb) 1 gm in 50 mls @ 100 mls/hr IVPB Q8H- IV [facility]; Protocol Potassium Chloride/Dextrose/Sod Cl (D5-1/2ns+20 Meq Kcl -) 20 meq in 1,000 mls @ 75 mls/hr IV ASDIR [facility] Last Admin: 03/28/20 18:20 Dose: 75 mls/hr Documented by: Cefepime HCl 1 gm/ Dextrose 100 mls @ 200 mls/hr IVPB Q8H-IV [facility]; Protocol Stop: 03/29/20 18:29 Last Admin: 03/29/20 02:00 Dose: 200 mls/hr Documented by: Letrozole (Femara -) 2.5 mg PO HS [facility] Last Admin: 03/28/20 22:37 Dose: 2.5 mg Documented by: Loratadine (Claritin -) 10 mg PO DAILY [facility] Last Admin: 03/28/20 09:42 Dose: 10 mg Documented by: Mupirocin (Bactroban Ointment (For Decolonization) -) 1 applic NS BID [facility] Stop: 04/01/20 21:59 Last Admin: 03/28/20 22:11 Dose: 1 applic Documented by: Ondansetron HCl (Zofran Injection) 4 mg IVPUSH Q4H PRN PRN Reason: NAUSEA AND/OR VOMITING Last Admin: 03/28/20 06:32 Dose: 4 mg Documented by: Pantoprazole Sodium (Protonix Iv) 40 mg IVPUSH BID [facility] Last Admin: 03/28/20 23:14 Dose: 40 mg Documented by: Polyethylene Glycol (Miralax (For Daily Use) -) 17 gm PO DAILY [facility] Last Admin: 03/28/20 18:22 Dose: 17 gm Documented by: Senna (Senna -) 2 tab PO HS [facility] Last Admin: 03/28/20 22:15 Dose: 2 tab Documented by: GENERAL: Awake, alert, and fully oriented, NAD HEAD: Normal with no signs of trauma. EYES: PERRL, EOM intact. ENT: Moist mucous membranes. NECK: supple LUNGS: Clear, diminished at the bases HEART: RRR normal S1 and S2 without murmur, rub or gallop. ABDOMEN: soft, non tender, no sensation below the waist MUSCULOSKELETAL: Muscle weakness BL legs, hips. UPPER EXTREMITIES: warm, well-perfused. No cyanosis. No edema. LOWER EXTREMITIES: 2+ pulses, warm, well-perfused. No calf tenderness. No p eripheral edema. NEUROLOGICAL: 0/5 Bilateral LE, numbness SKIN: Warm, dry Drain with serous Tspine CBC, BMP 03/29/20 06:05 03/29/20 06:05 ASSESSMENT/PLAN: POD#3 : Thoracic 4&5 laminectomies and microsurgical fenestration dorsal arachnoid web/resection of arachnoid cyst Spinal cord compression of unclear etiology s/p wound exploration and washout CVD HTN GERD Herniated disc s/p trauma 2 years ago Breast CA steroids per surgery Incentive Spirometry Strict I & O SCDs For imaging today PO when cleared by NS ok for floor, steroid gtt has been discontinued [place]
[2020-03-29] MEDS ORDERED: oxyCODONE HCL 5 MG TABLET PO ONE (08:25)
[2020-03-29] MEDS: ACETAMINOPHEN 325 MG TABLET (FP) PO PRN (08:58)
[2020-03-29] MEDS: FOLIC ACID 1 MG TABLET (FP) PO SCH (09:26)
[2020-03-29] MEDS: FERROUS SO4 325 MG TABLET (FP) PO SCH (09:26)
[2020-03-29] MEDS: LORATADINE 10 MG TABLET PO SCH (09:27)
[2020-03-29] MEDS: PANTOPRAZOLE SODIUM 40 MG VIAL IVPUSH SCH ×2 (09:27→22:50)
[2020-03-29] MEDS: MUPIROCIN 2% TOPICAL OINTMENT FOR DECOLONIZATION NS SCH ×2 (09:29→22:52)
[2020-03-29] MEDS: D5-1/2NS+20 MEQ KCL - 20 MEQ/1,000 ML INFUS.BAG IV SCH ×2 (10:00→19:10)
--- NOTE | 2020-03-29 10:26 | CON.ID ---
Consult Consult Specialty:: infectious disease Referred by:: dr kellogg Reason for Consultation:: pneumonia - History of Present Illness Chief Complaint: unable to move legs History of Present Illness: 70 yo female admitted 03/25 for t4/t5 laminectomy and resection of arachnoid cyst- she developed postop hematoma and underwent 2 washouts on 03/27 now in ICU with drain in her back no fevers awake and alert able to move her arms, reports no sensation below her chest and cannot move legs- NS aware no BM asked to see for pneumonia-started on cefepime yesterday no cxray done has no cough had ct scan abd/pelvis done yesterday- 03/28--Bibasilar atelectasis with small effusion, moderate fecal retention, no SBO - History Source History Provided By: Patient, Medical Record Limitations to Obtaining History: No Limitations - Past Medical History Cardio/Vascular: Yes: HTN Pulmonary: Yes: COPD Gastrointestinal: Yes: Irritable Bowel Disease Renal/: Yes: Other (urinary incontinence) Heme/Onc: Yes: Cancer (breast cancer ) - Past Surgical History Past Surgical History: Yes: Appendectomy, Cholecystectomy, Hernia Repair, Tonsillectomy Additional Surgical History: mastectomy left breast and 2 partial lumlpectomies - Alcohol/Substance Use Hx Alcohol Use: No - Smoking History Smoking history: Never smoked Have you smoked in the past 12 months: No If you are a former smoker, when did you quit?: 1969 - Social History Usual Living Arrangement: Alone 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, 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 in [place] Place of : [employer] [facility] History of Recent Travel: No Home Medications - Allergies Allergies/Adverse Reactions: Allergies Allergy/AdvReac Type Severity Reaction Status Date / Time aspirin Allergy "rash,fever Verified 03/25/20 07:21 " montelukast sodium Allergy "elevated Verified 03/25/20 07:21 [From Singulair] blood pressure" Penicillins Allergy "fever,rash Verified 03/25/20 07:21 " shellfish derived Allergy "toxic Verified 03/25/20 07:21 reaction" tetracycline [Tetracycline] Allergy "fever,rash,hairy Verified 03/25/20 07:21 tongue" - Home Medications Home Medications: Ambulatory Orders Amlodipine Besylate [Norvasc -] 5 mg PO HS 09/13/16 Letrozole 2.5 mg PO HS 03/21/18 Mirabegron [Myrbetriq] 25 mg PO DAILY 03/21/18 Cetirizine HCl [Allergy Relief] 10 mg PO DAILY 11/01/18 Fluticasone/Vilanterol [Breo Ellipta 200-25 Mcg INH] 1 each IH PRN PRN 08/29/19 Umeclidinium [place] [Incruse Ellipta] 62.5 mcg IH PRN PRN 08/29/19 Clobetasol Propionate/Emoll [Clobetasol Emulsion 0.05% Foam] 100 gm TP BID 03/24/20 Acetaminophen [Pain Relief] 2 tab PO BID 03/28/20 Alendronate Sodium 75 ml PO DAILY 03/28/20 Family Medical History Family History: Denies Review of Systems - Review of Systems Constitutional: denies: Fever Eyes: reports: No Symptoms HENT: reports: No Symptoms Neck: reports: No Symptoms Cardiovascular: reports: No Symptoms Respiratory: reports: No Symptoms. denies: Cough, SOB Gastrointestinal: reports: Constipation Physical Exam Vital Signs: Vital Signs Temperature 98.4 F 03/28/20 22:00 Pulse Rate 76 03/29/20 08:00 Respiratory Rate 20 03/29/20 08:00 Blood Pressure 160/80 03/29/20 08:00 O2 Sat by Pulse Oximetry (%) 95 03/29/20 08:48 Constitutional: Yes: Well Nourished, No Distress, Calm Eyes: Yes: Conjunctiva Clear, EOM Intact HENT: Yes: Atraumatic, Normocephalic Neck: Yes: Supple, Trachea Midline Cardiovascular: Yes: Regular Rate and Rhythm Respiratory: Yes: CTA Bilaterally Gastrointestinal: Yes: Normal Bowel Sounds, Soft ...Rectal Exam: Yes: Deferred Extremities: Yes: WNL Edema: No Psychiatric: Yes: Alert, Oriented Labs: CBC, BMP 03/29/20 06:05 03/29/20 06:05 Imaging - Results Cat Scan: Report Reviewed Problem List - Problems (1) S/P laminectomy Code(s): Z98.890 - OTHER SPECIFIED POSTPROCEDURAL STATES (2) Weakness of both lower extremities Code(s): R29.898 - OTH SYMPTOMS AND SIGNS INVOLVING THE MUSCULOSKELETAL SYSTEM (3) Constipation Code(s): K59.00 - CONSTIPATION, UNSPECIFIED Assessment/Plan s/p thoacic lalminectomy and cyst resection- postop hematoma- management per Neurosurgery no signs of pneumonia will get cxray- if clear would d/c antibiotics and encourage incentive spirometry cxray reviewed no infiltrate, encourage pulmonary toilet and incentive spirometry please call back if needed, will d/c cefepime (started for presumed pneumonia)
[2020-03-29] MEDS: POLYETHYLENE GLYCOL 3350 119 GM BTL PO SCH (10:42)
--- NOTE | 2020-03-29 11:59 | PN ---
Progress Note, Physician History of Present Illness: CTAP results noted BLL pne, + constipation Resume clear liquids, advance as tolerated ID consult Cefepime 2 g tid Encourage I/S use Q1H Original Note: Progress Note, Physician Chief Complaint: Thoracic arachnoid cyst History of Present Illness: 70 yo female s/p Thoracic 4&5 laminectomies and microsurgical fenestration dorsal arachnoid web/resection of arachnoid cyst Operative Date: 03/25/20 Pre-Operative Diagnosis: Thoracic arachnoid cyst/dorsal web Operation: Thoracic 4&5 laminectomies and microsurgical fenestration dorsal arachnoid web/resection of arachnoid cyst Post-Operative Diagnosis: Same as Pre-op Surgeon: Jair Gamboa 03/26/20: In the evening, pt had numbness and weakness of BLLE, STAT thoracic MRI was performed which showed-There is a large mass like density within the laminectomy defect spanning from the mid T4 down to the upper T6 level measuring 3.7 cm in craniocaudal length, 1.8 cm in AP dimension and 1.3 cm in width that is extending to the posterior epidural space with significant mass effect displacing the thoracic cord anteriorly and with moderate to marked cord comp ression. The mass like density demonstrates a decrease T2 and slightly hyperinte nse T1 signal. Soft tissue postoperative changes from prior surgery are present, posteriorly. There is faint increased T2 signal intensity within the thoracic cord at this level suggestive of cord. The rest of the thoracic cord appears unremarkable without abnormal signal intensity seen. Conus tip is in satisfactory position. Note is made of mild degenerative changes in the cervical spine without gross evidence of spinal canal stenosis. Cervical cord and the craniocervical junction. Grossly unremarkable 03/27/20: Operative Date: 03/27/20 Pre-Operative Diagnosis: post op hematoma Operation: Thoracic wound exploration and washout Post-Operative Diagnosis: Other (duraseal and surgicell within space, no hematoma or evidence of CSF leak) Surgeon: Jair Gamboa 03/27/20: Repeat exploration Operative Date: 03/27/20 Pre-Operative Diagnosis: spinal cord compression of unclear etiology s/p wound exploration and washout Operation: wound exploration and removal of bone graft Post-Operative Diagnosis: Same as Pre-op Surgeon: Jair Gamboa Repeat MRI after second wound exploration 03/27/20 19:00: S/p bilateral laminectomy at T45 with operative changes on the previously seen collection compressing the posterior aspect of the cord. This collection has decreased in size with postoperative hematoma just reaching the cord but without significant cord compression. The edema within the cord at T4 and T5 however appears more prominent. 03/28/20: Pt continues to feel numbness below her diaphragm without any pulmonary involvement. Involuntary movement BLLE observed during my encounter, pt is not able to reproduce movements upon request. C/O incisional pain and mild nausea. CTAP is still pending- pt is trying to drink contrast. Seen by Surgery for possible SBO. - Current Medication List Current Medications: Active Medications Acetaminophen (Tylenol -) 650 mg PO Q6H PRN PRN Reason: fever Last Admin: 03/29/20 08:58 Dose: 650 mg Documented by: Amlodipine Besylate (Norvasc -) 5 mg PO [facility] Last Admin: 03/28/20 22:22 Dose: 5 mg Documented by: Chlorhexidine Gluconate (Hibiclens For Decolonization -) 1 applic TP [facility] Last Admin: 03/28/20 22:12 Dose: 1 applic Documented by: Diphenhydramine HCl (Benadryl Injection -) 12.5 mg IVPUSH ONCE PRN PRN Reason: FOR ITCHING Docusate Sodium (Colace -) 100 mg PO TID [facility] Last Admin: 03/29/20 05:42 Dose: Not Given Documented by: Fentanyl (Sublimaze Injection -) 50 mcg IVPUSH [id number] PRN PRN Reason: PAIN-PACU ORDER X 4 DOSES ONLY Fentanyl (Sublimaze Injection -) 25 mcg IVPUSH [id number] PRN PRN Reason: PAIN-PACU ORDER X 4 DOSES ONLY Ferrous Sulfate (Feosol -) 325 mg PO DAILY [facility] Last Admin: 03/29/20 09:26 Dose: 325 mg Documented by: Folic Acid (Folic Acid -) 1 mg PO DAILY [facility] Last Admin: 03/29/20 09:26 Dose: 1 mg Documented by: Heparin Sodium (Porcine) (Heparin -) 5,000 unit SQ TID [facility] Last Admin: 03/29/20 05:43 Dose: 5,000 unit Documented by: Hydromorphone HCl (Hydromorphone 10 Mg/50 Ml-Ns) 10 mg AMBULATORY NURSE AMBULATORY NURSE [facility]; Protocol Stop: 04/03/20 11:47 Last Admin: 03/28/20 18:47 Dose: Not Given Documented by: Potassium Chloride/Dextrose/Sod Cl (D5-1/2ns+20 Meq Kcl -) 20 meq in 1,000 mls @ 75 mls/hr IV ASDIR [facility] Last Admin: 03/28/20 18:20 Dose: 75 mls/hr Documented by: Letrozole (Femara -) 2.5 mg PO HS [facility] Last Admin: 03/28/20 22:37 Dose: 2.5 mg Documented by: Loratadine (Claritin -) 10 mg PO DAILY [facility] Last Admin: 03/29/20 09:27 Dose: 10 mg Documented by: Mupirocin (Bactroban Ointment (For Decolonization) -) 1 applic NS BID [facility] Stop: 04/01/20 21:59 Last Admin: 03/29/20 09:29 Dose: 1 applic Documented by: Ondansetron HCl (Zofran Injection) 4 mg IVPUSH Q4H PRN PRN Reason: NAUSEA AND/OR VOMITING Last Admin: 03/28/20 06:32 Dose: 4 mg Documented by: Pantoprazole Sodium (Protonix Iv) 40 mg IVPUSH BID [facility] Last Admin: 03/29/20 09:27 Dose: 40 mg Documented by: Polyethylene Glycol (Miralax (For Daily Use) -) 17 gm PO DAILY [facility] Last Admin: 03/29/20 10:42 Dose: 17 gm Documented by: Senna (Senna -) 2 tab PO [facility] Last Admin: 03/28/20 22:15 Dose: 2 tab Documented by: - Objective Vital Signs: Vital Signs Temperature 97.6 F 03/29/20 10:00 Pulse Rate 75 03/29/20 10:00 Respiratory Rate 20 03/29/20 08:00 Blood Pressure 167/78 03/29/20 10:00 O2 Sat by Pulse Oximetry (%) 94 L 03/29/20 10:00 Cardiovascular: Yes: S1, S2 Respiratory: Yes: Regular, CTA Bilaterally Gastrointestinal: Yes: Normal Bowel Sounds, Soft Labs: CBC, BMP 03/29/20 06:05 03/29/20 06:05 INR, PTT INR 0.93 (0.83-1.09) 03/27/20 12:50 Problem List - Problems (1) COPD (chronic obstructive pulmonary disease) Code(s): J44.9 - CHRONIC OBSTRUCTIVE PULMONARY DISEASE, UNSPECIFIED (2) HTN (hypertension) Code(s): I10 - ESSENTIAL (PRIMARY) HYPERTENSION (3) S/P laminectomy Code(s): Z98.890 - OTHER SPECIFIED POSTPROCEDURAL STATES (4) GERD (gastroesophageal reflux disease) Code(s): K21.9 - GASTRO-ESOPHAGEAL REFLUX DISEASE WITHOUT ESOPHAGITIS Assessment/Plan - Problems (1) Constipation Assessment/Plan: -Await CTAP -Senna 2 tabs po HS -Miralax po daily -Continue colace Problems reviewed: Yes Code(s): K59.00 - CONSTIPATION, UNSPECIFIED (2) SBO (small bowel obstruction) Assessment/Plan: -Surgical consult -Mild distention on abd exam -Await CTAP -Avoid NGT unless pt c/o abd pain or has evident N/V -NPO -IVF -Monitor lytes Problems reviewed: Yes Code(s): K56.609 - UNSP INTESTNL OBST, UNSP TO PARTIAL VERSUS COMPLETE OBST (3) Weakness of both lower extremities Assessment/Plan: -NS on board -Exp laminectomy x 2 -Aggressive PT -Neuro checks Problems reviewed: Yes Code(s): R29.898 - OTH SYMPTOMS AND SIGNS INVOLVING THE MUSCULOSKELETAL SYSTEM (4) COPD (chronic obstructive pulmonary disease) Problems reviewed: Yes Code(s): J44.9 - CHRONIC OBSTRUCTIVE PULMONARY DISEASE, UNSPECIFIED (5) S/P laminectomy Assessment/Plan: -Seen by NS -Hemodynamically stable Problems reviewed: Yes Code(s): Z98.890 - OTHER SPECIFIED POSTPROCEDURAL STATES (6) Diabetes Assessment/Plan: -Resolved -A1c at 5.6 -D/C BGM -D/C ISS Problems reviewed: Yes Code(s): E11.9 - TYPE 2 DIABETES MELLITUS WITHOUT COMPLICATIONS
--- NOTE | 2020-03-29 15:12 | PN ---
Progress Note, Physician History of Present Illness: Remains without abdominal sensation and no BM - Current Medication List Current Medications: Active Medications Acetaminophen (Tylenol -) 650 mg PO Q6H PRN PRN Reason: fever Last Admin: 03/29/20 08:58 Dose: 650 mg Documented by: Amlodipine Besylate (Norvasc -) 5 mg PO [facility] Last Admin: 03/28/20 22:22 Dose: 5 mg Documented by: Chlorhexidine Gluconate (Hibiclens For Decolonization -) 1 applic TP [facility] Last Admin: 03/28/20 22:12 Dose: 1 applic Documented by: Diphenhydramine HCl (Benadryl Injection -) 12.5 mg IVPUSH ONCE PRN PRN Reason: FOR ITCHING Docusate Sodium (Colace -) 100 mg PO TID [facility] Last Admin: 03/29/20 14:29 Dose: 100 mg Documented by: Fentanyl (Sublimaze Injection -) 50 mcg IVPUSH [id number] PRN PRN Reason: PAIN-PACU ORDER X 4 DOSES ONLY Fentanyl (Sublimaze Injection -) 25 mcg IVPUSH [id number] PRN PRN Reason: PAIN-PACU ORDER X 4 DOSES ONLY Ferrous Sulfate (Feosol -) 325 mg PO DAILY [facility] Last Admin: 03/29/20 09:26 Dose: 325 mg Documented by: Folic Acid (Folic Acid -) 1 mg PO DAILY [facility] Last Admin: 03/29/20 09:26 Dose: 1 mg Documented by: Heparin Sodium (Porcine) (Heparin -) 5,000 unit SQ TID [facility] Last Admin: 03/29/20 14:29 Dose: 5,000 unit Documented by: Hydromorphone HCl (Hydromorphone 10 Mg/50 Ml-Ns) 10 mg [employer]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 [facility]; Protocol Stop: 04/03/20 11:47 Last Admin: 03/28/20 18:47 Dose: Not Given Documented by: Potassium Chloride/Dextrose/Sod Cl (D5-1/2ns+20 Meq Kcl -) 20 meq in 1,000 mls @ 75 mls/hr IV ASDIR [facility] Last Admin: 03/29/20 10:00 Dose: 75 mls/hr Documented by: Letrozole (Femara -) 2.5 mg PO [facility] Last Admin: 03/28/20 22:37 Dose: 2.5 mg Documented by: Loratadine (Claritin -) 10 mg PO DAILY [facility] Last Admin: 03/29/20 09:27 Dose: 10 mg Documented by: Mupirocin (Bactroban Ointment (For Decolonization) -) 1 applic NS BID [facility] Stop: 04/01/20 21:59 Last Admin: 03/29/20 09:29 Dose: 1 applic Documented by: Ondansetron HCl (Zofran Injection) 4 mg IVPUSH Q4H PRN PRN Reason: NAUSEA AND/OR VOMITING Last Admin: 03/28/20 06:32 Dose: 4 mg Documented by: Pantoprazole Sodium (Protonix Iv) 40 mg IVPUSH BID [facility] Last Admin: 03/29/20 09:27 Dose: 40 mg Documented by: Polyethylene Glycol (Miralax (For Daily Use) -) 17 gm PO DAILY [facility] Last Admin: 03/29/20 10:42 Dose: 17 gm Documented by: Senna (Senna -) 2 tab PO HS [facility] Last Admin: 03/28/20 22:15 Dose: 2 tab Documented by: - Objective Vital Signs: Vital Signs Temperature 98.2 F 03/29/20 14:00 Pulse Rate 69 03/29/20 14:00 Respiratory Rate 20 03/29/20 14:00 Blood Pressure 141/96 03/29/20 14:00 O2 Sat by Pulse Oximetry (%) 96 03/29/20 14:00 Gastrointestinal: Yes: Soft, Abdomen, Obese Labs: CBC, BMP 03/29/20 06:05 03/29/20 06:05 INR, PTT INR 0.93 (0.83-1.09) 03/27/20 12:50 - ....Imaging Cat Scan: Report Reviewed, Image Reviewed (No SBO) Problem List - Problems (1) SBO (small bowel obstruction) Assessment/Plan: no imaging evidence of SBO, likely ilues of neurogenic etiology Recommend fleet enemas for constipation No intervention necessary at this time Code(s): K56.609 - UNSP INTESTNL OBST, UNSP TO PARTIAL VERSUS COMPLETE OBST
[2020-03-29 16:10] VITALS: BMI 31.6
[2020-03-29] MEDS: amLODIPine BESYLATE 5 MG TABLET (FP) PO SCH (22:50)
[2020-03-29] MEDS: SENNOSIDES 8.6MG TABLET (FP) PO SCH (22:50)
[2020-03-29] MEDS: LETROZOLE 2.5 MG TABLET (FP) PO SCH (22:52)
[2020-03-29] MEDS: CHLORHEXIDINE GLUCONATE 4% CLEANSER FOR DECOLONIZATION TP SCH (22:53)
[2020-03-30] MEDS: D5-1/2NS+20 MEQ KCL - 20 MEQ/1,000 ML INFUS.BAG IV SCH
[2020-03-30] MEDS: HEPARIN NA (PORCINE) 5,000 UNITS/ML 1ML VIAL SQ SCH ×3 (05:30→21:49)
[2020-03-30] MEDS: DOCUSATE SODIUM 100 MG CAPSULE (FP) PO SCH ×3 (05:30→22:05)
[2020-03-30 07:01] LABS: BASO % 0.2 % (0-2.0); EOS % 0.2 % (0-4.5); HEMATOCRIT 35.4 % (32.4-45.2); LYMPH % 19.7 % (8-40); MCH 29.9 pg (25.7-33.7); MCHC 33.8 g/dl (32.0-36.0); MEAN CELL VOLUME 88.5 fl (80-96); MEAN PLT VOLUME 8.1 fl (7.5-11.1); NEUT % 69.9 % (42.8-82.8); PLATELET COUNT 278 K/MM3 (134-434); RDW 14.3 % (11.6-15.6); WHITE BLOOD COUNT 8.7 K/mm3 (4.0-10.0)
[2020-03-30 07:27] LABS: ALBUMIN 2.2 g/dl (3.4-5.0); BLOOD UREA NITROGEN 20.6 mg/dL (7-18); CREATININE 0.6 mg/dL (0.55-1.3); TOT PROT 5.4 g/dl (6.4-8.2)
[2020-03-30] MEDS: PANTOPRAZOLE SODIUM 40 MG VIAL IVPUSH SCH ×3 (09:56→21:49)
[2020-03-30] MEDS: POLYETHYLENE GLYCOL 3350 119 GM BTL PO SCH (10:01)
[2020-03-30] MEDS: LORATADINE 10 MG TABLET PO SCH ×2 (10:01→18:23)
[2020-03-30] MEDS: FERROUS SO4 325 MG TABLET (FP) PO SCH ×2 (10:01→18:23)
[2020-03-30] MEDS: MUPIROCIN 2% TOPICAL OINTMENT FOR DECOLONIZATION NS SCH (10:01)
[2020-03-30] MEDS: FOLIC ACID 1 MG TABLET (FP) PO SCH ×2 (10:04→18:23)
--- NOTE | 2020-03-30 10:22 | PN ---
Progress Note (short form) - Note Progress Note: Pulm/CCM SUBJECTIVE: Patient seen and examined in the ICU. Awake and alert, not in acute distress. Patient still c/o no sensation in B/L LE, reflexes present, able to withdraw to pain. Today c/o shooting pain in right LE from the HIP to the knee, neuro surgery aware. patient tis HDS, Vital Signs Period Temp Pulse Resp BP Sys/Cunningham Pulse Ox Last 24 Hr 98 F-98.5 F 59-76 14-20 137-180/59-99 91-96 Intake & Output 03/27/20 03/28/20 03/29/20 03/30/20 23:59 23:59 23:59 23:59 Intake Total 2150 1756 2495 1000 Output Total 2187 1210 2545 600 Balance -37 546 -50 400 Weight 81.193 kg Active Medications Acetaminophen (Tylenol -) 650 mg PO Q6H PRN PRN Reason: fever Last Admin: 03/29/20 08:58 Dose: 650 mg Documented by: Amlodipine Besylate (Norvasc -) 5 mg PO [facility] Last Admin: 03/29/20 22:50 Dose: 5 mg Documented by: Chlorhexidine Gluconate (Hibiclens For Decolonization -) 1 applic TP [facility] Last Admin: 03/29/20 22:53 Dose: 1 applic Documented by: Diphenhydramine HCl (Benadryl Injection -) 12.5 mg IVPUSH ONCE PRN PRN Reason: FOR ITCHING Docusate Sodium (Colace -) 100 mg PO TID [facility] Last Admin: 03/30/20 05:30 Dose: 100 mg Documented by: Fentanyl (Sublimaze Injection -) 50 mcg IVPUSH [id number] PRN PRN Reason: PAIN-PACU ORDER X 4 DOSES ONLY Fentanyl (Sublimaze Injection -) 25 mcg IVPUSH [id number] PRN PRN Reason: PAIN-PACU ORDER X 4 DOSES ONLY Last Admin: 03/29/20 22:51 Dose: 25 mcg Documented by: Ferrous Sulfate (Feosol -) 325 mg PO DAILY [facility] Last Admin: 03/30/20 10:01 Dose: 325 mg Documented by: Folic Acid (Folic Acid -) 1 mg PO DAILY [facility] Last Admin: 03/30/20 10:04 Dose: 1 mg Documented by: Heparin Sodium (Porcine) (Heparin -) 5,000 unit SQ TID [facility] Last Admin: 03/30/20 05:30 Dose: 5,000 unit Documented by: Potassium Chloride/Dextrose/Sod Cl (D5-1/2ns+20 Meq Kcl -) 20 meq in 1,000 mls @ 75 mls/hr IV ASDIR [facility] Last Admin: 03/30/20 00:00 Dose: 75 mls/hr Documented by: Letrozole (Femara -) 2.5 mg PO [facility] Last Admin: 03/29/20 22:52 Dose: 2.5 mg Documented by: Loratadine (Claritin -) 10 mg PO DAILY [facility] Last Admin: 03/30/20 10:01 Dose: 10 mg Documented by: Magnesium Citrate (Citroma -) 300 ml PO ONCE ONE Stop: 03/30/20 10:37 Mupirocin (Bactroban Ointment (For Decolonization) -) 1 applic NS BID [facility] Stop: 04/01/20 21:59 Last Admin: 03/30/20 10:01 Dose: 1 applic Documented by: Ondansetron HCl (Zofran Injection) 4 mg IVPUSH Q4H PRN PRN Reason: NAUSEA AND/OR VOMITING Last Admin: 03/28/20 06:32 Dose: 4 mg Documented by: Pantoprazole Sodium (Protonix Iv) 40 mg IVPUSH BID [facility] Last Admin: 03/30/20 09:56 Dose: 40 mg Documented by: Polyethylene Glycol (Miralax (For Daily Use) -) 17 gm PO DAILY [facility] Last Admin: 03/30/20 10:01 Dose: 17 gm Documented by: Senna (Senna -) 2 tab PO [facility] Last Admin: 03/29/20 22:50 Dose: 2 tab Documented by: GENERAL: Awake, alert, and fully oriented, NAD HEAD: Normal with no signs of trauma. EYES: PERRL, EOM intact. ENT: Moist mucous membranes. NECK: supple LUNGS: Clear, diminished at the bases HEART: RRR normal S1 and S2 without murmur, rub or gallop. ABDOMEN: soft, non tender, no sensation below the waist MUSCULOSKELETAL: Muscle weakness BL legs, hips. UPPER EXTREMITIES: warm, well-perfused. No cyanosis. No edema. LOWER EXTREMITIES: 2+ pulses, warm, well-perfused. No calf tenderness. No peripheral edema. NEUROLOGICAL: 0/5 Bilateral LE, numbness, withdraw to pain SKIN: Warm, dry Drain with serous Tspine CBC, BMP 03/30/20 06:05 03/30/20 06:05 ASSESSMENT/PLAN: POD#3 : Thoracic 4&5 laminectomies and microsurgical fenestration dorsal arachnoid web/resection of arachnoid cyst Spinal cord compression of unclear etiology s/p wound exploration and washout CVD HTN GERD Herniated disc s/p trauma 2 years ago Breast CA -steroids per surgery -Incentive Spirometry -Strict I & O -SCDs -Full liquid diet -Aggressive bowel regiment -Frequent neuro assessment Dispo: patient is HDS, not in acute distress, stable to go to floor. Luana Mcadams ACNP [phone]
[2020-03-30] MEDS ORDERED: MAGNESIUM CITRATE 300 ML BOTTLE PO ONE (10:36)
--- NOTE | 2020-03-30 13:52 | PN ---
Progress Note, Physician - Current Medication List Current Medications: Active Medications Acetaminophen (Tylenol -) 650 mg PO Q6H PRN PRN Reason: fever Last Admin: 03/29/20 08:58 Dose: 650 mg Documented by: Amlodipine Besylate (Norvasc -) 5 mg PO [facility] Last Admin: 03/29/20 22:50 Dose: 5 mg Documented by: Chlorhexidine Gluconate (Hibiclens For Decolonization -) 1 applic TP [facility] Last Admin: 03/29/20 22:53 Dose: 1 applic Documented by: Diphenhydramine HCl (Benadryl Injection -) 12.5 mg IVPUSH ONCE PRN PRN Reason: FOR ITCHING Docusate Sodium (Colace -) 100 mg PO TID [facility] Last Admin: 03/30/20 13:15 Dose: 100 mg Documented by: Fentanyl (Sublimaze Injection -) 50 mcg IVPUSH [id number] PRN PRN Reason: PAIN-PACU ORDER X 4 DOSES ONLY Fentanyl (Sublimaze Injection -) 25 mcg IVPUSH [id number] PRN PRN Reason: PAIN-PACU ORDER X 4 DOSES ONLY Last Admin: 03/29/20 22:51 Dose: 25 mcg Documented by: Ferrous Sulfate (Feosol -) 325 mg PO DAILY [facility] Last Admin: 03/30/20 10:01 Dose: 325 mg Documented by: Folic Acid (Folic Acid -) 1 mg PO DAILY [facility] Last Admin: 03/30/20 10:04 Dose: 1 mg Documented by: Heparin Sodium (Porcine) (Heparin -) 5,000 unit SQ TID [facility] Last Admin: 03/30/20 13:15 Dose: 5,000 unit Documented by: Potassium Chloride/Dextrose/Sod Cl (D5-1/2ns+20 Meq Kcl -) 20 meq in 1,000 mls @ 75 mls/hr IV ASDIR [facility] Last Admin: 03/30/20 00:00 Dose: 75 mls/hr Documented by: Letrozole (Femara -) 2.5 mg PO [facility] Last Admin: 03/29/20 22:52 Dose: 2.5 mg Documented by: Loratadine (Claritin -) 10 mg PO DAILY [facility] Last Admin: 03/30/20 10:01 Dose: 10 mg Documented by: Mupirocin (Bactroban Ointment (For Decolonization) -) 1 applic NS BID [facility] Stop: 04/01/20 21:59 Last Admin: 03/30/20 10:01 Dose: 1 applic Documented by: Ondansetron HCl (Zofran Injection) 4 mg IVPUSH Q4H PRN PRN Reason: NAUSEA AND/OR VOMITING Last Admin: 03/28/20 06:32 Dose: 4 mg Documented by: Pantoprazole Sodium (Protonix Iv) 40 mg IVPUSH BID [facility] Last Admin: 03/30/20 09:56 Dose: 40 mg Documented by: Polyethylene Glycol (Miralax (For Daily Use) -) 17 gm PO DAILY [facility] Last Admin: 03/30/20 10:01 Dose: 17 gm Documented by: Senna (Senna -) 2 tab PO HS [facility] Last Admin: 03/29/20 22:50 Dose: 2 tab Documented by: - Objective Vital Signs: Vital Signs Temperature 97.7 F 03/30/20 10:00 Pulse Rate 71 03/30/20 12:00 Respiratory Rate 20 03/30/20 12:00 Blood Pressure 158/82 03/30/20 12:00 O2 Sat by Pulse Oximetry (%) 95 03/30/20 12:00 Cardiovascular: Yes: Regular Rate and Rhythm Respiratory: Yes: Regular, CTA Bilaterally Gastrointestinal: Yes: Normal Bowel Sounds, Soft Neurological: Yes: Alert, Oriented, Loss of Sensation, Numbness, Paresthesia, Weakness Labs: CBC, BMP 03/30/20 06:05 03/30/20 06:05 INR, PTT INR 0.93 (0.83-1.09) 03/27/20 12:50 Problem List - Problems (1) COPD (chronic obstructive pulmonary disease) Code(s): J44.9 - CHRONIC OBSTRUCTIVE PULMONARY DISEASE, UNSPECIFIED (2) HTN (hypertension) Code(s): I10 - ESSENTIAL (PRIMARY) HYPERTENSION (3) S/P laminectomy Code(s): Z98.890 - OTHER SPECIFIED POSTPROCEDURAL STATES (4) GERD (gastroesophageal reflux disease) Code(s): K21.9 - GASTRO-ESOPHAGEAL REFLUX DISEASE WITHOUT ESOPHAGITIS Assessment/Plan - Problems (1) Constipation Assessment/Plan: -Await CTAP -Senna 2 tabs po HS -Miralax po daily -Continue colace Problems reviewed: Yes Code(s): K59.00 - CONSTIPATION, UNSPECIFIED (2) SBO (small bowel obstruction) Assessment/Plan: -Surgical consult -Mild distention on abd exam -Await CTAP -Avoid NGT unless pt c/o abd pain or has evident N/V -NPO -IVF -Monitor lytes Problems reviewed: Yes Code(s): K56.609 - UNSP INTESTNL OBST, UNSP TO PARTIAL VERSUS COMPLETE OBST (3) Weakness of both lower extremities Assessment/Plan: -NS on board -Exp laminectomy x 2 -Aggressive PT -Neuro checks -Neuro consult Problems reviewed: Yes Code(s): R29.898 - OTH SYMPTOMS AND SIGNS INVOLVING THE MUSCULOSKELETAL SYSTEM (4) COPD (chronic obstructive pulmonary disease) Problems reviewed: Yes Code(s): J44.9 - CHRONIC OBSTRUCTIVE PULMONARY DISEASE, UNSPECIFIED (5) S/P laminectomy Assessment/Plan: -Seen by NS -Hemodynamically stable Problems reviewed: Yes Code(s): Z98.890 - OTHER SPECIFIED POSTPROCEDURAL STATES (6) Diabetes Assessment/Plan: -Resolved -A1c at 5.6 -D/C BGM -D/C ISS Problems reviewed: Yes Code(s): E11.9 - TYPE 2 DIABETES MELLITUS WITHOUT COMPLICATIONS
--- NOTE | 2020-03-30 14:33 | CON.NEURO ---
Consult Consult Specialty:: NEUROLOGY-ANANT SANDOVAL - History of Present Illness History of Present Illness: 70 yo female admitted 03/25 for t4/t5 laminectomy and resection of arachnoid cyst- she developed postop hematoma and underwent 2 washouts on 03/27 now in ICU with drain in her back no fevers awake and alert able to move her arms, reports no sensation below her chest and cannot move legs- NS aware no BM asked to see for pneumonia-started on cefepime yesterday no cxray done has no cough had ct scan abd/pelvis done yesterday- 03/28--Bibasilar atelectasis with small effusion, moderate fecal retention, no SBO -Pt. reports she is unable to move legs and has diminished sensation to touch below both breasts.Also reports""loosing" bowels this morning. In right le describes"shootoing pain in L4 distribution. - Past Medical History Cardio/Vascular: Yes: HTN Pulmonary: Yes: COPD Gastrointestinal: Yes: Irritable Bowel Disease Renal/: Yes: Other (urinary incontinence) - Past Surgical History Past Surgical History: Yes: Appendectomy, Cholecystectomy, Hernia Repair, Tonsillectomy Additional Surgical History: mastectomy left breast and 2 partial lumlpectomies - Alcohol/Substance Use Hx Alcohol Use: No - Smoking History Smoking history: Never smoked Have you smoked in the past 12 months: No If you are a former smoker, when did you quit?: 1969 - Social History Usual Living Arrangement: Alone 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, daughter in [facility] History of Recent Travel: No Home Medications - Allergies Allergies/Adverse Reactions: Allergies Allergy/AdvReac Type Severity Reaction Status Date / Time aspirin Allergy "rash,fever Verified 03/25/20 07:21 " montelukast sodium Allergy "elevated Verified 03/25/20 07:21 [From Singulair] blood pressure" Penicillins Allergy "fever,rash Verified 03/25/20 07:21 " shellfish derived Allergy "toxic Verified 03/25/20 07:21 reaction" tetracycline [Tetracycline] Allergy "fever,rash,hairy Verified 03/25/20 07:21 tongue" - Home Medications Home Medications: Ambulatory Orders Amlodipine Besylate [Norvasc -] 5 mg PO HS 09/13/16 Letrozole 2.5 mg PO HS 03/21/18 Mirabegron [Myrbetriq] 25 mg PO DAILY 03/21/18 Cetirizine HCl [Allergy Relief] 10 mg PO DAILY 11/01/18 Fluticasone/Vilanterol [Breo Ellipta 200-25 Mcg INH] 1 each IH PRN PRN 08/29/19 Umeclidinium Vanderwagen [Incruse Ellipta] 62.5 mcg IH PRN PRN 08/29/19 Clobetasol Propionate/Emoll [Clobetasol Emulsion 0.05% Foam] 100 gm TP BID 03/24/20 Acetaminophen [Pain Relief] 2 tab PO BID 03/28/20 Alendronate Sodium 75 ml PO DAILY 03/28/20 Family Medical History Family History: Denies Physical Exam-Neuro Vital Signs: Vital Signs Temperature 98.9 F 03/30/20 14:00 Pulse Rate 82 03/30/20 14:00 Respiratory Rate 03/30/20 14:00 Blood Pressure 147/87 03/30/20 14:00 O2 Sat by Pulse Oximetry (%) 94 L 03/30/20 14:00 Labs: CBC, BMP 03/30/20 06:05 03/30/20 06:05 INR, PTT INR 0.93 (0.83-1.09) 03/27/20 12:50 - Neuro Exam Level Of Consciousness: Yes: Alert, Oriented to Person, Oriented to Place Mini Mental Exam: Intact DTR's: 0 Right Achilles (Right knee jerk- absent, left knee jerk-1+), 1+ Left Brachioradialis, 1+ Right Brachioradialis, 1+ Left Achilles, 2+ Left Bicep, 2+ Right Bicep, 2+ Left Tricep, 2+ Right Tricep Babinski: Absent Response to light touch: Abnormal (markedly diminished in both legs/thoracic region up to T4 level) Motor Strength: 0/5: Left Leg, Right Leg, 5/5: Left Arm, Right Arm Gait: Deferred Imaging - Results MRI: Report Reviewed (03/27s/p bilat laminectomy t4/5 level with hematoma+ cord edema at this level more prominent from previous scan.) Assessment/Plan S/P thoracic laminectomy, now paraplegic with diminished sensation up to T4 level. This can be explained on basis of edema in cord however it is not significant enough to account for plegia. In addition, right L4 region pain and absence of right knee jerk may point to lumbar pathology. Suggest: MRI L/T spine, would consider placing on steroids after d/w Dr. Castellanos and depending on MRI results, ?cord ischemia/?tracking of hematoma down to lumbar level,? [place] . i will d/w Dr. Castellanos, n/s.d/w nursing staff. Thank you, Elizabet Davison MD
[2020-03-30] MEDS ORDERED: oxyCODONE HCL 10 MG SUSTAINED ACTING TABLET ONE (15:58)
[2020-03-30] MEDS ORDERED: oxyCODONE HCL 5 MG TABLET PO PRN (16:00)
[2020-03-30] MEDS ORDERED: ACETAMINOPHEN 325 MG TABLET (FP) PO PRN (16:00)
[2020-03-30] MEDS: ACETAMINOPHEN 325 MG TABLET (FP) PO PRN (16:05)
[2020-03-30] MEDS ORDERED: oxyCODONE HCL 10 MG SUSTAINED ACTING TABLET PO ONE (16:10)
[2020-03-30] MEDS: HYDROmorphone *PCA* 10MG/50ML DISP.SYRIN PCA SCH (18:22)
[2020-03-30] MEDS: VILANTEROL IH SCH (18:23)
[2020-03-30] MEDS: FLUTICASONE IH SCH (18:23)
[2020-03-30] MEDS: MIRABEGRON 25 MG PO SCH (18:23)
[2020-03-30] MEDS: UMECLIDINIUM BROMIDE 62.5 MCG IH SCH (18:28)
[2020-03-30] MEDS: CEFEPIME HCL/D5W 1 GM/50 ML BAG IVPB SCH ×2 (18:30→18:43)
[2020-03-30] MEDS ORDERED: PT OWN MED DRAWER 7, Y5N ONE (21:26)
[2020-03-30] MEDS: SENNOSIDES 8.6MG TABLET (FP) PO SCH (21:50)
[2020-03-30] MEDS: amLODIPine BESYLATE 5 MG TABLET (FP) PO SCH (21:51)
[2020-03-30] MEDS: LETROZOLE 2.5 MG TABLET (FP) PO SCH (22:38)
[2020-03-31] MEDS: DOCUSATE SODIUM 100 MG CAPSULE (FP) PO SCH ×3 (05:54→22:11)
[2020-03-31] MEDS: HEPARIN NA (PORCINE) 5,000 UNITS/ML 1ML VIAL SQ SCH ×3 (05:55→22:11)
[2020-03-31 09:21] LABS: ALBUMIN 2.5 g/dl (3.4-5.0); BILIRUBIN,TOTAL 0.6 mg/dL (0.2-1); BLOOD UREA NITROGEN 13.4 mg/dL (7-18); CALCIUM 8.3 mg/dL (8.5-10.1); CREATININE 0.5 mg/dL (0.55-1.3); POTASSIUM 3.8 mmol/L (3.5-5.1); TOT PROT 5.9 g/dl (6.4-8.2)
--- NOTE | 2020-03-31 09:32 | PN ---
Progress Note (short form) - Note Progress Note: Surgery POD#6 T45 arachnoid cyst resection and POD # 4 wound exploration and washout x2 on 03/27 with no significant finding of hematoma or mechanical compression that would explain the patient's new symptoms. Patient seen by neurology -question or cord edema vs tracking hematoma? She completed the 24hr steroid course per acute cord injury protocol. Patient seen and examined on AM rounds. She states that she is now able to feel more sensation over her abdomen and she moved her bowels, although she did not feel it. She is experiencing some right LE radicular pain with left LE spasms in foot and more generalized sensation and paresthesias over b/l thighs Her pain is controlled although she does have some pain at the incision site. She denies any CP, SOB, N/V fever or chills. Her drain put out 100cc/24hrs, SCDS and stallworth in place. Vital Signs Temp 98.7 F 03/31/20 06:00 Pulse 70 03/31/20 06:00 Resp 18 03/31/20 06:00 BP 123/76 03/31/20 06:00 Pulse Ox 95 03/31/20 06:00 Intake & Output 03/30/20 03/30/20 03/31/20 11:59 23:59 11:59 Intake Total 1000 1050 300 Output Total 600 3650 835 Balance 400 -2600 -535 Intake: IV 900 200 D5-1/2NS+20 MEQ KCL - 20 900 200 meq In 1,000 ml @ 75 mls/ hr IV ASDIR [facility] Rx#: [id number] IVPB 100 Oral 850 300 Output: Drainage 100 35 Right Posterior Back 100 35 Urine 600 3550 800 Stallworth 600 3550 800 Other: Voiding Method Indwelling Catheter Incontinent Incontinent Bowel Movement Yes: large loose # Bowel Movements 3 CBC, BMP 03/31/20 07:08 PE: A&Ox3, NAD, Vitals signs stable Unlabored resp on RA T-Spine: incision c/d/i with surrounding tissue intact and no tracking erythema, drain removed with tip fully intact and drain ostomy site clean and dry with no active d/c. B/L UE with 5/5 strength on biceps, triceps, and levee superintendent strength, sensation to light touch intact throughout ABD: Obese, ND with slight TTP at RLQ, sensation to light touch grossly intact below the umbilicus. B/L LE moderate sensation to light touch over right thigh, minimal sensation to light touch over left thigh, sensation of pressure over b/L calves with pain to light otugh over right dorsum and minimal sensation to light touch over left LE. Some spastic movements of left foot but no intentional movements of b/l LE, B/L lE compartments soft, supple with +2 DP pulses. Repeat Thoracic MRI and Lumbar MRI pending. Problem List - Problems (1) Thoracic cyst Assessment/Plan: POD #4 wound exploration x2 and POD #6 resection of arachnoid cyst with patient now experiencing b/l LE paralysis and numbness extending up to level of the diaphragm or unclear etiology, however sensation is slowly improving. She is tolerating her diet and has moved her bowels but still have limited sensation and no intentional movement of b/l LE. -d/c stallworth, please use purewick. -DVT prophylaxis -regular diet -f/u thoracic and lumbar MRI -pain control -Aggressive PT while in bed to mobilize joints and specialized rehab for patients in this setting. -Patient will need aggressive PT upon d/c from hospital- rehab planning for [facility] if possible. Evaluation and plan discussed with Dr Gamboa. Code(s): Q34.9 - CONGENITAL MALFORMATION OF RESPIRATORY SYSTEM, UNSPECIFIED (2) S/P cervical spinal fusion Code(s): Z98.1 - ARTHRODESIS STATUS
[2020-03-31 10:02] LABS: BASO % 0.1 % (0-2.0); EOS % 1.3 % (0-4.5); HEMATOCRIT 38.6 % (32.4-45.2); HEMOGLOBIN 12.8 GM/dL (10.7-15.3); LYMPH % 19.5 % (8-40); MCH 29.4 pg (25.7-33.7); MCHC 33.2 g/dl (32.0-36.0); MEAN CELL VOLUME 88.3 fl (80-96); MEAN PLT VOLUME 8.1 fl (7.5-11.1); MONO % 7.9 % (3.8-10.2); NEUT % 71.2 % (42.8-82.8); PLATELET COUNT 322 K/MM3 (134-434); RBC 4.37 M/mm3 (3.60-5.2); RDW 14.3 % (11.6-15.6); WHITE BLOOD COUNT 8.6 K/mm3 (4.0-10.0)
[2020-03-31] MEDS ORDERED: PT OWN MED DRAWER 7, Y5N ONE ×2 (10:37→21:21)
[2020-03-31] MEDS: FERROUS SO4 325 MG TABLET (FP) PO SCH (11:01)
[2020-03-31] MEDS: FOLIC ACID 1 MG TABLET (FP) PO SCH (11:01)
[2020-03-31] MEDS: LORATADINE 10 MG TABLET PO SCH (11:01)
[2020-03-31] MEDS: POLYETHYLENE GLYCOL 3350 119 GM BTL PO SCH (11:02)
[2020-03-31 11:17] LABS: ANISOCYTOSIS 1+; MACROCYTOSIS 0; PLATELET ESTIMATE NORMAL
[2020-03-31] MEDS: PANTOPRAZOLE SODIUM 40 MG VIAL IVPUSH SCH ×2 (11:17→22:11)
--- NOTE | 2020-03-31 12:47 | CONS ---
PHYSICAL MEDICINE/REHABILITATION CONSULTATION DATE OF CONSULTATION: 03/31/2020 REFERRING PHYSICIAN: Andi Moffett MD HISTORY OF PRESENT ILLNESS: Patient is a 70-year-old woman with past medical history of injuries to her neck and lower back who was admitted on March 25, 2020, undergoing T4-T5 laminectomy and resection of an arachnoid cyst. Postoperatively the patient was seen by Physical Therapy, able to ambulate 75 feet with a rolling walker contact guard, [id number] contact guard. However, she developed further problems, was taken for 2 washouts on March 27, found to have a large hematoma on thoracic spine MRI and notes that she has numbness from the upper part of her abdomen and chest all the way distally into her feet with no active movement in the lower extremities. Per the MRI, .there was not significant cord damage. Patient did undergo neurologic evaluation as well as infectious disease evaluation. Patient underwent a followup thoracic spine MRI on March 30 which showed decreased size in the postoperative hematoma at the laminectomy site and small residual hematoma without any cord compression. No change of the edema of the thoracic cord extending from the T3-4 disk to the superior aspect of T6. MRI of the lumbar spine on March 30 was also done which demonstrated mild degenerative disk disease and facet joint changes with minimal anterior subluxation of L4. Blood work last done on March 30: WBCs which had been elevated on March 26 at 15.3 normalized on March 30 to 8.7. Further blood work done today showed a normal WBC of 8.6, hemoglobin stable 12.8, platelet count 322. Chemistry was within normal limits except for a low albumin of 2.5, low total protein of 5.9 and a low creatinine of 0.5. Patient again is getting physical therapy, but not able to stand or ambulate. She was performing [id number] with max assist of two, rolling with moderate assist of two as of today. REVIEW OF PAST MEDICAL & SURGICAL HISTORY: Hypertension, COPD, irritable bowel syndrome, injuries to the cervical, thoracic and lumbar spine, history of breast cancer, urinary incontinence, appendectomy, cholecystectomy, hernia repair, mastectomy left breast, 2 partial lumpectomies. SOCIAL HISTORY: Lives alone in a senior apartment. She has a home health aide 5 days a week. Premorbidly she was ambulatory with a walker. Current function as above. REVIEW OF SYSTEMS: No headache. No lightheadedness, dizziness. No blurry vision, double vision. No chest pain or shortness of breath. No fever or chills. Again, she has numbness, weakness throughout her lower extremities as well as the numbness coming onto her abdomen and up almost to the xiphoid. No numbness, tingling, weakness in the upper extremities. Some degree of neck discomfort. No skin rash. NEUROMUSCULAR EXAMINATION: She is awake, alert and cooperative. Cranial nerves II through XII grossly intact. Good motor power in the upper extremities with normal sensation, normal and symmetric reflexes. She has diminished sensation from about the T4-T5 level distally in patches. However, on the right thigh she has started to feel pin prick and in certain areas in the left abdomen she can start to feel pin prick. No vibration. No active motion, but passive range of motion is full in the lower extremities. Depressed reflex. OVERALL IMPRESSION: 1. Deficits in mobility, activities of daily living multifactorial. 2. Possible spinal cord injury incomplete at the T4-T5 level with a hematoma, although there is no cord compression noted on most recent thoracic MRI. 3. Status post T4-T5 laminectomy and resection of arachnoid cyst with postoperative hematoma. 4. Hypoalbuminemia. 5. Elevated risk for deep vein thrombosis due to immobility. 6. Constipation. 7. Lumbar facet arthropathy. 8. Status post leukocytosis. PLAN/SUGGESTION: 1. Continue physical therapy at the bedside. 2. When able, out of bed to chair. 3. Continue SCDs. 4. Neurologic followup. 5. Neurosurgical followup. 6. Infectious Disease followup. 7. Skin precautions. 8. Bowel regimen. 9. Will need extensive rehab, although the patient is hoping to go home with home care. Thank you for this referral. SHARITA PISANO M.D. [id number]
--- NOTE | 2020-03-31 15:04 | PN ---
Progress Note, Physician Chief Complaint: AWAKE ALERT EVENTS AND NOTES REVIEWED IN BED COMFORTABLE C/O WEAKNESS LOWER EXTREMITY - Current Medication List Current Medications: Active Medications Acetaminophen (Tylenol -) 650 mg PO Q6H PRN PRN Reason: fever Last Admin: 03/30/20 16:05 Dose: 650 mg Documented by: Acetaminophen (Tylenol -) 325 mg PO Q4H PRN PRN Reason: PAIN LEVEL 1-5 Stop: 04/02/20 15:59 Acetaminophen (Tylenol -) 650 mg PO Q4H PRN PRN Reason: PAIN LEVEL 6-10 Stop: 04/02/20 15:59 Amlodipine Besylate (Norvasc -) 5 mg PO [facility] Last Admin: 03/30/20 21:51 Dose: 5 mg Documented by: Diphenhydramine HCl (Benadryl Injection -) 12.5 mg IVPUSH ONCE PRN PRN Reason: FOR ITCHING Docusate Sodium (Colace -) 100 mg PO TID [facility] Last Admin: 03/31/20 14:52 Dose: 100 mg Documented by: Ferrous Sulfate (Feosol -) 325 mg PO DAILY [facility] Last Admin: 03/31/20 11:01 Dose: 325 mg Documented by: Folic Acid (Folic Acid -) 1 mg PO DAILY [facility] Last Admin: 03/31/20 11:01 Dose: 1 mg Documented by: Heparin Sodium (Porcine) (Heparin -) 5,000 unit SQ TID [facility] Last Admin: 03/31/20 14:52 Dose: 5,000 unit Documented by: Letrozole (Femara -) 2.5 mg PO [facility] Last Admin: 03/30/20 22:38 Dose: 2.5 mg Documented by: Loratadine (Claritin -) 10 mg PO DAILY [facility] Last Admin: 03/31/20 11:01 Dose: 10 mg Documented by: Ondansetron HCl (Zofran Injection) 4 mg IVPUSH Q4H PRN PRN Reason: NAUSEA AND/OR VOMITING Last Admin: 03/28/20 06:32 Dose: 4 mg Documented by: Oxycodone HCl (Roxicodone -) 5 mg PO Q4H PRN PRN Reason: PAIN LEVEL 1-5 Oxycodone HCl (Roxicodone -) 10 mg PO Q4H PRN PRN Reason: PAIN LEVEL 6-10 Pantoprazole Sodium (Protonix Iv) 40 mg IVPUSH BID [facility] Last Admin: 03/31/20 11:17 Dose: 40 mg Documented by: Polyethylene Glycol (Miralax (For Daily Use) -) 17 gm PO DAILY [facility] Last Admin: 03/31/20 11:02 Dose: 17 gm Documented by: Sentino (Senna -) 2 tab PO HS [facility] Last Admin: 03/30/20 21:50 Dose: Not Given Documented by: - Objective Vital Signs: Vital Signs Temperature 98.1 F 03/31/20 13:40 Pulse Rate 91 H 03/31/20 13:40 Respiratory Rate 18 03/31/20 13:40 Blood Pressure 107/66 03/31/20 13:40 O2 Sat by Pulse Oximetry (%) 92 L 03/31/20 13:40 Constitutional: Yes: Mild Distress Cardiovascular: Yes: Regular Rate and Rhythm Respiratory: Yes: WNL Gastrointestinal: Yes: Soft Genitourinary: Yes: Monge Present Musculoskeletal: Yes: Muscle Weakness Neurological: Yes: Weakness ...Motor Strength: LLE, RLE Psychiatric: Yes: Other Labs: CBC, BMP 03/31/20 07:08 03/31/20 07:08 INR, PTT INR 0.93 (0.83-1.09) 03/27/20 12:50 Problem List - Problems (1) COPD (chronic obstructive pulmonary disease) Code(s): J44.9 - CHRONIC OBSTRUCTIVE PULMONARY DISEASE, UNSPECIFIED (2) Diabetes Code(s): E11.9 - TYPE 2 DIABETES MELLITUS WITHOUT COMPLICATIONS (3) S/P laminectomy Code(s): Z98.890 - OTHER SPECIFIED POSTPROCEDURAL STATES (4) Weakness of both lower extremities Code(s): R29.898 - OTH SYMPTOMS AND SIGNS INVOLVING THE MUSCULOSKELETAL SYSTEM (5) HTN (hypertension) Code(s): I10 - ESSENTIAL (PRIMARY) HYPERTENSION Assessment/Plan DVT PROPHYLAXIS PT EVAL NEUROLOGY AND NEUROSURGERY G/O INCENTIVE SPIROMETRY OOB TO CHAIR IF POSSIBLE NEEDS SNF PLACEMENT
--- NOTE | 2020-03-31 17:58 | PATH ---
Surgical Pathology Report Patient Name: CYNTHIA HICKS Med. Rec. #: [id number] /Age/Gender: 1950 (Age: 70) / F Account: [id number] Location: [facility] MED/SURG Taken: 03/27/2020 Received: 03/28/2020 Reported: 03/31/2020 Physicians: Lorne Cheng M.D. Specimen(s) Received MUSCLE Clinical History Thoracic arachnoid Cyst. Exploration of posterior wound Final Diagnosis MUSCLE, EXLORATION OF POSTERIOR WOUND: SKELETAL MUSCLE, FIBROCONNECTIVE TISSUE, AND DENSE FIBROUS TISSUE WITH PATCHY ACUTE INFLAMMATION. Electronically Signed Ping Horn M.D. Gross Description Received fresh labeled "muscle" are 2 schilling, irregular portions of soft tissue consistent with muscle measuring 2 x 2 x 0.3 cm in aggregate. The specimen is submitted in toto in one cassette. AUGUSTINE/03/28/2020 vanna/03/28/2020
[2020-03-31] MEDS: amLODIPine BESYLATE 5 MG TABLET (FP) PO SCH (22:11)
[2020-03-31] MEDS: LETROZOLE 2.5 MG TABLET (FP) PO SCH (22:11)
[2020-03-31] MEDS: SENNOSIDES 8.6MG TABLET (FP) PO SCH (22:11)
[2020-04-01] MEDS: DOCUSATE SODIUM 100 MG CAPSULE (FP) PO SCH ×3 (06:36→22:12)
[2020-04-01] MEDS: HEPARIN NA (PORCINE) 5,000 UNITS/ML 1ML VIAL SQ SCH ×3 (06:36→22:12)
--- NOTE | 2020-04-01 07:34 | PN ---
Progress Note, Physician Chief Complaint: PATIENT AWAKE ALERT REPORTS BETTER SENSATION IN ABDOMEN/TORSO AND LOWER EXTREMITIES GREGG GARCIA'S NOTES REVIEWED - Current Medication List Current Medications: Active Medications Acetaminophen (Tylenol -) 650 mg PO Q6H PRN PRN Reason: fever Last Admin: 03/30/20 16:05 Dose: 650 mg Documented by: Acetaminophen (Tylenol -) 325 mg PO Q4H PRN PRN Reason: PAIN LEVEL 1-5 Stop: 04/02/20 15:59 Acetaminophen (Tylenol -) 650 mg PO Q4H PRN PRN Reason: PAIN LEVEL 6-10 Stop: 04/02/20 15:59 Amlodipine Besylate (Norvasc -) 5 mg PO [facility] Last Admin: 03/31/20 22:11 Dose: 5 mg Documented by: Diphenhydramine HCl (Benadryl Injection -) 12.5 mg IVPUSH ONCE PRN PRN Reason: FOR ITCHING Docusate Sodium (Colace -) 100 mg PO TID [facility] Last Admin: 04/01/20 06:36 Dose: 100 mg Documented by: Ferrous Sulfate (Feosol -) 325 mg PO DAILY [facility] Last Admin: 03/31/20 11:01 Dose: 325 mg Documented by: Folic Acid (Folic Acid -) 1 mg PO DAILY [facility] Last Admin: 03/31/20 11:01 Dose: 1 mg Documented by: Heparin Sodium (Porcine) (Heparin -) 5,000 unit SQ TID [facility] Last Admin: 04/01/20 06:36 Dose: 5,000 unit Documented by: Letrozole (Femara -) 2.5 mg PO [facility] Last Admin: 03/31/20 22:11 Dose: 2.5 mg Documented by: Loratadine (Claritin -) 10 mg PO DAILY [facility] Last Admin: 03/31/20 11:01 Dose: 10 mg Documented by: Ondansetron HCl (Zofran Injection) 4 mg IVPUSH Q4H PRN PRN Reason: NAUSEA AND/OR VOMITING Last Admin: 03/28/20 06:32 Dose: 4 mg Documented by: Oxycodone HCl (Roxicodone -) 5 mg PO Q4H PRN PRN Reason: PAIN LEVEL 1-5 Oxycodone HCl (Roxicodone -) 10 mg PO Q4H PRN PRN Reason: PAIN LEVEL 6-10 Last Admin: 04/01/20 06:37 Dose: 10 mg Documented by: Pantoprazole Sodium (Protonix Iv) 40 mg IVPUSH BID [facility] Last Admin: 03/31/20 22:11 Dose: 40 mg Documented by: Polyethylene Glycol (Miralax (For Daily Use) -) 17 gm PO DAILY [facility] Last Admin: 03/31/20 11:02 Dose: 17 gm Documented by: Senna (Senna -) 2 tab PO HS [facility] Last Admin: 03/31/20 22:11 Dose: 2 tab Documented by: - Objective Vital Signs: Vital Signs Temperature 97.9 F 04/01/20 06:00 Pulse Rate 75 04/01/20 06:00 Respiratory Rate 20 04/01/20 06:00 Blood Pressure 140/75 04/01/20 06:00 O2 Sat by Pulse Oximetry (%) 94 L 04/01/20 06:00 Constitutional: Yes: Mild Distress Cardiovascular: Yes: WNL Respiratory: Yes: WNL Gastrointestinal: Yes: Soft Musculoskeletal: Yes: Muscle Weakness Neurological: Yes: Loss of Sensation, Numbness, Paresthesia, Weakness ...Motor Strength: LLE, RLE Psychiatric: Yes: Other Labs: CBC, BMP 03/31/20 07:08 03/31/20 07:08 INR, PTT INR 0.93 (0.83-1.09) 03/27/20 12:50 Problem List - Problems (1) COPD (chronic obstructive pulmonary disease) Code(s): J44.9 - CHRONIC OBSTRUCTIVE PULMONARY DISEASE, UNSPECIFIED (2) Diabetes Code(s): E11.9 - TYPE 2 DIABETES MELLITUS WITHOUT COMPLICATIONS (3) S/P laminectomy Code(s): Z98.890 - OTHER SPECIFIED POSTPROCEDURAL STATES (4) Weakness of both lower extremities Code(s): R29.898 - OTH SYMPTOMS AND SIGNS INVOLVING THE MUSCULOSKELETAL SYSTEM (5) HTN (hypertension) Code(s): I10 - ESSENTIAL (PRIMARY) HYPERTENSION (6) Thoracic cyst Code(s): Q34.9 - CONGENITAL MALFORMATION OF RESPIRATORY SYSTEM, UNSPECIFIED (7) S/P cervical spinal fusion Code(s): Z98.1 - ARTHRODESIS STATUS Assessment/Plan NEUROLOGICALLY IMPROVING WITH BETTER SENSATION TODAY IN LOWER EXTREMITIES, PT BEDSIDE CONSTIPATION, GIVING LAXATIVES/MIRALS/MOM DVT PROPHYLAXIS PT EVAL NEUROLOGY AND NEUROSURGERY F/U APPRECIATED GREGG GARCIA'S NOTES REVIEWED AGREE WITH SNF PLACEMENT INCENTIVE SPIROMETRY OOB TO CHAIR IF POSSIBLE NEEDS SNF PLACEMENT [facility] IF NOT [facility]
--- NOTE | 2020-04-01 09:30 | PN ---
Progress Note (short form) - Note Progress Note: Surgery POD#7 T45 arachnoid cyst resection and POD # 5 wound exploration and washout x2 on 03/27 with no significant finding of hematoma or mechanical compression that would explain the patient's new symptoms. Patient seen and examined on AM rounds. She states that she her sensation across her abdomen continues to improve and she can now wiggle her torso side to side. She is still experiencing some right LE radicular pain which is shooting in nature. with increasing left LE spasms and paresthesias in foot and more generalized sensation and paresthesias over b/l thighs increasing. She has little to no pain at incision site. She denies any CP, SOB, N/V fever or chills, SCDS and stallworth in place. Vital Signs Temp 97.9 F 04/01/20 06:00 Pulse 75 04/01/20 06:00 Resp 20 04/01/20 06:00 BP 140/75 04/01/20 06:00 Pulse Ox 94 L 04/01/20 06:00 Intake & Output 03/31/20 03/31/20 04/01/20 11:59 23:59 11:59 Intake Total 300 820 Output Total 252 635 6819 Balance -535 120 -1200 Intake: IV 0 rh 0 Oral 300 820 Output: Drainage 35 Right Posterior Back 35 Urine 303 566 8162 Stallworth 871 211 8201 Other: Voiding Method Incontinent Indwelling Catheter Bowel Movement No CBC, BMP 03/31/20 07:08 03/31/20 07:08 PE: A&Ox3, NAD, Vitals signs stable Unlabored resp on RA T-Spine: dressing c/d/i with surrounding tissue intact and no tracking erythema, drain ostomy site clean and dry with no active d/c. B/L UE with 5/5 strength on biceps, triceps, and carpenter supervisor strength, sensation to light touch intact throughout ABD: Obese, ND, NT, sensation to light touch grossly intact below the daiphragm B/L LE moderate sensation to light touch over right LE from thigh to foot, Unable to move from waist down at right LE, moderate (improved from pervious exam) sensation to light touch over left thigh and anterior LE over fontanez and minimal sensation over dorsum of foot with activation of EHL at left bid toe. B/L lE compartments soft, supple with +2 DP pulses. Repeat Thoracic MRI 03/31: Decrease in the size of the postoperative hematoma at the laminectomy site with a small residual hematoma slightly deforming the sac without compressing the cord. NO Change in the edema of the thoracic cord extending from the level of the T3-4 disc to the superior aspect of T6. Lumbar MRI 9: Mild degenerative disc disease with no evidence of stenosis. Edema within the deep SQ fat in the lumbar region. Problem List - Problems (1) Thoracic cyst Assessment/Plan: POD #5 wound exploration x2 and POD #7 resection of arachnoid cyst with patient now experiencing b/l LE paralysis and numbness extending up to level of the diaphragm or unclear etiology- cord edema? Patient continues to improve with sensation over abdomen and b/l LE returning, and now able to move left big toe. She is tolerating her diet and has moved her bowels. -d/c stallworth now- discussed with patient, please use purewick. -DVT prophylaxis -regular diet -pain control -Aggressive PT while in bed to mobilize joints and specialized rehab for patients in this setting. -Patient will need aggressive PT upon d/c from hospital- rehab planning for [facility] if possible. Evaluation and plan discussed with Dr Gamboa. Code(s): Q34.9 - CONGENITAL MALFORMATION OF RESPIRATORY SYSTEM, UNSPECIFIED (2) S/P cervical spinal fusion Code(s): Z98.1 - ARTHRODESIS STATUS
[2020-04-01] MEDS: FOLIC ACID 1 MG TABLET (FP) PO SCH (09:50)
[2020-04-01] MEDS: FERROUS SO4 325 MG TABLET (FP) PO SCH (09:50)
[2020-04-01] MEDS: LORATADINE 10 MG TABLET PO SCH (09:51)
[2020-04-01] MEDS: PANTOPRAZOLE SODIUM 40 MG VIAL IVPUSH SCH ×2 (09:51→22:13)
[2020-04-01] MEDS: POLYETHYLENE GLYCOL 3350 119 GM BTL PO SCH (09:52)
--- NOTE | 2020-04-01 14:44 | SURG ---
Surgery Calculus Teacher Note Calculus Teacher: Patricia Nielsen PA-C Date of Service: 03/25/20 Diagnosis: Thoracic intradural/extramedullary lesion: Arachnoid cyst/ dorsal arachnoid web Procedure: 1) Fenestration of intradural/extrameddulary lesion: arachnoid cyst/dorsal ar achnoid web 2) Floroscopy 3) Ultrasound examination 4) Local autograft 5) microdissection 6) T34 posterior/lateral arthrodesis 7) T45 Posterior/lateral arthrodesis 8) Bilateral soft tissue advancement flaps (50mc^2) I was present for the entirety of the operative procedure. For further detail, please refer to operative report. Visit type - Case Type Case Type: ED Admission - Emergency Emergency Visit: Yes ED Registration Date: 03/25/20 Care time: The patient presented to the Emergency Department on the above date and was hospitalized for further evaluation of their emergent condition. - New patient This patient is new to me today: Yes Date on this admission: 04/01/20 - Critical Care Critical Care patient: No
[2020-04-01] MEDS: oxyCODONE HCL 5 MG TABLET PO PRN ×2 (15:08→22:15)
[2020-04-01] MEDS: ACETAMINOPHEN 325 MG TABLET (FP) PO PRN ×2 (15:09→22:17)
[2020-04-01] MEDS ORDERED: PT OWN MED DRAWER 7, Y5N ONE (21:17)
[2020-04-01] MEDS: LETROZOLE 2.5 MG TABLET (FP) PO SCH (22:11)
[2020-04-01] MEDS: SENNOSIDES 8.6MG TABLET (FP) PO SCH (22:13)
[2020-04-01] MEDS: amLODIPine BESYLATE 5 MG TABLET (FP) PO SCH (22:13)
[2020-04-01] MEDS ORDERED: SODIUM CHLORIDE 250 ML IV STA (23:57)
[2020-04-02] MEDS: HEPARIN NA (PORCINE) 5,000 UNITS/ML 1ML VIAL SQ SCH ×3 (06:22→21:28)
[2020-04-02] MEDS: DOCUSATE SODIUM 100 MG CAPSULE (FP) PO SCH ×3 (06:22→21:29)
[2020-04-02 07:31] LABS: HEMATOCRIT 38.7 % (32.4-45.2); HEMOGLOBIN 13.1 GM/dL (10.7-15.3); MCH 30.5 pg (25.7-33.7); MCHC 33.8 g/dl (32.0-36.0); MEAN CELL VOLUME 90.3 fl (80-96); MEAN PLT VOLUME 7.8 fl (7.5-11.1); PLATELET COUNT 325 K/MM3 (134-434); RBC 4.29 M/mm3 (3.60-5.2); RDW 14.7 % (11.6-15.6); WHITE BLOOD COUNT 8.9 K/mm3 (4.0-10.0)
[2020-04-02 07:52] LABS: BLOOD UREA NITROGEN 19.7 mg/dL (7-18); CALCIUM 8.6 mg/dL (8.5-10.1); CREATININE 0.7 mg/dL (0.55-1.3); MAGNESIUM 2.4 mg/dL (1.8-2.4); POTASSIUM 4.3 mmol/L (3.5-5.1)
[2020-04-02] MEDS: TAMSULOSIN HCL 0.4 MG CAP PO SCH (08:30)
--- NOTE | 2020-04-02 08:49 | DS ---
Physical Examination Vital Signs: Vital Signs Temperature 97.4 F L 04/02/20 06:00 Pulse Rate 64 04/02/20 06:00 Respiratory Rate 20 04/02/20 06:00 Blood Pressure 141/65 04/02/20 06:00 O2 Sat by Pulse Oximetry (%) 95 04/02/20 06:00 Constitutional: Yes: Mild Distress Cardiovascular: Yes: Regular Rate and Rhythm Respiratory: Yes: WNL Gastrointestinal: Yes: WNL Renal/: Yes: Monge Present Extremities: Yes: Other Neurological: Yes: Numbness, Weakness ...Motor Strength: LLE, RLE Psychiatric: Yes: Other Labs: CBC, BMP 04/02/20 06:45 04/02/20 06:45 Discharge Summary Problems reviewed: Yes Reason For Visit: THORACIC ARACHNOID CYSY Current Active Problems COPD (chronic obstructive pulmonary disease) (Acute) Constipation (Acute) Diabetes (Acute) GERD (gastroesophageal reflux disease) (Acute) S/P laminectomy (Acute) SBO (small bowel obstruction) (Acute) Thoracic cyst (Acute) Weakness of both lower extremities (Acute) Procedures: Principal: SURGERY THROACIC SPINE Hospital Course: ADMITTED FOR THORACIC SUBARACHNOID CYST , POSTOP LEG WEAKNESS, WILL NEED AGGRESSIVE REHAB/PT Dry sterile dressing daily as per Dr. Gamboa Goals: PT [facility] REHAB Condition: Improved - Instructions Diet, Activity, Other Instructions: Post Operative Instructions Physical Activity Resume your normal everyday activity as tolerated. No heavy lifting or exercise until seen by your surgeon. You may walk unlimited amounts and climb stairs. You may resume driving the car when you feel safe and comfortable behind the wheel and you are no longer wearing your brace. Do not operate a vehicle while taking narcotic medication. Wound Care Keep your incision clean, dry and covered at all times. Apply an occlusive dressing (Saran wrap or Tegaderm) when showering to avoid getting your incision wet. Do not submerge incision or apply ointments or creams. Diet There are no dietary restrictions. Eat healthy, high-fiber foods. Drink 6-8 glasses of liquid each day. This will assist in keeping your bowels regular. Pain Management You may take Tylenol or acetaminophen. Any pain prescription medication ordered should be taken as prescribed for moderate to severe pain. Avoid any ibuprofen (Motrin, Advil, Aleve, Toradol, etc) for 3 months unless otherwise discussed with your surgeon. Call Dr Cunningham for any of the following: Severe pain not relieved by medication Fever of 101 or higher Excessive bleeding or drainage on dressing Inability to urinate Any chest pain or shortness of breath, seek Emergency Care. Call the office to confirm a post-operative appointment for 2-3 weeks post-op Jair Gamboa MD [facility] [address] [place] [address] Referrals: Jair Gamboa MD, FAANS [Staff Physician] - Disposition: PHYSICAL REHABILATION FACILITY - Home Medications Comprehensive Discharge Medication List: Ambulatory Orders Amlodipine Besylate [Norvasc -] 5 mg PO HS 09/13/16 Letrozole 2.5 mg PO HS 03/21/18 Mirabegron [Myrbetriq] 25 mg PO DAILY 03/21/18 Cetirizine HCl [Allergy Relief] 10 mg PO DAILY 11/01/18 Fluticasone/Vilanterol [Breo Ellipta 200-25 Mcg INH] 1 each IH PRN PRN 08/29/19 Umeclidinium [place] [Incruse Ellipta] 62.5 mcg IH PRN PRN 08/29/19 Clobetasol Propionate/Emoll [Clobetasol Emulsion 0.05% Foam] 100 gm TP BID 03/24/20 Acetaminophen [Pain Relief] 2 tab PO BID 03/28/20 Alendronate Sodium 75 ml PO DAILY 03/28/20 Prescription Drug Monitoring Program (I-STOP) results: I-STOP not reviewed
--- NOTE | 2020-04-02 08:57 | PN ---
Progress Note (short form) - Note Progress Note: Surgery POD#8 T45 arachnoid cyst resection and POD # 6 wound exploration and washout x2 on 03/27 with no significant finding of hematoma or mechanical compression that would explain the patient's new symptoms. Patient seen and examined on AM rounds. She states that she her sensation across her abdomen has not changed much since yesterday. She is still experiencing some right LE radicular pain which is shooting in nature and more pronounced with stimuli. with increasing left LE spasms and paresthesias in foot and more generalized sensation and paresthesias over b/l thighs increasing. She has little to no pain at incision site. She denies any CP, SOB, N/V fever or chills, SCDS in place, stallworth removed and she remains incontinent. Vital Signs Temp 97.4 F L 04/02/20 06:00 Pulse 64 04/02/20 06:00 Resp 20 04/02/20 06:00 BP 141/65 04/02/20 06:00 Pulse Ox 95 04/02/20 06:00 Intake & Output 04/01/20 04/01/20 04/02/20 11:59 23:59 11:59 Intake Total 250 Output Total 1200 600 400 Balance -1200 -600 -150 Intake: IV 250 Normal Saline - 250 ml @ 250 250 mls/hr IV ASDIR STA Rx#:[id number] Output: Urine 1200 600 400 St[place]worth 1200 600 Void 400 Other: Voiding Method External Catheter External Catheter Incontinent Bowel Movement Yes No # Bowel Movements 1 CBC, BMP 04/02/20 06:45 04/02/20 06:45 PE: A&Ox3, NAD, Vitals signs stable Unlabored resp on RA T-Spine: Incision c/d/i with surrounding tissue intact and no tracking erythema, no signs of collection or active d/c, drain ostomy site clean and dry with no active d/c. ABD: Obese, ND, NT, sensation to light touch grossly intact below the daiphragm B/L LE moderate sensation to light touch over right LE from thigh to foot, Unable to move from waist down at right LE, moderate (improved from pervious exam) sensation to light touch over left thigh and anterior LE over fontanez and minimal sensation over dorsum of foot with activation of EHL at left big toe. B/L lE compartments soft, supple with +2 DP pulses. Problem List - Problems (1) Thoracic cyst Assessment/Plan: POD #6 wound exploration x2 and POD #8 resection of arachnoid cyst with patient now experiencing b/l LE paralysis and numbness extending up to level of the diaphragm or unclear etiology- cord edema? Patient continues to improve with sensation over abdomen and b/l LE returning, and now able to move left big toe. She is tolerating her diet and has moved her bowels. -Rehab placement today- discussed with Medicine -DVT prophylaxis -regular diet -pain control -Aggressive PT while in bed to mobilize joints and specialized rehab for patients in this setting. -Patient will need aggressive PT upon d/c from hospital- rehab planning. Evaluation and plan discussed with Dr Gamboa. Code(s): Q34.9 - CONGENITAL MALFORMATION OF RESPIRATORY SYSTEM, UNSPECIFIED (2) S/P cervical spinal fusion Code(s): Z98.1 - ARTHRODESIS STATUS
[2020-04-02] MEDS: FERROUS SO4 325 MG TABLET (FP) PO SCH (09:39)
[2020-04-02] MEDS: POLYETHYLENE GLYCOL 3350 119 GM BTL PO SCH (09:39)
[2020-04-02] MEDS: PANTOPRAZOLE 40 MG TABLET PO SCH (09:39)
[2020-04-02] MEDS: FOLIC ACID 1 MG TABLET (FP) PO SCH (09:39)
[2020-04-02] MEDS: LORATADINE 10 MG TABLET PO SCH (09:39)
[2020-04-02] MEDS ORDERED: SODIUM CHLORIDE 500 ML IV STA (13:06)
--- NOTE | 2020-04-02 13:10 | RAPID ---
Physical Examination Vital Signs: Vital Signs Temperature 98.5 F 04/02/20 10:34 Pulse Rate 91 H 04/02/20 10:34 Respiratory Rate 20 04/02/20 10:34 Blood Pressure 124/68 04/02/20 10:34 O2 Sat by Pulse Oximetry (%) 95 04/02/20 10:34 Rapid response called overhead at 1300. CLASSIFICATION AND TREATMENT DIRECTOR responded immediately. Pt was found to be hypotensive and short of breath. Complained of sweatiness. She is s/p laminectomy day. On exam, pt lungs were CTA b/l. Pt was diaphoretic. Vitals: 99/58 HR 99 SpO2 98% on 2L O2 Plan: Likely panic attack. Will assess fluid overload w/ CXR - Cardiac profile for abnormal presentation for ACS - EKG to check for abnormal rhythms - CXR - CTA - 500cc NS bolus - Primary team made aware, surgical team present during rapid response. Labs: CBC, BMP 04/02/20 06:45 04/02/20 06:45
[2020-04-02] MEDS: oxyCODONE HCL 5 MG TABLET PO PRN ×2 (15:24→21:28)
[2020-04-02] MEDS: ACETAMINOPHEN 325 MG TABLET (FP) PO PRN (15:24)
[2020-04-02] MEDS: LETROZOLE 2.5 MG TABLET (FP) PO SCH (21:28)
[2020-04-02] MEDS: SENNOSIDES 8.6MG TABLET (FP) PO SCH (21:29)
[2020-04-02] MEDS: amLODIPine BESYLATE 5 MG TABLET (FP) PO SCH (21:29)
[2020-04-03] MEDS: DOCUSATE SODIUM 100 MG CAPSULE (FP) PO SCH (06:38)
[2020-04-03] MEDS: HEPARIN NA (PORCINE) 5,000 UNITS/ML 1ML VIAL SQ SCH (06:38)
[2020-04-03] MEDS ORDERED: MIDODRINE HCL 2.5 MG TABLET PO PRN (07:30)
--- NOTE | 2020-04-03 09:06 | PN ---
Progress Note (short form) - Note Progress Note: Surgery POD#9 s/p T45 arachnoid cyst resection, c/b paraplegia of unclear etiology, POD # 7 s/p wound exploration and washout x2 on 03/27 with no significant finding of hematoma or mechanical compression Patient seen and examined on AM rounds. She states that she her sensation has remained the same. Reports muscle spasms under her breasts with movement. Has a rr yesterday, felt to be due to a panic attack. Pt reports she is feeling better today. Had 2 large bowel movements yesterday. Tolerating PO, stallworth in place. Reports she was told by Dr Cifuentes that [facility]. Denies cp/sob, n/v/d. Vital Signs Temp 97.8 F 04/03/20 06:00 Pulse 71 04/03/20 06:00 Resp 20 04/03/20 06:00 BP 133/71 04/03/20 06:00 Pulse Ox 96 04/03/20 06:00 Intake & Output 04/02/20 04/02/20 04/03/20 11:59 23:59 11:59 Intake Total 250 700 100 Output Total 650 1600 Balance -400 -900 100 Intake: IV 250 500 Normal Saline - 250 ml @ 250 250 mls/hr IV ASDIR STA Rx#:[id number] Normal Saline - 500 ml @ 500 500 mls/hr IV ASDIR STA Rx#:[id number] Oral 200 100 Output: Urine 650 1600 [place] 250 1600 Void 400 Other: Voiding Method Indwelling Catheter Indwelling Catheter Bowel Movement No Yes # Bowel Movements 1 Body Mass Index (BMI) 31.6 CBC, BMP 04/02/20 06:45 04/02/20 06:45 PE: Gen: A&Ox3, NAD, Vitals signs stable Resp: Unlabored resp on 2L NC ABD: Obese, ND, NT, sensation to light touch intact at T4 Ext: B/L LE minimal sensation to light touch over right LE from thigh to foot, Unable to move from waist down at right LE, minimal sensation to light touch over left thigh and anterior LE, minimal sensation over dorsum of foot with activation of EHL at left big toe. B/L lE compartments soft, supple with +2 DP pulses. A/P: POD#9 s/p T45 arachnoid cyst resection, c/b paraplegia of unclear etiology, POD # 7 s/p wound exploration and washout x2 on 03/27 with no significant finding of hematoma or mechanical compression afebrile, vss labs stable -d/c to [facility] today -DVT prophylaxis -regular diet -pain control -Aggressive PT while in bed to mobilize joints -Patient will need aggressive PT upon d/c from hospital- rehab planning. d/w attending Dr Gamboa
[2020-04-03] MEDS ORDERED: PT OWN MED DRAWER 7, Y5N ONE (09:59)
[2020-04-03] MEDS: TAMSULOSIN HCL 0.4 MG CAP PO SCH (10:05)
[2020-04-03] MEDS: LORATADINE 10 MG TABLET PO SCH (10:05)
[2020-04-03] MEDS: PANTOPRAZOLE 40 MG TABLET PO SCH (10:05)
[2020-04-03] MEDS: FOLIC ACID 1 MG TABLET (FP) PO SCH (10:05)
[2020-04-03] MEDS: FERROUS SO4 325 MG TABLET (FP) PO SCH (10:05)
[2020-04-03] MEDS: POLYETHYLENE GLYCOL 3350 119 GM BTL PO SCH (10:06)
[2020-04-03 11:49] VITALS: BP 147/87; PULSE 92; TEMP 98.2
--- NOTE | 2020-04-03 14:05 | EKG ---
Test Reason : Blood Pressure : / mmHG Vent. Rate : 084 BPM Atrial Rate : 084 BPM P-R Int : 146 ms QRS Dur : 082 ms QT Int : 370 ms P-R-T Axes : 071 -01 066 degrees QTc Int : 437 ms NORMAL SINUS RHYTHM NORMAL ECG NO PREVIOUS ECGS AVAILABLE Confirmed by GWEN ROSALES MD ([id number]) on 04/03/2020 2:05:01 PM Referred By: Confirmed By:GWEN ROSALES MD
== END 2020-04-03 11:52 | DRG 23 ==
LOC: J2C 05:28 → J8W 13:52 → JICU 03-27 20:20 → J8W 03-30 18:04
PROVIDERS: ADMIT Neurological Surgery; ATTEND Family Medicine
PROC: B01BZZZ Fluoroscopy of Spinal Cord (ICD-10-PCS; 2020-03-25)
PROC: 00QT0ZZ Repair Spinal Meninges, Open Approach (ICD-10-PCS; 2020-03-25)
PROC: 00BX0ZZ Excision of Thoracic Spinal Cord, Open Approach (ICD-10-PCS; 2020-03-25)
PROC: 0HX6XZZ Transfer Back Skin, External Approach (ICD-10-PCS; 2020-03-25)
PROC: 0RG7071 Fusion of 2 to 7 Thoracic Vertebral Joints with Autologous Tissue Substitute, Posterior Approach, Posterior Column, Open Approach (ICD-10-PCS; principal; 2020-03-25 08:00)
PROC: 00JU0ZZ Inspection of Spinal Canal, Open Approach (ICD-10-PCS; 2020-03-27)
PROC: 0KBJ0ZZ Excision of Left Thorax Muscle, Open Approach (ICD-10-PCS; 2020-03-27)
PROC: 0KBH0ZZ Excision of Right Thorax Muscle, Open Approach (ICD-10-PCS; 2020-03-27)
PROC: 0HX6XZZ Transfer Back Skin, External Approach (ICD-10-PCS; 2020-03-27)
PROC: 00JU0ZZ Inspection of Spinal Canal, Open Approach (ICD-10-PCS; 2020-03-27)
PROC: 0HX6XZZ Transfer Back Skin, External Approach (ICD-10-PCS; 2020-03-27)
DX: G96.19 Other disorders of meninges, not elsewhere classified (principal); G93.0 Cerebral cysts; G97.82 Other postprocedural complications and disorders of nervous system; E78.00 Pure hypercholesterolemia, unspecified; E03.9 Hypothyroidism, unspecified; K56.609 Unspecified intestinal obstruction, unspecified as to partial versus complete obstruction; I10 Essential (primary) hypertension; K21.9 Gastro-esophageal reflux disease without esophagitis; K59.09 Other constipation; F41.9 Anxiety disorder, unspecified; L40.9 Psoriasis, unspecified; M81.8 Other osteoporosis without current pathological fracture; G93.9 Disorder of brain, unspecified; M47.812 Spondylosis without myelopathy or radiculopathy, cervical region; M40.202 Unspecified kyphosis, cervical region; M48.02 Spinal stenosis, cervical region; E66.9 Obesity, unspecified; Z68.31 Body mass index [BMI] 31.0-31.9, adult; R29.898 Other symptoms and signs involving the musculoskeletal system; E11.9 Type 2 diabetes mellitus without complications; Z86.73 Personal history of transient ischemic attack (TIA), and cerebral infarction without residual deficits; Y83.8 Other surgical procedures as the cause of abnormal reaction of the patient, or of later complication, without mention of misadventure at the time of the procedure; J98.11 Atelectasis; K59.00 Constipation, unspecified; J90 Pleural effusion, not elsewhere classified; K58.9 Irritable bowel syndrome, unspecified; R32 Unspecified urinary incontinence; F41.0 Panic disorder [episodic paroxysmal anxiety]
CPT/HCPCS: 36415; 71045-TC-FY; 72146-TC; 72148-TC; 74018-TC-FY; 74176-TC; 76000-TC-FY; 80048; 80053; 82550; 82553; 82962; 83036; 83735; 84100; 84484; 85025; 85027; 85610; 86850; 86900; 86901; 88304-TC; 88305-TC; 93005; 93010; 94760; 97116-GP; 97161-GP; J0131; J1644; Q9967

== ENCOUNTER 2020-09-15 13:54 | Emergency (ER) | payer OTHER ==
[2020-09-15 16:25] LABS: BASO % 0.7 % (0-2.0); EOS % 1.4 % (0-4.5); HEMATOCRIT 44.1 % (32.4-45.2); HEMOGLOBIN 15.3 GM/dL (10.7-15.3); LYMPH % 25.7 % (8-40); MCH 31.2 pg (25.7-33.7); MCHC 34.7 g/dl (32.0-36.0); MEAN CELL VOLUME 89.9 fl (80-96); MEAN PLT VOLUME 7.8 fl (7.5-11.1); MONO % 8.8 % (3.8-10.2); NEUT % 63.4 % (42.8-82.8); PLATELET COUNT 449 K/MM3 (134-434); RDW 13.6 % (11.6-15.6); WHITE BLOOD COUNT 10.9 K/mm3 (4.0-10.0)
[2020-09-15 16:34] VITALS: BMI 28.2
[2020-09-15 16:34] LABS: INR 1.05 (0.83-1.09); PROTHROMBIN TIME (PATIENT) 12.7 SEC (9.7-13.0)
[2020-09-15 16:37] LABS: ACTIVATED PTT 32.4 SECONDS (25.2-36.5)
[2020-09-15 16:45] LABS: ALBUMIN 3.3 g/dl (3.4-5.0); BLOOD UREA NITROGEN 10.5 mg/dL (7-18)
[2020-09-15 16:48] LABS: CREATININE 0.6 mg/dL (0.55-1.3)
[2020-09-15 16:50] LABS: BILIRUBIN,TOTAL 0.7 mg/dL (0.2-1)
[2020-09-15 16:54] LABS: CALCIUM 9.6 mg/dL (8.5-10.1)
[2020-09-15 18:17] LABS: EPI CELLS 12 /uL (0-25.1); HYALINE CASTS 17 /uL (0-3.1); URINE APPEARANCE TURBID; URINE BACTERIA 2415 /uL (0-1359); URINE BILIRUBIN NEGATIVE (NEGATIVE); URINE COLOR YELLOW; URINE GLUCOSE (UA) NEGATIVE (NEGATIVE); URINE KETONE NEGATIVE (NEGATIVE); URINE LEUK ESTERASE TRACE (NEGATIVE); URINE NITRITE NEGATIVE (NEGATIVE); URINE PROTEIN NEGATIVE (NEGATIVE); URINE RBC 9 /uL (0-23.9); URINE UROBILINOGEN 0.2 mg/dL (0.2-1.0); URINE WBC 225 /uL (0-25.8)
[2020-09-15] MEDS ORDERED: NITROFURANTOIN MACROCRYSTAL 50 MG CAPSULE (FP) PO ONE (22:30)
[2020-09-15] MEDS ORDERED: NITROFURANTOIN MACROCRYSTAL 50 MG CAPSULE (FP) ONE (23:00)
[2020-09-16] VITALS: BP 151/92; PULSE 95; TEMP 98.5
== END 2020-09-16 00:47 | disposition home or self-care (01) ==
LOC: JER 13:54
DX: N30.00 Acute cystitis without hematuria (principal)
CPT/HCPCS: 36415; 74177-TC; 80053; 81003; 83605; 83690; 85025; 85610; 85730; 87086; 93005; 93010; 93971-TC; 99284-25

== ENCOUNTER 2021-02-15 13:38 | Emergency (ER) | payer OTHER ==
[2021-02-15 14:02] VITALS: BMI 37.8
[2021-02-15 14:42] LABS: BASO % 0.2 % (0-2.0); EOS % 1.4 % (0-4.5); HEMATOCRIT 45.5 % (32.4-45.2); HEMOGLOBIN 15.5 GM/dL (10.7-15.3); LYMPH % 25.5 % (8-40); MCHC 34.1 g/dl (32.0-36.0); MEAN PLT VOLUME 7.4 fl (7.5-11.1); MONO % 7.4 % (3.8-10.2); NEUT % 65.5 % (42.8-82.8); PLATELET COUNT 444 10^3/uL (134-434); RBC 5.17 M/mm3 (3.60-5.2); RDW 14.5 % (11.6-15.6); WHITE BLOOD COUNT 12.1 K/mm3 (4.0-10.0)
[2021-02-15 14:59] LABS: CHLORIDE 105 mmol/L (98-107); SODIUM 141 mmol/L (136-145)
[2021-02-15 15:01] LABS: ALBUMIN 3.3 g/dl (3.4-5.0); ANION GAP 11 MMOL/L (8-16); BLOOD UREA NITROGEN 12.7 mg/dL (7-18); CALCIUM 9.2 mg/dL (8.5-10.1); CO2 25 mmol/L (21-32); GLUCOSE,RANDOM 101 mg/dL (74-106); MAGNESIUM 1.9 mg/dL (1.8-2.4)
[2021-02-15 15:05] LABS: CREATININE 0.7 mg/dL (0.55-1.3)
[2021-02-15 15:07] LABS: ALK PHOS 106 U/L (45-117); BILIRUBIN,TOTAL 0.7 mg/dL (0.2-1); TOT PROT 7.3 g/dl (6.4-8.2)
[2021-02-15 15:11] LABS: SGOT/AST 21 U/L (15-37); SGPT/ALT 18 U/L (13-61)
[2021-02-15 16:41] VITALS: TEMP 98.6
[2021-02-15 19:20] VITALS: BP 158/55; PULSE 99
== END 2021-02-15 19:56 | disposition home or self-care (01) ==
LOC: JER 13:38
DX: R06.02 Shortness of breath (principal); R00.0 Tachycardia, unspecified; R42 Dizziness and giddiness
CPT/HCPCS: 36415; 70450-TC; 71045-TC-FY; 71275-TC; 80053; 82962; 83735; 84484; 85025; 93005; 93010; 99284-25; C9803; Q9967; U0003; U0005

== ENCOUNTER 2021-04-08 15:36 | Emergency (ER) | payer OTHER ==
[2021-04-08 15:50] VITALS: TEMP 98; BMI 28.1
[2021-04-08] MEDS ORDERED: oxyCODONE HCL 5 MG TABLET PO ONE (18:13)
[2021-04-08] MEDS ORDERED: oxyCODONE HCL 5 MG TABLET ONE (18:26)
[2021-04-09 00:46] VITALS: BP 145/97; PULSE 95
== END 2021-04-09 03:09 | disposition home or self-care (01) ==
LOC: JER 15:36
DX: M79.605 Pain in left leg (principal); M51.26 Other intervertebral disc displacement, lumbar region; N21.0 Calculus in bladder; W04.XXXA Fall while being carried or supported by other persons, initial encounter
CPT/HCPCS: 72131-TC; 72192-TC; 73523-TC-FY; 73552-TC-LT-FY; 73610-TC-LT-FY; 73610-TC-RT-FY; 73630-TC-LT; 73630-TC-RT-FY; 99285-25

== ENCOUNTER 2021-04-30 20:06 | Inpatient (IN) | payer OTHER ==
[2021-04-30] MEDS ORDERED: ACETAMINOPHEN 1000 MG/100 ML VIAL IVPB ONE (21:03)
[2021-04-30] MEDS ORDERED: ACETAMINOPHEN INJECTION 100 ML IVPB ONE (21:18)
[2021-04-30 21:26] LABS: BASO % 0.8 % (0-2.0); EOS % 1.4 % (0-4.5); HEMATOCRIT 45.7 % (32.4-45.2); HEMOGLOBIN 15.4 GM/dL (10.7-15.3); LYMPH % 17.3 % (8-40); MCH 29.5 pg (25.7-33.7); MCHC 33.7 g/dl (32.0-36.0); MEAN CELL VOLUME 87.6 fl (80-96); MEAN PLT VOLUME 7.3 fl (7.5-11.1); MONO % 7.2 % (3.8-10.2); NEUT % 73.3 % (42.8-82.8); PLATELET COUNT 431 10^3/uL (134-434); RBC 5.22 M/mm3 (3.60-5.2); RDW 14.4 % (11.6-15.6); WHITE BLOOD COUNT 11.1 K/mm3 (4.0-10.0)
[2021-04-30 21:48] LABS: CHLORIDE 103 mmol/L (98-107); SODIUM 141 mmol/L (136-145)
[2021-04-30 21:51] LABS: ALBUMIN 3.1 g/dl (3.4-5.0); ANION GAP 9 MMOL/L (8-16); BLOOD UREA NITROGEN 13.6 mg/dL (7-18); CO2 28 mmol/L (21-32)
[2021-04-30 21:52] LABS: GLUCOSE,RANDOM 118 mg/dL (74-106); LIPASE 272 U/L (73-393)
[2021-04-30 21:54] LABS: CREATININE 0.7 mg/dL (0.55-1.3); SGOT/AST 24 U/L (15-37); SGPT/ALT 22 U/L (13-61)
[2021-04-30 21:56] LABS: BILIRUBIN,TOTAL 0.6 mg/dL (0.2-1); TOT PROT 7.8 g/dl (6.4-8.2)
[2021-04-30 21:57] LABS: ALK PHOS 115 U/L (45-117)
[2021-04-30] MEDS ORDERED: POTASSIUM CHLORIDE TABS 20 MEQ TABLET.ER (FP) PO ONE (23:44)
[2021-05-01] MEDS ORDERED: POTASSIUM CHLORIDE ORAL LIQUID 20 MEQ/15 ML ONE (00:34)
[2021-05-01] MEDS ORDERED: ACETAMINOPHEN 1000 MG/100 ML VIAL IVPB PRN (01:59)
[2021-05-01] MEDS ORDERED: ALBUTEROL SO4 HFA INHALER IH PRN (02:12)
[2021-05-01] MEDS: GABAPENTIN 100 MG CAPSULE PO SCH ×3 (05:21→17:26)
[2021-05-01] MEDS: INSULIN SLIDING SCALE (NOVOLOG) 1 VIAL SQ SCH ×4 (08:28→21:36)
[2021-05-01] MEDS ORDERED: PT OWN MED DRAWER 7, Y5N ONE (10:07)
[2021-05-01] MEDS ORDERED: GABAPENTIN 100 MG CAPSULE ONE (10:09)
[2021-05-01] MEDS ORDERED: PANTOPRAZOLE 40 MG TABLET ONE (10:09)
[2021-05-01] MEDS ORDERED: amLODIPine BESYLATE 5 MG TABLET (FP) ONE (10:09)
[2021-05-01] MEDS: amLODIPine BESYLATE 5 MG TABLET (FP) PO SCH (10:26)
[2021-05-01] MEDS: PANTOPRAZOLE 40 MG TABLET PO SCH (10:26)
[2021-05-01] MEDS: DULoxetine HCL 60 MG CAPSULE.DR PO SCH (10:26)
[2021-05-01] MEDS: LETROZOLE 2.5 MG TABLET (FP) PO SCH (10:26)
[2021-05-01] MEDS: ENOXAPARIN NA (PORCINE) 40 MG/0.4 ML DISP.SYRIN SQ SCH (10:26)
[2021-05-01] MEDS: BUDESONIDE/FORMETEROL FUMARATE 160/4.5 mcg INHALER IH SCH ×2 (12:11→21:36)
[2021-05-01] MEDS ORDERED: CEFTRIAXONE 1 GM in DEXTROSE 5%-WATER - 50 ML IVPB ONE (13:31)
[2021-05-01] MEDS ORDERED: DEXTROSE 5%-0.45% SALINE 1,000 ML IV SCH (13:45)
[2021-05-01 14:08] VITALS: BMI 28.5
[2021-05-01] MEDS ORDERED: D5-1/2NS+20 MEQ KCL - 20 MEQ/1,000 ML INFUS.BAG IV SCH (15:15)
[2021-05-01] MEDS ORDERED: DEXTROSE 5%-WATER - 50 ML IVPB ONE (15:56)
[2021-05-01] MEDS ORDERED: cefTRIAXone SODIUM 1 GM VIAL ONE (15:56)
[2021-05-01 18:03] LABS: EPI CELLS 6 /uL (0-25.1); HYALINE CASTS 0 /uL (0-3.1); PH,URINE 5.5 (5.0-8.0); URINE APPEARANCE TURBID; URINE BACTERIA 1446 /uL (0-1359); URINE BILIRUBIN NEGATIVE (NEGATIVE); URINE COLOR YELLOW; URINE GLUCOSE (UA) NEGATIVE (NEGATIVE); URINE KETONE NEGATIVE (NEGATIVE); URINE LEUK ESTERASE 3+ (NEGATIVE); URINE NITRITE NEGATIVE (NEGATIVE); URINE PROTEIN 1+ (NEGATIVE); URINE UROBILINOGEN 0.2 mg/dL (0.2-1.0); URINE WBC 3582 /uL (0-25.8)
[2021-05-01 19:00] LABS: URINE RBC 21 /uL (0-23.9)
[2021-05-01 19:01] LABS: URINE CRYSTALS FEW /hpf
[2021-05-01] MEDS ORDERED: INSULIN (NOVOLOG) ASPART 100 UNITS/ML 10ML VIAL ONE (21:08)
[2021-05-02] MEDS: GABAPENTIN 100 MG CAPSULE PO SCH ×3 (02:36→18:28)
[2021-05-02 07:43] LABS: EOS % 1.8 % (0-4.5); HEMATOCRIT 38.2 % (32.4-45.2); HEMOGLOBIN 13.2 GM/dL (10.7-15.3); MCH 30.4 pg (25.7-33.7); MCHC 34.5 g/dl (32.0-36.0); MEAN PLT VOLUME 7.5 fl (7.5-11.1); MONO % 9.3 % (3.8-10.2); NEUT % 65.9 % (42.8-82.8); PLATELET COUNT 381 10^3/uL (134-434); RBC 4.34 M/mm3 (3.60-5.2); RDW 14.4 % (11.6-15.6); WHITE BLOOD COUNT 6.7 K/mm3 (4.0-10.0)
[2021-05-02 08:07] LABS: CALCIUM 8.6 mg/dL (8.5-10.1)
[2021-05-02 08:08] LABS: ALBUMIN 2.7 g/dl (3.4-5.0); BLOOD UREA NITROGEN 9.7 mg/dL (7-18)
[2021-05-02 08:11] LABS: CREATININE 0.5 mg/dL (0.55-1.3)
[2021-05-02 08:12] LABS: BILIRUBIN,TOTAL 0.7 mg/dL (0.2-1)
[2021-05-02 08:13] LABS: TOT PROT 6.4 g/dl (6.4-8.2)
[2021-05-02] MEDS ORDERED: DULoxetine HCL 30 MG CAPSULE.DR PO ONE (10:31)
[2021-05-02] MEDS ORDERED: DEXTROSE 5%-WATER - 50 ML IVPB ONE (10:31)
[2021-05-02] MEDS ORDERED: PT OWN MED DRAWER 7, Y5N ONE ×2 (10:31→11:09)
[2021-05-02] MEDS ORDERED: cefTRIAXone SODIUM 1 GM VIAL ONE (10:31)
[2021-05-02] MEDS: ENOXAPARIN NA (PORCINE) 40 MG/0.4 ML DISP.SYRIN SQ SCH (10:36)
[2021-05-02] MEDS: PANTOPRAZOLE 40 MG TABLET PO SCH (10:37)
[2021-05-02] MEDS: CEFTRIAXONE 1 GM in DEXTROSE 5%-WATER - 50 ML IVPB SCH (10:37)
[2021-05-02] MEDS: amLODIPine BESYLATE 5 MG TABLET (FP) PO SCH (10:38)
[2021-05-02] MEDS: DULoxetine HCL 60 MG CAPSULE.DR PO SCH (10:38)
[2021-05-02] MEDS: LETROZOLE 2.5 MG TABLET (FP) PO SCH (10:39)
[2021-05-02] MEDS: POLYETHYLENE GLYCOL (HEALTHYLAX) 3350 17 GM PACKET PO SCH (10:39)
[2021-05-02] MEDS: BUDESONIDE/FORMETEROL FUMARATE 160/4.5 mcg INHALER IH SCH ×2 (10:42→21:06)
[2021-05-02] MEDS: INSULIN SLIDING SCALE (NOVOLOG) 1 VIAL SQ SCH ×4 (11:20→21:07)
[2021-05-02] MEDS: PATIENT'S OWN MEDICATION (NON-FORMULARY) (Mirabegron [Myrbetriq] 50 MG Tab.Er.24h) PO SCH (16:18)
[2021-05-03] MEDS: GABAPENTIN 100 MG CAPSULE PO SCH ×3 (05:31→21:14)
[2021-05-03] MEDS: INSULIN SLIDING SCALE (NOVOLOG) 1 VIAL SQ SCH ×4 (06:00→21:16)
[2021-05-03] MEDS: PATIENT'S OWN MEDICATION (NON-FORMULARY) (Mirabegron [Myrbetriq] 50 MG Tab.Er.24h) PO SCH (08:54)
[2021-05-03] MEDS ORDERED: DULoxetine HCL 30 MG CAPSULE.DR PO ONE (09:10)
[2021-05-03] MEDS ORDERED: DEXTROSE 5%-WATER - 50 ML IVPB ONE (09:11)
[2021-05-03] MEDS ORDERED: cefTRIAXone SODIUM 1 GM VIAL ONE (09:11)
[2021-05-03] MEDS: amLODIPine BESYLATE 5 MG TABLET (FP) PO SCH (10:24)
[2021-05-03] MEDS: CEFTRIAXONE 1 GM in DEXTROSE 5%-WATER - 50 ML IVPB SCH (10:24)
[2021-05-03] MEDS: PANTOPRAZOLE 40 MG TABLET PO SCH (10:24)
[2021-05-03] MEDS: DULoxetine HCL 60 MG CAPSULE.DR PO SCH (10:27)
[2021-05-03] MEDS: ENOXAPARIN NA (PORCINE) 40 MG/0.4 ML DISP.SYRIN SQ SCH (10:27)
[2021-05-03] MEDS: POLYETHYLENE GLYCOL (HEALTHYLAX) 3350 17 GM PACKET PO SCH ×2 (10:27→10:40)
[2021-05-03] MEDS: LETROZOLE 2.5 MG TABLET (FP) PO SCH (10:30)
[2021-05-03] MEDS: BUDESONIDE/FORMETEROL FUMARATE 160/4.5 mcg INHALER IH SCH ×2 (10:31→21:15)
[2021-05-03 12:48] LABS: EOS % 1.7 % (0-4.5); HEMATOCRIT 37.8 % (32.4-45.2); HEMOGLOBIN 13.1 GM/dL (10.7-15.3); LYMPH % 24.9 % (8-40); MCH 30.5 pg (25.7-33.7); MCHC 34.6 g/dl (32.0-36.0); MEAN CELL VOLUME 88.3 fl (80-96); MEAN PLT VOLUME 7.8 fl (7.5-11.1); MONO % 10.3 % (3.8-10.2); NEUT % 62.1 % (42.8-82.8); PLATELET COUNT 395 10^3/uL (134-434); RBC 4.28 M/mm3 (3.60-5.2); RDW 14.3 % (11.6-15.6); WHITE BLOOD COUNT 7.7 K/mm3 (4.0-10.0)
[2021-05-03 12:56] LABS: ALBUMIN 2.9 g/dl (3.4-5.0); BLOOD UREA NITROGEN 8.6 mg/dL (7-18); CALCIUM 8.8 mg/dL (8.5-10.1)
[2021-05-03 12:59] LABS: CREATININE 0.6 mg/dL (0.55-1.3)
[2021-05-03 13:01] LABS: BILIRUBIN,TOTAL 0.4 mg/dL (0.2-1); TOT PROT 6.6 g/dl (6.4-8.2)
[2021-05-04] MEDS: GABAPENTIN 100 MG CAPSULE PO SCH ×3 (05:51→21:18)
[2021-05-04] MEDS: INSULIN SLIDING SCALE (NOVOLOG) 1 VIAL SQ SCH ×4 (06:03→21:19)
[2021-05-04 08:35] LABS: BASO % 1.2 % (0-2.0); EOS % 1.9 % (0-4.5); HEMOGLOBIN 12.5 GM/dL (10.7-15.3); LYMPH % 24.5 % (8-40); MCH 29.8 pg (25.7-33.7); MCHC 33.9 g/dl (32.0-36.0); MEAN PLT VOLUME 7.4 fl (7.5-11.1); MONO % 7.6 % (3.8-10.2); NEUT % 64.8 % (42.8-82.8); PLATELET COUNT 360 10^3/uL (134-434); RBC 4.21 M/mm3 (3.60-5.2); RDW 14.6 % (11.6-15.6); WHITE BLOOD COUNT 7.6 K/mm3 (4.0-10.0)
[2021-05-04 08:44] LABS: CALCIUM 9.1 mg/dL (8.5-10.1)
[2021-05-04 08:45] LABS: ALBUMIN 2.5 g/dl (3.4-5.0)
[2021-05-04 08:48] LABS: CREATININE 0.5 mg/dL (0.55-1.3)
[2021-05-04 08:50] LABS: BILIRUBIN,TOTAL 0.4 mg/dL (0.2-1)
[2021-05-04] MEDS ORDERED: DEXTROSE 5%-WATER - 50 ML IVPB ONE (09:13)
[2021-05-04] MEDS ORDERED: cefTRIAXone SODIUM 1 GM VIAL ONE (09:13)
[2021-05-04] MEDS: PANTOPRAZOLE 40 MG TABLET PO SCH (10:34)
[2021-05-04] MEDS: amLODIPine BESYLATE 5 MG TABLET (FP) PO SCH (10:34)
[2021-05-04] MEDS: DULoxetine HCL 30 MG CAPSULE.DR PO SCH (10:35)
[2021-05-04] MEDS: POLYETHYLENE GLYCOL (HEALTHYLAX) 3350 17 GM PACKET PO SCH ×2 (10:36→21:18)
[2021-05-04] MEDS: ENOXAPARIN NA (PORCINE) 40 MG/0.4 ML DISP.SYRIN SQ SCH (10:36)
[2021-05-04] MEDS: CEFTRIAXONE 1 GM in DEXTROSE 5%-WATER - 50 ML IVPB SCH (10:39)
[2021-05-04] MEDS: BUDESONIDE/FORMETEROL FUMARATE 160/4.5 mcg INHALER IH SCH ×2 (10:40→21:22)
[2021-05-04] MEDS: LETROZOLE 2.5 MG TABLET (FP) PO SCH (12:23)
[2021-05-05] MEDS: GABAPENTIN 100 MG CAPSULE PO SCH ×3 (05:42→22:09)
[2021-05-05] MEDS: INSULIN SLIDING SCALE (NOVOLOG) 1 VIAL SQ SCH ×4 (07:02→22:09)
[2021-05-05] MEDS ORDERED: DEXTROSE 5%-WATER - 50 ML IVPB ONE (10:19)
[2021-05-05] MEDS ORDERED: cefTRIAXone SODIUM 1 GM VIAL ONE (10:19)
[2021-05-05] MEDS ORDERED: PT OWN MED DRAWER 7, Y5N ONE (10:19)
[2021-05-05] MEDS: DULoxetine HCL 30 MG CAPSULE.DR PO SCH (10:24)
[2021-05-05] MEDS: CEFTRIAXONE 1 GM in DEXTROSE 5%-WATER - 50 ML IVPB SCH (10:24)
[2021-05-05] MEDS: PANTOPRAZOLE 40 MG TABLET PO SCH (10:24)
[2021-05-05] MEDS: ENOXAPARIN NA (PORCINE) 40 MG/0.4 ML DISP.SYRIN SQ SCH (10:24)
[2021-05-05] MEDS: LETROZOLE 2.5 MG TABLET (FP) PO SCH (10:25)
[2021-05-05] MEDS: POLYETHYLENE GLYCOL (HEALTHYLAX) 3350 17 GM PACKET PO SCH ×2 (10:25→22:09)
[2021-05-05] MEDS: BUDESONIDE/FORMETEROL FUMARATE 160/4.5 mcg INHALER IH SCH ×2 (10:26→22:10)
[2021-05-05] MEDS: amLODIPine BESYLATE 5 MG TABLET (FP) PO SCH (10:28)
[2021-05-05 11:09] LABS: BASO % 1.3 % (0-2.0); EOS % 2.4 % (0-4.5); HEMATOCRIT 40.4 % (32.4-45.2); HEMOGLOBIN 13.6 GM/dL (10.7-15.3); LYMPH % 23.2 % (8-40); MCH 29.9 pg (25.7-33.7); MCHC 33.8 g/dl (32.0-36.0); MEAN CELL VOLUME 88.5 fl (80-96); MEAN PLT VOLUME 7.3 fl (7.5-11.1); MONO % 9.1 % (3.8-10.2); PLATELET COUNT 390 10^3/uL (134-434); RBC 4.57 M/mm3 (3.60-5.2); RDW 14.6 % (11.6-15.6); WHITE BLOOD COUNT 7.4 K/mm3 (4.0-10.0)
[2021-05-05 11:39] LABS: BLOOD UREA NITROGEN 6.4 mg/dL (7-18); CALCIUM 8.9 mg/dL (8.5-10.1)
[2021-05-05 11:42] LABS: CREATININE 0.7 mg/dL (0.55-1.3)
[2021-05-06] MEDS: GABAPENTIN 100 MG CAPSULE PO SCH ×2 (06:08→14:22)
[2021-05-06] MEDS: INSULIN SLIDING SCALE (NOVOLOG) 1 VIAL SQ SCH ×3 (06:15→17:50)
[2021-05-06 09:09] LABS: BASO % 0.7 % (0-2.0); EOS % 2.1 % (0-4.5); HEMATOCRIT 39.2 % (32.4-45.2); HEMOGLOBIN 13.3 GM/dL (10.7-15.3); LYMPH % 25.7 % (8-40); MCHC 33.9 g/dl (32.0-36.0); MEAN CELL VOLUME 88.5 fl (80-96); MEAN PLT VOLUME 7.4 fl (7.5-11.1); NEUT % 63.5 % (42.8-82.8); PLATELET COUNT 397 10^3/uL (134-434); RBC 4.43 M/mm3 (3.60-5.2); RDW 14.6 % (11.6-15.6); WHITE BLOOD COUNT 7.5 K/mm3 (4.0-10.0)
[2021-05-06] MEDS ORDERED: PT OWN MED DRAWER 7, Y5N ONE (09:36)
[2021-05-06] MEDS ORDERED: cefTRIAXone SODIUM 1 GM VIAL ONE (09:36)
[2021-05-06] MEDS ORDERED: DEXTROSE 5%-WATER - 50 ML IVPB ONE (09:36)
[2021-05-06] MEDS: POLYETHYLENE GLYCOL (HEALTHYLAX) 3350 17 GM PACKET PO SCH (09:39)
[2021-05-06] MEDS: PANTOPRAZOLE 40 MG TABLET PO SCH (09:39)
[2021-05-06] MEDS: DULoxetine HCL 30 MG CAPSULE.DR PO SCH (09:39)
[2021-05-06] MEDS: ENOXAPARIN NA (PORCINE) 40 MG/0.4 ML DISP.SYRIN SQ SCH (09:39)
[2021-05-06] MEDS: amLODIPine BESYLATE 5 MG TABLET (FP) PO SCH (09:39)
[2021-05-06 09:40] LABS: BLOOD UREA NITROGEN 10.2 mg/dL (7-18); MAGNESIUM 2.2 mg/dL (1.8-2.4)
[2021-05-06] MEDS: LETROZOLE 2.5 MG TABLET (FP) PO SCH (09:40)
[2021-05-06] MEDS: CEFTRIAXONE 1 GM in DEXTROSE 5%-WATER - 50 ML IVPB SCH (09:40)
[2021-05-06 09:43] LABS: CREATININE 0.6 mg/dL (0.55-1.3)
[2021-05-06] MEDS: BUDESONIDE/FORMETEROL FUMARATE 160/4.5 mcg INHALER IH SCH (09:44)
[2021-05-06 16:04] VITALS: BP 132/70; PULSE 89; TEMP 98
== END 2021-05-06 18:13 | disposition home health service (06) | DRG 392 ==
LOC: JER 20:06 → JERBED 05-01 01:19 → J8W 05-01 11:18 → OBSVTOIN 05-01 15:22
PROVIDERS: ADMIT Internal Medicine; ATTEND Family Medicine
DX: K57.32 Diverticulitis of large intestine without perforation or abscess without bleeding (principal); G82.20 Paraplegia, unspecified; N39.0 Urinary tract infection, site not specified; J98.11 Atelectasis; I10 Essential (primary) hypertension; J44.9 Chronic obstructive pulmonary disease, unspecified; K21.9 Gastro-esophageal reflux disease without esophagitis; E11.9 Type 2 diabetes mellitus without complications; Z88.0 Allergy status to penicillin; E87.6 Hypokalemia; N28.1 Cyst of kidney, acquired; K44.9 Diaphragmatic hernia without obstruction or gangrene; K76.0 Fatty (change of) liver, not elsewhere classified; F32.A Depression, unspecified; N31.9 Neuromuscular dysfunction of bladder, unspecified; G25.81 Restless legs syndrome; G43.909 Migraine, unspecified, not intractable, without status migrainosus; K58.9 Irritable bowel syndrome, unspecified
CPT/HCPCS: 36415; 74177-TC; 80048; 80053; 81003; 82550; 82962; 83036; 83605; 83690; 83735; 84484; 85025; 86140; 87040; 87086; 87186; 93005; 93010; 99285-25; C9803; G0378; J0131; U0003; U0005

== ENCOUNTER 2021-10-02 15:51 | Inpatient (IN) | payer OTHER ==
[2021-10-02] MEDS ORDERED: ACETAMINOPHEN 1000 MG/100 ML BAG IVPB ONE (16:13)
[2021-10-02] MEDS ORDERED: ONDANSETRON 4 MG/2 ML VIAL IVPUSH ONE (16:13)
[2021-10-02] MEDS ORDERED: SODIUM CHLORIDE 1,000 ML IV STA (16:17)
[2021-10-02] MEDS ORDERED: ONDANSETRON 4 MG/2 ML VIAL ONE (16:30)
[2021-10-02] MEDS ORDERED: METOCLOPRAMIDE HCL 10 MG TABLET (FP) PO ONE (16:30)
[2021-10-02] MEDS ORDERED: ACETAMINOPHEN INJECTION 100 ML IVPB ONE (16:30)
[2021-10-02 18:02] LABS: BASO % 0.4 % (0-2.0); HEMATOCRIT 43.7 % (32.4-45.2); HEMOGLOBIN 14.8 GM/dL (10.7-15.3); LYMPH % 8.2 % (8-40); MCH 29.7 pg (25.7-33.7); MCHC 33.8 g/dl (32.0-36.0); MEAN CELL VOLUME 87.8 fl (80-96); MEAN PLT VOLUME 7.9 fl (7.5-11.1); MONO % 8.3 % (3.8-10.2); NEUT % 83.1 % (42.8-82.8); PLATELET COUNT 398 10^3/uL (134-434); RBC 4.98 M/mm3 (3.60-5.2); RDW 14.9 % (11.6-15.6); WHITE BLOOD COUNT 16.6 K/mm3 (4.0-10.0)
[2021-10-02 18:08] LABS: CALCIUM 9.5 mg/dL (8.5-10.1)
[2021-10-02 18:09] LABS: BLOOD UREA NITROGEN 13.5 mg/dL (7-18)
[2021-10-02 18:11] LABS: CREATININE 0.7 mg/dL (0.55-1.3)
[2021-10-02 18:13] LABS: BILIRUBIN,TOTAL 1.2 mg/dL (0.2-1)
[2021-10-02 18:14] LABS: TOT PROT 6.9 g/dl (6.4-8.2)
[2021-10-02 18:17] LABS: LACTIC ACID 2.2 mmol/L (0.4-2.0)
[2021-10-02] MEDS ORDERED: ALBUTEROL SO4 HFA INHALER IH PRN (23:20)
[2021-10-02] MEDS ORDERED: ACETAMINOPHEN 500 MG TABLET (FP) PO PRN (23:21)
[2021-10-03 05:33] VITALS: BMI 28.3
[2021-10-03] MEDS ORDERED: ACETAMINOPHEN 1000 MG/100 ML BAG IVPB ONE (06:59)
[2021-10-03] MEDS ORDERED: HEPARIN NA (PORCINE) 5,000 UNITS/ML 1ML VIAL SQ SCH (10:00)
[2021-10-03] MEDS ORDERED: PATIENT'S OWN MEDICATION (NON-FORMULARY) (Mirabegron [Myrbetriq] 50 MG Tab.Er.24h) PO SCH (10:00)
[2021-10-03] MEDS: amLODIPine BESYLATE 5 MG TABLET (FP) PO SCH (10:32)
[2021-10-03] MEDS: LETROZOLE 2.5 MG TABLET (FP) PO SCH (12:21)
[2021-10-03 13:00] LABS: BASO % 0.5 % (0-2.0); EOS % 0.1 % (0-4.5); HEMATOCRIT 38.4 % (32.4-45.2); HEMOGLOBIN 12.9 GM/dL (10.7-15.3); LYMPH % 8.7 % (8-40); MCH 29.5 pg (25.7-33.7); MCHC 33.5 g/dl (32.0-36.0); MEAN CELL VOLUME 88.1 fl (80-96); MEAN PLT VOLUME 7.4 fl (7.5-11.1); MONO % 8.2 % (3.8-10.2); NEUT % 82.5 % (42.8-82.8); PLATELET COUNT 323 10^3/uL (134-434); RBC 4.36 M/mm3 (3.60-5.2); RDW 14.6 % (11.6-15.6); WHITE BLOOD COUNT 17.3 K/mm3 (4.0-10.0)
[2021-10-03 13:17] LABS: BLOOD UREA NITROGEN 12.8 mg/dL (7-18); CALCIUM 9.1 mg/dL (8.5-10.1)
[2021-10-03 13:20] LABS: CREATININE 0.5 mg/dL (0.55-1.3)
[2021-10-03] MEDS: HEPARIN NA (PORCINE) 5,000 UNITS/ML 1ML VIAL SQ SCH ×2 (14:32→21:46)
[2021-10-03] MEDS: BUDESONIDE/FORMETEROL FUMARATE 160/4.5 mcg INHALER IH SCH (21:50)
[2021-10-04] MEDS: HEPARIN NA (PORCINE) 5,000 UNITS/ML 1ML VIAL SQ SCH ×3 (05:31→23:49)
[2021-10-04] MEDS: LETROZOLE 2.5 MG TABLET (FP) PO SCH (10:34)
[2021-10-04] MEDS: BUDESONIDE/FORMETEROL FUMARATE 160/4.5 mcg INHALER IH SCH ×2 (10:35→23:49)
[2021-10-04] MEDS: amLODIPine BESYLATE 5 MG TABLET (FP) PO SCH (10:35)
[2021-10-04] MEDS: ERTAPENEM SODIUM 1 GM in SODIUM CHLORIDE 50 ML IVPB SCH (12:24)
[2021-10-04 12:56] LABS: BASO % 0.6 % (0-2.0); EOS % 0.3 % (0-4.5); HEMOGLOBIN 12.8 GM/dL (10.7-15.3); LYMPH % 11.4 % (8-40); MCH 29.1 pg (25.7-33.7); MCHC 32.8 g/dl (32.0-36.0); MEAN CELL VOLUME 88.6 fl (80-96); MEAN PLT VOLUME 7.6 fl (7.5-11.1); MONO % 6.5 % (3.8-10.2); NEUT % 81.2 % (42.8-82.8); PLATELET COUNT 336 10^3/uL (134-434); RDW 14.6 % (11.6-15.6); WHITE BLOOD COUNT 11.9 K/mm3 (4.0-10.0)
[2021-10-04 14:01] LABS: ALBUMIN 2.4 g/dl (3.4-5.0); BILIRUBIN,TOTAL 0.8 mg/dL (0.2-1); BLOOD UREA NITROGEN 13.5 mg/dL (7-18); CALCIUM 8.9 mg/dL (8.5-10.1); CREATININE 0.5 mg/dL (0.55-1.3); TOT PROT 6.2 g/dl (6.4-8.2)
[2021-10-05] MEDS: HEPARIN NA (PORCINE) 5,000 UNITS/ML 1ML VIAL SQ SCH ×4 (05:46→21:18)
[2021-10-05] MEDS: LETROZOLE 2.5 MG TABLET (FP) PO SCH (09:42)
[2021-10-05] MEDS: amLODIPine BESYLATE 5 MG TABLET (FP) PO SCH (09:42)
[2021-10-05] MEDS: BUDESONIDE/FORMETEROL FUMARATE 160/4.5 mcg INHALER IH SCH ×2 (09:56→21:19)
[2021-10-05] MEDS: ERTAPENEM SODIUM 1 GM in SODIUM CHLORIDE 50 ML IVPB SCH (10:52)
[2021-10-05] MEDS: DEXTROSE 5%-NORMAL SALINE 1,000 ML IV SCH (10:54)
[2021-10-05] MEDS ORDERED: ACETAMINOPHEN 1000 MG/100 ML BAG IVPB PRN (22:37)
[2021-10-06] MEDS: DEXTROSE 5%-NORMAL SALINE 1,000 ML IV SCH ×2 (04:35→10:49)
[2021-10-06] MEDS: HEPARIN NA (PORCINE) 5,000 UNITS/ML 1ML VIAL SQ SCH ×3 (05:55→22:12)
[2021-10-06] MEDS ORDERED: PROPOFOL 20 ML ONE (07:12)
[2021-10-06] MEDS ORDERED: PHENYLEPHRINE HCL 10 MG/1 ML SINGLE DOSE VIAL ONE ×2 (07:12→11:16)
[2021-10-06] MEDS ORDERED: ONDANSETRON 4 MG/2 ML VIAL ONE ×3 (07:12→13:30)
[2021-10-06] MEDS ORDERED: LIDOCAINE HCL 2% 100 MG/5 ML DISP.SYRIN ONE (07:12)
[2021-10-06] MEDS ORDERED: ROCURONIUM BROMIDE 50 MG/5 ML SYRINGE ONE (07:12)
[2021-10-06] MEDS ORDERED: DEXAMETHASONE SOD PHOSPHATE 4 MG/1 ML VIAL ONE (07:12)
[2021-10-06] MEDS ORDERED: MIDAZOLAM HCL 2 MG/2 ML SINGLE DOSE VIAL ONE (07:12)
[2021-10-06] MEDS ORDERED: SUCCINYLCHOLINE CHLORIDE 200 MG/10 ML SYRINGE ONE (07:41)
[2021-10-06] MEDS ORDERED: BUPIVACAINE HCL/PF 0.5% (5MG/ML) 10 ML VIAL ONE (07:43)
[2021-10-06] MEDS ORDERED: BUPIVACAINE LIPOSOME/PF (EXPAREL) 266 MG/20 ML VIAL ONE (07:44)
[2021-10-06 08:59] LABS: HEMATOCRIT 40.4 % (32.4-45.2); HEMOGLOBIN 13.7 GM/dL (10.7-15.3); MCH 29.7 pg (25.7-33.7); MCHC 33.8 g/dl (32.0-36.0); MEAN CELL VOLUME 87.7 fl (80-96); MEAN PLT VOLUME 7.4 fl (7.5-11.1); PLATELET COUNT 457 10^3/uL (134-434); RDW 14.6 % (11.6-15.6); WHITE BLOOD COUNT 5.1 K/mm3 (4.0-10.0)
[2021-10-06 09:18] LABS: INR 1.09 (0.83-1.09); PROTHROMBIN TIME (PATIENT) 12.6 SEC (9.7-13.0)
[2021-10-06 09:21] LABS: BLOOD UREA NITROGEN 15.4 mg/dL (7-18); CALCIUM 8.6 mg/dL (8.5-10.1); MAGNESIUM 2.1 mg/dL (1.8-2.4)
[2021-10-06 09:24] LABS: CREATININE 0.4 mg/dL (0.55-1.3)
[2021-10-06] MEDS ORDERED: cefOXitin SODIUM 1 GM/10 ML PUSH (RESTRICTED TO ID) IVPUSH ONE (09:26)
[2021-10-06] MEDS ORDERED: ceFAZolin SODIUM 1 GM VIAL IVPB ONE (09:30)
[2021-10-06] MEDS ORDERED: cefOXitin SODIUM 2 GM VIAL (RESTRICTED TO ID) IVPB ONE (09:30)
[2021-10-06] MEDS ORDERED: HEPARIN NA (PORCINE) 5,000 UNITS/ML 1ML VIAL ONE (09:40)
[2021-10-06] MEDS ORDERED: METOPROLOL TARTRATE 5 MG/5 ML VIAL ONE (10:00)
[2021-10-06] MEDS ORDERED: hydrALAZINE HCL 20 MG/ML VIAL ONE (10:07)
[2021-10-06] MEDS: BUDESONIDE/FORMETEROL FUMARATE 160/4.5 mcg INHALER IH SCH ×2 (10:49→22:11)
[2021-10-06] MEDS: amLODIPine BESYLATE 5 MG TABLET (FP) PO SCH (10:49)
[2021-10-06] MEDS ORDERED: KETOROLAC TROMETHAMINE 30 MG/1 ML VIAL ONE (10:56)
[2021-10-06] MEDS: ERTAPENEM SODIUM 1 GM in SODIUM CHLORIDE 50 ML IVPB SCH (11:06)
[2021-10-06] MEDS ORDERED: INDOCYANINE GREEN 25 MG/10 ML VIAL IVPUSH ONE (11:52)
[2021-10-06] MEDS ORDERED: BENZOIN/ALOE VERA/STORAX/TOLU 58 ML BOTTLE ONE (12:32)
[2021-10-06] MEDS: LETROZOLE 2.5 MG TABLET (FP) PO SCH (12:39)
[2021-10-06] MEDS ORDERED: morphine CARPU-JECT 2 MG/1 ML DISP.SYRIN IVPUSH PRN (12:51)
[2021-10-06] MEDS ORDERED: ONDANSETRON 4 MG/2 ML VIAL IVPUSH PRN (12:51)
[2021-10-06] MEDS ORDERED: ALBUTEROL SO4 HFA INHALER IH PRN (12:55)
[2021-10-06] MEDS ORDERED: DEXTROSE 5%-NORMAL SALINE 1,000 ML IV SCH (12:55)
[2021-10-06] MEDS ORDERED: ACETAMINOPHEN 1000 MG/100 ML BAG IVPB PRN (12:55)
[2021-10-06] MEDS ORDERED: KETOROLAC TROMETHAMINE 15 MG/ML VIAL IVPUSH PRN (12:57)
[2021-10-06] MEDS ORDERED: ACETAMINOPHEN INJECTION 100 ML IVPB ONE (13:05)
[2021-10-06] MEDS ORDERED: ACETAMINOPHEN 1000 MG/100 ML BAG IVPB ONE (13:07)
[2021-10-06] MEDS ORDERED: ONDANSETRON 4 MG/2 ML VIAL IVPUSH ONE (13:31)
[2021-10-06] MEDS: ACETAMINOPHEN 1000 MG/100 ML BAG IVPB SCH ×2 (16:16→18:38)
[2021-10-06] MEDS: LACTATED RINGERS SOLUTION 1,000 ML IV SCH (16:20)
[2021-10-06] MEDS ORDERED: amLODIPine BESYLATE 5 MG TABLET (FP) PO ONE (18:42)
[2021-10-06] MEDS ORDERED: ACETAMINOPHEN 325 MG TABLET (FP) PO PRN (18:42)
[2021-10-06] MEDS: morphine SULFATE 4 MG/ML VIAL IVPUSH PRN (20:35)
[2021-10-07] MEDS: ACETAMINOPHEN 1000 MG/100 ML BAG IVPB SCH ×2 (00:27→06:19)
[2021-10-07] MEDS: morphine SULFATE 4 MG/ML VIAL IVPUSH PRN ×3 (06:08→20:25)
[2021-10-07] MEDS: HEPARIN NA (PORCINE) 5,000 UNITS/ML 1ML VIAL SQ SCH ×3 (06:41→23:03)
[2021-10-07] MEDS: LACTATED RINGERS SOLUTION 1,000 ML IV SCH ×2 (06:48→23:48)
[2021-10-07 08:51] LABS: BASO % 0.6 % (0-2.0); EOS % 0.1 % (0-4.5); HEMATOCRIT 36.7 % (32.4-45.2); HEMOGLOBIN 12.6 GM/dL (10.7-15.3); LYMPH % 14.8 % (8-40); MCH 29.6 pg (25.7-33.7); MCHC 34.3 g/dl (32.0-36.0); MEAN CELL VOLUME 86.4 fl (80-96); MEAN PLT VOLUME 7.3 fl (7.5-11.1); MONO % 9.5 % (3.8-10.2); PLATELET COUNT 427 10^3/uL (134-434); RBC 4.25 M/mm3 (3.60-5.2); RDW 14.5 % (11.6-15.6); WHITE BLOOD COUNT 9.6 K/mm3 (4.0-10.0)
[2021-10-07 09:11] LABS: BLOOD UREA NITROGEN 8.7 mg/dL (7-18); CALCIUM 8.3 mg/dL (8.5-10.1)
[2021-10-07 09:15] LABS: CREATININE 0.4 mg/dL (0.55-1.3)
[2021-10-07] MEDS: amLODIPine BESYLATE 5 MG TABLET (FP) PO SCH (09:59)
[2021-10-07] MEDS: BUDESONIDE/FORMETEROL FUMARATE 160/4.5 mcg INHALER IH SCH ×2 (09:59→23:06)
[2021-10-07] MEDS ORDERED: ERTAPENEM SODIUM 1 GM in SODIUM CHLORIDE 50 ML IVPB SCH (10:00)
[2021-10-07] MEDS: LETROZOLE 2.5 MG TABLET (FP) PO SCH (10:02)
[2021-10-07] MEDS ORDERED: POTASSIUM CHLORIDE TABS 20 MEQ TABLET.ER (FP) PO ONE (11:30)
[2021-10-07 16:23] LABS: EPI CELLS 35 /uL (0-25.1); HYALINE CASTS 7 /uL (0-3.1); URINE APPEARANCE CLEAR; URINE BACTERIA 24 /uL (0-1359); URINE BILIRUBIN NEGATIVE (NEGATIVE); URINE COLOR YELLOW; URINE GLUCOSE (UA) NEGATIVE (NEGATIVE); URINE KETONE NEGATIVE (NEGATIVE); URINE LEUK ESTERASE 2+ (NEGATIVE); URINE NITRITE NEGATIVE (NEGATIVE); URINE PROTEIN NEGATIVE (NEGATIVE); URINE RBC 103 /uL (0-23.9); URINE WBC 359 /uL (0-25.8)
[2021-10-08] MEDS: HEPARIN NA (PORCINE) 5,000 UNITS/ML 1ML VIAL SQ SCH ×3 (06:48→21:37)
[2021-10-08] MEDS: morphine SULFATE 4 MG/ML VIAL IVPUSH PRN ×2 (06:51→11:17)
[2021-10-08] MEDS: BUDESONIDE/FORMETEROL FUMARATE 160/4.5 mcg INHALER IH SCH ×2 (10:09→21:38)
[2021-10-08] MEDS: amLODIPine BESYLATE 5 MG TABLET (FP) PO SCH (10:09)
[2021-10-08] MEDS: LETROZOLE 2.5 MG TABLET (FP) PO SCH (10:09)
[2021-10-08] MEDS: LACTATED RINGERS SOLUTION 1,000 ML IV SCH (13:00)
[2021-10-08] MEDS: ONDANSETRON 4 MG/2 ML VIAL IVPUSH PRN (13:05)
[2021-10-08] MEDS ORDERED: POTASSIUM CHLORIDE ORAL LIQUID 20 MEQ/15 ML PO ONE (13:30)
[2021-10-08] MEDS: KETOROLAC TROMETHAMINE 30 MG/1 ML VIAL IVPUSH PRN (16:53)
[2021-10-08 17:38] LABS: CALCIUM 8.9 mg/dL (8.5-10.1)
[2021-10-08 17:39] LABS: MAGNESIUM 1.9 mg/dL (1.8-2.4)
[2021-10-08 17:42] LABS: CREATININE 0.4 mg/dL (0.55-1.3)
[2021-10-09] MEDS: LACTATED RINGERS SOLUTION 1,000 ML IV SCH ×2 (04:00→13:11)
[2021-10-09] MEDS: HEPARIN NA (PORCINE) 5,000 UNITS/ML 1ML VIAL SQ SCH ×4 (06:16→21:07)
[2021-10-09] MEDS: KETOROLAC TROMETHAMINE 30 MG/1 ML VIAL IVPUSH PRN ×3 (07:22→22:56)
[2021-10-09] MEDS: amLODIPine BESYLATE 5 MG TABLET (FP) PO SCH (10:06)
[2021-10-09] MEDS: LETROZOLE 2.5 MG TABLET (FP) PO SCH (10:06)
[2021-10-09] MEDS: BUDESONIDE/FORMETEROL FUMARATE 160/4.5 mcg INHALER IH SCH ×2 (10:07→21:02)
[2021-10-09] MEDS: ACETAMINOPHEN 325 MG TABLET (FP) PO PRN (20:59)
[2021-10-10] MEDS: LACTATED RINGERS SOLUTION 1,000 ML IV SCH (03:33)
[2021-10-10] MEDS: HEPARIN NA (PORCINE) 5,000 UNITS/ML 1ML VIAL SQ SCH ×4 (05:54→22:04)
[2021-10-10 10:08] LABS: CALCIUM 8.5 mg/dL (8.5-10.1)
[2021-10-10 10:09] LABS: ALBUMIN 2.2 g/dl (3.4-5.0); BLOOD UREA NITROGEN 4.4 mg/dL (7-18)
[2021-10-10 10:12] LABS: CREATININE 0.4 mg/dL (0.55-1.3)
[2021-10-10 10:13] LABS: TOT PROT 5.7 g/dl (6.4-8.2)
[2021-10-10 10:14] LABS: BILIRUBIN,TOTAL 0.7 mg/dL (0.2-1)
[2021-10-10] MEDS: amLODIPine BESYLATE 5 MG TABLET (FP) PO SCH (10:45)
[2021-10-10] MEDS: LETROZOLE 2.5 MG TABLET (FP) PO SCH (10:45)
[2021-10-10] MEDS: BUDESONIDE/FORMETEROL FUMARATE 160/4.5 mcg INHALER IH SCH ×2 (10:46→22:01)
[2021-10-10] MEDS: KETOROLAC TROMETHAMINE 30 MG/1 ML VIAL IVPUSH PRN (11:00)
[2021-10-10] MEDS: POTASSIUM CHLORIDE 10 MEQ in SODIUM CHLORIDE 0.45% 1,000 ML IVPB SCH (18:43)
[2021-10-10] MEDS: ACETAMINOPHEN 325 MG TABLET (FP) PO PRN (19:42)
[2021-10-11] MEDS: HEPARIN NA (PORCINE) 5,000 UNITS/ML 1ML VIAL SQ SCH ×3 (06:43→21:33)
[2021-10-11] MEDS: KETOROLAC TROMETHAMINE 30 MG/1 ML VIAL IVPUSH PRN ×2 (06:47→21:33)
[2021-10-11 09:19] LABS: ALBUMIN 1.9 g/dl (3.4-5.0); BLOOD UREA NITROGEN 3.9 mg/dL (7-18); MAGNESIUM 1.5 mg/dL (1.8-2.4)
[2021-10-11 09:22] LABS: CREATININE 0.3 mg/dL (0.55-1.3)
[2021-10-11 09:23] LABS: BILIRUBIN,TOTAL 0.9 mg/dL (0.2-1); TOT PROT 4.8 g/dl (6.4-8.2)
[2021-10-11 09:27] LABS: CALCIUM 7.2 mg/dL (8.5-10.1)
[2021-10-11] MEDS ORDERED: MAGNESIUM SULF 50% (8.12 MEQ/2 ML-1 GM VIAL) IVPB ONE (10:09)
[2021-10-11] MEDS: amLODIPine BESYLATE 5 MG TABLET (FP) PO SCH (11:04)
[2021-10-11] MEDS: BUDESONIDE/FORMETEROL FUMARATE 160/4.5 mcg INHALER IH SCH ×2 (11:04→21:33)
[2021-10-11] MEDS: LETROZOLE 2.5 MG TABLET (FP) PO SCH (11:04)
[2021-10-11] MEDS: AMINO ACIDS/PROTEIN HYDROLYS 30 ML LIQUID.PKT PO SCH ×2 (17:30→17:46)
[2021-10-11] MEDS: POTASSIUM CHLORIDE 10 MEQ in SODIUM CHLORIDE 0.45% 1,000 ML IVPB SCH (17:30)
[2021-10-11] MEDS: ONDANSETRON 4 MG/2 ML VIAL IVPUSH PRN (18:24)
[2021-10-12] MEDS: KETOROLAC TROMETHAMINE 30 MG/1 ML VIAL IVPUSH PRN (05:51)
[2021-10-12] MEDS: HEPARIN NA (PORCINE) 5,000 UNITS/ML 1ML VIAL SQ SCH ×3 (05:51→22:12)
[2021-10-12] MEDS: AMINO ACIDS/PROTEIN HYDROLYS 30 ML LIQUID.PKT PO SCH ×2 (09:03→16:39)
[2021-10-12] MEDS: amLODIPine BESYLATE 5 MG TABLET (FP) PO SCH (09:29)
[2021-10-12] MEDS: LETROZOLE 2.5 MG TABLET (FP) PO SCH (09:29)
[2021-10-12] MEDS: BUDESONIDE/FORMETEROL FUMARATE 160/4.5 mcg INHALER IH SCH ×2 (09:29→22:12)
[2021-10-12] MEDS: POTASSIUM CHLORIDE 10 MEQ in SODIUM CHLORIDE 0.45% 1,000 ML IVPB SCH (16:39)
[2021-10-12 20:07] LABS: SARS-CoV-2 NAA Not Detected (Not Detected)
[2021-10-13] MEDS: ACETAMINOPHEN 325 MG TABLET (FP) PO PRN (02:58)
[2021-10-13] MEDS: HEPARIN NA (PORCINE) 5,000 UNITS/ML 1ML VIAL SQ SCH (06:32)
[2021-10-13] MEDS: AMINO ACIDS/PROTEIN HYDROLYS 30 ML LIQUID.PKT PO SCH (08:19)
[2021-10-13] MEDS: amLODIPine BESYLATE 5 MG TABLET (FP) PO SCH (09:44)
[2021-10-13] MEDS: LETROZOLE 2.5 MG TABLET (FP) PO SCH (09:44)
[2021-10-13] MEDS: BUDESONIDE/FORMETEROL FUMARATE 160/4.5 mcg INHALER IH SCH (09:44)
[2021-10-13 14:24] VITALS: BP 122/81; PULSE 87; TEMP 98.2
== END 2021-10-13 15:00 | disposition home health service (06) | DRG 330 ==
LOC: JER 15:51 → JERBED 19:48 → J6S 10-03 04:07
PROVIDERS: ADMIT Internal Medicine; ATTEND Family Medicine
PROC: 0T778DZ Dilation of Left Ureter with Intraluminal Device, Via Natural or Artificial Opening Endoscopic (ICD-10-PCS; 2021-10-06)
PROC: 0TCB8ZZ Extirpation of Matter from Bladder, Via Natural or Artificial Opening Endoscopic (ICD-10-PCS; 2021-10-06)
PROC: 0D1E4Z4 Bypass Large Intestine to Cutaneous, Percutaneous Endoscopic Approach (ICD-10-PCS; principal; 2021-10-06 08:00)
PROC: 0DTN4ZZ Resection of Sigmoid Colon, Percutaneous Endoscopic Approach (ICD-10-PCS; 2021-10-06 08:00)
DX: K57.32 Diverticulitis of large intestine without perforation or abscess without bleeding (principal); G82.20 Paraplegia, unspecified; E87.2 Acidosis; J45.909 Unspecified asthma, uncomplicated; I10 Essential (primary) hypertension; J44.9 Chronic obstructive pulmonary disease, unspecified; K21.9 Gastro-esophageal reflux disease without esophagitis; D72.829 Elevated white blood cell count, unspecified; N20.0 Calculus of kidney; K58.0 Irritable bowel syndrome with diarrhea; E87.6 Hypokalemia; R10.32 Left lower quadrant pain; N21.0 Calculus in bladder
CPT/HCPCS: 36415; 71045-TC-FY; 74176-TC; 80048; 80053; 81003; 83605; 83690; 83735; 85025; 85027; 85610; 86140; 86850; 86900; 86901; 87040; 87086; 88307-TC; 93005; 93010; 94760; 97161-GP; 99285-25; C9803-CS; J1644; U0003; U0005

== ENCOUNTER 2021-10-22 04:48 | Inpatient (IN) | payer OTHER ==
[2021-10-22] MEDS ORDERED: LACTATED RINGERS SOLUTION 1000 ML INFUS.BAG IV ONE (05:23)
[2021-10-22] MEDS ORDERED: ACETAMINOPHEN 1000 MG/100 ML BAG IVPB ONE (05:38)
[2021-10-22] MEDS ORDERED: ONDANSETRON 4 MG/2 ML VIAL IVPUSH ONE ×3 (05:54→17:02)
[2021-10-22 06:29] LABS: HEMATOCRIT 40.4 % (32.4-45.2); HEMOGLOBIN 13.4 GM/dL (10.7-15.3); LYMPH % 13.8 % (8-40); MCH 29.1 pg (25.7-33.7); MCHC 33.3 g/dl (32.0-36.0); MEAN CELL VOLUME 87.6 fl (80-96); MEAN PLT VOLUME 7.7 fl (7.5-11.1); MONO % 5.7 % (3.8-10.2); NEUT % 78.5 % (42.8-82.8); PLATELET COUNT 408 10^3/uL (134-434); RBC 4.61 M/mm3 (3.60-5.2); RDW 14.9 % (11.6-15.6); WHITE BLOOD COUNT 8.5 K/mm3 (4.0-10.0)
[2021-10-22] MEDS ORDERED: ACETAMINOPHEN INJECTION 100 ML IVPB ONE (06:40)
[2021-10-22] MEDS ORDERED: ONDANSETRON 4 MG/2 ML VIAL ONE ×3 (06:40→17:02)
[2021-10-22 06:43] LABS: INR 1.05 (0.83-1.09); PROTHROMBIN TIME (PATIENT) 12.1 SEC (9.7-13.0)
[2021-10-22 06:46] LABS: ACTIVATED PTT 34.2 SECONDS (25.2-36.5)
[2021-10-22 06:51] LABS: BLOOD UREA NITROGEN 10.4 mg/dL (7-18)
[2021-10-22 06:54] LABS: CREATININE 0.5 mg/dL (0.55-1.3)
[2021-10-22 06:55] LABS: BILIRUBIN,TOTAL 0.6 mg/dL (0.2-1)
[2021-10-22 07:04] LABS: ALBUMIN 2.8 g/dl (3.4-5.0); CALCIUM 9.1 mg/dL (8.5-10.1); TOT PROT 6.8 g/dl (6.4-8.2)
[2021-10-22] MEDS ORDERED: PROCHLORPERAZINE INJECTION 10 MG/2 ML VIAL IVPB PRN (15:32)
[2021-10-22] MEDS ORDERED: ALBUTEROL SO4 HFA INHALER IH PRN (15:33)
[2021-10-22] MEDS ORDERED: BEBTELOVIMAB (EUA) 175 MG/2 ML VIAL IVPUSH ONE (16:07)
[2021-10-22] MEDS ORDERED: CEFTRIAXONE 2 GM/100 ML BAG IVPB ONE (16:25)
[2021-10-22] MEDS: CEFTRIAXONE 2 GM in DEXTROSE 5%-WATER 2 GM/100 ML BAG IVPB SCH (17:08)
[2021-10-22] MEDS: SODIUM CHLORIDE 1,000 ML IV SCH ×2 (17:08→23:19)
[2021-10-22] MEDS: TIOTROPIUM BROMIDE 2.5 MCG (SPIRIVA) RESPIMAT INHALER IH SCH (17:08)
[2021-10-22] MEDS: BUDESONIDE/FORMETEROL FUMARATE 160/4.5 mcg INHALER IH SCH (23:18)
[2021-10-23 05:38] VITALS: BMI 27.1
[2021-10-23 07:36] LABS: MCH 29.8 pg (25.7-33.7); MCHC 34.2 g/dl (32.0-36.0); MEAN CELL VOLUME 87.3 fl (80-96); MEAN PLT VOLUME 7.2 fl (7.5-11.1); PLATELET COUNT 341 10^3/uL (134-434); RBC 4.02 M/mm3 (3.60-5.2); RDW 14.7 % (11.6-15.6); WHITE BLOOD COUNT 4.9 K/mm3 (4.0-10.0)
[2021-10-23 07:46] LABS: BLOOD UREA NITROGEN 5.6 mg/dL (7-18); CALCIUM 7.9 mg/dL (8.5-10.1); MAGNESIUM 1.7 mg/dL (1.8-2.4)
[2021-10-23 07:48] LABS: CREATININE 0.4 mg/dL (0.55-1.3)
[2021-10-23 07:50] LABS: BILIRUBIN,TOTAL 0.5 mg/dL (0.2-1); PHOSPHOROUS 3.5 mg/dL (2.5-4.9); TOT PROT 5.4 g/dl (6.4-8.2)
[2021-10-23 08:01] LABS: ALBUMIN 2.2 g/dl (3.4-5.0)
[2021-10-23] MEDS ORDERED: DEXTROSE 5%-WATER 100 ML IVPB ONE (08:58)
[2021-10-23] MEDS: ACETAMINOPHEN 325 MG TABLET (FP) PO PRN (11:33)
[2021-10-23] MEDS: BUDESONIDE/FORMETEROL FUMARATE 160/4.5 mcg INHALER IH SCH ×2 (11:34→21:55)
[2021-10-23] MEDS: CEFTRIAXONE 2 GM in DEXTROSE 5%-WATER 2 GM/100 ML BAG IVPB SCH (11:34)
[2021-10-23] MEDS: SODIUM CHLORIDE 1,000 ML IV SCH ×2 (11:34→17:37)
[2021-10-23] MEDS: PANTOPRAZOLE SODIUM 40 MG VIAL IVPUSH SCH (11:34)
[2021-10-23] MEDS: ENOXAPARIN NA (PORCINE) 40 MG/0.4 ML DISP.SYRIN SQ SCH (12:14)
[2021-10-23] MEDS: TIOTROPIUM BROMIDE 2.5 MCG (SPIRIVA) RESPIMAT INHALER IH SCH (12:14)
[2021-10-23] MEDS: LETROZOLE 2.5 MG TABLET (FP) PO SCH (12:15)
[2021-10-23] MEDS ORDERED: AMINO ACIDS 4.25%/D5W 1,000 ML IV SCH (14:00)
[2021-10-24] MEDS ORDERED: DEXTROSE 5%-WATER 100 ML IVPB ONE (10:59)
[2021-10-24] MEDS: ENOXAPARIN NA (PORCINE) 40 MG/0.4 ML DISP.SYRIN SQ SCH (11:20)
[2021-10-24] MEDS: LETROZOLE 2.5 MG TABLET (FP) PO SCH (11:20)
[2021-10-24] MEDS: CEFTRIAXONE 2 GM in DEXTROSE 5%-WATER 2 GM/100 ML BAG IVPB SCH (11:20)
[2021-10-24] MEDS: PANTOPRAZOLE SODIUM 40 MG VIAL IVPUSH SCH (11:21)
[2021-10-24] MEDS: BUDESONIDE/FORMETEROL FUMARATE 160/4.5 mcg INHALER IH SCH ×2 (11:21→21:12)
[2021-10-24] MEDS: TIOTROPIUM BROMIDE 2.5 MCG (SPIRIVA) RESPIMAT INHALER IH SCH (11:22)
[2021-10-24] MEDS: SODIUM CHLORIDE 1,000 ML IV SCH (13:15)
[2021-10-24] MEDS: ACETAMINOPHEN 325 MG TABLET (FP) PO PRN (21:11)
[2021-10-25] MEDS ORDERED: DEXTROSE 5%-WATER 100 ML IVPB ONE (09:44)
[2021-10-25] MEDS: CEFTRIAXONE 2 GM in DEXTROSE 5%-WATER 2 GM/100 ML BAG IVPB SCH (09:56)
[2021-10-25] MEDS: PANTOPRAZOLE SODIUM 40 MG VIAL IVPUSH SCH (09:56)
[2021-10-25] MEDS: ENOXAPARIN NA (PORCINE) 40 MG/0.4 ML DISP.SYRIN SQ SCH (09:57)
[2021-10-25] MEDS: amLODIPine BESYLATE 5 MG TABLET (FP) PO SCH (09:57)
[2021-10-25] MEDS: BUDESONIDE/FORMETEROL FUMARATE 160/4.5 mcg INHALER IH SCH ×2 (09:57→23:51)
[2021-10-25] MEDS: LETROZOLE 2.5 MG TABLET (FP) PO SCH (09:57)
[2021-10-25] MEDS: TIOTROPIUM BROMIDE 2.5 MCG (SPIRIVA) RESPIMAT INHALER IH SCH (09:57)
[2021-10-25 13:59] LABS: BASO % 0.8 % (0-2.0); EOS % 1.1 % (0-4.5); HEMATOCRIT 37.4 % (32.4-45.2); HEMOGLOBIN 12.9 GM/dL (10.7-15.3); LYMPH % 23.2 % (8-40); MCH 29.6 pg (25.7-33.7); MCHC 34.6 g/dl (32.0-36.0); MEAN CELL VOLUME 85.7 fl (80-96); MEAN PLT VOLUME 7.5 fl (7.5-11.1); MONO % 9.4 % (3.8-10.2); NEUT % 65.5 % (42.8-82.8); PLATELET COUNT 373 10^3/uL (134-434); RBC 4.36 M/mm3 (3.60-5.2); RDW 14.6 % (11.6-15.6); WHITE BLOOD COUNT 6.4 K/mm3 (4.0-10.0)
[2021-10-25 14:10] LABS: CALCIUM 8.8 mg/dL (8.5-10.1); MAGNESIUM 1.9 mg/dL (1.8-2.4)
[2021-10-25 14:11] LABS: BLOOD UREA NITROGEN 3.8 mg/dL (7-18)
[2021-10-25 14:15] LABS: BILIRUBIN,TOTAL 0.2 mg/dL (0.2-1); TOT PROT 6.2 g/dl (6.4-8.2)
[2021-10-25 14:18] LABS: ALBUMIN 2.9 g/dl (3.4-5.0); CREATININE 0.5 mg/dL (0.55-1.3)
[2021-10-25] MEDS ORDERED: POTASSIUM CHLORIDE TABS 20 MEQ TABLET.ER (FP) PO ONE (16:30)
[2021-10-26] MEDS ORDERED: DEXTROSE 5%-WATER 100 ML IVPB ONE (10:44)
[2021-10-26] MEDS: ENOXAPARIN NA (PORCINE) 40 MG/0.4 ML DISP.SYRIN SQ SCH (10:50)
[2021-10-26] MEDS: PANTOPRAZOLE SODIUM 40 MG VIAL IVPUSH SCH (10:50)
[2021-10-26] MEDS: CEFTRIAXONE 2 GM in DEXTROSE 5%-WATER 2 GM/100 ML BAG IVPB SCH (10:50)
[2021-10-26] MEDS: TIOTROPIUM BROMIDE 2.5 MCG (SPIRIVA) RESPIMAT INHALER IH SCH (10:51)
[2021-10-26] MEDS: amLODIPine BESYLATE 5 MG TABLET (FP) PO SCH (10:51)
[2021-10-26] MEDS: BUDESONIDE/FORMETEROL FUMARATE 160/4.5 mcg INHALER IH SCH ×2 (10:51→22:52)
[2021-10-26] MEDS: LETROZOLE 2.5 MG TABLET (FP) PO SCH (10:51)
[2021-10-26 12:28] LABS: EOS % 1.3 % (0-4.5); HEMATOCRIT 39.9 % (32.4-45.2); HEMOGLOBIN 13.4 GM/dL (10.7-15.3); LYMPH % 23.7 % (8-40); MCH 29.4 pg (25.7-33.7); MCHC 33.7 g/dl (32.0-36.0); MEAN CELL VOLUME 87.3 fl (80-96); MEAN PLT VOLUME 7.4 fl (7.5-11.1); PLATELET COUNT 406 10^3/uL (134-434); RBC 4.57 M/mm3 (3.60-5.2); RDW 15.2 % (11.6-15.6); WHITE BLOOD COUNT 6.8 K/mm3 (4.0-10.0)
[2021-10-26 12:49] LABS: ALBUMIN 2.7 g/dl (3.4-5.0); BLOOD UREA NITROGEN 6.1 mg/dL (7-18); CALCIUM 9.2 mg/dL (8.5-10.1); MAGNESIUM 1.8 mg/dL (1.8-2.4)
[2021-10-26 12:52] LABS: CREATININE 0.6 mg/dL (0.55-1.3)
[2021-10-26 12:53] LABS: TOT PROT 6.2 g/dl (6.4-8.2)
[2021-10-26 12:54] LABS: BILIRUBIN,TOTAL 0.3 mg/dL (0.2-1)
[2021-10-27] MEDS ORDERED: DEXTROSE 5%-WATER 100 ML IVPB ONE (09:50)
[2021-10-27] MEDS: ENOXAPARIN NA (PORCINE) 40 MG/0.4 ML DISP.SYRIN SQ SCH (09:54)
[2021-10-27] MEDS: CEFTRIAXONE 2 GM in DEXTROSE 5%-WATER 2 GM/100 ML BAG IVPB SCH (09:54)
[2021-10-27] MEDS: amLODIPine BESYLATE 5 MG TABLET (FP) PO SCH (09:54)
[2021-10-27] MEDS: PANTOPRAZOLE SODIUM 40 MG VIAL IVPUSH SCH (09:56)
[2021-10-27] MEDS: LETROZOLE 2.5 MG TABLET (FP) PO SCH (09:56)
[2021-10-27] MEDS: TIOTROPIUM BROMIDE 2.5 MCG (SPIRIVA) RESPIMAT INHALER IH SCH (09:58)
[2021-10-27] MEDS: BUDESONIDE/FORMETEROL FUMARATE 160/4.5 mcg INHALER IH SCH ×2 (09:58→21:37)
[2021-10-27] MEDS: GABAPENTIN 100 MG CAPSULE PO SCH ×3 (12:29→21:50)
[2021-10-27 13:51] LABS: BASO % 1.4 % (0-2.0); EOS % 2.1 % (0-4.5); HEMATOCRIT 38.3 % (32.4-45.2); HEMOGLOBIN 12.9 GM/dL (10.7-15.3); LYMPH % 26.6 % (8-40); MCH 29.6 pg (25.7-33.7); MCHC 33.8 g/dl (32.0-36.0); MEAN CELL VOLUME 87.6 fl (80-96); MEAN PLT VOLUME 7.2 fl (7.5-11.1); MONO % 8.6 % (3.8-10.2); NEUT % 61.3 % (42.8-82.8); PLATELET COUNT 380 10^3/uL (134-434); RBC 4.38 M/mm3 (3.60-5.2); RDW 14.9 % (11.6-15.6); WHITE BLOOD COUNT 6.4 K/mm3 (4.0-10.0)
[2021-10-27 14:21] LABS: ALBUMIN 2.8 g/dl (3.4-5.0); BLOOD UREA NITROGEN 10.8 mg/dL (7-18); CALCIUM 8.7 mg/dL (8.5-10.1); MAGNESIUM 1.7 mg/dL (1.8-2.4)
[2021-10-27 14:26] LABS: BILIRUBIN,TOTAL 0.3 mg/dL (0.2-1)
[2021-10-27 14:30] LABS: CREATININE 0.5 mg/dL (0.55-1.3)
[2021-10-27] MEDS ORDERED: POTASSIUM CHLORIDE TABS 20 MEQ TABLET.ER (FP) PO ONE (17:24)
[2021-10-27] MEDS ORDERED: MAGNESIUM OXIDE 400 MG TABLET (FP) PO ONE (17:24)
[2021-10-28] MEDS: GABAPENTIN 100 MG CAPSULE PO SCH ×3 (06:41→22:02)
[2021-10-28] MEDS: LETROZOLE 2.5 MG TABLET (FP) PO SCH (09:33)
[2021-10-28] MEDS: ENOXAPARIN NA (PORCINE) 40 MG/0.4 ML DISP.SYRIN SQ SCH (09:34)
[2021-10-28] MEDS: BUDESONIDE/FORMETEROL FUMARATE 160/4.5 mcg INHALER IH SCH ×2 (09:35→22:02)
[2021-10-28] MEDS: TIOTROPIUM BROMIDE 2.5 MCG (SPIRIVA) RESPIMAT INHALER IH SCH (09:35)
[2021-10-28] MEDS: amLODIPine BESYLATE 5 MG TABLET (FP) PO SCH (09:35)
[2021-10-28] MEDS: DULoxetine HCL 30 MG CAPSULE.DR PO SCH (09:50)
[2021-10-28] MEDS: PANTOPRAZOLE 40 MG TABLET PO SCH (09:50)
[2021-10-28 10:09] LABS: BASO % 0.7 % (0-2.0); EOS % 2.8 % (0-4.5); HEMATOCRIT 40.1 % (32.4-45.2); HEMOGLOBIN 13.6 GM/dL (10.7-15.3); LYMPH % 25.1 % (8-40); MCH 29.7 pg (25.7-33.7); MCHC 33.9 g/dl (32.0-36.0); MEAN CELL VOLUME 87.7 fl (80-96); MEAN PLT VOLUME 7.4 fl (7.5-11.1); MONO % 6.3 % (3.8-10.2); NEUT % 65.1 % (42.8-82.8); PLATELET COUNT 400 10^3/uL (134-434); RBC 4.58 M/mm3 (3.60-5.2); RDW 15.1 % (11.6-15.6); WHITE BLOOD COUNT 6.1 K/mm3 (4.0-10.0)
[2021-10-28 10:31] LABS: CREATININE 0.6 mg/dL (0.55-1.3)
[2021-10-28 10:33] LABS: BILIRUBIN,TOTAL 0.3 mg/dL (0.2-1); TOT PROT 6.3 g/dl (6.4-8.2)
[2021-10-28 10:36] LABS: ALBUMIN 2.9 g/dl (3.4-5.0); BLOOD UREA NITROGEN 9.4 mg/dL (7-18); CALCIUM 8.6 mg/dL (8.5-10.1)
[2021-10-28] MEDS ORDERED: DEXTROSE 5%-WATER 100 ML IVPB ONE (11:18)
[2021-10-28] MEDS: CEFTRIAXONE 2 GM in DEXTROSE 5%-WATER 2 GM/100 ML BAG IVPB SCH (11:28)
[2021-10-28] MEDS ORDERED: POTASSIUM CHLORIDE TABS 20 MEQ TABLET.ER (FP) PO ONE (13:00)
[2021-10-28 13:08] LABS: SARS-CoV-2 NAA Not Detected (Not Detected)
[2021-10-29] MEDS: GABAPENTIN 100 MG CAPSULE PO SCH ×3 (05:32→22:22)
[2021-10-29] MEDS ORDERED: DEXTROSE 5%-WATER 100 ML IVPB ONE (10:26)
[2021-10-29] MEDS: PANTOPRAZOLE 40 MG TABLET PO SCH (10:49)
[2021-10-29] MEDS: DULoxetine HCL 30 MG CAPSULE.DR PO SCH (10:49)
[2021-10-29] MEDS: amLODIPine BESYLATE 5 MG TABLET (FP) PO SCH (10:49)
[2021-10-29] MEDS: LETROZOLE 2.5 MG TABLET (FP) PO SCH (10:49)
[2021-10-29] MEDS: CEFTRIAXONE 2 GM in DEXTROSE 5%-WATER 2 GM/100 ML BAG IVPB SCH (10:50)
[2021-10-29] MEDS: BUDESONIDE/FORMETEROL FUMARATE 160/4.5 mcg INHALER IH SCH ×2 (10:50→22:22)
[2021-10-29] MEDS: ENOXAPARIN NA (PORCINE) 40 MG/0.4 ML DISP.SYRIN SQ SCH (10:50)
[2021-10-29] MEDS: TIOTROPIUM BROMIDE 2.5 MCG (SPIRIVA) RESPIMAT INHALER IH SCH (10:50)
[2021-10-30 05:18] VITALS: PULSE 89
[2021-10-30] MEDS: GABAPENTIN 100 MG CAPSULE PO SCH (06:49)
[2021-10-30 09:51] VITALS: BP 140/83; TEMP 97.8
[2021-10-30] MEDS: amLODIPine BESYLATE 5 MG TABLET (FP) PO SCH (09:52)
[2021-10-30] MEDS: BUDESONIDE/FORMETEROL FUMARATE 160/4.5 mcg INHALER IH SCH (09:52)
[2021-10-30] MEDS: TIOTROPIUM BROMIDE 2.5 MCG (SPIRIVA) RESPIMAT INHALER IH SCH (09:52)
[2021-10-30] MEDS: LETROZOLE 2.5 MG TABLET (FP) PO SCH (09:52)
[2021-10-30] MEDS: PANTOPRAZOLE 40 MG TABLET PO SCH (09:52)
[2021-10-30] MEDS: DULoxetine HCL 30 MG CAPSULE.DR PO SCH (09:52)
== END 2021-10-30 11:00 | disposition home health service (06) | DRG 178 ==
LOC: JER 04:48 → OBSVTOIN 11:04 → JERBED 11:04 → J6S 19:52
PROVIDERS: ADMIT Family Medicine; ATTEND Nurse Practitioner Acute Care
PROC: XW033H6 Introduction of Other New Technology Monoclonal Antibody into Peripheral Vein, Percutaneous Approach, New Technology Group 6 (ICD-10-PCS; principal; 2021-10-22)
DX: U07.1 COVID-19 (principal); G82.20 Paraplegia, unspecified; K83.8 Other specified diseases of biliary tract; K21.9 Gastro-esophageal reflux disease without esophagitis; F32.A Depression, unspecified; J44.9 Chronic obstructive pulmonary disease, unspecified; I10 Essential (primary) hypertension; Z88.0 Allergy status to penicillin; R94.31 Abnormal electrocardiogram [ECG] [EKG]; Z28.311 Partially vaccinated for COVID-19; R10.9 Unspecified abdominal pain; K58.9 Irritable bowel syndrome, unspecified; C50.919 Malignant neoplasm of unspecified site of unspecified female breast
CPT/HCPCS: 36415; 71045-TC-FY; 74176-TC; 80053; 83605; 83690; 83735; 84100; 84484; 85025; 85027; 85379; 85610; 85730; 86140; 86850; 86900; 86901; 87040; 93005; 93010; 99285-25; C9803-CS; Q0222; U0003; U0005

== ENCOUNTER 2022-01-06 17:41 | Inpatient (IN) | payer OTHER ==
[2022-01-06] MEDS ORDERED: ACETAMINOPHEN 1000 MG/100 ML BAG IVPB ONE (18:24)
[2022-01-06] MEDS ORDERED: ACETAMINOPHEN INJECTION 100 ML IVPB ONE (19:16)
[2022-01-06 19:38] LABS: BASO % 0.6 % (0-2.0); EOS % 1.8 % (0-4.5); HEMATOCRIT 43.5 % (32.4-45.2); HEMOGLOBIN 14.7 GM/dL (10.7-15.3); LYMPH % 24.7 % (8-40); MCH 28.9 pg (25.7-33.7); MCHC 33.8 g/dl (32.0-36.0); MEAN CELL VOLUME 85.4 fl (80-96); MEAN PLT VOLUME 7.4 fl (7.5-11.1); MONO % 9.1 % (3.8-10.2); NEUT % 63.8 % (42.8-82.8); PLATELET COUNT 460 10^3/uL (134-434); WHITE BLOOD COUNT 8.2 K/mm3 (4.0-10.0)
[2022-01-06 19:59] LABS: BLOOD UREA NITROGEN 13.4 mg/dL (7-18)
[2022-01-06 20:00] LABS: ALBUMIN 3.2 g/dl (3.4-5.0); MAGNESIUM 2.4 mg/dL (1.8-2.4)
[2022-01-06 20:02] LABS: CREATININE 0.6 mg/dL (0.55-1.3)
[2022-01-06 20:04] LABS: BILIRUBIN,TOTAL 0.7 mg/dL (0.2-1); TOT PROT 7.1 g/dl (6.4-8.2)
[2022-01-06 23:14] LABS: URINE APPEARANCE CLEAR; URINE BILIRUBIN NEGATIVE (NEGATIVE); URINE COLOR YELLOW; URINE GLUCOSE (UA) NEGATIVE (NEGATIVE); URINE KETONE NEGATIVE (NEGATIVE); URINE LEUK ESTERASE NEGATIVE (NEGATIVE); URINE NITRITE NEGATIVE (NEGATIVE); URINE PROTEIN NEGATIVE (NEGATIVE); URINE UROBILINOGEN 0.2 mg/dL (0.2-1.0)
[2022-01-07] MEDS ORDERED: ALBUTEROL SO4 HFA INHALER IH PRN (03:17)
[2022-01-07 03:32] LABS: INR 1.05 (0.83-1.09); PROTHROMBIN TIME (PATIENT) 12.1 SEC (9.7-13.0)
[2022-01-07 03:34] LABS: ACTIVATED PTT 34.6 SECONDS (25.2-36.5)
[2022-01-07 05:56] VITALS: BMI 30.9
[2022-01-07] MEDS: GABAPENTIN 100 MG CAPSULE PO SCH ×3 (07:11→21:40)
[2022-01-07] MEDS: TIOTROPIUM BROMIDE 2.5 MCG (SPIRIVA) RESPIMAT INHALER IH SCH (09:12)
[2022-01-07] MEDS: ENOXAPARIN NA (PORCINE) 40 MG/0.4 ML DISP.SYRIN SQ SCH (09:13)
[2022-01-07] MEDS: AMINO ACIDS/PROTEIN HYDROLYS 30 ML LIQUID.PKT PO SCH ×2 (09:13→18:32)
[2022-01-07] MEDS: DULoxetine HCL 30 MG CAPSULE.DR PO SCH (09:13)
[2022-01-07] MEDS: PANTOPRAZOLE 20 MG TABLET PO SCH (09:13)
[2022-01-07] MEDS: amLODIPine BESYLATE 5 MG TABLET (FP) PO SCH (09:13)
[2022-01-07] MEDS ORDERED: PATIENT'S OWN MEDICATION (NON-FORMULARY) (Mirabegron [Myrbetriq] 50 MG Tab.Er.24h) PO SCH (10:00)
[2022-01-07] MEDS: BUDESONIDE/FORMETEROL FUMARATE 160/4.5 mcg INHALER IH SCH ×2 (10:30→21:40)
[2022-01-07] MEDS: LETROZOLE 2.5 MG TABLET (FP) PO SCH (12:30)
[2022-01-08] MEDS: GABAPENTIN 100 MG CAPSULE PO SCH ×3 (06:16→22:43)
[2022-01-08 07:35] LABS: BASO % 1.3 % (0-2.0); EOS % 2.1 % (0-4.5); HEMATOCRIT 41.5 % (32.4-45.2); HEMOGLOBIN 13.6 GM/dL (10.7-15.3); LYMPH % 25.9 % (8-40); MCH 28.4 pg (25.7-33.7); MCHC 32.8 g/dl (32.0-36.0); MEAN CELL VOLUME 86.6 fl (80-96); MEAN PLT VOLUME 7.6 fl (7.5-11.1); MONO % 8.9 % (3.8-10.2); NEUT % 61.8 % (42.8-82.8); PLATELET COUNT 411 10^3/uL (134-434); RDW 15.1 % (11.6-15.6); WHITE BLOOD COUNT 8.3 K/mm3 (4.0-10.0)
[2022-01-08 08:01] LABS: ALBUMIN 2.9 g/dl (3.4-5.0); BLOOD UREA NITROGEN 15.5 mg/dL (7-18); MAGNESIUM 2.3 mg/dL (1.8-2.4)
[2022-01-08 08:04] LABS: CREATININE 0.6 mg/dL (0.55-1.3); PHOSPHOROUS 4.4 mg/dL (2.5-4.9)
[2022-01-08 08:05] LABS: TOT PROT 6.5 g/dl (6.4-8.2)
[2022-01-08 08:06] LABS: BILIRUBIN,TOTAL 0.6 mg/dL (0.2-1)
[2022-01-08] MEDS: AMINO ACIDS/PROTEIN HYDROLYS 30 ML LIQUID.PKT PO SCH ×2 (08:29→19:31)
[2022-01-08] MEDS: LETROZOLE 2.5 MG TABLET (FP) PO SCH (10:30)
[2022-01-08] MEDS: amLODIPine BESYLATE 5 MG TABLET (FP) PO SCH (10:31)
[2022-01-08] MEDS: DULoxetine HCL 30 MG CAPSULE.DR PO SCH ×2 (10:31→10:35)
[2022-01-08] MEDS: PANTOPRAZOLE 20 MG TABLET PO SCH (10:31)
[2022-01-08] MEDS: ENOXAPARIN NA (PORCINE) 40 MG/0.4 ML DISP.SYRIN SQ SCH (10:32)
[2022-01-08] MEDS: TIOTROPIUM BROMIDE 2.5 MCG (SPIRIVA) RESPIMAT INHALER IH SCH (11:01)
[2022-01-08] MEDS: BUDESONIDE/FORMETEROL FUMARATE 160/4.5 mcg INHALER IH SCH ×2 (11:01→22:42)
[2022-01-08] MEDS ORDERED: POLYETHYLENE GLYCOL (HEALTHYLAX) 3350 17 GM PACKET PO ONE (14:37)
[2022-01-08] MEDS: POLYETHYLENE GLYCOL (HEALTHYLAX) 3350 17 GM PACKET PO SCH (22:43)
[2022-01-09] MEDS: GABAPENTIN 100 MG CAPSULE PO SCH ×3 (06:19→21:31)
[2022-01-09] MEDS ORDERED: LEVOTHYROXINE NA 50 MCG TABLET (FP) PO ONE (09:30)
[2022-01-09] MEDS: AMINO ACIDS/PROTEIN HYDROLYS 30 ML LIQUID.PKT PO SCH ×2 (09:47→17:11)
[2022-01-09] MEDS: POLYETHYLENE GLYCOL (HEALTHYLAX) 3350 17 GM PACKET PO SCH ×3 (09:47→21:33)
[2022-01-09] MEDS: PANTOPRAZOLE 20 MG TABLET PO SCH (09:48)
[2022-01-09] MEDS: ENOXAPARIN NA (PORCINE) 40 MG/0.4 ML DISP.SYRIN SQ SCH (09:48)
[2022-01-09] MEDS: amLODIPine BESYLATE 5 MG TABLET (FP) PO SCH (09:48)
[2022-01-09] MEDS: DULoxetine HCL 30 MG CAPSULE.DR PO SCH (09:48)
[2022-01-09] MEDS: LETROZOLE 2.5 MG TABLET (FP) PO SCH (09:49)
[2022-01-09] MEDS: TIOTROPIUM BROMIDE 2.5 MCG (SPIRIVA) RESPIMAT INHALER IH SCH (09:54)
[2022-01-09] MEDS: BUDESONIDE/FORMETEROL FUMARATE 160/4.5 mcg INHALER IH SCH ×2 (09:55→21:31)
[2022-01-09 12:03] LABS: BASO % 0.9 % (0-2.0); EOS % 1.6 % (0-4.5); HEMATOCRIT 40.7 % (32.4-45.2); HEMOGLOBIN 13.6 GM/dL (10.7-15.3); LYMPH % 19.7 % (8-40); MCH 28.7 pg (25.7-33.7); MCHC 33.4 g/dl (32.0-36.0); MEAN CELL VOLUME 86.1 fl (80-96); MEAN PLT VOLUME 7.4 fl (7.5-11.1); MONO % 7.4 % (3.8-10.2); NEUT % 70.4 % (42.8-82.8); PLATELET COUNT 397 10^3/uL (134-434); RBC 4.73 M/mm3 (3.60-5.2); RDW 14.9 % (11.6-15.6); WHITE BLOOD COUNT 8.7 K/mm3 (4.0-10.0)
[2022-01-09 12:26] LABS: BLOOD UREA NITROGEN 11.4 mg/dL (7-18); CALCIUM 9.1 mg/dL (8.5-10.1); MAGNESIUM 2.2 mg/dL (1.8-2.4)
[2022-01-09 12:29] LABS: CREATININE 0.6 mg/dL (0.55-1.3)
[2022-01-09 12:31] LABS: BILIRUBIN,TOTAL 0.5 mg/dL (0.2-1); TOT PROT 6.7 g/dl (6.4-8.2)
[2022-01-10] MEDS: GABAPENTIN 100 MG CAPSULE PO SCH ×3 (06:04→21:14)
[2022-01-10] MEDS: POLYETHYLENE GLYCOL (HEALTHYLAX) 3350 17 GM PACKET PO SCH ×4 (06:04→21:18)
[2022-01-10] MEDS: LEVOTHYROXINE NA 50 MCG TABLET (FP) PO SCH (06:06)
[2022-01-10 09:49] LABS: BASO % 0.7 % (0-2.0); EOS % 2.4 % (0-4.5); HEMATOCRIT 39.7 % (32.4-45.2); HEMOGLOBIN 13.1 GM/dL (10.7-15.3); LYMPH % 20.1 % (8-40); MCH 28.8 pg (25.7-33.7); MCHC 33.1 g/dl (32.0-36.0); MEAN PLT VOLUME 8.1 fl (7.5-11.1); MONO % 7.6 % (3.8-10.2); NEUT % 69.2 % (42.8-82.8); PLATELET COUNT 383 10^3/uL (134-434); RBC 4.57 M/mm3 (3.60-5.2); WHITE BLOOD COUNT 8.6 K/mm3 (4.0-10.0)
[2022-01-10 10:16] LABS: ALBUMIN 2.8 g/dl (3.4-5.0); BLOOD UREA NITROGEN 16.6 mg/dL (7-18); CALCIUM 8.8 mg/dL (8.5-10.1); MAGNESIUM 2.3 mg/dL (1.8-2.4)
[2022-01-10 10:18] LABS: CREATININE 0.6 mg/dL (0.55-1.3)
[2022-01-10 10:20] LABS: BILIRUBIN,TOTAL 0.5 mg/dL (0.2-1); TOT PROT 6.3 g/dl (6.4-8.2)
[2022-01-10] MEDS: AMINO ACIDS/PROTEIN HYDROLYS 30 ML LIQUID.PKT PO SCH ×2 (11:15→17:41)
[2022-01-10] MEDS: PANTOPRAZOLE 20 MG TABLET PO SCH (11:19)
[2022-01-10] MEDS: amLODIPine BESYLATE 5 MG TABLET (FP) PO SCH (11:19)
[2022-01-10] MEDS: LETROZOLE 2.5 MG TABLET (FP) PO SCH (11:19)
[2022-01-10] MEDS: DULoxetine HCL 30 MG CAPSULE.DR PO SCH (11:21)
[2022-01-10] MEDS: ENOXAPARIN NA (PORCINE) 40 MG/0.4 ML DISP.SYRIN SQ SCH (11:21)
[2022-01-10] MEDS: TIOTROPIUM BROMIDE 2.5 MCG (SPIRIVA) RESPIMAT INHALER IH SCH (11:22)
[2022-01-10] MEDS: BUDESONIDE/FORMETEROL FUMARATE 160/4.5 mcg INHALER IH SCH ×2 (11:22→21:14)
[2022-01-10] MEDS ORDERED: VANCOMYCIN 250 MG/5 ML ORAL SOLUTION PO SCH (12:00)
[2022-01-10] MEDS: VANCOMYCIN 250 MG/5 ML ORAL SOLUTION PO SCH ×2 (15:44→17:41)
[2022-01-11] MEDS: VANCOMYCIN 250 MG/5 ML ORAL SOLUTION PO SCH ×4 (00:15→18:01)
[2022-01-11] MEDS: POLYETHYLENE GLYCOL (HEALTHYLAX) 3350 17 GM PACKET PO SCH ×3 (05:14→22:00)
[2022-01-11] MEDS: LEVOTHYROXINE NA 50 MCG TABLET (FP) PO SCH (06:36)
[2022-01-11] MEDS: GABAPENTIN 100 MG CAPSULE PO SCH ×3 (06:36→22:00)
[2022-01-11] MEDS: AMINO ACIDS/PROTEIN HYDROLYS 30 ML LIQUID.PKT PO SCH ×2 (09:07→17:29)
[2022-01-11 09:51] LABS: BASO % 0.8 % (0-2.0); EOS % 2.4 % (0-4.5); HEMATOCRIT 40.3 % (32.4-45.2); HEMOGLOBIN 13.6 GM/dL (10.7-15.3); LYMPH % 22.4 % (8-40); MCHC 33.6 g/dl (32.0-36.0); MEAN CELL VOLUME 86.2 fl (80-96); MEAN PLT VOLUME 7.7 fl (7.5-11.1); MONO % 6.2 % (3.8-10.2); NEUT % 68.2 % (42.8-82.8); PLATELET COUNT 398 10^3/uL (134-434); RBC 4.68 M/mm3 (3.60-5.2); RDW 15.2 % (11.6-15.6); WHITE BLOOD COUNT 7.1 K/mm3 (4.0-10.0)
[2022-01-11] MEDS: DULoxetine HCL 30 MG CAPSULE.DR PO SCH (10:11)
[2022-01-11] MEDS: PANTOPRAZOLE 20 MG TABLET PO SCH (10:15)
[2022-01-11] MEDS: LETROZOLE 2.5 MG TABLET (FP) PO SCH (10:15)
[2022-01-11] MEDS: amLODIPine BESYLATE 5 MG TABLET (FP) PO SCH (10:15)
[2022-01-11] MEDS: BUDESONIDE/FORMETEROL FUMARATE 160/4.5 mcg INHALER IH SCH ×2 (10:18→22:00)
[2022-01-11] MEDS: TIOTROPIUM BROMIDE 2.5 MCG (SPIRIVA) RESPIMAT INHALER IH SCH (10:18)
[2022-01-11 10:32] LABS: ALBUMIN 2.9 g/dl (3.4-5.0); MAGNESIUM 2.1 mg/dL (1.8-2.4)
[2022-01-11 10:35] LABS: CREATININE 0.6 mg/dL (0.55-1.3)
[2022-01-11 10:37] LABS: BILIRUBIN,TOTAL 0.5 mg/dL (0.2-1); CALCIUM 9.1 mg/dL (8.5-10.1); TOT PROT 6.6 g/dl (6.4-8.2)
[2022-01-11] MEDS: ENOXAPARIN NA (PORCINE) 40 MG/0.4 ML DISP.SYRIN SQ SCH (11:15)
[2022-01-12] MEDS: VANCOMYCIN 250 MG/5 ML ORAL SOLUTION PO SCH ×4 (01:05→18:02)
[2022-01-12] MEDS: GABAPENTIN 100 MG CAPSULE PO SCH ×2 (06:29→14:36)
[2022-01-12] MEDS: POLYETHYLENE GLYCOL (HEALTHYLAX) 3350 17 GM PACKET PO SCH ×2 (06:34→14:36)
[2022-01-12] MEDS: LEVOTHYROXINE NA 50 MCG TABLET (FP) PO SCH (06:40)
[2022-01-12] MEDS: AMINO ACIDS/PROTEIN HYDROLYS 30 ML LIQUID.PKT PO SCH ×2 (08:23→17:53)
[2022-01-12 09:15] LABS: BASO % 1.5 % (0-2.0); HEMATOCRIT 40.8 % (32.4-45.2); HEMOGLOBIN 13.9 GM/dL (10.7-15.3); LYMPH % 20.1 % (8-40); MCH 29.5 pg (25.7-33.7); MCHC 34.2 g/dl (32.0-36.0); MEAN CELL VOLUME 86.2 fl (80-96); MEAN PLT VOLUME 7.8 fl (7.5-11.1); MONO % 6.6 % (3.8-10.2); NEUT % 69.8 % (42.8-82.8); PLATELET COUNT 389 10^3/uL (134-434); RBC 4.73 M/mm3 (3.60-5.2); RDW 15.2 % (11.6-15.6); WHITE BLOOD COUNT 9.5 K/mm3 (4.0-10.0)
[2022-01-12 09:49] LABS: ALBUMIN 2.9 g/dl (3.4-5.0); CALCIUM 9.1 mg/dL (8.5-10.1)
[2022-01-12 09:50] LABS: BLOOD UREA NITROGEN 14.2 mg/dL (7-18); MAGNESIUM 2.2 mg/dL (1.8-2.4)
[2022-01-12 09:52] LABS: CREATININE 0.5 mg/dL (0.55-1.3)
[2022-01-12 09:54] LABS: BILIRUBIN,TOTAL 0.5 mg/dL (0.2-1); TOT PROT 6.8 g/dl (6.4-8.2)
[2022-01-12] MEDS: ENOXAPARIN NA (PORCINE) 40 MG/0.4 ML DISP.SYRIN SQ SCH ×2 (11:15→11:22)
[2022-01-12] MEDS: PANTOPRAZOLE 20 MG TABLET PO SCH (11:16)
[2022-01-12] MEDS: DULoxetine HCL 30 MG CAPSULE.DR PO SCH ×2 (11:16→11:20)
[2022-01-12] MEDS: LETROZOLE 2.5 MG TABLET (FP) PO SCH (11:16)
[2022-01-12] MEDS: amLODIPine BESYLATE 5 MG TABLET (FP) PO SCH (11:16)
[2022-01-12] MEDS: TIOTROPIUM BROMIDE 2.5 MCG (SPIRIVA) RESPIMAT INHALER IH SCH (11:16)
[2022-01-12] MEDS: BUDESONIDE/FORMETEROL FUMARATE 160/4.5 mcg INHALER IH SCH (11:17)
[2022-01-12 14:38] VITALS: BP 144/83; PULSE 94; TEMP 98.3
== END 2022-01-12 20:30 | disposition home or self-care (01) | DRG 372 ==
LOC: JER 17:41 → JERBED 01-07 01:14 → OBSVTOIN 01-07 03:15 → J7W 01-07 03:43 → J6S 01-07 20:12
PROVIDERS: ADMIT Hospitalist; ATTEND Nurse Practitioner Family
DX: A04.72 Enterocolitis due to Clostridium difficile, not specified as recurrent (principal); G82.20 Paraplegia, unspecified; J44.9 Chronic obstructive pulmonary disease, unspecified; K21.9 Gastro-esophageal reflux disease without esophagitis; I10 Essential (primary) hypertension; Z93.3 Colostomy status; R94.31 Abnormal electrocardiogram [ECG] [EKG]; F32.A Depression, unspecified; Z86.16 Personal history of COVID-19; K76.0 Fatty (change of) liver, not elsewhere classified; K58.9 Irritable bowel syndrome, unspecified; Z85.3 Personal history of malignant neoplasm of breast
CPT/HCPCS: 36415; 74177-TC; 80053; 81003; 82272; 83605; 83690; 83735; 84100; 84436; 84443; 85025; 85610; 85730; 86850; 86900; 86901; 87045; 87046; 87086; 87186; 87324; 87449; 93005; 93010; 99285-25; C9803-CS; G0378; Q9967; U0003; U0005

== ENCOUNTER 2022-04-02 16:21 | Inpatient (IN) | payer OTHER ==
[2022-04-02] MEDS ORDERED: ACETAMINOPHEN 1000 MG/100 ML BAG IVPB ONE (18:09)
[2022-04-02] MEDS ORDERED: ACETAMINOPHEN INJECTION 100 ML IVPB ONE (19:13)
[2022-04-02 19:33] LABS: BASO % 1.2 % (0-2.0); EOS % 1.3 % (0-4.5); HEMATOCRIT 41.9 % (32.4-45.2); HEMOGLOBIN 14.1 GM/dL (10.7-15.3); LYMPH % 22.5 % (8-40); MCH 28.8 pg (25.7-33.7); MCHC 33.7 g/dl (32.0-36.0); MEAN CELL VOLUME 85.5 fl (80-96); MEAN PLT VOLUME 7.1 fl (7.5-11.1); MONO % 7.6 % (3.8-10.2); NEUT % 67.4 % (42.8-82.8); PLATELET COUNT 410 10^3/uL (134-434); RDW 14.7 % (11.6-15.6); WHITE BLOOD COUNT 8.4 K/mm3 (4.0-10.0)
[2022-04-02 19:44] LABS: ACTIVATED PTT 32.5 SECONDS (25.2-36.5); INR 1.03 (0.83-1.09); PROTHROMBIN TIME (PATIENT) 11.8 SEC (9.7-13.0)
[2022-04-02 19:50] LABS: CALCIUM 9.2 mg/dL (8.5-10.1)
[2022-04-02 19:51] LABS: ALBUMIN 3.1 g/dl (3.4-5.0); BLOOD UREA NITROGEN 10.7 mg/dL (7-18)
[2022-04-02 19:58] LABS: BILIRUBIN,TOTAL 0.9 mg/dL (0.2-1); CREATININE 0.6 mg/dL (0.55-1.3); TOT PROT 6.9 g/dl (6.4-8.2)
[2022-04-02] MEDS ORDERED: morphine CARPU-JECT 4 MG/1 ML DISP.SYRIN IVPUSH ONE (21:07)
[2022-04-02] MEDS ORDERED: morphine SULFATE 4 MG/ML VIAL ONE (21:19)
[2022-04-03] MEDS ORDERED: morphine CARPU-JECT 2 MG/1 ML DISP.SYRIN IVPUSH ONE (00:08)
[2022-04-03 01:39] LABS: EPI CELLS 15 /uL (0-25.1); HYALINE CASTS 6 /uL (0-3.1); PH,URINE 5.5 (5.0-8.0); URINE APPEARANCE CLOUDY; URINE BACTERIA 9 /uL (0-1359); URINE BILIRUBIN NEGATIVE (NEGATIVE); URINE COLOR YELLOW; URINE GLUCOSE (UA) NEGATIVE (NEGATIVE); URINE KETONE NEGATIVE (NEGATIVE); URINE LEUK ESTERASE NEGATIVE (NEGATIVE); URINE NITRITE NEGATIVE (NEGATIVE); URINE PROTEIN NEGATIVE (NEGATIVE); URINE RBC 25 /uL (0-23.9); URINE UROBILINOGEN 0.2 mg/dL (0.2-1.0)
[2022-04-03 06:17] LABS: URINE CRYSTALS PRESENT /hpf
[2022-04-03] MEDS ORDERED: ACETAMINOPHEN 325 MG TABLET (FP) PO PRN (07:19)
[2022-04-03] MEDS ORDERED: ALBUTEROL SO4 HFA INHALER IH PRN (07:27)
[2022-04-03] MEDS ORDERED: BUDESONIDE/FORMETEROL FUMARATE 80/4.5 mcg INHALER IH SCH (10:00)
[2022-04-03] MEDS ORDERED: amLODIPine BESYLATE 5 MG TABLET (FP) PO SCH (10:00)
[2022-04-03 10:39] LABS: EOS % 1.8 % (0-4.5); HEMATOCRIT 42.8 % (32.4-45.2); HEMOGLOBIN 14.3 GM/dL (10.7-15.3); MCH 28.4 pg (25.7-33.7); MCHC 33.4 g/dl (32.0-36.0); MEAN CELL VOLUME 85.2 fl (80-96); MEAN PLT VOLUME 7.6 fl (7.5-11.1); MONO % 8.3 % (3.8-10.2); NEUT % 63.9 % (42.8-82.8); PLATELET COUNT 442 10^3/uL (134-434); RBC 5.03 M/mm3 (3.60-5.2); RDW 15.2 % (11.6-15.6)
[2022-04-03] MEDS ORDERED: ENOXAPARIN NA (PORCINE) 40 MG/0.4 ML DISP.SYRIN SQ ONE (10:47)
[2022-04-03] MEDS ORDERED: amLODIPine BESYLATE 5 MG TABLET (FP) ONE (10:47)
[2022-04-03] MEDS: ENOXAPARIN NA (PORCINE) 40 MG/0.4 ML DISP.SYRIN SQ SCH (10:55)
[2022-04-03] MEDS: TIOTROPIUM BROMIDE 2.5 MCG (SPIRIVA) RESPIMAT INHALER IH SCH (10:55)
[2022-04-03 11:04] LABS: ALBUMIN 3.1 g/dl (3.4-5.0); BLOOD UREA NITROGEN 10.8 mg/dL (7-18); CALCIUM 9.2 mg/dL (8.5-10.1)
[2022-04-03 11:07] LABS: CREATININE 0.6 mg/dL (0.55-1.3)
[2022-04-03 11:08] LABS: BILIRUBIN,TOTAL 1.1 mg/dL (0.2-1); PHOSPHOROUS 4.2 mg/dL (2.5-4.9)
[2022-04-03 11:09] LABS: TOT PROT 6.8 g/dl (6.4-8.2)
[2022-04-03] MEDS: LETROZOLE 2.5 MG TABLET (FP) PO SCH (18:15)
[2022-04-03] MEDS: BUDESONIDE/FORMETEROL FUMARATE 80/4.5 mcg INHALER IH SCH (22:00)
[2022-04-04] MEDS: LEVOTHYROXINE NA 50 MCG TABLET (FP) PO SCH (06:49)
[2022-04-04] MEDS: ENOXAPARIN NA (PORCINE) 40 MG/0.4 ML DISP.SYRIN SQ SCH (10:16)
[2022-04-04] MEDS: LETROZOLE 2.5 MG TABLET (FP) PO SCH (10:16)
[2022-04-04] MEDS: BUDESONIDE/FORMETEROL FUMARATE 80/4.5 mcg INHALER IH SCH ×2 (11:26→21:57)
[2022-04-04] MEDS: amLODIPine BESYLATE 5 MG TABLET (FP) PO SCH (11:26)
[2022-04-04] MEDS: PANTOPRAZOLE 20 MG TABLET PO SCH (11:26)
[2022-04-04] MEDS: TIOTROPIUM BROMIDE 2.5 MCG (SPIRIVA) RESPIMAT INHALER IH SCH (11:27)
[2022-04-04] MEDS: DULoxetine HCL 30 MG CAPSULE.DR PO SCH (21:56)
[2022-04-05] MEDS: LEVOTHYROXINE NA 50 MCG TABLET (FP) PO SCH (06:49)
[2022-04-05] MEDS: amLODIPine BESYLATE 5 MG TABLET (FP) PO SCH (09:43)
[2022-04-05] MEDS: LETROZOLE 2.5 MG TABLET (FP) PO SCH (09:43)
[2022-04-05] MEDS: ENOXAPARIN NA (PORCINE) 40 MG/0.4 ML DISP.SYRIN SQ SCH (09:44)
[2022-04-05] MEDS: PANTOPRAZOLE 20 MG TABLET PO SCH (09:44)
[2022-04-05] MEDS: BUDESONIDE/FORMETEROL FUMARATE 80/4.5 mcg INHALER IH SCH ×2 (09:45→21:52)
[2022-04-05] MEDS: TIOTROPIUM BROMIDE 2.5 MCG (SPIRIVA) RESPIMAT INHALER IH SCH (09:46)
[2022-04-05] MEDS ORDERED: PATIENT'S OWN MEDICATION (NON-FORMULARY) (Omeprazole [Omeprazole] 20 MG Tablet.Dr) PO SCH (10:00)
[2022-04-05] MEDS ORDERED: PATIENT'S OWN MEDICATION (NON-FORMULARY) (Mirabegron [Myrbetriq] 50 MG Tab.Er.24h) PO SCH (10:00)
[2022-04-05 11:34] LABS: HEMATOCRIT 40.8 % (32.4-45.2); HEMOGLOBIN 13.3 GM/dL (10.7-15.3); MCHC 32.6 g/dl (32.0-36.0); PLATELET COUNT 392 10^3/uL (134-434); RBC 4.75 M/mm3 (3.60-5.2); RDW 15.2 % (11.6-15.6); WHITE BLOOD COUNT 11.4 K/mm3 (4.0-10.0)
[2022-04-05 11:46] LABS: CALCIUM 8.6 mg/dL (8.5-10.1)
[2022-04-05 11:47] LABS: BLOOD UREA NITROGEN 12.2 mg/dL (7-18)
[2022-04-05 11:50] LABS: CREATININE 0.6 mg/dL (0.55-1.3); PHOSPHOROUS 2.5 mg/dL (2.5-4.9)
[2022-04-05] MEDS ORDERED: INSULIN (NOVOLOG) ASPART 100 UNITS/ML 10ML VIAL ONE (21:10)
[2022-04-05] MEDS: DULoxetine HCL 30 MG CAPSULE.DR PO SCH (21:51)
[2022-04-06] MEDS: LEVOTHYROXINE NA 50 MCG TABLET (FP) PO SCH (06:43)
[2022-04-06] MEDS ORDERED: TAMSULOSIN HCL 0.4 MG CAP PO SCH (08:30)
[2022-04-06] MEDS: PANTOPRAZOLE 20 MG TABLET PO SCH (10:01)
[2022-04-06] MEDS: LETROZOLE 2.5 MG TABLET (FP) PO SCH (10:01)
[2022-04-06] MEDS: amLODIPine BESYLATE 5 MG TABLET (FP) PO SCH (10:01)
[2022-04-06] MEDS: ENOXAPARIN NA (PORCINE) 40 MG/0.4 ML DISP.SYRIN SQ SCH (10:01)
[2022-04-06] MEDS: BUDESONIDE/FORMETEROL FUMARATE 80/4.5 mcg INHALER IH SCH ×2 (10:02→21:59)
[2022-04-06] MEDS: TIOTROPIUM BROMIDE 2.5 MCG (SPIRIVA) RESPIMAT INHALER IH SCH (10:02)
[2022-04-06 10:45] LABS: HEMATOCRIT 41.5 % (32.4-45.2); HEMOGLOBIN 13.8 GM/dL (10.7-15.3); MCH 28.4 pg (25.7-33.7); MCHC 33.2 g/dl (32.0-36.0); MEAN CELL VOLUME 85.5 fl (80-96); MEAN PLT VOLUME 7.8 fl (7.5-11.1); PLATELET COUNT 427 10^3/uL (134-434); RBC 4.85 M/mm3 (3.60-5.2); RDW 15.4 % (11.6-15.6); WHITE BLOOD COUNT 9.9 K/mm3 (4.0-10.0)
[2022-04-06 11:12] LABS: BLOOD UREA NITROGEN 12.2 mg/dL (7-18)
[2022-04-06 11:14] LABS: CALCIUM 9.1 mg/dL (8.5-10.1)
[2022-04-06 11:15] LABS: CREATININE 0.5 mg/dL (0.55-1.3); PHOSPHOROUS 3.4 mg/dL (2.5-4.9)
[2022-04-06] MEDS: DULoxetine HCL 30 MG CAPSULE.DR PO SCH (21:57)
[2022-04-06] MEDS: GABAPENTIN 100 MG CAPSULE PO PRN (21:59)
[2022-04-07] MEDS: LEVOTHYROXINE NA 50 MCG TABLET (FP) PO SCH (06:07)
[2022-04-07] MEDS: LETROZOLE 2.5 MG TABLET (FP) PO SCH (09:46)
[2022-04-07] MEDS: TAMSULOSIN HCL 0.4 MG CAP PO SCH (09:46)
[2022-04-07] MEDS: amLODIPine BESYLATE 5 MG TABLET (FP) PO SCH (09:46)
[2022-04-07] MEDS: ENOXAPARIN NA (PORCINE) 40 MG/0.4 ML DISP.SYRIN SQ SCH ×2 (09:46→09:52)
[2022-04-07] MEDS: TIOTROPIUM BROMIDE 2.5 MCG (SPIRIVA) RESPIMAT INHALER IH SCH (09:46)
[2022-04-07] MEDS: PANTOPRAZOLE 20 MG TABLET PO SCH (09:46)
[2022-04-07] MEDS: BUDESONIDE/FORMETEROL FUMARATE 80/4.5 mcg INHALER IH SCH ×2 (09:47→21:59)
[2022-04-07] MEDS: GABAPENTIN 100 MG CAPSULE PO PRN (21:59)
[2022-04-07] MEDS: DULoxetine HCL 30 MG CAPSULE.DR PO SCH (21:59)
[2022-04-08] MEDS: LEVOTHYROXINE NA 50 MCG TABLET (FP) PO SCH (06:05)
[2022-04-08] MEDS: BUDESONIDE/FORMETEROL FUMARATE 80/4.5 mcg INHALER IH SCH ×2 (09:07→21:39)
[2022-04-08] MEDS: TAMSULOSIN HCL 0.4 MG CAP PO SCH (09:07)
[2022-04-08] MEDS: PANTOPRAZOLE 20 MG TABLET PO SCH (09:07)
[2022-04-08] MEDS: amLODIPine BESYLATE 5 MG TABLET (FP) PO SCH (09:07)
[2022-04-08] MEDS: LETROZOLE 2.5 MG TABLET (FP) PO SCH (09:07)
[2022-04-08] MEDS: TIOTROPIUM BROMIDE 2.5 MCG (SPIRIVA) RESPIMAT INHALER IH SCH (09:08)
[2022-04-08] MEDS: ENOXAPARIN NA (PORCINE) 40 MG/0.4 ML DISP.SYRIN SQ SCH (09:18)
[2022-04-08] MEDS ORDERED: MINERAL OIL/PET HY-PHL TOPICAL OINTMENT 454 GM JAR TP SCH (10:30)
[2022-04-08] MEDS ORDERED: LIDOCAINE HCL 2% JELLY (5 ML/TUBE) ONE (14:15)
[2022-04-08] MEDS ORDERED: LIDOCAINE HCL 2% JELLY 10 ML CARTRIDGE ONE (14:17)
[2022-04-08] MEDS ORDERED: PROPOFOL 40 ML ONE (14:29)
[2022-04-08] MEDS ORDERED: MIDAZOLAM HCL 2 MG/2 ML SINGLE DOSE VIAL ONE (14:30)
[2022-04-08] MEDS ORDERED: LIDOCAINE HCL 2% JELLY (30 ML/TUBE) TP ONE (14:36)
[2022-04-08] MEDS ORDERED: ALBUTEROL SO4 HFA INHALER IH PRN (15:10)
[2022-04-08] MEDS ORDERED: ACETAMINOPHEN 325 MG TABLET (FP) PO PRN (15:10)
[2022-04-08] MEDS ORDERED: ONDANSETRON 4 MG/2 ML VIAL IVPUSH PRN (15:17)
[2022-04-08] MEDS ORDERED: oxyCODONE HCL 5 MG TABLET PO PRN (15:17)
[2022-04-08] MEDS: CEFTRIAXONE 1 GM in DEXTROSE 5%-WATER - 50 ML IVPB SCH (18:42)
[2022-04-08] MEDS: DULoxetine HCL 30 MG CAPSULE.DR PO SCH (21:38)
[2022-04-08] MEDS: MINERAL OIL/PET HY-PHL TOPICAL OINTMENT 454 GM JAR TP SCH (21:40)
[2022-04-09] MEDS: LEVOTHYROXINE NA 50 MCG TABLET (FP) PO SCH (06:07)
[2022-04-09] MEDS: LETROZOLE 2.5 MG TABLET (FP) PO SCH ×2 (09:48→14:55)
[2022-04-09] MEDS: amLODIPine BESYLATE 10 MG TABLET (FP) PO SCH (09:49)
[2022-04-09] MEDS: ENOXAPARIN NA (PORCINE) 40 MG/0.4 ML DISP.SYRIN SQ SCH (09:49)
[2022-04-09] MEDS: PANTOPRAZOLE 20 MG TABLET PO SCH (09:49)
[2022-04-09] MEDS: TAMSULOSIN HCL 0.4 MG CAP PO SCH (09:49)
[2022-04-09] MEDS: TIOTROPIUM BROMIDE 2.5 MCG (SPIRIVA) RESPIMAT INHALER IH SCH (09:52)
[2022-04-09] MEDS: BUDESONIDE/FORMETEROL FUMARATE 80/4.5 mcg INHALER IH SCH ×2 (09:52→21:37)
[2022-04-09] MEDS: MINERAL OIL/PET HY-PHL TOPICAL OINTMENT 454 GM JAR TP SCH ×2 (09:53→21:34)
[2022-04-09] MEDS: CEFTRIAXONE 1 GM in DEXTROSE 5%-WATER - 50 ML IVPB SCH (17:28)
[2022-04-09] MEDS: DULoxetine HCL 30 MG CAPSULE.DR PO SCH (21:33)
[2022-04-09] MEDS: NYSTATIN 100,000 UNIT/GM TOPICAL CREAM 15 GM TUBE TP SCH (21:34)
[2022-04-10] MEDS: LEVOTHYROXINE NA 50 MCG TABLET (FP) PO SCH (06:13)
[2022-04-10] MEDS: TAMSULOSIN HCL 0.4 MG CAP PO SCH (08:20)
[2022-04-10] MEDS: PANTOPRAZOLE 20 MG TABLET PO SCH (09:14)
[2022-04-10] MEDS: amLODIPine BESYLATE 10 MG TABLET (FP) PO SCH (09:14)
[2022-04-10] MEDS: MINERAL OIL/PET HY-PHL TOPICAL OINTMENT 454 GM JAR TP SCH ×2 (09:14→23:13)
[2022-04-10] MEDS: NYSTATIN 100,000 UNIT/GM TOPICAL CREAM 15 GM TUBE TP SCH ×2 (09:15→23:13)
[2022-04-10] MEDS: TIOTROPIUM BROMIDE 2.5 MCG (SPIRIVA) RESPIMAT INHALER IH SCH (09:15)
[2022-04-10] MEDS: BUDESONIDE/FORMETEROL FUMARATE 80/4.5 mcg INHALER IH SCH ×2 (09:15→23:14)
[2022-04-10] MEDS: ENOXAPARIN NA (PORCINE) 40 MG/0.4 ML DISP.SYRIN SQ SCH (09:15)
[2022-04-10] MEDS: POLYETHYLENE GLYCOL (HEALTHYLAX) 3350 17 GM PACKET PO SCH (15:24)
[2022-04-10] MEDS: CEFTRIAXONE 1 GM in DEXTROSE 5%-WATER - 50 ML IVPB SCH (17:25)
[2022-04-10] MEDS: DULoxetine HCL 30 MG CAPSULE.DR PO SCH (23:03)
[2022-04-10] MEDS: GABAPENTIN 100 MG CAPSULE PO PRN (23:23)
[2022-04-11] MEDS: LEVOTHYROXINE NA 50 MCG TABLET (FP) PO SCH (06:26)
[2022-04-11 07:45] LABS: BASO % 0.8 % (0-2.0); EOS % 2.5 % (0-4.5); HEMATOCRIT 40.4 % (32.4-45.2); HEMOGLOBIN 13.3 GM/dL (10.7-15.3); MCH 28.2 pg (25.7-33.7); MCHC 32.9 g/dl (32.0-36.0); MEAN CELL VOLUME 85.6 fl (80-96); MEAN PLT VOLUME 8.4 fl (7.5-11.1); MONO % 6.7 % (3.8-10.2); PLATELET COUNT 280 10^3/uL (134-434); RBC 4.72 M/mm3 (3.60-5.2); RDW 15.2 % (11.6-15.6); WHITE BLOOD COUNT 8.9 K/mm3 (4.0-10.0)
[2022-04-11 08:12] LABS: ALBUMIN 2.9 g/dl (3.4-5.0); BLOOD UREA NITROGEN 14.8 mg/dL (7-18)
[2022-04-11 08:15] LABS: CREATININE 0.5 mg/dL (0.55-1.3)
[2022-04-11 08:17] LABS: BILIRUBIN,TOTAL 0.6 mg/dL (0.2-1); TOT PROT 6.3 g/dl (6.4-8.2)
[2022-04-11] MEDS: ENOXAPARIN NA (PORCINE) 40 MG/0.4 ML DISP.SYRIN SQ SCH ×2 (09:33→09:39)
[2022-04-11] MEDS: POLYETHYLENE GLYCOL (HEALTHYLAX) 3350 17 GM PACKET PO SCH ×2 (09:33→09:38)
[2022-04-11] MEDS: amLODIPine BESYLATE 10 MG TABLET (FP) PO SCH (09:34)
[2022-04-11] MEDS: PANTOPRAZOLE 20 MG TABLET PO SCH (09:34)
[2022-04-11] MEDS: TAMSULOSIN HCL 0.4 MG CAP PO SCH (09:34)
[2022-04-11] MEDS: NYSTATIN 100,000 UNIT/GM TOPICAL CREAM 15 GM TUBE TP SCH ×2 (09:35→23:01)
[2022-04-11] MEDS: MINERAL OIL/PET HY-PHL TOPICAL OINTMENT 454 GM JAR TP SCH ×2 (09:35→23:00)
[2022-04-11] MEDS: TIOTROPIUM BROMIDE 2.5 MCG (SPIRIVA) RESPIMAT INHALER IH SCH (09:35)
[2022-04-11] MEDS: BUDESONIDE/FORMETEROL FUMARATE 80/4.5 mcg INHALER IH SCH ×2 (09:35→23:01)
[2022-04-11 15:05] VITALS: BMI 27.8
[2022-04-11] MEDS: CEFTRIAXONE 1 GM in DEXTROSE 5%-WATER - 50 ML IVPB SCH (17:34)
[2022-04-11] MEDS: DULoxetine HCL 30 MG CAPSULE.DR PO SCH (23:00)
[2022-04-11] MEDS: GABAPENTIN 100 MG CAPSULE PO PRN (23:06)
[2022-04-12] MEDS: LEVOTHYROXINE NA 50 MCG TABLET (FP) PO SCH (06:02)
[2022-04-12] MEDS: BUDESONIDE/FORMETEROL FUMARATE 80/4.5 mcg INHALER IH SCH ×2 (09:01→21:46)
[2022-04-12] MEDS: amLODIPine BESYLATE 10 MG TABLET (FP) PO SCH (09:01)
[2022-04-12] MEDS: PANTOPRAZOLE 20 MG TABLET PO SCH (09:01)
[2022-04-12] MEDS: TAMSULOSIN HCL 0.4 MG CAP PO SCH (09:01)
[2022-04-12] MEDS: TIOTROPIUM BROMIDE 2.5 MCG (SPIRIVA) RESPIMAT INHALER IH SCH (09:01)
[2022-04-12] MEDS: MINERAL OIL/PET HY-PHL TOPICAL OINTMENT 454 GM JAR TP SCH ×2 (09:02→21:47)
[2022-04-12] MEDS: POLYETHYLENE GLYCOL (HEALTHYLAX) 3350 17 GM PACKET PO SCH (09:02)
[2022-04-12] MEDS: ENOXAPARIN NA (PORCINE) 40 MG/0.4 ML DISP.SYRIN SQ SCH (09:02)
[2022-04-12] MEDS: NYSTATIN 100,000 UNIT/GM TOPICAL CREAM 15 GM TUBE TP SCH ×2 (09:02→21:47)
[2022-04-12 09:10] LABS: BASO % 0.7 % (0-2.0); HEMATOCRIT 38.5 % (32.4-45.2); HEMOGLOBIN 12.5 GM/dL (10.7-15.3); LYMPH % 22.4 % (8-40); MCH 28.1 pg (25.7-33.7); MCHC 32.4 g/dl (32.0-36.0); MEAN CELL VOLUME 86.5 fl (80-96); MEAN PLT VOLUME 7.6 fl (7.5-11.1); MONO % 8.1 % (3.8-10.2); NEUT % 66.8 % (42.8-82.8); PLATELET COUNT 402 10^3/uL (134-434); RBC 4.45 M/mm3 (3.60-5.2); WHITE BLOOD COUNT 7.5 K/mm3 (4.0-10.0)
[2022-04-12 09:42] LABS: ALBUMIN 2.8 g/dl (3.4-5.0); BLOOD UREA NITROGEN 14.8 mg/dL (7-18); CALCIUM 9.2 mg/dL (8.5-10.1)
[2022-04-12 09:45] LABS: CREATININE 0.5 mg/dL (0.55-1.3)
[2022-04-12 09:47] LABS: BILIRUBIN,TOTAL 0.5 mg/dL (0.2-1); TOT PROT 6.2 g/dl (6.4-8.2)
[2022-04-12] MEDS: CEFTRIAXONE 1 GM in DEXTROSE 5%-WATER - 50 ML IVPB SCH (17:49)
[2022-04-12] MEDS: DULoxetine HCL 30 MG CAPSULE.DR PO SCH (21:48)
[2022-04-13] MEDS: LEVOTHYROXINE NA 50 MCG TABLET (FP) PO SCH (06:14)
[2022-04-13 06:27] VITALS: BP 128/74; PULSE 84; RESP 16; TEMP 99.9
[2022-04-13 08:33] LABS: BASO % 0.7 % (0-2.0); HEMATOCRIT 38.3 % (32.4-45.2); HEMOGLOBIN 12.8 GM/dL (10.7-15.3); LYMPH % 22.2 % (8-40); MCH 28.8 pg (25.7-33.7); MCHC 33.5 g/dl (32.0-36.0); MEAN PLT VOLUME 7.1 fl (7.5-11.1); MONO % 7.9 % (3.8-10.2); NEUT % 67.2 % (42.8-82.8); PLATELET COUNT 393 10^3/uL (134-434); RBC 4.45 M/mm3 (3.60-5.2); RDW 15.1 % (11.6-15.6); WHITE BLOOD COUNT 7.6 K/mm3 (4.0-10.0)
[2022-04-13 09:01] LABS: ALBUMIN 2.9 g/dl (3.4-5.0); BLOOD UREA NITROGEN 16.6 mg/dL (7-18)
[2022-04-13 09:04] LABS: CREATININE 0.5 mg/dL (0.55-1.3)
[2022-04-13 09:06] LABS: BILIRUBIN,TOTAL 0.5 mg/dL (0.2-1); TOT PROT 6.4 g/dl (6.4-8.2)
[2022-04-13] MEDS: PANTOPRAZOLE 20 MG TABLET PO SCH (10:12)
[2022-04-13] MEDS: amLODIPine BESYLATE 10 MG TABLET (FP) PO SCH (10:12)
[2022-04-13] MEDS: ENOXAPARIN NA (PORCINE) 40 MG/0.4 ML DISP.SYRIN SQ SCH (10:12)
[2022-04-13] MEDS: TAMSULOSIN HCL 0.4 MG CAP PO SCH (10:12)
[2022-04-13] MEDS: POLYETHYLENE GLYCOL (HEALTHYLAX) 3350 17 GM PACKET PO SCH (10:13)
[2022-04-13] MEDS: TIOTROPIUM BROMIDE 2.5 MCG (SPIRIVA) RESPIMAT INHALER IH SCH (10:16)
[2022-04-13] MEDS: NYSTATIN 100,000 UNIT/GM TOPICAL CREAM 15 GM TUBE TP SCH (10:17)
[2022-04-13] MEDS: BUDESONIDE/FORMETEROL FUMARATE 80/4.5 mcg INHALER IH SCH (10:17)
[2022-04-13] MEDS: MINERAL OIL/PET HY-PHL TOPICAL OINTMENT 454 GM JAR TP SCH (10:19)
== END 2022-04-13 15:02 | disposition home health service (06) | DRG 690 ==
LOC: JER 16:21 → JERBED 04-03 00:02 → J8W 04-03 17:56 → J2C 04-08 14:28 → J7W 04-08 16:52
PROVIDERS: ADMIT Internal Medicine; ATTEND Internal Medicine
PROC: 0T9B8ZZ Drainage of Bladder, Via Natural or Artificial Opening Endoscopic (ICD-10-PCS; principal; 2022-04-08 14:47)
DX: N30.81 Other cystitis with hematuria (principal); G82.20 Paraplegia, unspecified; K58.9 Irritable bowel syndrome, unspecified; R10.9 Unspecified abdominal pain; Z93.3 Colostomy status; I10 Essential (primary) hypertension; J44.9 Chronic obstructive pulmonary disease, unspecified; E03.9 Hypothyroidism, unspecified; K83.8 Other specified diseases of biliary tract; R25.2 Cramp and spasm; G62.9 Polyneuropathy, unspecified; K21.9 Gastro-esophageal reflux disease without esophagitis; K76.0 Fatty (change of) liver, not elsewhere classified
CPT/HCPCS: 0241U-QW; 36415; 73521-TC-FY; 74177-TC; 80048; 80053; 81003; 83605; 83690; 83735; 84100; 85025; 85027; 85610; 85730; 86140; 86850; 86900; 86901; 87040; 87086; 87186; 87324; 87449; 93005; 93010; 94760; 97161-GP; 99291; 99292; Q9967

== ENCOUNTER 2022-08-08 16:33 | Emergency (ER) | payer OTHER ==
[2022-08-08 16:50] VITALS: BMI 28.8
[2022-08-08] MEDS ORDERED: morphine CARPU-JECT 4 MG/1 ML DISP.SYRIN IVPUSH ONE (18:52)
[2022-08-08] MEDS ORDERED: SODIUM CHLORIDE 1,000 ML IV STA (18:52)
[2022-08-08] MEDS ORDERED: morphine SULFATE 4 MG/ML VIAL ONE (19:38)
[2022-08-08 19:52] LABS: BASO % 0.6 % (0-2.0); EOS % 0.8 % (0-4.5); HEMATOCRIT 47.6 % (32.4-45.2); HEMOGLOBIN 15.7 GM/dL (10.7-15.3); LYMPH % 20.2 % (8-40); MCH 28.6 pg (25.7-33.7); MEAN CELL VOLUME 86.8 fl (80-96); MEAN PLT VOLUME 7.7 fl (7.5-11.1); MONO % 7.5 % (3.8-10.2); NEUT % 70.9 % (42.8-82.8); PLATELET COUNT 506 10^3/uL (134-434); RBC 5.49 M/mm3 (3.60-5.2); RDW 15.5 % (11.6-15.6); WHITE BLOOD COUNT 12.2 K/mm3 (4.0-10.0)
[2022-08-08 20:09] LABS: BLOOD UREA NITROGEN 14.5 mg/dL (7-18); CALCIUM 9.8 mg/dL (8.5-10.1)
[2022-08-08 20:10] LABS: ALBUMIN 3.4 g/dl (3.4-5.0)
[2022-08-08 20:12] LABS: CREATININE 0.7 mg/dL (0.55-1.3)
[2022-08-08 20:14] LABS: BILIRUBIN,TOTAL 0.7 mg/dL (0.2-1); TOT PROT 7.6 g/dl (6.4-8.2)
[2022-08-08 22:42] LABS: EPI CELLS >36 /uL (0-25.1); HYALINE CASTS 1 /uL (0-3.1); PH,URINE 5.5 (5.0-8.0); URINE APPEARANCE CLOUDY; URINE BACTERIA 5367 /uL (0-1359); URINE BILIRUBIN NEGATIVE (NEGATIVE); URINE COLOR YELLOW; URINE GLUCOSE (UA) NEGATIVE (NEGATIVE); URINE KETONE TRACE (NEGATIVE); URINE LEUK ESTERASE 2+ (NEGATIVE); URINE NITRITE NEGATIVE (NEGATIVE); URINE PROTEIN TRACE (NEGATIVE); URINE WBC 301 /uL (0-25.8)
[2022-08-08 22:52] LABS: URINE RBC 85.8 /uL (0-23.9)
[2022-08-08 23:27] VITALS: BP 157/88; PULSE 65; RESP 20
[2022-08-09 00:41] LABS: EPI CELLS 6 /uL (0-25.1); HYALINE CASTS 26 /uL (0-3.1); PH,URINE 5.5 (5.0-8.0); URINE APPEARANCE CLOUDY; URINE BACTERIA 1269 /uL (0-1359); URINE BILIRUBIN Negative (NEGATIVE); URINE COLOR Yellow; URINE GLUCOSE (UA) Negative (NEGATIVE); URINE KETONE Negative (NEGATIVE); URINE LEUK ESTERASE Small (NEGATIVE); URINE NITRITE Negative (NEGATIVE); URINE PROTEIN Negative (NEGATIVE); URINE RBC 89 /uL (0-23.9); URINE UROBILINOGEN 0.2 mg/dL (0.2-1.0); URINE WBC 393 /uL (0-25.8)
[2022-08-09 02:13] VITALS: TEMP 98
[2022-08-09 04:38] LABS: URINE CRYSTALS NONE SEEN /hpf
== END 2022-08-09 04:55 | disposition home or self-care (01) ==
LOC: JER 16:33
PROC: 3E033NZ Introduction of Analgesics, Hypnotics, Sedatives into Peripheral Vein, Percutaneous Approach (ICD-10-PCS; principal; 2022-08-08)
PROC: 3E0337Z Introduction of Electrolytic and Water Balance Substance into Peripheral Vein, Percutaneous Approach (ICD-10-PCS; 2022-08-08)
DX: N39.0 Urinary tract infection, site not specified (principal)
CPT/HCPCS: 0241U-QW; 36415; 72070-TC-FY; 72100-TC-FY; 74177-TC; 80053; 81003; 83690; 84484; 85025; 87086; 87186; 93005; 93010; 99285-25; Q9967

== ENCOUNTER 2023-09-14 12:35 | Observation (INO) | payer OTHER ==
[2023-09-14] MEDS ORDERED: ACETAMINOPHEN INJECTION 100 ML IVPB ONE (14:24)
[2023-09-14] MEDS: ACETAMINOPHEN 1000 MG/100 ML BAG IVPB ONE (14:29)
[2023-09-14 14:44] LABS: EOS % 1.7 % (0-4.5); HEMATOCRIT 43.5 % (32.4-45.2); HEMOGLOBIN 14.4 GM/dL (10.7-15.3); LYMPH % 16.3 % (8-40); MCHC 33.1 g/dl (32.0-36.0); MEAN CELL VOLUME 84.7 fl (80-96); MEAN PLT VOLUME 7.5 fl (7.5-11.1); MONO % 7.3 % (3.8-10.2); NEUT % 73.7 % (42.8-82.8); PLATELET COUNT 422 10^3/uL (134-434); RBC 5.14 M/mm3 (3.60-5.2); RDW 15.1 % (11.6-15.6); WHITE BLOOD COUNT 12.2 K/mm3 (4.0-10.0)
[2023-09-14 15:14] LABS: LACTIC ACID 2.3 mmol/L (0.4-2.0)
[2023-09-14 15:29] LABS: POTASSIUM 3.7 mmol/L (3.5-5.1)
[2023-09-14 15:31] LABS: ALBUMIN 2.9 g/dl (3.4-5.0); CALCIUM 8.8 mg/dL (8.5-10.1)
[2023-09-14 15:32] LABS: BLOOD UREA NITROGEN 9.4 mg/dL (7-18); MAGNESIUM 2.1 mg/dL (1.8-2.4)
[2023-09-14 15:34] LABS: CREATININE 0.6 mg/dL (0.55-1.3)
[2023-09-14 15:36] LABS: BILIRUBIN,TOTAL 0.6 mg/dL (0.2-1); TOT PROT 6.8 g/dl (6.4-8.2)
[2023-09-14] MEDS: LACTATED RINGERS SOLUTION 1000 ML INFUS.BAG IV ONE (16:39)
[2023-09-14 17:43] LABS: EPI CELLS 20 /uL (0-25.1); HYALINE CASTS 5 /uL (0-3.1); PH,URINE 5.5 (5.0-8.0); URINE APPEARANCE TURBID; URINE BACTERIA >9,000 /uL (0-1359); URINE BILIRUBIN NEGATIVE (NEGATIVE); URINE COLOR YELLOW; URINE GLUCOSE (UA) NEGATIVE (NEGATIVE); URINE KETONE NEGATIVE (NEGATIVE); URINE LEUK ESTERASE 2+ (NEGATIVE); URINE NITRITE NEGATIVE (NEGATIVE); URINE PROTEIN NEGATIVE (NEGATIVE); URINE UROBILINOGEN 0.2 mg/dL (0.2-1.0); URINE WBC 1640 /uL (0-25.8)
[2023-09-14] MEDS ORDERED: CEFTRIAXONE 1 GM/50 ML BAG ONE (17:53)
[2023-09-14] MEDS: CEFTRIAXONE 1 GM in DEXTROSE 5%-WATER - 100 ML IVPB ONE (17:55)
[2023-09-14 18:07] LABS: URINE RBC 52.9 /uL (0-23.9)
[2023-09-14] MEDS ORDERED: NITROFURANTOIN MACROCRYSTAL 50 MG CAPSULE (FP) ONE (19:33)
[2023-09-14] MEDS: NITROFURANTOIN MONOHYD/M-CRYST 100 MG CAPSULE PO ONE (19:36)
[2023-09-14] MEDS ORDERED: DOCUSATE SODIUM 100 MG CAPSULE (FP) PO PRN (21:28)
[2023-09-14] MEDS: SODIUM CHLORIDE 1,000 ML IV SCH (22:00)
[2023-09-15 07:22] LABS: EOS % 2.8 % (0-4.5); HEMATOCRIT 40.3 % (32.4-45.2); HEMOGLOBIN 13.7 GM/dL (10.7-15.3); LYMPH % 24.1 % (8-40); MCHC 33.9 g/dl (32.0-36.0); MEAN CELL VOLUME 85.6 fl (80-96); MEAN PLT VOLUME 7.5 fl (7.5-11.1); MONO % 7.9 % (3.8-10.2); NEUT % 64.2 % (42.8-82.8); PLATELET COUNT 380 10^3/uL (134-434); RBC 4.71 M/mm3 (3.60-5.2); RDW 15.3 % (11.6-15.6); WHITE BLOOD COUNT 8.7 K/mm3 (4.0-10.0)
[2023-09-15 07:41] LABS: POTASSIUM 3.6 mmol/L (3.5-5.1)
[2023-09-15 07:44] LABS: CALCIUM 8.6 mg/dL (8.5-10.1)
[2023-09-15 07:45] LABS: BLOOD UREA NITROGEN 7.6 mg/dL (7-18)
[2023-09-15 07:48] LABS: CREATININE 0.5 mg/dL (0.55-1.3)
[2023-09-15] MEDS ORDERED: CEFTRIAXONE 1 GM/50 ML BAG ONE (10:26)
[2023-09-15] MEDS: CEFTRIAXONE 1 GM in DEXTROSE 5%-WATER - 50 ML IVPB SCH (10:43)
[2023-09-15] MEDS: ACETAMINOPHEN 1000 MG/100 ML BAG IVPB PRN (14:28)
[2023-09-15 15:53] VITALS: BMI 30.9
[2023-09-15] MEDS: DULoxetine HCL 30 MG CAPSULE.DR PO SCH (21:13)
[2023-09-16] MEDS: LEVOTHYROXINE NA 50 MCG TABLET (FP) PO SCH (06:02)
[2023-09-16] MEDS: FLUTICASONE/SALMETEROL (WIXELA) 100 MCG/50 MCG DISKUS IH SCH (10:14)
[2023-09-16] MEDS: amLODIPine BESYLATE 10 MG TABLET (FP) PO SCH (10:15)
[2023-09-16] MEDS: VANCOMYCIN/WATER FOR INJ (PEG) 1,000 MG/200 ML BAG IVPB SCH (17:21)
[2023-09-16] MEDS: ACETAMINOPHEN 325 MG TABLET (FP) PO PRN (23:24)
[2023-09-18] MEDS ORDERED: ALBUTEROL SO4 HFA INHALER IH PRN (11:58)
[2023-09-18] MEDS: GABAPENTIN 300 MG CAPSULE PO SCH (12:38)
[2023-09-19 22:16] VITALS: RESP 18
[2023-09-20 14:39] VITALS: BP 131/72; PULSE 83; TEMP 98.9
== END 2023-09-20 14:30 | disposition home or self-care (01) ==
LOC: JER 12:35 → JERBED 18:45 → J5S 09-15 15:33
PROVIDERS: ADMIT Internal Medicine; ATTEND Family Medicine
PROC: 3E033NZ Introduction of Analgesics, Hypnotics, Sedatives into Peripheral Vein, Percutaneous Approach (ICD-10-PCS; principal; 2023-09-14)
PROC: 3E03329 Introduction of Other Anti-infective into Peripheral Vein, Percutaneous Approach (ICD-10-PCS; 2023-09-14)
PROC: 3E03329 Introduction of Other Anti-infective into Peripheral Vein, Percutaneous Approach (ICD-10-PCS; 2023-09-14)
PROC: 3E0337Z Introduction of Electrolytic and Water Balance Substance into Peripheral Vein, Percutaneous Approach (ICD-10-PCS; 2023-09-14)
DX: N39.0 Urinary tract infection, site not specified (principal); J44.9 Chronic obstructive pulmonary disease, unspecified; K56.609 Unspecified intestinal obstruction, unspecified as to partial versus complete obstruction; E11.9 Type 2 diabetes mellitus without complications; Z93.3 Colostomy status; G82.20 Paraplegia, unspecified; R10.9 Unspecified abdominal pain; I10 Essential (primary) hypertension; F41.9 Anxiety disorder, unspecified; M62.81 Muscle weakness (generalized); E03.9 Hypothyroidism, unspecified; R19.7 Diarrhea, unspecified; E78.5 Hyperlipidemia, unspecified; Z87.891 Personal history of nicotine dependence; G45.9 Transient cerebral ischemic attack, unspecified; Z85.3 Personal history of malignant neoplasm of breast; K57.90 Diverticulosis of intestine, part unspecified, without perforation or abscess without bleeding; I49.9 Cardiac arrhythmia, unspecified; Z90.49 Acquired absence of other specified parts of digestive tract; Z87.738 Personal history of other specified (corrected) congenital malformations of digestive system; Z88.0 Allergy status to penicillin; Z88.8 Allergy status to other drugs, medicaments and biological substances; Z91.018 Allergy to other foods
CPT/HCPCS: 36415; 71045-TC-FY; 74176-TC; 80048; 80053; 81003; 83605; 83690; 83735; 84484; 85025; 87086; 87186; 87324; 87449; 87491; 87591; 93005; 93010; 93306-TC; 96361; 96365; 96366; 96367; 96375; 96376; 99285-25; G0378; J0131

== ENCOUNTER 2023-11-25 16:21 | Emergency (ER) | payer OTHER ==
[2023-11-25 16:54] VITALS: BMI 30.9
[2023-11-25 17:57] LABS: BASO % 1.3 % (0-2.0); EOS % 1.8 % (0-4.5); HEMOGLOBIN 15.5 GM/dL (10.7-15.3); LYMPH % 23.1 % (8-40); MCHC 32.9 g/dl (32.0-36.0); MEAN CELL VOLUME 84.9 fl (80-96); MEAN PLT VOLUME 7.5 fl (7.5-11.1); MONO % 8.7 % (3.8-10.2); NEUT % 65.1 % (42.8-82.8); PLATELET COUNT 479 10^3/uL (134-434); RBC 5.54 M/mm3 (3.60-5.2); RDW 15.8 % (11.6-15.6); WHITE BLOOD COUNT 9.2 K/mm3 (4.0-10.0)
[2023-11-25 18:17] LABS: BLOOD UREA NITROGEN 15.2 mg/dL (7-18); CALCIUM 9.3 mg/dL (8.5-10.1)
[2023-11-25 18:18] LABS: ALBUMIN 3.3 g/dl (3.4-5.0)
[2023-11-25 18:20] LABS: CREATININE 0.7 mg/dL (0.55-1.3)
[2023-11-25 18:22] LABS: BILIRUBIN,TOTAL 0.8 mg/dL (0.2-1); TOT PROT 7.6 g/dl (6.4-8.2)
[2023-11-25] MEDS ORDERED: DALBAVANCIN HCL 500 MG VIAL (RESTRICTED TO ID ONLY) IVPB ONE ×2 (18:28→18:31)
[2023-11-25] MEDS: DALBAVANCIN HCL 1,500 MG in DEXTROSE 5%-WATER - 500 ML IVPB ONE (18:52)
[2023-11-26 00:51] VITALS: RESP 16
[2023-11-26 03:33] VITALS: BP 129/72; PULSE 81; TEMP 97.9
== END 2023-11-26 03:52 | disposition home or self-care (01) ==
LOC: JER 16:21
DX: L03.032 Cellulitis of left toe (principal)
CPT/HCPCS: 36415; 73630-TC-LT; 80053; 85025; 96365; 99284-25; J0875

== ENCOUNTER 2023-11-29 17:49 | Inpatient (IN) | payer OTHER ==
[2023-11-29 18:18] VITALS: BMI 30.9
[2023-11-29 18:39] LABS: EOS % 1.6 % (0-4.5); HEMATOCRIT 42.8 % (32.4-45.2); HEMOGLOBIN 14.2 GM/dL (10.7-15.3); LYMPH % 21.8 % (8-40); MCH 27.9 pg (25.7-33.7); MCHC 33.1 g/dl (32.0-36.0); MEAN CELL VOLUME 84.2 fl (80-96); MEAN PLT VOLUME 7.2 fl (7.5-11.1); MONO % 7.6 % (3.8-10.2); PLATELET COUNT 432 10^3/uL (134-434); RBC 5.08 M/mm3 (3.60-5.2); RDW 15.2 % (11.6-15.6); WHITE BLOOD COUNT 10.6 K/mm3 (4.0-10.0)
[2023-11-29] MEDS ORDERED: ACETAMINOPHEN INJECTION 100 ML IVPB ONE (18:53)
[2023-11-29 18:58] LABS: POTASSIUM 3.7 mmol/L (3.5-5.1)
[2023-11-29 19:00] LABS: CALCIUM 9.3 mg/dL (8.5-10.1)
[2023-11-29] MEDS: ACETAMINOPHEN 1000 MG/100 ML BAG IVPB ONE (19:00)
[2023-11-29 19:01] LABS: ALBUMIN 3.2 g/dl (3.4-5.0); BLOOD UREA NITROGEN 10.5 mg/dL (7-18)
[2023-11-29 19:04] LABS: CREATININE 0.6 mg/dL (0.55-1.3)
[2023-11-29 19:05] LABS: TOT PROT 6.9 g/dl (6.4-8.2)
[2023-11-29 19:06] LABS: BILIRUBIN,TOTAL 0.7 mg/dL (0.2-1)
[2023-11-29 19:07] LABS: INR 0.99 (0.83-1.09); PROTHROMBIN TIME (PATIENT) 11.2 SEC (9.7-13.0)
[2023-11-29 19:09] LABS: ACTIVATED PTT 34.5 SECONDS (25.2-36.5)
[2023-11-29] MEDS ORDERED: CEFEPIME 1 GM/100 ML BAG IVPB ONE (20:42)
[2023-11-29] MEDS: CEFEPIME HCL 1 GM VIAL (RESTRICTED TO ID) IVPB ONE (20:50)
[2023-11-30] MEDS: ACETAMINOPHEN 1000 MG/100 ML BAG IVPB PRN (01:09)
[2023-11-30 07:57] LABS: BASO % 0.8 % (0-2.0); EOS % 3.4 % (0-4.5); HEMATOCRIT 42.2 % (32.4-45.2); HEMOGLOBIN 13.9 GM/dL (10.7-15.3); LYMPH % 34.8 % (8-40); MCH 27.7 pg (25.7-33.7); MCHC 32.9 g/dl (32.0-36.0); MEAN CELL VOLUME 84.2 fl (80-96); MEAN PLT VOLUME 7.7 fl (7.5-11.1); MONO % 9.2 % (3.8-10.2); NEUT % 51.8 % (42.8-82.8); PLATELET COUNT 397 10^3/uL (134-434); RBC 5.02 M/mm3 (3.60-5.2); RDW 15.3 % (11.6-15.6); WHITE BLOOD COUNT 6.6 K/mm3 (4.0-10.0)
[2023-11-30 09:43] LABS: BLOOD UREA NITROGEN 10.2 mg/dL (7-18); CALCIUM 8.9 mg/dL (8.5-10.1); CREATININE 0.6 mg/dL (0.55-1.3); POTASSIUM 3.6 mmol/L (3.5-5.1)
[2023-11-30] MEDS ORDERED: CEFEPIME HCL 1 GM VIAL (RESTRICTED TO ID) IVPB SCH (10:00)
[2023-11-30] MEDS ORDERED: ALBUTEROL SO4 HFA INHALER IH PRN (10:05)
[2023-11-30] MEDS: amLODIPine BESYLATE 10 MG TABLET (FP) PO SCH (11:45)
[2023-11-30] MEDS: FLUTICASONE/SALMETEROL (WIXELA) 100 MCG/50 MCG DISKUS IH SCH (11:45)
[2023-11-30] MEDS: VANCOMYCIN/WATER FOR INJ (PEG) 1,000 MG/200 ML BAG IVPB SCH (11:46)
[2023-11-30] MEDS: LEVOTHYROXINE NA 50 MCG TABLET (FP) PO SCH (11:49)
[2023-11-30] MEDS: CEFEPIME 2 GM in DEXTROSE 5%-WATER 100 ML IVPB SCH (11:51)
[2023-11-30] MEDS: ALPRAZolam 0.25 MG TABLET PO SCH (15:06)
[2023-11-30] MEDS: CEFEPIME 1 GM in DEXTROSE 5%-WATER 100 ML IVPB SCH (19:19)
[2023-11-30] MEDS: HEPARIN NA (PORCINE) 5,000 UNITS/ML 1ML VIAL SQ SCH (22:07)
[2023-11-30] MEDS: DULoxetine HCL 30 MG CAPSULE.DR PO SCH (22:08)
[2023-12-01] MEDS: SOLIFENACIN SUCCINATE 5 MG TAB PO SCH (19:28)
[2023-12-02] MEDS: ACETAMINOPHEN 1000 MG/100 ML BAG IVPB ONE (12:30)
[2023-12-03 08:36] LABS: POTASSIUM 3.9 mmol/L (3.5-5.1)
[2023-12-03 08:42] LABS: ALBUMIN 2.9 g/dl (3.4-5.0); BLOOD UREA NITROGEN 17.2 mg/dL (7-18); CALCIUM 8.8 mg/dL (8.5-10.1)
[2023-12-03 08:44] LABS: HEMATOCRIT 40.4 % (32.4-45.2); HEMOGLOBIN 13.2 GM/dL (10.7-15.3); MCHC 32.6 g/dl (32.0-36.0); MEAN CELL VOLUME 85.9 fl (80-96); MEAN PLT VOLUME 7.7 fl (7.5-11.1); PLATELET COUNT 387 10^3/uL (134-434); RDW 15.5 % (11.6-15.6)
[2023-12-03 08:45] LABS: CREATININE 0.7 mg/dL (0.55-1.3)
[2023-12-03 08:47] LABS: BILIRUBIN,TOTAL 0.7 mg/dL (0.2-1); TOT PROT 6.4 g/dl (6.4-8.2)
[2023-12-04] MEDS: GABAPENTIN 300 MG CAPSULE PO PRN (21:22)
[2023-12-05 08:42] LABS: INR 0.99 (0.83-1.09); PROTHROMBIN TIME (PATIENT) 11.4 SEC (9.7-13.0)
[2023-12-06] MEDS: DEXAMETHASONE SOD PHOSPHATE 4 MG/1 ML VIAL IM ONE
[2023-12-06] MEDS ORDERED: LIDOCAINE HCL 1%, 10 MG/ML (20ML VIAL) ONE (07:49)
[2023-12-06] MEDS ORDERED: DEXAMETHASONE SOD PHOSPHATE 4 MG/1 ML VIAL ONE ×2 (07:49→09:00)
[2023-12-06] MEDS ORDERED: BUPIVACAINE HCL/PF 0.5% (5MG/ML) 10 ML VIAL ONE (07:50)
[2023-12-06] MEDS ORDERED: ONDANSETRON 4 MG/2 ML VIAL IVPUSH PRN ×2 (08:57→10:33)
[2023-12-06] MEDS ORDERED: MIDAZOLAM HCL 2 MG/2 ML SINGLE DOSE VIAL ONE (09:00)
[2023-12-06] MEDS ORDERED: FENTANYL CITRATE/PF 50 MCG/ML VIAL ONE ×4 (09:00→10:27)
[2023-12-06] MEDS ORDERED: VANCOMYCIN 1,000 MG VIAL (RESTRICTED TO ID ONLY) ONE ×2 (09:13→09:31)
[2023-12-06] MEDS: VANCOMYCIN 1,000 MG VIAL (RESTRICTED TO ID ONLY) IVPB ONE (09:17)
[2023-12-06] MEDS ORDERED: PROPOFOL 20 ML ONE (09:21)
[2023-12-06] MEDS: LIDOCAINE HCL 1%, 10 MG/ML (20ML VIAL) INF ONE ×2 (09:24)
[2023-12-06] MEDS: BUPIVACAINE HCL/PF 0.5% (5MG/ML) 10 ML VIAL IJ ONE ×2 (09:24)
[2023-12-06] MEDS ORDERED: GENTAMICIN SO4 80 MG/2 ML VIAL ONE (09:31)
[2023-12-06] MEDS: GENTAMICIN SO4 80 MG/2 ML VIAL IVPB ONE ×2 (09:51)
[2023-12-06] MEDS ORDERED: ALBUTEROL SO4 HFA INHALER IH PRN (10:33)
[2023-12-06] MEDS: LACTATED RINGERS SOLUTION 1,000 ML IV SCH ×2 (10:52→12:59)
[2023-12-06] MEDS ORDERED: ACETAMINOPHEN 1000 MG/100 ML BAG IVPB PRN (11:48)
[2023-12-06] MEDS: DULoxetine HCL 30 MG CAPSULE.DR PO SCH (21:38)
[2023-12-06] MEDS: GABAPENTIN 300 MG CAPSULE PO PRN (21:39)
[2023-12-07] MEDS: LEVOTHYROXINE NA 50 MCG TABLET (FP) PO SCH (06:40)
[2023-12-07 08:04] LABS: HEMATOCRIT 37.3 % (32.4-45.2); MCH 27.5 pg (25.7-33.7); MCHC 32.3 g/dl (32.0-36.0); MEAN CELL VOLUME 85.2 fl (80-96); MEAN PLT VOLUME 7.6 fl (7.5-11.1); PLATELET COUNT 358 10^3/uL (134-434); RBC 4.38 M/mm3 (3.60-5.2); RDW 15.6 % (11.6-15.6); WHITE BLOOD COUNT 14.8 K/mm3 (4.0-10.0)
[2023-12-07 08:12] LABS: POTASSIUM 4.5 mmol/L (3.5-5.1)
[2023-12-07 08:17] LABS: BLOOD UREA NITROGEN 14.3 mg/dL (7-18); CALCIUM 9.1 mg/dL (8.5-10.1)
[2023-12-07 08:18] LABS: ALBUMIN 2.7 g/dl (3.4-5.0)
[2023-12-07 08:20] LABS: CREATININE 0.6 mg/dL (0.55-1.3)
[2023-12-07 08:21] LABS: BILIRUBIN,TOTAL 0.5 mg/dL (0.2-1)
[2023-12-07] MEDS: FLUTICASONE/SALMETEROL (WIXELA) 100 MCG/50 MCG DISKUS IH SCH (11:03)
[2023-12-07] MEDS: amLODIPine BESYLATE 10 MG TABLET (FP) PO SCH (11:04)
[2023-12-07] MEDS: SOLIFENACIN SUCCINATE 5 MG TAB PO SCH (11:04)
[2023-12-08] MEDS: ACETAMINOPHEN 325 MG TABLET (FP) PO PRN (11:50)
[2023-12-10 08:06] LABS: HEMATOCRIT 38.6 % (32.4-45.2); HEMOGLOBIN 13.1 GM/dL (10.7-15.3); MCHC 33.9 g/dl (32.0-36.0); MEAN CELL VOLUME 85.5 fl (80-96); MEAN PLT VOLUME 7.3 fl (7.5-11.1); PLATELET COUNT 372 10^3/uL (134-434); RBC 4.52 M/mm3 (3.60-5.2); RDW 16.1 % (11.6-15.6); WHITE BLOOD COUNT 9.5 K/mm3 (4.0-10.0)
[2023-12-10 08:15] LABS: POTASSIUM 3.7 mmol/L (3.5-5.1)
[2023-12-10 08:18] LABS: ALBUMIN 2.8 g/dl (3.4-5.0); CALCIUM 8.8 mg/dL (8.5-10.1)
[2023-12-10 08:19] LABS: BLOOD UREA NITROGEN 19.6 mg/dL (7-18)
[2023-12-10 08:23] LABS: BILIRUBIN,TOTAL 0.6 mg/dL (0.2-1); CREATININE 0.7 mg/dL (0.55-1.3); TOT PROT 6.3 g/dl (6.4-8.2)
[2023-12-10 09:07] LABS: ERYTHROCYTE SEDIMENTATION RATE 30 mm/hr (0-30)
[2023-12-11] MEDS: FLUTICASONE PROP 0.05% 16 GM NASAL SPRAY NS SCH (18:26)
[2023-12-12 22:22] VITALS: PULSE 89; RESP 18
[2023-12-12] MEDS: ONDANSETRON 4 MG/2 ML VIAL IVPUSH ONE (23:07)
[2023-12-13 09:21] VITALS: BP 122/75; TEMP 97.8
== END 2023-12-13 10:38 | disposition home health service (06) | DRG 580 ==
LOC: JER 17:49 → JERBED 20:21 → J7W 22:52
PROVIDERS: ADMIT Internal Medicine; ATTEND Family Medicine
PROC: 0HBRXZX Excision of Toe Nail, External Approach, Diagnostic (ICD-10-PCS; 2023-11-30)
PROC: 0QBR0ZZ Excision of Left Toe Phalanx, Open Approach (ICD-10-PCS; 2023-12-06)
PROC: 0QBR0ZX Excision of Left Toe Phalanx, Open Approach, Diagnostic (ICD-10-PCS; principal; 2023-12-06 10:00)
DX: L03.032 Cellulitis of left toe (principal); G82.20 Paraplegia, unspecified; D49.2 Neoplasm of unspecified behavior of bone, soft tissue, and skin; M89.9 Disorder of bone, unspecified; I10 Essential (primary) hypertension; L60.1 Onycholysis; E11.65 Type 2 diabetes mellitus with hyperglycemia; E03.9 Hypothyroidism, unspecified; F32.A Depression, unspecified; K21.9 Gastro-esophageal reflux disease without esophagitis
CPT/HCPCS: 36415; 73630-TC-LT; 73660-TC-LT-FY; 73718-TC-LT; 80048; 80053; 83036; 84439; 84443; 85025; 85027; 85610; 85651; 85730; 86140; 86850; 86900; 86901; 87040; 87070; 87075; 87205; 88304-TC; 88305-TC; 88311-TC; 93005; 93010; 93926-TC; 94760; 99285-25; J0131; J1644

== ENCOUNTER 2023-12-29 11:44 | Emergency (ER) | payer OTHER ==
[2023-12-29 11:58] VITALS: BP 122/72; PULSE 100; RESP 20; BMI 30.9
[2023-12-29] MEDS ORDERED: DALBAVANCIN HCL 500 MG VIAL (RESTRICTED TO ID ONLY) IVPB ONE (13:13)
[2023-12-29] MEDS: DALBAVANCIN HCL 1,500 MG in DEXTROSE 5%-WATER - 500 ML IVPB ONE (13:44)
[2023-12-29 14:37] VITALS: TEMP 98.7
== END 2023-12-29 14:47 | disposition home or self-care (01) ==
LOC: JER 11:44
DX: L08.9 Local infection of the skin and subcutaneous tissue, unspecified (principal)
CPT/HCPCS: 96365; 99284-25; J0875

== ENCOUNTER 2024-01-19 13:01 | Emergency (ER) | payer OTHER ==
[2024-01-19 13:11] VITALS: BMI 30.9
[2024-01-19] MEDS ORDERED: DALBAVANCIN HCL 500 MG VIAL (RESTRICTED TO ID ONLY) IVPB ONE (14:41)
[2024-01-19] MEDS ORDERED: ONDANSETRON 4 MG/2 ML VIAL ONE (14:41)
[2024-01-19 15:40] VITALS: BP 135/97; PULSE 87; RESP 19; TEMP 97.5
[2024-01-19] MEDS: ONDANSETRON 4 MG/2 ML VIAL IVPUSH ONE (16:46)
[2024-01-19 16:50] LABS: BASO % 1.2 % (0-2.0); EOS % 1.1 % (0-4.5); HEMATOCRIT 45.8 % (32.4-45.2); HEMOGLOBIN 15.1 GM/dL (10.7-15.3); MCH 27.5 pg (25.7-33.7); MEAN CELL VOLUME 83.4 fl (80-96); MONO % 6.2 % (3.8-10.2); NEUT % 74.5 % (42.8-82.8); PLATELET COUNT 449 10^3/uL (134-434); RBC 5.49 M/mm3 (3.60-5.2); WHITE BLOOD COUNT 11.5 K/mm3 (4.0-10.0)
[2024-01-19 17:11] LABS: POTASSIUM 3.7 mmol/L (3.5-5.1)
[2024-01-19] MEDS: DALBAVANCIN HCL 1,500 MG in DEXTROSE 5%-WATER - 500 ML IVPB ONE (17:12)
[2024-01-19 17:15] LABS: CALCIUM 8.6 mg/dL (8.5-10.1)
[2024-01-19 17:16] LABS: ALBUMIN 3.1 g/dl (3.4-5.0)
[2024-01-19 17:18] LABS: CREATININE 0.7 mg/dL (0.55-1.3)
[2024-01-19 17:21] LABS: BILIRUBIN,TOTAL 0.8 mg/dL (0.2-1)
== END 2024-01-19 18:21 | disposition home or self-care (01) ==
LOC: JER 13:01
PROC: 3E03329 Introduction of Other Anti-infective into Peripheral Vein, Percutaneous Approach (ICD-10-PCS; principal; 2024-01-19)
PROC: 3E033GC Introduction of Other Therapeutic Substance into Peripheral Vein, Percutaneous Approach (ICD-10-PCS; 2024-01-19)
DX: M86.172 Other acute osteomyelitis, left ankle and foot (principal); R32 Unspecified urinary incontinence
CPT/HCPCS: 36415; 80053; 85025; 96365; 96375; 99284-25; G0463-25; J0875

== ENCOUNTER 2024-10-25 12:44 | Day surgery (SDC) | payer OTHER ==
[2024-10-25] MEDS: DALBAVANCIN HCL 1,500 MG in DEXTROSE 5%-WATER - 500 ML IVPB ONE (13:57)
[2024-10-25 17:41] VITALS: BP 115/76; PULSE 76; RESP 16; TEMP 98
== END 2024-10-25 17:42 | disposition home or self-care (01) ==
LOC: FINFUSION 12:44 → FM/S 12:45 → FINFUSION 17:42
PROVIDERS: ATTEND Internal Medicine Infectious Disease
DX: M86.9 Osteomyelitis, unspecified (principal)
CPT/HCPCS: 96365; J0875

== ENCOUNTER 2024-11-20 15:54 | Observation (INO) | payer OTHER ==
[2024-11-20 18:59] LABS: ABSOLUTE IMMATURE GRANULOCYTES 0.02 x10^3/uL (0.0-0.031); BASOPHILS # 0.09 x10^3/uL (0.01-0.08); EOSINOPHILS # 0.19 x10^3/uL (0.04-0.36); HEMATOCRIT 47.3 % (34.1-44.9); HEMOGLOBIN 14.9 g/dL (11.2-15.7); MCHC 31.5 g/dl (32.2-35.5); MEAN CELL VOLUME 87.3 fl (79.4-94.8); MEAN PLT VOLUME 8.9 fl (9.4-12.3); MONOCYTE # 0.74 x10^3/uL (0.24-0.86); MONOCYTE % 7.7 % (4.7-12.5); PLATELET COUNT 431 x10^3/uL (182-369); RDW 15.4 % (12.4-16.6)
[2024-11-20] MEDS ORDERED: ACETAMINOPHEN INJECTION 100 ML ONE (19:02)
[2024-11-20 19:07] LABS: INR 1.05 (0.83-1.09); PROTHROMBIN TIME (PATIENT) 11.4 SEC (9.7-13.0)
[2024-11-20 19:09] LABS: ACTIVATED PTT 33.2 SECONDS (25.2-36.5)
[2024-11-20] MEDS: ACETAMINOPHEN 1000 MG/100 ML BAG IVPB ONE (19:11)
[2024-11-20 19:19] LABS: POTASSIUM 3.7 mmol/L (3.5-5.1)
[2024-11-20 19:21] LABS: CALCIUM 9.5 mg/dL (8.5-10.1)
[2024-11-20 19:22] LABS: ALBUMIN 3.2 g/dl (3.4-5.0); BLOOD UREA NITROGEN 13.8 mg/dL (7-18); MAGNESIUM 2.1 mg/dL (1.8-2.4)
[2024-11-20 19:25] LABS: CREATININE 0.7 mg/dL (0.55-1.3)
[2024-11-20 19:26] LABS: BILIRUBIN,TOTAL 0.8 mg/dL (0.2-1)
[2024-11-20 19:27] LABS: TOT PROT 7.2 g/dl (6.4-8.2)
[2024-11-20] MEDS ORDERED: LIDOCAINE HCL 2% JELLY 11 ML TP ONE (21:17)
[2024-11-20] MEDS ORDERED: MORPHINE SULFATE 2 MG/ML SYRINGE ONE (21:17)
[2024-11-20] MEDS: morphine CARPU-JECT 2 MG/1 ML DISP.SYRIN IVPUSH ONE (21:39)
[2024-11-20] MEDS: LIDOCAINE VISCOUS 2% ORAL/TOP 100 ML BOTTLE MM ONE (21:39)
[2024-11-20 21:51] LABS: EPI CELLS 15 /uL (0-25.1); HYALINE CASTS 1 /uL (0-3.1); PH,URINE 5.5 (5.0-8.0); URINE APPEARANCE CLEAR; URINE BACTERIA 458 /uL (0-1359); URINE BILIRUBIN NEGATIVE (NEGATIVE); URINE COLOR YELLOW; URINE GLUCOSE (UA) NEGATIVE (NEGATIVE); URINE KETONE TRACE (NEGATIVE); URINE LEUK ESTERASE NEGATIVE (NEGATIVE); URINE NITRITE NEGATIVE (NEGATIVE); URINE PROTEIN NEGATIVE (NEGATIVE); URINE RBC 50 /uL (0-23.9); URINE UROBILINOGEN 0.2 mg/dL (0.2-1.0)
[2024-11-21] MEDS ORDERED: GABAPENTIN 100 MG CAPSULE PO PRN ×2 (02:07→07:05)
[2024-11-21] MEDS ORDERED: ALBUTEROL SO4 0.083% IH SOL 2.5 MG/3 ML VIAL.NEB. NEB PRN (02:15)
[2024-11-21 02:55] VITALS: BMI 29.7
[2024-11-21] MEDS: LORATADINE 10 MG TABLET PO SCH (03:21)
[2024-11-21] MEDS: DULoxetine HCL 30 MG CAPSULE.DR PO SCH (03:21)
[2024-11-21] MEDS: SODIUM CHLORIDE 0.45%/POT 20 MEQ/1,000 ML INFUS.BAG IV SCH (03:23)
[2024-11-21] MEDS: PANTOPRAZOLE 40 MG TABLET PO SCH (06:08)
[2024-11-21] MEDS: LEVOTHYROXINE NA 50 MCG TABLET (FP) PO SCH (06:08)
[2024-11-21] MEDS: ALBUTEROL SO4 0.083% IH SOL 2.5 MG/3 ML VIAL.NEB. NEB SCH (07:31)
[2024-11-21] MEDS ORDERED: GABAPENTIN 300 MG CAPSULE PO PRN (08:04)
[2024-11-21 08:05] LABS: ABSOLUTE IMMATURE GRANULOCYTES 0.03 x10^3/uL (0.0-0.031); BASOPHILS # 0.09 x10^3/uL (0.01-0.08); EOSINOPHIL % 2.7 % (0.7-5.8); EOSINOPHILS # 0.23 x10^3/uL (0.04-0.36); HEMOGLOBIN 13.7 g/dL (11.2-15.7); MCHC 31.1 g/dl (32.2-35.5); MEAN CELL VOLUME 88.4 fl (79.4-94.8); MEAN PLT VOLUME 9.2 fl (9.4-12.3); MONOCYTE % 10.5 % (4.7-12.5); PLATELET COUNT 415 x10^3/uL (182-369); RDW 15.5 % (12.4-16.6)
[2024-11-21 08:38] LABS: POTASSIUM 3.9 mmol/L (3.5-5.1)
[2024-11-21 08:40] LABS: CALCIUM 8.9 mg/dL (8.5-10.1)
[2024-11-21 08:41] LABS: BLOOD UREA NITROGEN 18.8 mg/dL (7-18)
[2024-11-21 08:44] LABS: CREATININE 0.7 mg/dL (0.55-1.3)
[2024-11-21] MEDS: amLODIPine BESYLATE 10 MG TABLET (FP) PO SCH (10:28)
[2024-11-21] MEDS: TIOTROPIUM BROMIDE 2.5 MCG (SPIRIVA) RESPIMAT INHALER IH SCH (10:28)
[2024-11-21] MEDS: CEFTRIAXONE 2 GM-D5W BAG 2 GM/50 ML BAG IVPB SCH (13:28)
[2024-11-21] MEDS: ACETAMINOPHEN 1000 MG/100 ML BAG IVPB ONE (18:06)
[2024-11-21] MEDS: DOCUSATE SODIUM 100 MG CAPSULE (FP) PO SCH (21:57)
[2024-11-23] MEDS: POLYETHYLENE GLYCOL (HEALTHYLAX) 3350 17 GM PACKET PO SCH (21:37)
[2024-11-24] MEDS: DOXYCYCLINE HYCLATE 100 MG CAPSULE PO SCH (11:44)
[2024-11-24] MEDS: DOXYCYCLINE HYCLATE 100 MG TABLET PO SCH (17:54)
[2024-11-26] MEDS: LEVOTHYROXINE NA 75 MCG TABLET (FP) PO SCH (06:11)
[2024-11-26 07:23] VITALS: RESP 18
[2024-11-27 09:28] VITALS: BP 124/66; PULSE 87; TEMP 97.7
== END 2024-11-27 11:30 | disposition home health service (06) ==
LOC: JER 15:54 → JERBED 22:35 → J7W 11-21 02:16
PROVIDERS: ADMIT Family Medicine; ATTEND Family Medicine
PROC: 3E033NZ Introduction of Analgesics, Hypnotics, Sedatives into Peripheral Vein, Percutaneous Approach (ICD-10-PCS; principal; 2024-11-20)
PROC: 3E03329 Introduction of Other Anti-infective into Peripheral Vein, Percutaneous Approach (ICD-10-PCS; 2024-11-20)
DX: N20.0 Calculus of kidney (principal); N39.0 Urinary tract infection, site not specified; N89.8 Other specified noninflammatory disorders of vagina; N21.0 Calculus in bladder; R32 Unspecified urinary incontinence; I10 Essential (primary) hypertension; K21.9 Gastro-esophageal reflux disease without esophagitis; Z93.3 Colostomy status; K31.84 Gastroparesis; E11.9 Type 2 diabetes mellitus without complications; E03.9 Hypothyroidism, unspecified; Z90.49 Acquired absence of other specified parts of digestive tract; J44.9 Chronic obstructive pulmonary disease, unspecified; K58.9 Irritable bowel syndrome, unspecified; M86.9 Osteomyelitis, unspecified; K76.0 Fatty (change of) liver, not elsewhere classified; F41.8 Other specified anxiety disorders; Z85.3 Personal history of malignant neoplasm of breast; Z88.0 Allergy status to penicillin
CPT/HCPCS: 36415; 74176-TC; 80048; 80053; 81003; 83735; 84439; 84443; 85025; 85610; 85730; 86850; 86900; 86901; 87070; 87077; 87086; 87186; 87205; 87252; 93005; 93010; 94640; 96365; 96375; 96376; 97162-GP; 99285-25; G0378; J0131; J3480